=== PATIENT | female | born 1950 | race Caucasian/White ===

== ENCOUNTER → 2017-09-06 13:59 | Outpatient (CLI) | payer MEDICARE, BC, SELFPAY ==
--- NOTE | 2017-09-06 14:01 | ONC.NAV ---
Per Jessica in patient accounts, avandeo is a [facility] policy. She stated that the patient's most recent visit with us was paid by [employer], so if we stick with the [employer] in [place], we will get paid.
[2017-09-06 14:38] LABS: Alanine Aminotransferase 24 IU/L (9-52); Albumin 3.9 g/dL (3.5-5.0); Albumin Globulin Ratio 1.3 (1.0-2.8); Alkaline Phosphatase 56 U/L (38-126); Aspartate Aminotransferase 27 IU/L (14-36); BUN Creatinine Ratio 18.3 (6-22); Bilirubin Total 0.7 mg/dL (0.2-1.3); Blood Urea Nitrogen 11 mg/dL (7-17); Calcium 9.2 mg/dL (8.4-10.2); Carbon Dioxide 28 mmol/L (22-32); Chloride 103 mmol/L (98-107); Estimated Glomerular Filt Rate > 60.0 mL/min (>60); Globulin 3.1 g/dL (1.7-4.1); Glucose 94 mg/dL (80-110); HEMOLYSIS < 15 (0-50); Potassium 3.9 mmol/L (3.4-5.1); Sodium 139 mmol/L (137-145)
[2017-09-08 15:47] LABS: Cancer Antigen 27.29 22 U/mL (< 38)
== END ==
PROVIDERS: Family Provider Internal Medicine; PCP Specialist; Visit Provider Internal Medicine Hematology & Oncology
DX: C50.911 Malignant neoplasm of unspecified site of right female breast (principal)
CPT/HCPCS: 36415; 80053; 86300

== ENCOUNTER → 2017-12-22 12:01 | Outpatient (CLI) | payer MEDICARE, BC, SELFPAY ==
[2017-12-22 14:05] LABS: Basophils Percent Auto 0.6 % (0-2); Eosinophils Percent Auto 1.5 % (2-4); Hematocrit 35.1 % (36-46); Hemoglobin 11.6 g/dL (12.0-16.0); Lymphocytes Percent Auto 23.8 % (25-40); Mean Corpuscular Hemoglobin 32.9 PG (26-34); Mean Corpuscular Volume 99.6 fL (80-100); Neutrophils Absolute Auto 2800 /uL (3000-5900); Neutrophils Percent Auto 61.1 % (50-75); Platelet Count 218 X10^3/uL (150-400); Red Blood Cell Count 3.52 X10^6/uL (4.0-5.2); White Blood Cell Count 4.7 X10^3/uL (4.5-11.0)
[2017-12-22 14:37] LABS: Add Manual Diff / Slide Review SLIDE REVIEW
[2017-12-22 14:38] LABS: Anisocytosis 2+
[2017-12-22 14:39] LABS: Poikilocytosis 1+
[2017-12-22 15:00] LABS: Alanine Aminotransferase 34 IU/L (9-52); Albumin 4.2 g/dL (3.5-5.0); Albumin Globulin Ratio 1.5 (1.0-2.8); Alkaline Phosphatase 49 U/L (38-126); Aspartate Aminotransferase 30 IU/L (14-36); BUN Creatinine Ratio 23.3 (6-22); Bilirubin Total 0.5 mg/dL (0.2-1.3); Blood Urea Nitrogen 14 mg/dL (7-17); C-Reactive Protein Quant < 0.5 mg/dL (<1.0); Calcium 9.5 mg/dL (8.4-10.2); Carbon Dioxide 30 mmol/L (22-32); Chloride 101 mmol/L (98-107); Estimated Glomerular Filt Rate > 60.0 mL/min (>60); Globulin 2.8 g/dL (1.7-4.1); Glucose 79 mg/dL (80-110); HEMOLYSIS < 15 (0-50); Potassium 4.4 mmol/L (3.4-5.1); Sodium 141 mmol/L (137-145)
[2017-12-22 15:01] LABS: Erythrocyte Sedimentation Rate 20 MM/HR (0-20)
== END ==
PROVIDERS: Family Provider Internal Medicine; PCP Specialist; Visit Provider Internal Medicine Rheumatology
DX: M34.9 Systemic sclerosis, unspecified (principal); M35.09 Sjogren syndrome with other organ involvement; K21.9 Gastro-esophageal reflux disease without esophagitis; M79.7 Fibromyalgia
CPT/HCPCS: 36415; 80053; 85025; 85651; 86140

== ENCOUNTER → 2018-01-16 15:17 | Outpatient (CLI) | payer MEDICARE, BC, SELFPAY | PROVIDERS: PCP Specialist; Visit Provider Internal Medicine | DX: M85.851 Other specified disorders of bone density and structure, right thigh (principal); Z78.0 Asymptomatic menopausal state; Z85.3 Personal history of malignant neoplasm of breast; Z82.62 Family history of osteoporosis; Z90.722 Acquired absence of ovaries, bilateral | CPT/HCPCS: 77080 ==

== ENCOUNTER → 2018-03-09 12:28 | Outpatient (CLI) | payer MEDICARE, BC, SELFPAY ==
[2018-03-09 13:52] LABS: Add Manual Diff / Slide Review NO; Basophils Percent Auto 0.1 % (0-2); Eosinophils Percent Auto 1.6 % (2-4); Hematocrit 36.8 % (36-46); Hemoglobin 12.4 g/dL (12.0-16.0); Lymphocytes Percent Auto 18.7 % (25-40); Mean Corpuscular HGB Conc 33.7 % (30-36); Mean Corpuscular Hemoglobin 33.7 PG (26-34); Mean Corpuscular Volume 99.9 fL (80-100); Monocytes Percent Auto 11.1 % (3-14); Neutrophils Absolute Auto 5500 /uL (1500-7000); Neutrophils Percent Auto 68.5 % (50-75); Platelet Count 257 X10^3/uL (150-400); Red Blood Cell Count 3.68 X10^6/uL (4.0-5.2); Red Cell Distribution Width 16.3 % (11.6-14.8); White Blood Cell Count 8.1 X10^3/uL (4.5-11.0)
[2018-03-09 14:13] LABS: Erythrocyte Sedimentation Rate 16 MM/HR (0-20)
[2018-03-09 14:47] LABS: Alanine Aminotransferase 46 IU/L (9-52); Albumin 4.3 g/dL (3.5-5.0); Albumin Globulin Ratio 1.5 (1.0-2.8); Alkaline Phosphatase 50 U/L (38-126); Aspartate Aminotransferase 22 IU/L (14-36); Bilirubin Total 0.6 mg/dL (0.2-1.3); Blood Urea Nitrogen 15 mg/dL (7-17); C-Reactive Protein Quant < 0.5 mg/dL (<1.0); Calcium 9.9 mg/dL (8.4-10.2); Carbon Dioxide 28 mmol/L (22-32); Chloride 100 mmol/L (98-107); Estimated Glomerular Filt Rate > 60.0 mL/min (>60); Globulin 2.9 g/dL (1.7-4.1); Glucose 77 mg/dL (80-110); HEMOLYSIS < 15 (0-50); Potassium 4.3 mmol/L (3.4-5.1); Sodium 141 mmol/L (137-145); Total Protein 7.2 g/dL (6.3-8.2)
== END ==
PROVIDERS: PCP Specialist; Visit Provider Internal Medicine Rheumatology
DX: M34.9 Systemic sclerosis, unspecified (principal); M79.7 Fibromyalgia
CPT/HCPCS: 36415; 80053; 80307; 80373; 85025; 85651; 86140

== ENCOUNTER → 2018-03-19 10:58 | Outpatient (CLI) | payer MEDICARE, BC, SELFPAY ==
--- NOTE | 2018-03-19 | DI.MG.S_ITS ---
UNILATERAL LEFT DIGITAL SCREENING MAMMOGRAM 3D/2D WITH CAD POST MASTECTOMY: 03/19/2018 CLINICAL: Routine screening. Personal history of breast cancer. Family history of breast cancer. Comparison is made to exams dated: 04/05/2017 mammogram - [facility], 03/17/2017 mammogram, and 04/27/2016 mammogram - [facility]. The tissue of left breast is heterogeneously dense. This may lower the sensitivity of mammography. Current study was also evaluated with a Computer Aided Detection (CAD) system. No significant masses, calcifications, or other findings are seen in the breast. There has been no significant interval change. IMPRESSION: NEGATIVE There is no mammographic evidence of malignancy. A 1 year screening mammogram is recommended. This exam was interpreted at Station ID: [id number]. NOTE: For mammograms, a report in lay terms will be sent to the patient. Approximately 15% of breast malignancies will not be visualized mammographically. In the management of a palpable breast mass, a negative mammogram must not discourage biopsy of a clinically suspicious lesion. Electronically Signed By: Casa brock/uday:03/29/2018 09:17:55 letter sent: Normal Exam ACR BI-RADS Category 1: Negative 3341F
== END ==
PROVIDERS: PCP Specialist; Referring Provider Internal Medicine; Visit Provider Surgery
DX: Z12.31 Encounter for screening mammogram for malignant neoplasm of breast (principal); Z85.3 Personal history of malignant neoplasm of breast; Z80.3 Family history of malignant neoplasm of breast
CPT/HCPCS: 77063; 77067

== ENCOUNTER → 2018-03-28 11:29 | Outpatient (CLI) | payer MEDICARE, BC, SELFPAY ==
[2018-03-28 12:04] LABS: Add Manual Diff / Slide Review NO; Basophils Absolute Auto 0 /uL (0-100); Basophils Percent Auto 0.7 % (0-2); Eosinophils Absolute Auto 100 /uL (0-450); Eosinophils Percent Auto 2.9 % (2-4); Hemoglobin 12.2 g/dL (12.0-16.0); Lymphocytes Absolute Auto 800 /uL (1100-4500); Lymphocytes Percent Auto 17.9 % (25-40); Mean Corpuscular Hemoglobin 33.9 PG (26-34); Mean Corpuscular Volume 102.5 fL (80-100); Monocytes Absolute Auto 400 /uL (0-900); Monocytes Percent Auto 7.8 % (3-14); Neutrophils Absolute Auto 3300 /uL (1500-7000); Neutrophils Percent Auto 70.7 % (50-75); Platelet Count 165 X10^3/uL (150-400); Red Blood Cell Count 3.61 X10^6/uL (4.0-5.2); Red Cell Distribution Width 17.3 % (11.6-14.8); White Blood Cell Count 4.7 X10^3/uL (4.5-11.0)
[2018-03-28 12:13] LABS: Alanine Aminotransferase 40 IU/L (9-52); Albumin 4.2 g/dL (3.5-5.0); Albumin Globulin Ratio 1.4 (1.0-2.8); Alkaline Phosphatase 47 U/L (38-126); Aspartate Aminotransferase 27 IU/L (14-36); BUN Creatinine Ratio 21.7 (6-22); Bilirubin Total 0.8 mg/dL (0.2-1.3); Blood Urea Nitrogen 13 mg/dL (7-17); Calcium 9.6 mg/dL (8.4-10.2); Carbon Dioxide 27 mmol/L (22-32); Chloride 104 mmol/L (98-107); Estimated Glomerular Filt Rate > 60.0 mL/min (>60); Globulin 3.1 g/dL (1.7-4.1); Glucose 80 mg/dL (80-110); HEMOLYSIS < 15 (0-50); Magnesium 2.1 mg/dL (1.6-2.3); Sodium 138 mmol/L (137-145); Total Protein 7.3 g/dL (6.3-8.2)
[2018-03-28 12:44] LABS: Cancer Antigen 125 12 U/mL (0-35); Carcinoembryonic Antigen 2.7 ng/mL (0.1-3.0)
[2018-03-28 13:48] LABS: Thyroid Stimulating Hormone 1.56 uIU/mL (0.47-4.68)
[2018-03-30 19:56] LABS: Cancer (Carbohydrate) Ag 19-9 19 U/mL (< 34); Cancer Antigen 27.29 22 U/mL (< 38)
== END ==
PROVIDERS: PCP Specialist; Visit Provider Surgery
DX: C50.919 Malignant neoplasm of unspecified site of unspecified female breast (principal); Z85.3 Personal history of malignant neoplasm of breast
CPT/HCPCS: 36415; 80053; 82378; 83735; 84443; 85025; 86300; 86301; 86304; 99213

== ENCOUNTER → 2018-06-22 10:56 | Outpatient (CLI) | payer MEDICARE, BC, SELFPAY ==
[2018-06-22 12:10] LABS: Add Manual Diff / Slide Review NO; Basophils Absolute Auto 0 /uL (0-100); Basophils Percent Auto 0.7 % (0-2); Eosinophils Absolute Auto 100 /uL (0-450); Eosinophils Percent Auto 1.8 % (2-4); Hematocrit 35.3 % (36-46); Hemoglobin 11.9 g/dL (12.0-16.0); Lymphocytes Absolute Auto 1000 /uL (1100-4500); Lymphocytes Percent Auto 30.2 % (25-40); Mean Corpuscular HGB Conc 33.6 % (30-36); Mean Corpuscular Hemoglobin 34.6 PG (26-34); Monocytes Absolute Auto 300 /uL (0-900); Monocytes Percent Auto 10.2 % (3-14); Neutrophils Absolute Auto 1800 /uL (1500-7000); Neutrophils Percent Auto 57.1 % (50-75); Platelet Count 247 X10^3/uL (150-400); Red Blood Cell Count 3.43 X10^6/uL (4.0-5.2); Red Cell Distribution Width 14.6 % (11.6-14.8); White Blood Cell Count 3.2 X10^3/uL (4.5-11.0)
[2018-06-22 12:35] LABS: Erythrocyte Sedimentation Rate 19 MM/HR (0-20)
[2018-06-22 12:57] LABS: Alanine Aminotransferase 33 IU/L (9-52); Albumin 4.3 g/dL (3.5-5.0); Albumin Globulin Ratio 1.6 (1.0-2.8); Alkaline Phosphatase 48 U/L (38-126); Aspartate Aminotransferase 28 IU/L (14-36); BUN Creatinine Ratio 17.1 (6-22); Bilirubin Total 0.5 mg/dL (0.2-1.3); Blood Urea Nitrogen 12 mg/dL (7-17); Calcium 9.9 mg/dL (8.4-10.2); Carbon Dioxide 27 mmol/L (22-32); Chloride 103 mmol/L (98-107); Estimated Glomerular Filt Rate > 60.0 mL/min (>60); Globulin 2.7 g/dL (1.7-4.1); Glucose 79 mg/dL (80-110); HEMOLYSIS < 15 (0-50); Potassium 4.6 mmol/L (3.4-5.1); Sodium 139 mmol/L (137-145)
[2018-06-22 12:58] LABS: C-Reactive Protein Quant < 0.5 mg/dL (<1.0)
== END ==
PROVIDERS: Internal Medicine Rheumatology; Family Provider Internal Medicine; PCP Internal Medicine; Visit Provider Specialist/Technologist Athletic Trainer
DX: M34.9 Systemic sclerosis, unspecified (principal)
CPT/HCPCS: 36415; 80053; 85025; 85651; 86140

== ENCOUNTER → 2018-07-26 11:03 | Outpatient (CLI) | payer MEDICARE, BC, SELFPAY ==
--- NOTE | 2018-07-27 16:25 | PM.PFT.1 ---
Pulmonary Function Test Referral & Results Date Patient Seen: 07/26/18 Requesting provider: Katia Alvarez Results: The spirometry demonstrates an FVC of 2.08 L which is 60% of predicted. The FEV1 was measured at 1.34 L which is 58% of predicted. The FEV1/FVC ratio was 60 for which is 83% of predicted. Following the administration of bronchodilator there was a 13% improvement in FEV1 and a 40% improvement in FEF 25-75%. Lung volumes show an SVC of 2.17 L which is 76% of predicted. The diffusing capacity was measured at 17.6 for which is 76% of predicted. No hemoglobin value was provided, so no correction for potential anemia could be made, if appropriate. The maximum voluntary ventilation was reduced Interpretation: This study demonstrates moderately severe obstructive lung disease based on reduction in FEV1 and FEV1/FVC ratio. There is some evidence of limited benefit following bronchodilator based on improvement in FEV1 and FEF 25-75% There is mild restrictive lung disease present based on a slight reduction in lung volumes There is also mild disease of the capillary alveolar level based on reduction in diffusing capacity
== END ==
PROVIDERS: Family Provider Internal Medicine; PCP Internal Medicine; Visit Provider Internal Medicine Rheumatology
DX: M34.81 Systemic sclerosis with lung involvement (principal)
CPT/HCPCS: 94060; 94726; 94729

== ENCOUNTER → 2018-10-18 13:31 | Outpatient (CLI) | payer MEDICARE, BC, SELFPAY ==
[2018-10-18 14:20] LABS: Add Manual Diff / Slide Review NO; Basophils Absolute Auto 0 /uL (0-100); Basophils Percent Auto 0.8 % (0-2); Eosinophils Absolute Auto 100 /uL (0-450); Eosinophils Percent Auto 2.1 % (2-4); Hemoglobin 11.7 g/dL (12.0-16.0); Lymphocytes Absolute Auto 1400 /uL (1100-4500); Lymphocytes Percent Auto 25.7 % (25-40); Mean Corpuscular HGB Conc 33.3 % (30-36); Mean Corpuscular Hemoglobin 33.5 PG (26-34); Mean Corpuscular Volume 100.5 fL (80-100); Monocytes Absolute Auto 700 /uL (0-900); Monocytes Percent Auto 12.4 % (3-14); Neutrophils Absolute Auto 3200 /uL (1500-7000); Platelet Count 254 X10^3/uL (150-400); Red Blood Cell Count 3.48 X10^6/uL (4.0-5.2); Red Cell Distribution Width 16.8 % (11.6-14.8); White Blood Cell Count 5.5 X10^3/uL (4.5-11.0)
[2018-10-18 14:46] LABS: Alanine Aminotransferase 23 IU/L (9-52); Albumin 4.3 g/dL (3.5-5.0); Albumin Globulin Ratio 1.5 (1.0-2.8); Alkaline Phosphatase 54 U/L (38-126); Aspartate Aminotransferase 27 IU/L (14-36); BUN Creatinine Ratio 16.7 (6-22); Bilirubin Total 0.7 mg/dL (0.2-1.3); Blood Urea Nitrogen 10 mg/dL (7-17); Calcium 9.8 mg/dL (8.4-10.2); Carbon Dioxide 28 mmol/L (22-32); Chloride 103 mmol/L (98-107); Estimated Glomerular Filt Rate > 60.0 mL/min (>60); Globulin 2.8 g/dL (1.7-4.1); Glucose 82 mg/dL (80-110); HEMOLYSIS < 15 (0-50); Potassium 4.1 mmol/L (3.4-5.1); Sodium 140 mmol/L (137-145); Total Protein 7.1 g/dL (6.3-8.2)
== END ==
PROVIDERS: PCP Specialist; Visit Provider Internal Medicine Rheumatology
DX: M34.1 CR(E)ST syndrome (principal); Z79.899 Other long term (current) drug therapy
CPT/HCPCS: 36415; 80053; 85025

== ENCOUNTER 2018-12-17 19:56 | Emergency (ER) | payer MEDICARE, BC, SELFPAY ==
[2018-12-17 19:59] VITALS: BP 128/71; PULSE 54; RESP 18; TEMP 36.4; O2SAT 98
--- NOTE | 2018-12-17 21:00 | ED_ITS ---
HPI - Skin/Abscess/Foreign Bdy General Chief complaint: Skin/Abscess/Foreign Body Stated complaint: FALL HIT HEAD Time Seen by Provider: 12/17/18 20:41 Source: patient Mode of arrival: Ambulatory Limitations: no limitations History of Present Illness HPI narrative: 68-year-old female not on anticoagulation here for evaluation of a cut to the left side of her head. Patient states that she was walking around the back of her car when she hit her leg on the bike rack that was sticking out of the back. States she then hit her head on the buy crack and fell forward. She had no loss of consciousness. Stated cut to the left side of her head. States that she has some abrasions on her left knee but has been able to be ambulatory since then. No other injuries reported from the event. States her last tetanus shot was within the past 5 years Related Data Home Medications Medication Instructions Recorded Confirmed acetaminophen [Tylenol Extra 0 mg PO Q4HP PRN #0 03/22/17 03/28/18 Strength] carboxymethylcellulose sodium 15 ml #0 03/22/17 03/28/18 [Refresh Tears] citalopram [Celexa] 40 mg PO QDAY #0 03/22/17 03/28/18 cyclosporine [Restasis] 1 drp OPHTH #0 03/22/17 03/28/18 diclofenac sodium 100 mg PO QDAYP PRN #0 03/22/17 03/28/18 diltiazem HCl [Cartia XT] 300 mg PO QDAY #0 03/22/17 03/28/18 docusate sodium [Colace] 100 mg PO QDAY #0 03/22/17 03/28/18 doxazosin [Cardura] 1 mg PO HS #0 03/22/17 03/28/18 folic acid 1 mg PO QDAY #0 03/22/17 03/28/18 lidocaine #0 03/22/17 03/28/18 melatonin 5 mg #0 03/22/17 03/28/18 modafinil 200 mg PO QDAY #0 03/22/17 03/28/18 oekuvrwpo-mfewqb-hptzfdrf-scop 1 tab PO #0 03/22/17 03/28/18 polyethylene glycol 3350 [Miralax] 17 gm PO QDAY #0 03/22/17 03/28/18 tramadol 0 mg PO Q4HP PRN #0 MDD P 03/22/17 03/28/18 zolpidem [Edluar] 10 mg SUBLINGUAL HSP PRN #0 03/22/17 03/28/18 [BIOTENE] Q DAY #0 04/20/17 03/28/18 cholecalciferol (vitamin D3) 1,000 unit PO QDAY #0 04/20/17 03/28/18 [Vitamin D3] magnesium oxide 400 mg PO Q DAY #0 04/20/17 03/28/18 multivitamin [Multiple Vitamins] 1 tab PO QDAY #0 04/20/17 03/28/18 omega 6-pjc-czc-fish oil [Fish Oil] 1,000 mg PO Q DAY #0 04/20/17 03/28/18 omeprazole 20 mg PO BID #0 04/20/17 03/28/18 vitamin B complex [B 1 tab PO QDAY #0 04/20/17 03/28/18 Complex-Vitamin B12] methotrexate sodium 2.5 mg tablet 20 mg PO #0 tab 02/14/18 03/28/18 Previous Rx's Medication Instructions Recorded docusate sodium [Colace] 100 mg PO BID #14 cap 05/17/17 Allergies Allergy/AdvReac Type Severity Reaction Status Date / Time doxepin [DOXEPIN] Allergy Mild SEVERE Verified 12/17/18 20:01 NAUSEA gabapentin Allergy Mild Rash Verified 12/17/18 20:01 pregabalin [From LYRICA] Allergy Mild RASH/ITCHIN Verified 12/17/18 20:01 G sulfamethoxazole Allergy Unknown Verified 12/17/18 20:01 [From BACTRIM] trimethoprim [From BACTRIM] Allergy Unknown Verified 12/17/18 20:01 tetracycline [TETRACYCLINE] AdvReac Unknown YEAST Verified 12/17/18 20:01 INFECTION Review of Systems Constitutional Constitutional: Denies fever(s), Denies frequent falls and Denies headache(s) Eyes Eyes: Denies blurry vision and Denies change in vision ENT Ears, Nose, Mouth, and Throat: Denies headache(s) Cardiovascular Cardiovascular: Denies chest pain and Denies dyspnea Respiratory Respiratory: Denies dyspnea Gastrointestinal Gastrointestinal: Denies abdominal pain Musculoskeletal Musculoskeletal: Denies myalgias and Denies arthralgias Integumentary/Breasts Comments: Cut to left side had Neurologic Neurologic: Denies behavioral changes, Denies frequent falls and Denies hea dache(s) Psychiatric Psychiatric: Denies behavioral changes Hematologic/Lymphatic Hematologic/Lymphatic: Denies easy bleeding and Denies easy bruising [facility] Medical History Chronic GERD (Chronic) Fibromyalgia (Chronic) Generalized scleroderma (Chronic) History of malignant neoplasm of breast (03/22/17) IBS (irritable bowel syndrome) (Chronic) Raynauds disease (Chronic) Social History Smoking Status: Never smoker Social History Smoking Status: Never smoker Exam Initial Vital Signs Initial Vital Signs: Vital Signs Temperature 97.6 F 12/17/18 19:59 Pulse Rate 54 L 12/17/18 19:59 Respiratory Rate 18 12/17/18 19:59 Blood Pressure 128/71 12/17/18 19:59 Pulse Oximetry 98 12/17/18 19:59 Const General: cooperative, comfortable, well developed and well groomed Orientation: alert, awake and oriented x3 HENMT Head: abrasion, contusion, laceration and other Resp Effort & Inspection: normal respiratory effort Skin Other: Abrasions to the left side of the head and a 0.5 cm laceration just lateral to the left eyebrow Neuro General: alert, awake and oriented x3 Extrem General: normal to inspection and capillary refill normal Procedures Laceration Repair Laceration 1: Site: face Side (If applicable): left Size (cm): 0.5 Description: linear Depth: simple, single layer Pre-repair: wound explored Skin layer closed with: other (Chromic) Size (cm): 5-0 Number of sutures: 2 Technique: simple, interrupted Scores GCS York coma scale eye opening: Spontaneous York coma scale verbal response: Orientated York coma scale motor response: Obey commands Kayla coma scale total score: 15 Nexus Score for C-Spine Focal Neurologic deficit present: No Midline spinal tenderness present: No Altered level of conciousness present: No Intoxication present: No Distracting Injury Present: No Nexus Criteria for C-spine: 0 Course Orders Ordered: Discontinued Medications Bacitracin (Bacitracin) 1 applic TOP NOW ONE Stop: 12/17/18 21:01 Last Admin: 12/17/18 21:10 Dose: 1 applic Documented by: SHRUTHI Vital Signs Vital signs: Vital Signs - 8 hr 12/17/18 19:59 Temperature 97.6 F Pulse Rate 54 L Respiratory Rate 18 Blood Pressure 128/71 Pulse Oximetry 98 MDM - Skin/Abscess/Foreign Bdy MDM Narrative Medical decision making narrative: This was a mechanical fall. Her tetanus is updated. Cut was closed as described above. No other injuries reported from the event. Patient not on anticoagulation. No indication for radiologic studies. She was given care instructions and return precautions. She expressed understanding and agreement with plan Discharge Plan Departure Patient Disposition: Home Clinical Impression: Laceration Contusion of face Qualifiers: Encounter type: initial encounter Qualified Code(s): S00.83XA - Contusion of other part of head, initial encounter Fall Qualifiers: Encounter type: initial encounter Qualified Code(s): W19.XXXA - Unspecified fall, initial encounter Discharge Date/Time: 12/17/18 21:15 Instructions: DI for Laceration Repair -- Simple Activity Restrictions/Additional Instructions: Keep the cut covered with a bandage. You can shower like normal and use soap and water like normal. you can also ice this area. Contact your primary provider for a follow-up. Return to the emergency department for any new or worsening symptoms Prescriptions: No Action diltiazem HCl [Cartia XT] 300 MG capsule,extended release 24hr 300 mg PO QDAY Qty: 0 RF: 0 zolpidem [Edluar] 10 MG tablet, sublingual 10 mg Sublingual HSP PRN (Reason: Insomnia) Qty: 0 RF: 0 lidocaine LIDOCAINE 5% ointment Qty: 0 RF: 0 tramadol 50 MG tablet 0 mg PO Q4HP MDD P PRN (Reason: Pain (Scale Score 1-3)) Qty: 0 RF: 0 citalopram [Celexa] 20 MG tablet 40 mg PO QDAY Qty: 0 RF: 0 modafinil 200 MG tablet 200 mg PO QDAY Qty: 0 RF: 0 folic acid 1 MG tablet 1 mg PO QDAY Qty: 0 RF: 0 doxazosin [Cardura] 1 MG tablet 1 mg PO HS Qty: 0 RF: 0 diclofenac sodium 100 MG tablet extended release 24 hr 100 mg PO QDAYP PRN (Reason: Inflammation) Qty: 0 RF: 0 vdplmqwiw-kemkmb-xyubbepj-scop 16.2 MG tablet 1 tab PO Qty: 0 RF: 0 acetaminophen [Tylenol Extra Strength] 500 MG tablet 0 mg PO Q4HP PRN (Reason: Pain (Scale Score 1-3)) Qty: 0 RF: 0 docusate sodium [Colace] 100 MG capsule 100 mg PO QDAY Qty: 0 RF: 0 cyclosporine [Restasis] 1 EACH dropperette 1 drp OPHTH Qty: 0 RF: 0 carboxymethylcellulose sodium [Refresh Tears] 15 ML drops 15 ml Qty: 0 RF: 0 polyethylene glycol 3350 [Miralax] 119 GM powder 17 gm PO QDAY Qty: 0 RF: 0 melatonin 5 MG tablet 5 mg Qty: 0 RF: 0 multivitamin [Multiple Vitamins] 1 EACH tablet 1 tab PO QDAY Qty: 0 RF: 0 omeprazole 20 MG capsule,delayed release(DR/EC) 20 mg PO BID Qty: 0 RF: 0 cholecalciferol (vitamin D3) [Vitamin D3] 1,000 UNIT tablet 1,000 unit PO QDAY Qty: 0 RF: 0 vitamin B complex [B Complex-Vitamin B12] 1 EACH tablet 1 tab PO QDAY Qty: 0 RF: 0 omega 1-gjw-nqb-fish oil [Fish Oil] 1,000 MG capsule 1,000 mg PO Q DAY Qty: 0 RF: 0 magnesium oxide 400 MG capsule 400 mg PO Q DAY Qty: 0 RF: 0 [BIOTENE] Q DAY Qty: 0 RF: 0 docusate sodium [Colace] 100 MG capsule 100 mg PO BID Qty: 14 RF: 1 methotrexate sodium 2.5 mg tablet 20 mg PO Qty: 0 RF: 0 Referrals: Sudha Umana MD [Primary Care Provider] -
[2018-12-17] MEDS: BACITRACIN OINT 0.9 GM PCKT 1 APPLIC TOP (21:10)
== END 2018-12-17 21:15 | disposition home or self-care (01) ==
PROVIDERS: Emergency Provider Emergency Medicine; PCP Specialist
DX: S01.81XA Laceration without foreign body of other part of head, initial encounter (principal); W22.8XXA Striking against or struck by other objects, initial encounter
CPT/HCPCS: 12011; 99282

== ENCOUNTER → 2019-01-18 15:48 | Outpatient (CLI) | payer MEDICARE, BC, SELFPAY ==
[2019-01-18 15:59] LABS: Bacteria Urine None Seen; RBC Urine None Seen (0-5/HPF)
[2019-01-18 16:15] LABS: Add Manual Diff / Slide Review NO; Basophils Absolute Auto 0 /uL (0-100); Basophils Percent Auto 0.7 % (0-2); Eosinophils Absolute Auto 100 /uL (0-450); Eosinophils Percent Auto 1.5 % (2-4); Hematocrit 34.8 % (36-46); Hemoglobin 11.6 g/dL (12.0-16.0); Lymphocytes Absolute Auto 1300 /uL (1100-4500); Lymphocytes Percent Auto 23.3 % (25-40); Mean Corpuscular HGB Conc 33.2 % (30-36); Mean Corpuscular Hemoglobin 33.9 PG (26-34); Monocytes Absolute Auto 500 /uL (0-900); Monocytes Percent Auto 9.8 % (3-14); Neutrophils Absolute Auto 3500 /uL (1500-7000); Neutrophils Percent Auto 64.7 % (50-75); Platelet Count 223 X10^3/uL (150-400); Red Blood Cell Count 3.41 X10^6/uL (4.0-5.2); Red Cell Distribution Width 15.8 % (11.6-14.8); White Blood Cell Count 5.4 X10^3/uL (4.5-11.0)
[2019-01-18 16:19] LABS: Appearance Urine UA CLEAR; Bilirubin Urine UA NEGATIVE (NEGATIVE); Color Urine UA YELLOW; Glucose Urine UA NEGATIVE (Negative); Ketones Urine UA NEGATIVE (NEGATIVE); Leukocyte Esterase Urine UA NEGATIVE (NEGATIVE); Nitrite Urine UA NEGATIVE (Negative); Occult Blood Urine UA NEGATIVE (Negative); Protein Urine UA NEGATIVE (Negative); Specific Gravity Urine UA <=1.005 (1.000-1.035); Urobilinogen Urine UA 0.2 E.U./dL (0.2)
[2019-01-18 16:20] LABS: HEMOLYSIS < 15 (0-50)
[2019-01-18 16:26] LABS: Alanine Aminotransferase 24 IU/L (<35); Albumin 4.6 g/dL (3.5-5.0); Albumin Globulin Ratio 1.5 (1.0-2.8); Alkaline Phosphatase 56 U/L (38-126); Aspartate Aminotransferase 31 IU/L (14-36); BUN Creatinine Ratio 23.3 (6-22); Bilirubin Total 0.5 mg/dL (0.2-1.3); Blood Urea Nitrogen 14 mg/dL (7-17); Calcium 9.6 mg/dL (8.4-10.2); Carbon Dioxide 28 mmol/L (22-32); Chloride 101 mmol/L (98-107); Estimated Glomerular Filt Rate > 60.0 mL/min (>60); Glucose 92 mg/dL (80-110); Potassium 3.8 mmol/L (3.4-5.1); Sodium 139 mmol/L (137-145); Total Protein 7.6 g/dL (6.3-8.2)
[2019-01-18 16:34] LABS: pH Urine UA 6.5 (4.5-8.0)
[2019-01-18 16:35] LABS: Culture Indicated Urine Cult Not Indicated; Squamous Epithelial Cell Urine 0-1 /HPF (0-5/HPF); WBC Urine 0-1/HPF (0-5/HPF)
[2019-01-18 16:58] LABS: Cancer Antigen 125 10 U/mL (0-35)
[2019-01-22 16:05] LABS: Cancer Antigen 27.29 29 U/mL (< 38)
[2019-01-22 16:06] LABS: CA 15-3 24 U/mL (< 32)
== END ==
PROVIDERS: Family Provider Internal Medicine Hematology & Oncology; PCP Internal Medicine; Visit Provider Specialist
DX: R30.0 Dysuria (principal); R30.9 Painful micturition, unspecified; C50.919 Malignant neoplasm of unspecified site of unspecified female breast
CPT/HCPCS: 36415; 80053; 81001; 85025; 86300; 86304

== ENCOUNTER → 2019-03-20 09:59 | Outpatient (CLI) | payer MEDICARE, BC, SELFPAY ==
--- NOTE | 2019-03-20 10:01 | DI.MG.S_ITS ---
UNILATERAL LEFT DIGITAL SCREENING MAMMOGRAM 3D/2D WITH CAD POST MASTECTOMY: 03/20/2019 CLINICAL: Routine screening. Personal history of right breast cancer. Post right mastectomy. Comparison is made to exams dated: 03/19/2018 mammogram, 04/05/2017 fine needle aspiration, and 04/05/2017 mammogram - [facility]. There are scattered fibroglandular elements in left breast. Current study was also evaluated with a Computer Aided Detection (CAD) system. No significant masses, calcifications, or other findings are seen in the breast. There has been no significant interval change. IMPRESSION: NEGATIVE There is no mammographic evidence of malignancy. A 1 year screening mammogram is recommended. This exam was interpreted at Station ID: [id number]. NOTE: For mammograms, a report in lay terms will be sent to the patient. Approximately 15% of breast malignancies will not be visualized mammographically. In the management of a palpable breast mass, a negative mammogram must not discourage biopsy of a clinically suspicious lesion. Electronically Signed By: Casa brock/uday:03/21/2019 14:23:17 letter sent: Normal Exam ACR BI-RADS Category 1: Negative 3341F
== END ==
PROVIDERS: Family Provider Internal Medicine Hematology & Oncology; PCP Internal Medicine; Visit Provider Internal Medicine Hematology & Oncology
DX: Z12.31 Encounter for screening mammogram for malignant neoplasm of breast (principal); Z85.3 Personal history of malignant neoplasm of breast; Z90.11 Acquired absence of right breast and nipple
CPT/HCPCS: 77063; 77067

== ENCOUNTER → 2019-06-24 12:31 | Outpatient (CLI) | payer MEDICARE, BC, SELFPAY | PROVIDERS: Family Provider Internal Medicine Hematology & Oncology; PCP Internal Medicine; Visit Provider Specialist | DX: R30.0 Dysuria (principal) | CPT/HCPCS: 87077; 87086; 87186 ==

== ENCOUNTER → 2019-06-26 13:53 | Outpatient (CLI) | payer MEDICARE, BC, SELFPAY ==
--- NOTE | 2019-06-26 | DI.ECHO.S_ITS ---
[facility] +---------+ : : [address] : [place] : : : : [id number] : : : : Phone: [phone]---------+ Echocardiogram Report + + :Name: JAVIER GREEN Study Date: 06/26/2019 Height: 63 in : :[facility] Weight: 150 lb : : Gender: Female BSA: 1.7 m2 : :: 1950 Age: 68 yrs BP: 118/80 mmHg: :Reason For Study: CR (E) ST SYNDROM : : Performed By: Leidy Wooten : :Referring: BRAD LUCIANO : + + Interpretation Summary The ejection fraction is estimated to be 60-65%. The atrial septum is aneurysmal. There is no Doppler evidence for an interatrial shunt. There is mild mitral regurgitation. Compared to the prior echo report on 2018, there is no significant change. Procedure: A two-dimensional transthoracic echocardiogram with color flow and Doppler was performed. The study quality was technically good. Comparison is made with the echocardiogram of 07/31/2017. The patient was in sinus bradycardia with heart rates between 50-62 bpm during the exam. Left Ventricle: The left ventricle is normal in size and wall thickness. The ejection fraction is estimated to be 60-65%. Global Longitudinal Peak Systolic Strain Average of -19.4%. Diastolic parameters suggest a relaxation abnormality of the left ventricle, consistent with probable normal filling pressures. Right Ventricle: The right ventricle is normal in size and function. Atria: The left atrium is moderately dilated. Right atrial size is normal. The atrial septum is aneurysmal. There is no Doppler evidence for an interatrial shunt. Mitral Valve: The mitral valve is normal in structure and function. There is mild mitral regurgitation. Aortic Valve: The aortic valve is trileaflet. The aortic valve opens well. There is no aortic valve stenosis. No aortic regurgitation is present. Tricuspid Valve: The tricuspid valve is normal in structure and function. There is a trace or physiologic amount of tricuspid regurgitation. The right ventricular systolic pressure is estimated to be at least 22 mmHg based on an estimated right atrial pressure of 3 mm Hg. Pulmonic Valve: The pulmonic valve is normal in structure and function. There is a trace or physiologic amount of pulmonic regurgitation. Great Vessels: The aortic root is normal size. The ascending aorta is mildly enlarged. The IVC is of normal diameter and collapses greater than 50% with a sniff. This suggests a low right atrial pressure of 3 mm Hg. Pericardium/ Pleura There is no pericardial effusion. There is no pleural effusion. MMode/2D Measurements & Calculations LVIDd: 4.6 cm LVOT diam: 2.1 cm LVIDs: 3.2 cm Ao root diam: 3.5 cm FS: 30.5 % asc Aorta Diam: 3.8 cm EPSS: 0.66 cm Ao Arch Diam (Prox Trans): 2.5 cm IVSd: 0.94 cm LVPWd: 1.0 cm LV guzman. diameter/BSA (cm/m^2): 2.7 LV sys. diameter/BSA (cm/m^2): 1.9 LA A2 area: 26.4 cm2 RA long axis: 5.9 cm LA A4 area: 22.5 cm2 RA area: 19.0 cm2 LA length (vol): 6.3 cm RA vol: 51.9 ml LA vol: 80.1 ml RA : 30.3 ml/m2 LA vol index: 46.8 ml/m2 IVC diam: 1.2 cm RVD1 (basal): 3.5 cm TAPSE: 2.5 cm Doppler Measurements & Calculations Ao V2 max: 159.8 cm/sec LVOT Max Mina: 114.1 cm/sec Ao V2 mean: 106.7 cm/sec LV V1 max P.2 mmHg Ao max P.2 mmHg LV V1 VTI: 26.4 cm Ao mean P.2 mmHg HAKAN(I,D): 2.5 cm2 Ao V2 VTI: 37.0 cm HAKAN(V,D): 2.5 cm2 sev ratio: 0.71 HAKAN indexed to BSA (cm^2/m^2): 1.5 MV E max mina: 78.6 cm/sec TR max mina: 217.6 cm/sec MV A max mina: 53.1 cm/sec TR max P.2 mmHg MV E/A: 1.5 Med Peak E' Mina: 8.8 cm/sec E/E' med: 8.9 Lat Peak E' Mina: 12.4 cm/sec E/E' lat: 6.4 E/e' average: 7.6 MV dec time: 0.20 sec SV(LVOT): 92.3 ml Reading Physician:11:41 AM
[2019-06-26 16:41] LABS: Add Manual Diff / Slide Review NO; Basophils Absolute Auto 0 /uL (0-100); Basophils Percent Auto 0.9 % (0-2); Eosinophils Absolute Auto 0 /uL (0-450); Hematocrit 35.1 % (36-46); Hemoglobin 11.4 g/dL (12.0-16.0); Lymphocytes Absolute Auto 1100 /uL (1100-4500); Lymphocytes Percent Auto 23.6 % (25-40); Mean Corpuscular HGB Conc 32.6 % (30-36); Mean Corpuscular Hemoglobin 32.9 PG (26-34); Mean Corpuscular Volume 100.9 fL (80-100); Monocytes Absolute Auto 600 /uL (0-900); Monocytes Percent Auto 12.8 % (3-14); Neutrophils Absolute Auto 3000 /uL (1500-7000); Neutrophils Percent Auto 61.7 % (50-75); Platelet Count 236 X10^3/uL (150-400); Red Blood Cell Count 3.48 X10^6/uL (4.0-5.2); Red Cell Distribution Width 16.1 % (11.6-14.8); White Blood Cell Count 4.9 X10^3/uL (4.5-11.0)
[2019-06-26 17:01] LABS: Alanine Aminotransferase 15 IU/L (<35); Albumin 4.4 g/dL (3.5-5.0); Albumin Globulin Ratio 1.3 (1.0-2.8); Alkaline Phosphatase 57 U/L (38-126); Aspartate Aminotransferase 29 IU/L (14-36); BUN Creatinine Ratio 22.9 (6-22); Bilirubin Total 0.6 mg/dL (0.2-1.3); Blood Urea Nitrogen 16 mg/dL (7-17); Calcium 9.6 mg/dL (8.4-10.2); Carbon Dioxide 29 mmol/L (22-32); Chloride 103 mmol/L (98-107); Estimated Glomerular Filt Rate > 60.0 mL/min (>60); Globulin 3.4 g/dL (1.7-4.1); Glucose 84 mg/dL (80-110); HEMOLYSIS < 15 (0-50); Potassium 4.2 mmol/L (3.4-5.1); Sodium 138 mmol/L (137-145); Total Protein 7.8 g/dL (6.3-8.2)
== END ==
PROVIDERS: Family Provider Internal Medicine Hematology & Oncology; PCP Internal Medicine; Referring Provider Internal Medicine Rheumatology; Visit Provider Internal Medicine Rheumatology
DX: M34.1 CR(E)ST syndrome (principal); I34.0 Nonrheumatic mitral (valve) insufficiency; I77.89 Other specified disorders of arteries and arterioles; Z79.899 Other long term (current) drug therapy
CPT/HCPCS: 36415; 80053; 85025; 93306

== ENCOUNTER 2019-11-03 14:02 | Emergency (ER) | payer MEDICARE, BC, SELFPAY ==
[2019-11-03 14:05] VITALS: BP 145/66; PULSE 75; RESP 14; TEMP 36.7; O2SAT 99
--- NOTE | 2019-11-03 14:11 | ED.UPPEXIN ---
HPI - Extremity Injury (Upper) General Chief Complaint: Extremity Injury, Upper Stated Complaint: Fall, Rt Wrist Injury Time Seen by Provider: 11/03/19 14:06 Source: patient Mode of arrival: Ambulatory Limitations: no limitations History of Present Illness HPI narrative: The patient is a 69-year-old female with history of scleroderma and Raynauds presenting with right wrist pain. She fell backwards weaning on her wrist yesterday. She comes in with a wrist splint are ready on and increased pain. She denies numbness or tingling. No other injury at this time. complaint: injury to: right and wrist Related Data Home Medications Medication Instructions Recorded Confirmed Edluar 10 mg SUBLINGUAL HSP PRN #0 03/22/17 06/24/19 Refresh Tears 15 ml #0 03/22/17 06/24/19 Restasis 1 drp OPHTH #0 03/22/17 06/24/19 acetaminophen [Tylenol Extra 0 mg PO Q4HP PRN #0 03/22/17 06/24/19 Strength] diclofenac sodium 100 mg PO QDAYP PRN #0 03/22/17 06/24/19 diltiazem HCl [Cartia XT] 300 mg PO QDAY #0 03/22/17 06/24/19 doxazosin [Cardura] 1 mg PO HS #0 03/22/17 06/24/19 folic acid 1 mg PO QDAY #0 03/22/17 06/24/19 lidocaine #0 03/22/17 06/24/19 melatonin 5 mg #0 03/22/17 06/24/19 modafinil 200 mg PO QDAY #0 03/22/17 06/24/19 tdlymrhbj-xzggfw-uuysibna-scop 1 tab PO #0 03/22/17 06/24/19 polyethylene glycol 3350 [Miralax] 17 gm PO QDAY #0 03/22/17 06/24/19 tramadol 0 mg PO Q4HP PRN #0 MDD P 03/22/17 06/24/19 [BIOTENE] Q DAY #0 04/20/17 06/24/19 cholecalciferol (vitamin D3) 1,000 unit PO QDAY #0 04/20/17 06/24/19 [Vitamin D3] magnesium oxide 400 mg PO Q DAY #0 04/20/17 06/24/19 multivitamin [Multiple Vitamins] 1 tab PO QDAY #0 04/20/17 06/24/19 omega 6-mvs-apz-fish oil [Fish Oil] 1,000 mg PO Q DAY #0 04/20/17 06/24/19 omeprazole 20 mg PO BID #0 04/20/17 06/24/19 vitamin B complex [B 1 tab PO QDAY #0 04/20/17 06/24/19 Complex-Vitamin B12] methotrexate sodium 2.5 mg tablet 20 mg PO #0 tab 02/14/18 06/24/19 citalopram 20 mg tablet 20 mg PO DAILY 03/20/19 06/24/19 Previous Rx's Medication Instructions Recorded docusate sodium [Colace] 100 mg PO BID #14 cap 05/17/17 Allergies Allergy/AdvReac Type Severity Reaction Status Date / Time doxepin [DOXEPIN] Allergy Mild SEVERE Verified 11/03/19 14:11 NAUSEA gabapentin Allergy Mild Rash Verified 11/03/19 14:11 pilocarpine Allergy Mild Nausea Verified 11/03/19 14:13 pregabalin [From LYRICA] Allergy Mild RASH/ITCHIN Verified 11/03/19 14:11 G sulfamethoxazole Allergy Unknown Verified 11/03/19 14:11 [From BACTRIM] trimethoprim [From BACTRIM] Allergy Unknown Verified 11/03/19 14:11 diclofenac AdvReac Mild Nausea Verified 11/03/19 14:13 tetracycline [TETRACYCLINE] AdvReac Unknown YEAST Verified 11/03/19 14:11 INFECTION Review of Systems Review of Systems Narrative: GENERAL: Denies chills,fever HEENT: Denies throat pain RESPIRATORY: Denies dyspnea, cough, wheezing CARDIOVASCULAR: Denies chest pain, palpitations GASTROINTESTINAL: Denies nausea, vomiting MUSCULOSKELETAL: See HPI SKIN: No rash, no laceration, no pruritus NEUROLOGIC: Denies weakness, dizziness, headache, numbness 8 point review of systems is negative except for those stated above and HPI Patient History Medical History Chronic GERD (Chronic) Fibromyalgia (Chronic) Generalized scleroderma (Chronic) History of malignant neoplasm of breast (03/22/17) IBS (irritable bowel syndrome) (Chronic) Raynauds disease (Chronic) Social History Smoking Status: Never smoker Smoking Status: Never smoker alcohol intake frequency: 0-2 drinks per day Substance Use Type: marijuana Exam Initial Vital Signs Initial Vital Signs: Vital Signs Temperature 98.1 F 11/03/19 14:05 Pulse Rate 75 11/03/19 14:05 Respiratory Rate 14 11/03/19 14:05 Blood Pressure 145/66 H 11/03/19 14:05 Pulse Oximetry 99 11/03/19 14:05 GENERAL: Well-appearing, well-nourished and in no acute distress. CARDIOVASCULAR: peripheral pulses in tact, cap refill <2 sec RESPIRATORY: No respiratory distress, speaks in full sentences without difficulty EXTREMITIES: Normal range of motion, no clubbing or edema. Neurovascularly intact right wrist is swelling distal radial pulse intact able to move finger she does have some contusions over the MCP area NEUROLOGICAL: Cranial nerves II through XII grossly intact. Normal gait and speech. SKIN: Warm, dry, no petechiae, no rashes or lesions. Course Orders Ordered: ED Orders 11/03/19 14:11 XR wrist RT min 3V Stat Vital Signs Vital signs: Vital Signs - 8 hr 11/03/19 14:05 11/03/19 14:15 Temperature 98.1 F Pulse Rate 75 Pulse Rate [Right Radial] 56 L Respiratory Rate 14 Blood Pressure 145/66 H Pulse Oximetry 99 [facility] - Extremity Injury (Upper) Imaging Data Extremity x-ray #1: Radiologist's Impression: PROCEDURE: XR WRIST RT MIN 3V INDICATIONS: fall pain TECHNIQUE: 3 views of the wrist were acquired. COMPARISON: None. FINDINGS: Bones: There is likely a minimally displaced fracture through the distal radius which may extend to the articular surface. The ulna appears intact. The carpal bones appear intact. Soft tissues: No suspicious soft tissue calcifications. IMPRESSION: Minimally displaced distal radial fracture. Dictated by: Lindsey Brito M.D. on 11/03/2019 at 13:33 MDM Narrative Medical decision making narrative: Patient adamantly refuses fiberglass splint. She states that she cannot do it because of her scleroderma and hurts quite bad. She has got a Velcro splint of her own now which she prefers to use. Discharge Plan Departure Patient Disposition: Home Clinical Impression: Distal radial fracture Qualifiers: Encounter type: initial encounter Fracture type: closed Fracture morphology: unspecified fracture morphology Laterality: right Qualified Code(s): S52.501A - Unspecified fracture of the lower end of right radius, initial encounter for closed fracture Discharge Date/Time: 11/03/19 14:59 Instructions: DI for Distal Radius Fracture Activity Restrictions/Additional Instructions: *You have been diagnosed with distal radial fracture *What to do: Keep wrist in splint at all times. This will take about 6-8 weeks to heal *Continue to take medications as directed *Follow up with your primary care provider in 2-3 days Follow-up with Orthopedics, call tomorrow to schedule appointment *Return to ER if you should have increased pain numbness tingling inability to move fingers or any new, worsening or concerning symptoms Prescriptions: No Action diltiazem HCl [Cartia XT] 300 MG capsule,extended release 24hr 300 mg PO QDAY Qty: 0 RF: 0 Edluar 10 MG tablet, sublingual 10 mg Sublingual HSP PRN (Reason: Insomnia) Qty: 0 RF: 0 lidocaine LIDOCAINE 5% ointment Qty: 0 RF: 0 tramadol 50 MG tablet 0 mg PO Q4HP MDD P PRN (Reason: Pain (Scale Score 1-3)) Qty: 0 RF: 0 modafinil 200 MG tablet 200 mg PO QDAY Qty: 0 RF: 0 folic acid 1 MG tablet 1 mg PO QDAY Qty: 0 RF: 0 doxazosin [Cardura] 1 MG tablet 1 mg PO HS Qty: 0 RF: 0 diclofenac sodium 100 MG tablet extended release 24 hr 100 mg PO QDAYP PRN (Reason: Inflammation) Qty: 0 RF: 0 yjvnsassp-urtzfo-myzgtfqk-scop 16.2 MG tablet 1 tab PO Qty: 0 RF: 0 acetaminophen [Tylenol Extra Strength] 500 MG tablet 0 mg PO Q4HP PRN (Reason: Pain (Scale Score 1-3)) Qty: 0 RF: 0 Restasis 1 EACH dropperette 1 drp OPHTH Qty: 0 RF: 0 Refresh Tears 15 ML drops 15 ml Qty: 0 RF: 0 polyethylene glycol 3350 [Miralax] 119 GM powder 17 gm PO QDAY Qty: 0 RF: 0 melatonin 5 MG tablet 5 mg Qty: 0 RF: 0 multivitamin [Multiple Vitamins] 1 EACH tablet 1 tab PO QDAY Qty: 0 RF: 0 omeprazole 20 MG capsule,delayed release(DR/EC) 20 mg PO BID Qty: 0 RF: 0 cholecalciferol (vitamin D3) [Vitamin D3] 1,000 UNIT tablet 1,000 unit PO QDAY Qty: 0 RF: 0 vitamin B complex [B Complex-Vitamin B12] 1 EACH tablet 1 tab PO QDAY Qty: 0 RF: 0 omega 3-llv-jtu-fish oil [Fish Oil] 1,000 MG capsule 1,000 mg PO Q DAY Qty: 0 RF: 0 magnesium oxide 400 MG capsule 400 mg PO Q DAY Qty: 0 RF: 0 [BIOTENE] Q DAY Qty: 0 RF: 0 docusate sodium [Colace] 100 MG capsule 100 mg PO BID Qty: 14 RF: 1 methotrexate sodium 2.5 mg tablet 20 mg PO Qty: 0 RF: 0 citalopram 20 mg tablet 20 mg PO DAILY RF: 0 Referrals: [facility] [Provider Group] Jose Carlos MD [Primary Care Provider] -
[2019-11-03 14:15] VITALS: PULSE 56
== END 2019-11-03 14:59 | disposition home or self-care (01) ==
PROVIDERS: Emergency Provider Emergency Medicine; Family Provider Internal Medicine Hematology & Oncology; PCP Internal Medicine
DX: S52.501A Unspecified fracture of the lower end of right radius, initial encounter for closed fracture (principal); W19.XXXA Unspecified fall, initial encounter
CPT/HCPCS: 73110; 99283

== ENCOUNTER → 2019-12-06 10:44 | Outpatient (CLI) | payer MEDICARE, BC, SELFPAY ==
--- NOTE | 2019-12-06 10:46 | DI.NM.S_ITS ---
PROCEDURE: NM BONE SCAN WHOLE BODY RADIOPHARMACEUTICAL: 19.6 mCi Tc-99m MDP IV. INDICATIONS: breast cancer TECHNIQUE: Delayed whole-body scintigrams were obtained approximately 3-4 hours after intravenous injection of radiotracer. Anterior and posterior views were acquired from vertex to feet. Additional left and right oblique views of the thoracolumbar spine were obtained. COMPARISON: None. FINDINGS: Focal area of moderately increased radiotracer uptake involving right side of L3 vertebral body is noted. Symmetric appearing mildly increased uptake in bilateral acromioclavicular joint, glenohumeral joint, sternoclavicular joints, sacroiliac joints, hip joints, knee joints and, ankle and midfoot joints are seen. Mild leftward curvature of lumbar spine is noted centered at L2-3 level. IMPRESSION: 1. Moderate focal increased uptake involving right side of L3 vertebral body, focal metastatic disease cannot be excluded. CT or MR correlation is recommended. No other area of suspicious tracer uptake is seen. 2. Likely osteoarthritic changes as above. Mild scoliosis and likely mild degenerative disc disease in visualized thoracic and lumbar spine. Dictated by: Justo Gaytan M.D. on 12/06/2019 at 15:57 Approved by: Justo Gaytan M.D. on 12/06/2019 at 16:01
--- NOTE | 2019-12-06 10:46 | DI.MRI.S_ITS ---
PROCEDURE: MR HEAD/BRAIN WO/W CON INDICATIONS: breast cancer TECHNIQUE: Noncontrast axial T1 spin echo, axial T2 fast spin echo, sagittal and axial FLAIR, coronal T2 fast spin echo, axial gradient echo, axial diffusion and ADC through the brain. After the administration of contrast, axial and coronal T1 spin echo with fat saturation through the brain. COMPARISON: None. FINDINGS: Image quality: This examination is limited by involuntary motion artifact. CSF spaces: Basal cisterns are patent. A posterior fossa arachnoid cyst can be seen along the superior aspect of the cerebellum. Ventricles are normal in size and shape. Brain: No midline shift. No intracranial bleeds or masses. No abnormal intracranial enhancement. There is cerebral volume loss for age. There is periventricular white matter chronic small vessel ischemic change. The brainstem appears normal. Diffusion-weighted images demonstrate no acute ischemic insults. No chronic ischemic insults. Normal intravascular flow voids are present. Skull and face: Calvarial marrow is normal in signal. Orbits appear normal. Sinuses: Sinuses and mastoids appear clear. IMPRESSION: No masses or abnormal enhancement can be seen to suggest metastatic disease. No findings of acute or subacute infarction can be seen. Note is made of age-appropriate brain parenchymal volume loss and chronic small vessel ischemic changes. Dictated by: Daryl Norman M.D. on 12/06/2019 at 11:57 Approved by: Daryl Norman M.D. on 12/06/2019 at 11:58
== END ==
PROVIDERS: Family Provider Internal Medicine Hematology & Oncology; PCP Internal Medicine; Referring Provider Internal Medicine; Visit Provider Internal Medicine Hematology & Oncology
DX: Z08 Encounter for follow-up examination after completed treatment for malignant neoplasm (principal); Z85.3 Personal history of malignant neoplasm of breast; M89.9 Disorder of bone, unspecified; M41.9 Scoliosis, unspecified
CPT/HCPCS: 70553; 78306; A9503

== ENCOUNTER → 2019-12-17 14:54 | Outpatient (CLI) | payer MEDICARE, BC, SELFPAY ==
[2019-12-18 20:02] LABS: COVID19 Sendout Not Detected (Not Detect)
== END ==
PROVIDERS: Family Provider Internal Medicine Hematology & Oncology; PCP Internal Medicine; Visit Provider Physician Assistant
DX: Z11.59 Encounter for screening for other viral diseases (principal)
CPT/HCPCS: 87635

== ENCOUNTER → 2019-12-18 12:42 | Outpatient (CLI) | payer MEDICARE, BC, SELFPAY ==
--- NOTE | 2019-12-18 12:43 | DI.CT.S_ITS ---
PROCEDURE: CT LUMBAR SPINE W CON INDICATIONS: L3 vertebral abnormal uptake on bone scan TECHNIQUE: After the administration of intravenous Isovue contrast, 3 mm thick sections acquired through the levels of interest. Sagittal and coronal reformats were then constructed. For radiation dose reduction, the following was used: automated exposure control. COMPARISON: [place], [place], [place] BONE SCAN WHOLE BODY, 12/06/2019, 14:10. FINDINGS: Image quality: Excellent. Bones: Scrutiny is given to the area of clinical concern at the approximate L3 level on the right. At the L2-3 level, there is focal degenerative change seen, with moderate to severe disc space narrowing with associated endplate irregularity and sclerosis. Bridging endplate osteophytes are seen on the right, as on series 4, image 20. Vacuum disc phenomenon is seen at this level. At this level, there is moderate right-sided and mild left-sided neural foraminal narrowing seen. Moderate central canal narrowing is seen. Milder, age-appropriate degenerative changes can be seen elsewhere. Within the posterior left aspect of the L1 vertebral body, there is a hypodense focus seen that measures up to 1.5 cm, as on series 7, image 24 and on series 3 image 29. Portions of this measure -100 Hounsfield units. Soft tissues: Cholecystectomy clips are seen. No dilated loops of small bowel are seen. No free air or significant free fluid can be seen. The kidneys demonstrate an unremarkable, symmetric appearance and enhance symmetrically. There is no hydronephrosis. Incidental note is made of a circumaortic left renal vein. The aorta and IVC demonstrate normal caliber. No enlarged lymph nodes are detected. IMPRESSION: Focal degenerative changes seen on the right at the L2-3 level, without suspicious bony abnormalities. This focal degenerative change correlates well with the prior bone scan abnormality. 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 on 12/18/2019 at 15:03 Approved by: Daryl Norman M.D. on 12/18/2019 at 15:07
== END ==
PROVIDERS: Family Provider Internal Medicine Hematology & Oncology; PCP Internal Medicine; Referring Provider Internal Medicine; Visit Provider Internal Medicine Hematology & Oncology
DX: R94.8 Abnormal results of function studies of other organs and systems; Z85.3 Personal history of malignant neoplasm of breast; M47.816 Spondylosis without myelopathy or radiculopathy, lumbar region; Z90.49 Acquired absence of other specified parts of digestive tract
CPT/HCPCS: 72132; Q9967

== ENCOUNTER → 2019-12-20 14:35 | Outpatient (CLI) | payer MEDICARE, BC, SELFPAY ==
--- NOTE | 2019-12-25 08:56 | PM.PFT.1 ---
Pulmonary Function Test Referral & Results Date Patient Seen: 12/20/19 Requesting provider: Katia Alvarez Results: The spirometry demonstrates an FVC of 1.92 L which is 64% of predicted. The FEV1 was measured at 1.22 L which is 53% of predicted. The FEV1/FVC ratio was 63 which is 82% of predicted. No bronchodilator was administered no lung volumes were obtained The diffusing capacity was measured at 16.16 which is 70% of predicted. No hemoglobin value was provided, so no correction for potential anemia could be made, if appropriate. The maximum voluntary ventilation was not performed Interpretation: This study demonstrates moderately severe obstructive lung disease based on reduction FEV1 and FEV1/FVC ratio. This is consistent with shape a flow volume loop There is also decline in diffusing capacity suggesting disease at the capillary alveolar level, unless patient is anemic Compared to PFTs performed in July 2018, current study is essentially unchanged.
== END ==
PROVIDERS: Family Provider Internal Medicine Hematology & Oncology; PCP Internal Medicine; Referring Provider Internal Medicine Rheumatology; Visit Provider Internal Medicine Rheumatology
DX: M34.1 CR(E)ST syndrome (principal); R06.02 Shortness of breath
CPT/HCPCS: 94010; 94729

== ENCOUNTER → 2020-01-20 12:40 | Outpatient (CLI) | payer MEDICARE, BC, SELFPAY | PROVIDERS: Family Provider Internal Medicine Hematology & Oncology; PCP Internal Medicine; Referring Provider Internal Medicine; Visit Provider Internal Medicine | DX: M85.88 Other specified disorders of bone density and structure, other site (principal); Z78.0 Asymptomatic menopausal state; M15.0 Primary generalized (osteo)arthritis; Z85.3 Personal history of malignant neoplasm of breast; Z90.722 Acquired absence of ovaries, bilateral; Z82.62 Family history of osteoporosis | CPT/HCPCS: 77080 ==

== ENCOUNTER → 2020-03-20 12:30 | Outpatient (CLI) | payer MEDICARE, BC, SELFPAY ==
--- NOTE | 2020-03-20 | DI.MG.S_ITS ---
UNILATERAL LEFT DIGITAL SCREENING MAMMOGRAM 3D/2D WITH CAD POST MASTECTOMY: 03/20/2020 CLINICAL: Routine screening. Personal history of right breast cancer. Family history of breast cancer. Comparison is made to exams dated: 03/20/2019 mammogram, 03/19/2018 mammogram - [facility], and 03/17/2017 mammogram - [facility]. The tissue of left breast is heterogeneously dense. This may lower the sensitivity of mammography. Current study was also evaluated with a Computer Aided Detection (CAD) system. There are benign calcifications in the left breast. No significant masses, calcifications, or other findings are seen in the breast. There has been no significant interval change. IMPRESSION: BENIGN There is no mammographic evidence of malignancy. A 1 year screening mammogram is recommended. This exam was interpreted at Station ID: [id number]. NOTE: For mammograms, a report in lay terms will be sent to the patient. Approximately 15% of breast malignancies will not be visualized mammographically. In the management of a palpable breast mass, a negative mammogram must not discourage biopsy of a clinically suspicious lesion. Electronically Signed By: Casa brock/uday:03/20/2020 13:52:41 letter sent: Normal Exam ACR BI-RADS Category 2: Benign Finding(s) 3342F
[2020-03-20 14:14] LABS: Add Manual Diff / Slide Review NO; Basophils Absolute Auto 0 /uL (0-100); Basophils Percent Auto 0.7 % (0-2); Eosinophils Absolute Auto 100 /uL (0-450); Eosinophils Percent Auto 1.5 % (2-4); Hematocrit 34.1 % (36-46); Hemoglobin 11.3 g/dL (12.0-16.0); Lymphocytes Absolute Auto 1000 /uL (1100-4500); Lymphocytes Percent Auto 28.2 % (25-40); Mean Corpuscular HGB Conc 33.1 % (30-36); Mean Corpuscular Hemoglobin 33.1 PG (26-34); Monocytes Absolute Auto 400 /uL (0-900); Monocytes Percent Auto 11.3 % (3-14); Neutrophils Absolute Auto 2100 /uL (1500-7000); Neutrophils Percent Auto 58.3 % (50-75); Platelet Count 201 X10^3/uL (150-400); Red Blood Cell Count 3.41 X10^6/uL (4.0-5.2); Red Cell Distribution Width 15.8 % (11.6-14.8); White Blood Cell Count 3.5 X10^3/uL (4.5-11.0)
[2020-03-20 14:44] LABS: Alanine Aminotransferase 24 IU/L (<35); Albumin Globulin Ratio 1.4 (1.0-2.8); Alkaline Phosphatase 53 U/L (38-126); Aspartate Aminotransferase 30 IU/L (14-36); Bilirubin Total 0.4 mg/dL (0.2-1.3); Blood Urea Nitrogen 13 mg/dL (7-17); Calcium 9.3 mg/dL (8.4-10.2); Carbon Dioxide 29 mmol/L (22-32); Chloride 103 mmol/L (98-107); Estimated Glomerular Filt Rate > 60.0 mL/min (>60); Globulin 2.8 g/dL (1.7-4.1); Glucose 79 mg/dL (80-110); HEMOLYSIS < 15 (0-50); Potassium 3.9 mmol/L (3.4-5.1); Sodium 136 mmol/L (137-145); Total Protein 6.8 g/dL (6.3-8.2)
== END ==
PROVIDERS: Family Provider Internal Medicine Hematology & Oncology; PCP Internal Medicine; Referring Provider Internal Medicine Rheumatology; Visit Provider Internal Medicine Hematology & Oncology
DX: Z12.31 Encounter for screening mammogram for malignant neoplasm of breast (principal); Z85.3 Personal history of malignant neoplasm of breast; Z80.3 Family history of malignant neoplasm of breast; M34.1 CR(E)ST syndrome; Z79.899 Other long term (current) drug therapy
CPT/HCPCS: 36415; 77063; 77067; 80053; 85025

== ENCOUNTER → 2020-11-26 17:26 | Outpatient (CLI) | payer MEDICARE, BC, SELFPAY ==
[2020-11-26 18:07] LABS: Add Manual Diff / Slide Review NO; Basophils Absolute Auto 100 /uL (0-100); Basophils Percent Auto 1.1 % (0-2); Eosinophils Absolute Auto 100 /uL (0-450); Eosinophils Percent Auto 1.5 % (2-4); Hemoglobin 9.8 g/dL (12.0-16.0); Lymphocytes Absolute Auto 1400 /uL (1100-4500); Mean Corpuscular HGB Conc 32.6 % (30-36); Mean Corpuscular Hemoglobin 31.4 PG (26-34); Mean Corpuscular Volume 96.2 fL (80-100); Monocytes Absolute Auto 500 /uL (0-900); Monocytes Percent Auto 10.3 % (3-14); Neutrophils Absolute Auto 2800 /uL (1500-7000); Neutrophils Percent Auto 57.1 % (50-75); Platelet Count 210 X10^3/uL (150-400); Red Blood Cell Count 3.12 X10^6/uL (4.0-5.2); Red Cell Distribution Width 18.7 % (11.6-14.8); White Blood Cell Count 4.8 X10^3/uL (4.5-11.0)
[2020-11-26 18:25] LABS: Iron 41 ug/dL (37-170)
[2020-11-26 18:31] LABS: Alanine Aminotransferase 23 IU/L (<35); Albumin Globulin Ratio 1.4 (1.0-2.8); Alkaline Phosphatase 62 U/L (38-126); Aspartate Aminotransferase 31 IU/L (14-36); BUN Creatinine Ratio 15.8 (6-22); Bilirubin Total 0.3 mg/dL (0.2-1.3); Blood Urea Nitrogen 9 mg/dL (7-17); Calcium 9.2 mg/dL (8.4-10.2); Carbon Dioxide 28 mmol/L (22-32); Chloride 106 mmol/L (98-107); Estimated Glomerular Filt Rate > 60.0 mL/min (>60); Globulin 2.9 g/dL (1.7-4.1); Glucose 107 mg/dL (80-110); HEMOLYSIS < 15 (0-50); Potassium 3.6 mmol/L (3.4-5.1); Sodium 139 mmol/L (137-145); Total Protein 6.9 g/dL (6.3-8.2)
[2020-11-26 18:34] LABS: Percent Iron Saturation 12 % (15-50); Total Iron Binding Capacity 338 ug/dL (265-497)
[2020-11-26 18:58] LABS: Ferritin 11 ng/mL (11-264)
[2020-11-26 19:13] LABS: Vitamin B12 432 pg/mL (239-931)
[2020-11-27 04:39] LABS: Cancer Antigen 27.29 21.5 U/mL (0.0-38.6)
[2020-11-27 05:39] LABS: CA 15-3 21.1 U/mL (0.0-25.0)
== END ==
PROVIDERS: Family Provider Internal Medicine Hematology & Oncology; PCP Internal Medicine; Referring Provider Nurse Practitioner Family; Visit Provider Nurse Practitioner Family
DX: C50.919 Malignant neoplasm of unspecified site of unspecified female breast (principal); R19.4 Change in bowel habit; M34.1 CR(E)ST syndrome; Z79.899 Other long term (current) drug therapy
CPT/HCPCS: 80053; 82607; 82728; 83540; 83550; 85025; 86300

== ENCOUNTER → 2020-11-27 11:57 | Outpatient (CLI) | payer MEDICARE, BC, SELFPAY ==
--- NOTE | 2020-11-27 12:00 | DI.RAD.S_ITS ---
PROCEDURE: XR KUB INDICATIONS: EVALUATE FOR STOOL BURDEN TECHNIQUE: One view of the abdomen acquired. COMPARISON: None. FINDINGS: Surgical changes and devices: Cholecystectomy clips. Bowel: Scattered small bowel and colonic gas. No dilated loops of bowel seen. A somewhat prominent stool in the right colon. Soft tissues: No suspicious abdominal calcifications. Calcified uterine fibroids in the pelvis. Visualized solid organ contours appear normal in size. Bones: No suspicious bony lesions. Minimal scoliosis. IMPRESSION: Nonobstructive bowel gas pattern. Somewhat prominent stool in the right colon. Dictated by: Camacho Huffman M.D. on 11/27/2020 at 11:50 Approved by: Camacho Huffman M.D. on 11/27/2020 at 11:52
== END ==
PROVIDERS: Family Provider Internal Medicine Hematology & Oncology; PCP Internal Medicine; Referring Provider Nurse Practitioner Family; Visit Provider Nurse Practitioner Family
DX: R19.4 Change in bowel habit (principal)
CPT/HCPCS: 74018

== ENCOUNTER → 2020-12-01 11:42 | Outpatient (CLI) | payer MEDICARE, BC, SELFPAY ==
[2020-12-01 13:49] LABS: Clostridium Difficile Tox PCR Negative for C. diff (Negative)
[2020-12-02 18:23] LABS: Calprotectin, Stool 36 ug/g (0-120)
== END ==
PROVIDERS: Family Provider Internal Medicine Hematology & Oncology; PCP Internal Medicine; Referring Provider Nurse Practitioner Family; Visit Provider Nurse Practitioner Family
DX: R19.4 Change in bowel habit (principal); R53.83 Other fatigue; K58.9 Irritable bowel syndrome, unspecified
CPT/HCPCS: 83993; 87045; 87177; 87329; 87493; 87899

== ENCOUNTER → 2020-12-14 14:31 | Outpatient (CLI) | payer MEDICARE, BC, SELFPAY ==
[2020-12-14 17:57] LABS: COVID-19 CEPHEID PCR (VTM/NP) Negative (Negative)
== END ==
PROVIDERS: Family Provider Internal Medicine Hematology & Oncology; PCP Internal Medicine; Visit Provider Nurse Practitioner Family
DX: Z20.822 Contact with and (suspected) exposure to COVID-19 (principal)
CPT/HCPCS: C9803; U0003

== ENCOUNTER → 2020-12-18 12:38 | Outpatient (CLI) | payer MEDICARE, BC, SELFPAY ==
[2020-12-18 15:16] LABS: Add Manual Diff / Slide Review NO; Basophils Absolute Auto 0 /uL (0-100); Basophils Percent Auto 0.9 % (0-2); Eosinophils Absolute Auto 100 /uL (0-450); Eosinophils Percent Auto 1.7 % (2-4); Hemoglobin 11.1 g/dL (12.0-16.0); Lymphocytes Absolute Auto 1100 /uL (1100-4500); Lymphocytes Percent Auto 23.8 % (25-40); Mean Corpuscular HGB Conc 31.7 % (30-36); Mean Corpuscular Hemoglobin 30.7 PG (26-34); Mean Corpuscular Volume 96.9 fL (80-100); Monocytes Absolute Auto 600 /uL (0-900); Monocytes Percent Auto 12.8 % (3-14); Neutrophils Absolute Auto 2900 /uL (1500-7000); Neutrophils Percent Auto 60.8 % (50-75); Platelet Count 265 X10^3/uL (150-400); Red Blood Cell Count 3.61 X10^6/uL (4.0-5.2); Red Cell Distribution Width 18.8 % (11.6-14.8); White Blood Cell Count 4.8 X10^3/uL (4.5-11.0)
[2020-12-18 15:33] LABS: Iron 42 ug/dL (37-170)
[2020-12-18 15:43] LABS: Percent Iron Saturation 12 % (15-50); Total Iron Binding Capacity 338 ug/dL (265-497)
[2020-12-18 15:54] LABS: Ferritin 11 ng/mL (11-264)
== END ==
PROVIDERS: Internal Medicine Rheumatology; Family Provider Internal Medicine Hematology & Oncology; PCP Internal Medicine; Referring Provider Internal Medicine; Visit Provider Internal Medicine
DX: M34.1 CR(E)ST syndrome (principal); Z79.899 Other long term (current) drug therapy; D50.9 Iron deficiency anemia, unspecified
CPT/HCPCS: 36415; 82728; 83540; 83550; 85025

== ENCOUNTER → 2021-01-29 15:14 | Outpatient (CLI) | payer MEDICARE, BC, SELFPAY ==
[2021-01-29 18:03] LABS: TSH w/ Reflex to FT4 2.21 uIU/mL (0.47-4.68)
== END ==
PROVIDERS: Family Provider Internal Medicine Hematology & Oncology; PCP Internal Medicine; Referring Provider Internal Medicine; Visit Provider Internal Medicine
DX: R53.83 Other fatigue (principal)
CPT/HCPCS: 36415; 84443

== ENCOUNTER → 2021-03-31 10:36 | Outpatient (CLI) | payer MEDICARE, BC, SELFPAY ==
--- NOTE | 2021-03-31 10:38 | DI.MG.S_ITS ---
UNILATERAL LEFT DIGITAL SCREENING MAMMOGRAM 3D/2D WITH CAD: 03/31/2021 CLINICAL: Routine screening. Personal history of right breast cancer. Family history of breast cancer. Comparison is made to exams dated: 03/20/2020 mammogram, 03/20/2019 mammogram, and 03/19/2018 mammogram - [facility]. The tissue of left breast is heterogeneously dense. This may lower the sensitivity of mammography. Current study was also evaluated with a Computer Aided Detection (CAD) system. There are benign calcifications in the left breast. No significant masses, calcifications, or other findings are seen in the breast. There has been no significant interval change. IMPRESSION: BENIGN There is no mammographic evidence of malignancy. A 1 year screening mammogram is recommended. This exam was interpreted at Station ID: [id number]. NOTE: For mammograms, a report in lay terms will be sent to the patient. Approximately 15% of breast malignancies will not be visualized mammographically. In the management of a palpable breast mass, a negative mammogram must not discourage biopsy of a clinically suspicious lesion. Electronically Signed By: Noah Bloom M.D., jr/uday:03/31/2021 12:09:07 letter sent: Normal Exam ACR BI-RADS Category 2: Benign Finding(s) 3342F
== END ==
PROVIDERS: Family Provider Internal Medicine Hematology & Oncology; PCP Internal Medicine; Referring Provider Specialist; Visit Provider Specialist
DX: Z12.31 Encounter for screening mammogram for malignant neoplasm of breast (principal); Z85.3 Personal history of malignant neoplasm of breast; Z80.3 Family history of malignant neoplasm of breast
CPT/HCPCS: 77063; 77067

== ENCOUNTER → 2021-04-28 13:43 | Outpatient (CLI) | payer MEDICARE, BC, SELFPAY ==
--- NOTE | 2021-04-28 | DI.ECHO.S_ITS ---
[facility]---------+ [facility] +---------+ : : [address] : : : : [id number] : : : : Phone: [phone]+ Echocardiogram Report + + :Name: JAVIER GREEN Study Date: 04/28/2021 Height: 63 in : :[facility] ReadingLocation: Weight: 145 lb : : Gender: Female BSA: 1.7 m2 : :: 1950 Age: 70 yrs BP: 110/64 mmHg: :Reason For Study: CRE(S)T SYNDROM : :Ordering Physician: OSVALDO, : :GUSTAOV Performed By: Leidy Wooten : :Referring: DAREN BARBOSA : + + Interpretation Summary The ejection fraction is estimated to be 60-65%. The left atrium is severely dilated. The atrial septum is aneurysmal. There is no Doppler evidence for an interatrial shunt. There is mild mitral regurgitation. There is mild tricuspid regurgitation. The right ventricular systolic pressure is estimated to be at least 28 mmHg based on an estimated right atrial pressure of 8 mm Hg. Compared to the prior echo report on 2019, there is no significant change. Procedure: A two-dimensional transthoracic echocardiogram with color flow and Doppler was performed. The study quality was technically adequate. Comparison is made with the echocardiogram of 06/26/2019. The patient was in sinus rhythm with heart rates between 58-65 bpm during the exam. Left Ventricle: The left ventricle is normal in size and wall thickness. The ejection fraction is estimated to be 60-65%. Left ventricular wall motion is normal. Right Ventricle: The right ventricle is normal in size and function. Atria: The left atrium is severely dilated. Right atrial size is normal. There is no Doppler evidence for an interatrial shunt. The atrial septum is aneurysmal. Mitral Valve: The mitral valve is normal in structure and function. There is mild mitral regurgitation. Aortic Valve: The aortic valve is trileaflet. The aortic valve opens well. There is no aortic valve stenosis. No aortic regurgitation is present. Tricuspid Valve: The tricuspid valve is normal in structure and function. There is mild tricuspid regurgitation. The right ventricular systolic pressure is estimated to be at least 28 mmHg based on an estimated right atrial pressure of 8 mm Hg. Pulmonic Valve: The pulmonic valve leaflets are thin and pliable; valve motion is normal. There is no pulmonic valvular regurgitation. Great Vessels: The aortic root is normal size. The dimensions of the ascending aorta are normal. The IVC is of normal diameter and collapses less than 50% with a sniff. This suggests a right atrial pressure of 8 mm Hg. Pericardium/ Pleura There is no pericardial effusion. There is no pleural effusion. MMode/2D Measurements & Calculations LVIDd: 4.6 cm LVOT diam: 2.1 cm LVIDs: 2.8 cm Ao root diam: 3.2 cm FS: 38.9 % asc Aorta Diam: 3.3 cm IVSd: 0.68 cm Ao Arch Diam (Prox Trans): 2.4 cm LVPWd: 0.76 cm LV guzman. diameter/BSA (cm/m^2): 2.7 LV sys. diameter/BSA (cm/m^2): 1.7 LA A2 area: 28.7 cm2 RA long axis: 5.2 cm LA A4 area: 21.9 cm2 RA area: 15.1 cm2 LA length (vol): 5.9 cm RA vol: 37.2 ml LA vol: 90.2 ml RA : 22.1 ml/m2 LA vol index: 53.5 ml/m2 IVC diam: 2.1 cm RVD1 (basal): 3.4 cm RVD2 (mid): 3.0 cm TAPSE: 2.4 cm Doppler Measurements & Calculations Ao V2 max: 158.2 cm/sec LVOT Max Mina: 127.7 cm/sec Ao V2 mean: 109.1 cm/sec LV V1 max P.5 mmHg Ao max P.0 mmHg LV V1 VTI: 25.2 cm Ao mean P.2 mmHg HAKAN(I,D): 2.7 cm2 Ao V2 VTI: 33.2 cm HAKAN(V,D): 2.9 cm2 sev ratio: 0.76 HAKAN indexed to BSA (cm^2/m^2): 1.6 MV E max mina: 81.0 cm/sec TR max mina: 224.6 cm/sec MV A max mina: 54.5 cm/sec TR max P.2 mmHg MV E/A: 1.5 PA V2 max: 73.1 cm/sec Med Peak E' Mina: 8.4 cm/sec PA V2 mean: 50.5 cm/sec E/E' med: 9.6 PA mean P.1 mmHg Lat Peak E' Mina: 12.5 cm/sec PA pr(Accel): 13.9 mmHg E/E' lat: 6.5 E/e' average: 8.0 MV dec time: 0.22 sec SV(OT): 89.2 ml Reading Physician:03:22 PM
== END ==
PROVIDERS: Family Provider Internal Medicine Hematology & Oncology; Referring Provider Internal Medicine; Visit Provider Internal Medicine
DX: M34.1 CR(E)ST syndrome (principal); I08.1 Rheumatic disorders of both mitral and tricuspid valves
CPT/HCPCS: 93306

== ENCOUNTER → 2021-05-06 10:49 | Outpatient (CLI) | payer MEDICARE, BC, SELFPAY ==
[2021-05-06 11:57] LABS: COVID19 -Nasal RAPID Negative (Negative)
== END ==
PROVIDERS: Family Provider Internal Medicine Hematology & Oncology; Referring Provider Internal Medicine; Visit Provider Internal Medicine
DX: Z20.822 Contact with and (suspected) exposure to COVID-19 (principal)
CPT/HCPCS: 87635; C9803

== ENCOUNTER → 2021-05-07 15:03 | Outpatient (CLI) | payer MEDICARE, BC, SELFPAY ==
--- NOTE | 2021-06-24 09:36 | PM.PFT.1 ---
Pulmonary Function Test Referral & Results Date Patient Seen: 05/07/21 Requesting provider: Katia Alvarez Results: The spirometry demonstrates an FVC of 2.26 L which is 77% of predicted. The FEV1 was measured at 1.36 L which is 61% of predicted. The FEV1/FVC ratio was 60 which is 79% of predicted. Lung volumes show an SVC of 2.23 L which is 80% of predicted. The diffusing capacity was measured at 16.87 which is 73% of predicted. No hemoglobin value was provided, so no correction for potential anemia could be made, if appropriate. Interpretation: This study demonstrates perhaps mild to moderate obstructive lung disease based on reduction FEV1 although FEV1/FVC ratio is relatively preserved. Shape a flow volume loop also supports the presence of obstructive lung disease There is a mild reduction in lung volumes suggesting restrictive lung disease is also present which may well explain some of the abnormality of FEV1 above Diffusing capacity is also slightly reduced Clinical correlation suggested Note: This study was performed in April but not resulted for interpretation and till June 2021 for reasons that are not clear. Test was interpreted within 48 hours of receipt of results.
== END ==
PROVIDERS: Family Provider Internal Medicine Hematology & Oncology; PCP Internal Medicine; Referring Provider Internal Medicine Rheumatology; Visit Provider Internal Medicine Rheumatology
DX: J44.0 Chronic obstructive pulmonary disease with (acute) lower respiratory infection (principal); M34.1 CR(E)ST syndrome
CPT/HCPCS: 94010; 94726; 94729

== ENCOUNTER 2021-05-11 13:22 | Inpatient (IN) | payer MEDICARE, BC, SELFPAY ==
[2021-05-11] VITALS (9 sets, daily range): BP systolic 106–135; BP diastolic 59–74; PULSE 43–60; RESP 16–24; TEMP 36.6–37.5; O2SAT 93–99; BMI 26.5
--- NOTE | 2021-05-11 | DI.ECHO.S_ITS ---
[place] +---------+ Hospital +---------+ : : [address] : [address] : : : : [id number] : : : : Phone: [phone]+ Echocardiogram Report + + :Name: JAVIER GREEN Study Date: 05/12/2021 Height: 63 in : :[facility] ReadingLocation: Weight: 145 lb: : Gender: Female BSA: 1.7 m2 : :: 1950 Age: 70 yrs BP: 95/60 mmHg: :Reason For Study: CVA : :Ordering Physician: MURIEL BAIRD Performed By: Leidy Wooten : :Referring: MURIEL BAIRD : + + Interpretation Summary Limited Echo: 1) Normal left ventricular size, thickness, wall motion, and systolic function (EF 60-65%). 2) Normal right ventricular size and function. 3) The atrial septum is aneurysmal. 4) Injection of contrast documented an interatrial shunt. 5) Compared to the Echo done 04/28/2021, PFO is noted on this study. If the patient has a clinical/radiographic cryptogenic stroke, recommend cardiology consult with Dr. Álvarez at [facility] to discuss PFO closure. Procedure: The study quality was technically limited. The study quality was technically adequate. A saline contrast injection was performed to assess for cardiac shunting. Left Ventricle: The left ventricle is normal in size and wall thickness. The ejection fraction is estimated to be 60-65%. Left ventricular systolic function appears normal without focal wall motion abnormalities. Right Ventricle: The right ventricle is normal in size and function. Atria: The left atrium is mildly dilated. Right atrial size is normal. The atrial septum is aneurysmal. Injection of contrast documented an interatrial shunt. Aortic Valve: The aortic valve is trileaflet. The aortic valve opens well. Tricuspid Valve: The tricuspid valve is normal in structure and function. There is mild tricuspid regurgitation. Pericardium/ Pleura There is no pericardial effusion. There is no pleural effusion. MMode/2D Measurements & Calculations LVIDd: 4.8 cm LA A2 area: 27.3 cm2 LVIDs: 3.3 cm LA A4 area: 22.0 cm2 FS: 31.8 % LA length (vol): 6.5 cm IVSd: 0.60 cm LA vol: 78.1 ml LVPWd: 0.86 cm LA vol index: 46.3 ml/m2 LV guzman. diameter/BSA (cm/m^2): 2.9 LV sys. diameter/BSA (cm/m^2): 2.0 RA long axis: 5.5 cm RVD1 (basal): 3.2 cm RA area: 15.1 cm2 TAPSE: 2.6 cm RA vol: 35.3 ml RA : 20.9 ml/m2 Doppler Measurements & Calculations TR max devonte: 214.2 cm/sec TR max P.3 mmHg Reading Physician:01:52 PM
--- NOTE | 2021-05-11 13:43 | DI.RAD.S_ITS ---
PROCEDURE: XR CHEST 1V INDICATIONS: Possible stroke TECHNIQUE: One view of the chest was acquired. COMPARISON: [facility], CR, XR CHEST 2 VIEWS, 06/07/2017, 14:26. FINDINGS: Surgical changes and devices: None. Lungs and pleura: Lungs are clear. No pleural effusions or pneumothorax. Mediastinum: Mediastinal contours appear normal. Heart size is normal. Bones and chest wall: No suspicious bony lesions. Overlying soft tissues appear unremarkable. IMPRESSION: No acute cardiopulmonary disease process. Dictated by: Nneka Shirley MD, PhD on 05/11/2021 at 14:09 Approved by: Nneka Shirley MD, PhD on 05/11/2021 at 14:09
--- NOTE | 2021-05-11 13:43 | DI.CT.S_ITS ---
PROCEDURE: CT STROKE INDICATIONS: facial droop, last known well last night, woke w/ symptoms TECHNIQUE: Noncontrast 4.5 mm thick angled axial sections acquired from the foramen magnum to the vertex, with coronal reformats. For radiation dose reduction, the following was used: automated exposure control, adjustment of mA and/or kV according to patient size. COMPARISON: None. FINDINGS: Image quality: Excellent. CSF spaces: Basal cisterns are patent. No extra-axial fluid collections. Ventricles are normal in size and shape. Brain: No midline shift. No intracranial masses or hemorrhage. Olvera-white matter interface is normal. There is subtle low attenuation within the right fronto- temporal lobe. No associated hemorrhage. There is prominent posterior fossa low attenuation suggestive of arachnoid cyst. Skull and face: Calvarium and visualized facial bones are intact, without suspicious lesions. Sinuses: Visualized sinuses and mastoids are clear. IMPRESSION: Low-attenuation focus within the right fronto-temporal lobe suspicious for subacute ischemia. No acute hemorrhage. The above findings were discussed with Dr. Ramona Howell onn 05/11/2021 at 2:02 p.m. This study fulfills neurological imaging criteria for inclusion or exclusion of acute stroke therapies based on available published neurological imaging guidelines. Dictated by: Joycelyn Hunt M.D. on 05/11/2021 at 14:01 Approved by: Joycelyn Hunt M.D. on 05/11/2021 at 14:03
--- NOTE | 2021-05-11 13:44 | DI.CT.S_ITS ---
PROCEDURE: CT ANGIO HEAD AND NECK INDICATIONS: facial droop, woke w/ symptoms. TECHNIQUE: Helical axial CT of the head and neck was obtained after intravenous contrast injection utilizing an angiographic technique and reformatted in multiple planes. Radiation dose reduction was achieved utilizing automated exposure control and/or adjustment of the dose parameters according to patient's size. COMPARISON: None. FINDINGS: Cerebral CT Angiogram: Internal carotid arteries: No acute findings. Intracranial ICA are patent with no significant stenosis. No occlusion. No aneurysm. Anterior cerebral arteries: Unremarkable. No significant stenosis. No occlusion. No aneurysm. Middle cerebral arteries: On axial image , there is a focal right M2 MCA branch occlusion associated with the wedge-shaped subacute right frontal infarct. Posterior cerebral arteries: Hypoplasia/aplasia of the left P1 T[place]AYER noted. The P2 segment is supplied by a widely patent posterior communicating artery. Remainder of the distal vasculature unremarkable. Basilar artery: Unremarkable. No significant stenosis. No occlusion. No aneurysm. Vertebral arteries: Unremarkable as visualized. Dural venous sinuses: Unremarkable given phase of enhancement. Other: In the right frontal lobe, there is a wedge-shaped focus of sulcal effacement, blurring of the hanson-white junction and hypoenhancement consistent with subacute infarct Neck CT Angiogram: Internal carotid arteries: Unremarkable. No significant stenosis. No dissection or occlusion. Common carotid arteries: Unremarkable. No significant stenosis. No dissection or occlusion. External carotid arteries: Unremarkable. No occlusion. Vertebral arteries: Unremarkable. No significant stenosis. No dissection or occlusion. Other: None. Aortic Arch and Mediastinum: Partially visualized aortic arch unremarkable without evidence of aneurysm. Origins of the great vessels unremarkable. IMPRESSION: 1. Acute to subacute right M2 MCA branch occlusion, associated with right frontal wedge-shaped subacute infarct. No intracranial hemorrhage. Any quantitative measurements of stenosis were performed using NASCET criteria. Approved by: Christopher Keane M.D. on 05/11/2021 at 14:00
--- NOTE | 2021-05-11 13:50 | ED_ITS ---
HPI - Neuro Symptoms/Deficit General Chief Complaint: Neuro Symptoms/Deficit Stated Complaint: Symptoms of a stroke Time Seen by Provider: 05/11/21 13:46 Source: patient Mode of arrival: Wheelchair History of Present Illness HPI Narrative: Patient is a 70-year-old female with remote history of right-sided breast cancer in 2008, irritable bowel syndrome, uterine fibroids, Raynaud's presenting today with left-sided facial droop and left arm weakness. She presents today with her he states that she was last known well last evening before bed. Woke up this morning noted some left-sided facial drooping and weakness. She is not on any anti-platelet or anticoagulation medication. On Anticoagulants: No Related Data Home Medications Medication Instructions Recorded Confirmed acetaminophen 500 mg tablet 500 mg PO Q4HP PRN #0 03/22/17 05/11/21 (Tylenol Extra Strength) carboxymethylcellulose sodium 0.5 15 ml DAILY #0 03/22/17 05/11/21 % eye drops (Refresh Tears) diltiazem HCl 300 mg 300 mg PO QDAY #0 03/22/17 05/11/21 capsule,extended release 24 hr (Cartia XT) doxazosin 1 mg tablet (Cardura) 1 mg PO HS #0 03/22/17 05/11/21 folic acid 1 mg tablet 1 mg PO BID #0 03/22/17 05/11/21 modafinil 200 mg tablet 100 mg PO QDAY #0 03/22/17 05/11/21 polyethylene glycol 3350 17 17 gm PO QDAY #0 03/22/17 05/11/21 gram/dose oral powder (Miralax) tramadol 50 mg tablet 50 mg PO Q4HP PRN #0 MDD P 03/22/17 05/11/21 multivitamin (Multiple Vitamins) 1 tab PO QDAY #0 04/20/17 05/11/21 omega 4-fbw-auy-fish oil 1,000 mg 1,000 mg PO Q DAY #0 04/20/17 05/11/21 (120 mg-180 mg) capsule (Fish Oil) omeprazole 20 mg capsule,delayed 40 mg PO BID #0 04/20/17 05/11/21 release vitamin B complex (B 1 tab PO QDAY #0 04/20/17 05/11/21 Complex-Vitamin B12) citalopram 20 mg tablet 20 mg PO BID 03/20/19 05/11/21 aspirin 81 mg tablet,delayed 81 mg PO DAILY 12/19/19 05/11/21 release zolpidem 5 mg tablet 5 mg PO BEDTIME PRN 12/19/19 05/11/21 methotrexate sodium 2.5 mg tablet 10 mg PO QWEEK #0 tab 04/29/20 05/11/21 Bifidobacterium infantis 4 mg 4 mg PO DAILY 03/25/21 05/11/21 capsule (Align) psyllium 1 packet PO DAILY 03/25/21 05/11/21 calcium carbonate 200 mg calcium 1,000 mg PO BID 05/11/21 05/11/21 (500 mg) chewable tablet (Tums) cholecalciferol (vitamin D3) 50 50 mcg PO DAILY 05/11/21 05/11/21 mcg (2,000 unit) capsule (Vitamin D3) magnesium citrate 125 mg capsule 250 mg PO DAILY 05/11/21 05/11/21 Previous Rx's Medication Instructions Recorded docusate sodium 100 mg capsule 100 mg PO BID #14 cap 05/17/17 (Colace) Allergies Allergy/AdvReac Type Severity Reaction Status Date / Time doxepin [DOXEPIN] Allergy Mild SEVERE Verified 05/11/21 15:27 NAUSEA gabapentin Allergy Mild Rash Verified 05/11/21 15:27 pilocarpine Allergy Mild Nausea Verified 05/11/21 15:27 pregabalin [From LYRICA] Allergy Mild RASH/ITCHIN Verified 05/11/21 15:27 G sulfamethoxazole Allergy Unknown Verified 05/11/21 15:27 [From BACTRIM] trimethoprim [From BACTRIM] Allergy Unknown Verified 05/11/21 15:27 diclofenac AdvReac Mild Nausea Verified 05/11/21 15:27 tetracycline [TETRACYCLINE] AdvReac Unknown YEAST Verified 05/11/21 15:27 INFECTION Review of Systems Review of Systems Narrative: GENERAL: Denies chills, fatigue, malaise, fever, sweats, travel HEENT: Denies sinus pain, ear pain, sore throat, difficulty swallowing, neck pain RESPIRATORY: Denies dyspnea, cough, wheezing, hemoptysis, sputum. CARDIOVASCULAR: Denies chest pain, palpitations, orthopnea, edema GASTROINTESTINAL: Denies nausea, vomiting, abdominal pain, diarrhea, constipation, melena. : Denies dysuria, frequency, incontinence, hematuria, urinary retention, flank pain. MUSCULOSKELETAL: Denies weakness, joint pain, or bony pain SKIN: No rash, no erythema, no pruritus NEUROLOGIC: See HPI PSYCHIATRIC: No concerning psychosocial issues. 12 point review of systems is negative except for those stated above and HPI Hematologic/Lymphatic On Anticoagulants: No Patient History Medical History Chronic GERD Fibromyalgia Generalized scleroderma History of malignant neoplasm of breast (03/22/17) IBS (irritable bowel syndrome) Intramural uterine fibroid Raynauds disease Family History Father Prostate cancer Mother Dementia Grandmother Family history pertaining to maternal grandmother Social History Smoking Status: Never smoker Smoking Status: Never smoker alcohol intake frequency: 0-2 drinks per day Substance Use Type: marijuana Exam Initial Vital Signs Initial Vital Signs: Vital Signs Temperature 97.8 F 05/11/21 13:31 Pulse Rate 50 L 05/11/21 13:31 Respiratory Rate 22 05/11/21 13:31 Blood Pressure 112/67 05/11/21 13:31 Pulse Oximetry 98 05/11/21 13:31 GENERAL: Alert 70-year-old female with left-sided facial droop HEENT: Head atraumatic,EOMI, pupils reactive, left facial droop CARDIOVASCULAR: Regular rate and rhythm without murmurs, rubs or gallops. RESPIRATORY: Breath sounds equal bilaterally, no wheezes rales or rhonchi. ABDOMEN: Soft, nontender. Normoactive bowel sounds all 4 quadrants. No guarding or rebound. EXTREMITIES: Normal range of motion, no clubbing or edema. Neurovascularly intact NEUROLOGICAL: Alert and oriented x4.Normal gait and speech. Cranial nerves II through XII grossly intact. Weakness in left arm with left finger to nose weakness, right [id number] is intact good lfcx-sh-mxrr, strength equal bilaterally, no dysarthria or aphasia, sensation in tact to soft touch bilaterally, no visual changes, left facial droop SKIN: Warm, dry, no laceration, no petechiae, no rashes or lesions. Scores NIH Stroke Scale Level of Conciousness: Alert, keenly responsive Ask month/age: Answers both questions correctly. Open/close eyes, close hand: Performs both tasks correctly Best gaze horizontal: Normal Visual kruse: No visual loss Facial palsy: Partial paralysis, total or near total paralysis of lower face Left arm drift: Drifts down, not to bed Right arm drift: No drift for full 10 sec Left leg drift: No drift for full 5 sec Right leg drift: No drift for full 5 sec Limb ataxia: Present in one limb Sensory on face/arms/legs: Normal, no sensory loss Best language: Mild to moderate, slurs some words Dysarthria: Normal Extinction or inattention: No abnormality Total NIH Stroke scale score: 5 Course Orders Ordered: ED Orders 05/11/21 13:43 CT Stroke Stat XR chest 1V Stat 05/11/21 13:44 CT angio head and neck Stat 05/11/21 13:45 Complete Blood Count AUTO DIFF Stat Comprehensive Metabolic Panel Stat Partial Thromboplastin Time Stat Prothrombin Time INR Stat Troponin & CK Cardiac Panel Stat 05/11/21 14:04 EKG-12 Lead Stat 05/11/21 14:30 COVID19 -Nasal swab/Pre-Proc Stat 05/11/21 14:33 Consult to Speech Therapy Evaluate & Treat 05/11/21 14:59 MR head/brain wo con Stat 05/11/21 15:22 Urine Drug Screen, Rapid Stat Acetaminophen (Acetaminophen 325 Mg Tablet) 650 mg PO Q6HR COUNT INCLUDES THE [facility] Artificial Tears (Polyvinyl Alcohol Drops) 1 drops EYE-BOTH DAILY COUNT INCLUDES THE [facility] Aspirin (Aspirin Ec 81 Mg Tablet) 81 mg PO DAILY COUNT INCLUDES THE [facility] Atorvastatin Calcium (Atorvastatin 20 Mg Tablet) 40 mg PO BEDTIME COUNT INCLUDES THE [facility] Enoxaparin Sodium (Enoxaparin 40 Mg/0.4 Ml Syringe) 40 mg SUBCUT DAILY COUNT INCLUDES THE [facility] Sodium Chloride (Normal Saline 0.9%) 1,000 mls @ 125 mls/hr IV BOLUS ONE Stop: 05/12/21 00:52 Last Infusion: 05/11/21 17:20 Dose: 0 mls/hr Documented by: Admin: 05/11/21 16:57 Dose: 125 mls/hr Documented by: TYE Naloxone HCl (Naloxone 0.4 Mg/Ml Vial) 0.2 mg IV Q2MIN PRN PRN Reason: Opiate Reversal Tramadol HCl (Tramadol 50 Mg Tablet) 50 mg PO Q4H PRN PRN Reason: Pain, Moderate (4-6) Discontinued Medications Aspirin (Aspirin 81 Mg Chew Tab) 324 mg PO NOW ONE Stop: 05/11/21 14:04 Last Admin: 05/11/21 14:40 Dose: Not Given Documented by: GIANA Aspirin (Aspirin 300 Mg Supp) 300 mg TN NOW ONE Stop: 05/11/21 14:41 Last Admin: 05/11/21 15:04 Dose: 300 mg Documented by: TYE Ondansetron HCl (Ondansetron 4 Mg/2 Ml Inj) 4 mg IV NOW ONE Stop: 05/11/21 14:12 Last Admin: 05/11/21 14:21 Dose: 4 mg Documented by: GIANA Vital Signs Vital signs: Vital Signs - 8 hr 05/11/21 13:31 05/11/21 14:27 05/11/21 14:30 Temperature 97.8 F Pulse Rate 50 L 43 L 51 L Respiratory Rate 22 24 Blood Pressure 112/67 121/71 Pulse Oximetry 98 95 93 05/11/21 14:45 05/11/21 15:00 Temperature Pulse Rate 49 L 60 Respiratory Rate 24 24 Blood Pressure 135/63 Pulse Oximetry 94 MDM - Neuro Symptoms/Deficit Lab Data Result diagrams: 05/11/21 13:45 05/11/21 13:45 Labs: Lab Results 05/11/21 05/11/21 05/11/21 Range/Units 13:45 13:45 13:45 WBC 4.5 (4.5-11.0) X10^3/uL RBC 3.68 L (4.0-5.2) X10^6/uL Hgb 12.0 (12.0-16.0) g/dL Hct 36.3 (36-46) % MCV 98.7 (80-100) fL MCH 32.6 (26-34) PG MCHC 33.0 (30-36) % RDW 19.6 H (11.6-14.8) % Plt Count 221 (150-400) X10^3/uL Neut % (Auto) 68.5 (50-75) % Lymph % (Auto) 19.7 L (25-40) % Nance % (Auto) 9.5 (3-14) % Eos % (Auto) 1.4 L (2-4) % Baso % (Auto) 0.9 (0-2) % Neut # (Auto) 3100 (5290-2930) /uL Lymph # (Auto) 900 L (8940-4185) /uL Nance # (Auto) 400 (0-900) /uL Eos # (Auto) 100 (0-450) /uL Baso # (Auto) 0 (0-100) /uL PT 12.9 H (10.1-12.7) SECONDS INR 1.1 (0.9-1.3) APTT 28 (26.4-36.2) SECONDS Sodium 138 (137-145) mmol/L Potassium 4.1 (3.4-5.1) mmol/L Chloride 105 (98-107) mmol/L Carbon Dioxide 29 (22-32) mmol/L BUN 13 (7-17) mg/dL Creatinine 0.72 (0.52-1.04) mg/dL Estimated GFR > 60.0 (>60) mL/min BUN/Creatinine Ratio 18.1 (6-22) Glucose 105 (80-110) mg/dL Hemoglobin A1c (4.0-6.0) % Calcium 9.6 (8.4-10.2) mg/dL Magnesium (1.6-2.3) mg/dL Total Bilirubin 0.6 (0.2-1.3) mg/dL AST 28 (14-36) IU/L ALT 21 (<35) IU/L Alkaline Phosphatase 63 (38-126) U/L Total Creatine Kinase 49 (30-135) U/L CK-MB (CK-2) TNP CK-MB (CK-2) Rel Index TNP Troponin I < 0.012 (0.01-0.034) ng/mL Total Protein 7.7 (6.3-8.2) g/dL Albumin 4.4 (3.5-5.0) g/dL Globulin 3.3 (1.7-4.1) g/dL Albumin/Globulin Ratio 1.3 (1.0-2.8) SARS-CoV-2 (PCR) (Negative) 05/11/21 05/11/21 05/11/21 Range/Units 13:45 13:45 14:30 WBC (4.5-11.0) X10^3/uL RBC (4.0-5.2) X10^6/uL Hgb (12.0-16.0) g/dL Hct (36-46) % MCV (80-100) fL MCH (26-34) PG MCHC (30-36) % RDW (11.6-14.8) % Plt Count (150-400) X10^3/uL Neut % (Auto) (50-75) % Lymph % (Auto) (25-40) % Nance % (Auto) (3-14) % Eos % (Auto) (2-4) % Baso % (Auto) (0-2) % Neut # (Auto) (8479-0412) /uL Lymph # (Auto) (4925-1497) /uL Nance # (Auto) (0-900) /uL Eos # (Auto) (0-450) /uL Baso # (Auto) (0-100) /uL PT (10.1-12.7) SECONDS INR (0.9-1.3) APTT (26.4-36.2) SECONDS Sodium (137-145) mmol/L Potassium (3.4-5.1) mmol/L Chloride (98-107) mmol/L Carbon Dioxide (22-32) mmol/L BUN (7-17) mg/dL Creatinine (0.52-1.04) mg/dL Estimated GFR (>60) mL/min BUN/Creatinine Ratio (6-22) Glucose (80-110) mg/dL Hemoglobin A1c 5.2 (4.0-6.0) % Calcium (8.4-10.2) mg/dL Magnesium 2.2 (1.6-2.3) mg/dL Total Bilirubin (0.2-1.3) mg/dL AST (14-36) IU/L ALT (<35) IU/L Alkaline Phosphatase (38-126) U/L Total Creatine Kinase (30-135) U/L CK-MB (CK-2) CK-MB (CK-2) Rel Index Troponin I (0.01-0.034) ng/mL Total Protein (6.3-8.2) g/dL Albumin (3.5-5.0) g/dL Globulin (1.7-4.1) g/dL Albumin/Globulin Ratio (1.0-2.8) SARS-CoV-2 (PCR) Negative (Negative) Imaging Data CT scan - head: Radiologist's Impression: PROCEDURE:? CT STROKE ? INDICATIONS:? facial droop, last known well last night, woke w/ symptoms ? TECHNIQUE:? Noncontrast 4.5 mm thick angled axial sections acquired from the foramen magnum to the vertex, with coronal reformats.? For radiation dose reduction, the following was used:? automated exposure control, adjustment of mA and/or kV according to patient size.? ? COMPARISON:? None. ? FINDINGS:? Image quality:? Excellent.? ? CSF spaces:? Basal cisterns are patent.? No extra-axial fluid collections.? Ventricles are normal in size and shape.? ? Brain:? No midline shift.? No intracranial masses or hemorrhage.? Olvera-white matter interface is normal.? There is subtle low attenuation within the right fronto- temporal lobe.? No associated hemorrhage.? There is prominent posterior fossa low attenuation suggestive of arachnoid cyst. ? Skull and face:? Calvarium and visualized facial bones are intact, without suspicious lesions.? ? Sinuses:? Visualized sinuses and mastoids are clear.? ? IMPRESSION:? ? Low-attenuation focus within the right fronto-temporal lobe suspicious for subacute ischemia.? No acute hemorrhage. ? The above findings were discussed with Dr. Ramona Howell onn 05/11/2021 at 2:02 p.m. ? This study fulfills neurological imaging criteria for inclusion or exclusion of acute stroke therapies based on available published neurological imaging guidelines.? ? ? Dictated by: Joycelyn Hunt M.D. on 05/11/2021 at 14:01 CTA - brain/neck: Radiologist's Impression: PROCEDURE:? CT ANGIO HEAD AND NECK ? INDICATIONS:? facial droop, woke w/ symptoms. ? TECHNIQUE:? Helical axial CT of the head and neck was obtained after intravenous contrast injection utilizing an angiographic technique and reformatted in multiple planes.? Radiation dose reduction was achieved utilizing automated exposure control and/or adjustment of the dose parameters according to patient's size. ? COMPARISON:? None. ? FINDINGS: ? Cerebral CT Angiogram: ? Internal carotid arteries:? No acute findings.? Intracranial ICA are patent with no significant stenosis.? No occlusion.? No aneurysm. Anterior cerebral arteries:? Unremarkable.? No significant stenosis.? No occlusion.? No aneurysm. Middle cerebral arteries:? On axial image , there is a focal right M2 MCA branch occlusion associated with the wedge-shaped subacute right frontal infarct. Posterior cerebral arteries:? Hypoplasia/aplasia of the left P1 [employer] AGENT noted. The P2 segment is supplied by a widely patent posterior communicating artery. Remainder of the distal vasculature unremarkable. Basilar artery:? Unremarkable.? No significant stenosis.? No occlusion.? No aneurysm. Vertebral arteries:? Unremarkable as visualized. Dural venous sinuses:? Unremarkable given phase of enhancement. Other:? In the right frontal lobe, there is a wedge-shaped focus of sulcal effacement, blurring of the olvera-white junction and hypoenhancement consistent with subacute infarct ? Neck CT Angiogram: ? Internal carotid arteries:? Unremarkable.? No significant stenosis.? No dissection or occlusion. Common carotid arteries:? Unremarkable.? No significant stenosis.? No dissection or occlusion. External carotid arteries:? Unremarkable.? No occlusion. Vertebral arteries:? Unremarkable.? No significant stenosis.? No dissection or occlusion. Other: None. ? Aortic Arch and Mediastinum:? Partially visualized aortic arch unremarkable without evidence of aneurysm. Origins of the great vessels unremarkable. ? ? IMPRESSION: ? 1. Acute to subacute right M2 MCA branch occlusion, associated with right front al wedge-shaped subacute infarct.? No intracranial hemorrhage. ? ? ? Any quantitative measurements of stenosis were performed using NASCET criteria.? Approved by: Christopher Keane M.D. on 05/11/2021 at 14:00? MR: Radiologist's Impression: PROCEDURE:? MR HEAD/BRAIN WO CON ? INDICATIONS:? subactue stroke ? TECHNIQUE:? Noncontrast axial T1 spin echo, axial T2 fast spin echo, sagittal and axial FLAIR, coronal T2 fast spin echo, axial gradient echo, axial diffusion and ADC through the brain.? ? COMPARISON:? None. ? FINDINGS:? Image quality:? Excellent.? ? CSF Spaces:? Basal cisterns are patent.? No extra-axial fluid collections.? Ventricles are normal in size and shape.? ? Brain:? Focal wedge-shaped restricted diffusion noted in the right inferior frontal gyrus lung reflecting approximately 20% of the expected right MCA territory.? Additional punctate focus of T2 shine through artifact noted in the left centrum semiovale. ? Otherwise, the gradient sequence unremarkable without evidence of hemorrhage.? There is multifocal white matter chronic ischemic change as well as cerebral and cerebellar atrophy present. ? Skull and face:? Calvarium has normal marrow signal.? Orbits appear normal.? ? Sinuses:? Sinuses and mastoids are clear.? ? IMPRESSION:? ? 1. Acute to subacute right MCA infarct without intracranial hemorrhage or mass effect. ? 2. Moderate atrophy and multifocal white matter chronic ischemic change.? ? ? Approved by: Christopher Keane M.D. on 05/11/2021 at 14:59? ECG Data Interpretation: Sinus bradycardia rate 48 TN interval [address] changes or T-wave inversions MDM Narrative Medical decision making narrative: Patient is found to have a subacute stroke on CT. CT angio does confirm a right and to occlusion. Images were pushed to tele stroke consultation with neurologist at that time. 1516-Dr. Maldonado, has reviewed images he evaluated patient himself. At this time he thinks that patient stroke has completed. She is not a candidate for an y large vessel occlusion intervention. And she is also out of the window for tPA. Patient is given rectal aspirin she did not pass her bedside swallow per nursing. Dr. Rich's updated patient's symptoms test results and accepts patient Critical Care Time Critical Care Time Critical Care Time: Yes Total Critical Care Time: 35 Attestation: The high probability of a clinically significant, sudden or life threatening deterioration of the neurovascular system(s) required my full and direct attention, intervention and personal management. The aggregate critical care time was 35 minutes. This time is in addition to time spent performing reported procedures but includes the following: [x] Data Review and interpretation [x] Patient assessment and monitoring of vital signs [x] Documentation [x] Medication orders and management Discharge Plan Departure Patient Disposition: Admitted As Inpatient Clinical Impression: Acute cerebrovascular accident (CVA) Admit Date/Time: 05/11/21 15:03 Admit Provider: Maranda Rich
[2021-05-11 13:57] LABS: Add Manual Diff / Slide Review NO; Basophils Absolute Auto 0 /uL (0-100); Basophils Percent Auto 0.9 % (0-2); Eosinophils Absolute Auto 100 /uL (0-450); Eosinophils Percent Auto 1.4 % (2-4); Hematocrit 36.3 % (36-46); Lymphocytes Absolute Auto 900 /uL (1100-4500); Lymphocytes Percent Auto 19.7 % (25-40); Mean Corpuscular Hemoglobin 32.6 PG (26-34); Mean Corpuscular Volume 98.7 fL (80-100); Monocytes Absolute Auto 400 /uL (0-900); Monocytes Percent Auto 9.5 % (3-14); Neutrophils Absolute Auto 3100 /uL (1500-7000); Neutrophils Percent Auto 68.5 % (50-75); Platelet Count 221 X10^3/uL (150-400); Red Blood Cell Count 3.68 X10^6/uL (4.0-5.2); Red Cell Distribution Width 19.6 % (11.6-14.8); White Blood Cell Count 4.5 X10^3/uL (4.5-11.0)
[2021-05-11 14:06] LABS: INR 1.1 (0.9-1.3); Prothrombin Time 12.9 SECONDS (10.1-12.7)
[2021-05-11 14:09] LABS: PTT Partial Thromboplastin Tim 28 SECONDS (26.4-36.2)
[2021-05-11 14:11] LABS: Alanine Aminotransferase 21 IU/L (<35); Albumin 4.4 g/dL (3.5-5.0); Albumin Globulin Ratio 1.3 (1.0-2.8); Alkaline Phosphatase 63 U/L (38-126); Aspartate Aminotransferase 28 IU/L (14-36); BUN Creatinine Ratio 18.1 (6-22); Bilirubin Total 0.6 mg/dL (0.2-1.3); Blood Urea Nitrogen 13 mg/dL (7-17); Calcium 9.6 mg/dL (8.4-10.2); Carbon Dioxide 29 mmol/L (22-32); Chloride 105 mmol/L (98-107); Creatine Kinase 49 U/L (30-135); Estimated Glomerular Filt Rate > 60.0 mL/min (>60); Globulin 3.3 g/dL (1.7-4.1); Glucose 105 mg/dL (80-110); HEMOLYSIS < 15 (0-50); Potassium 4.1 mmol/L (3.4-5.1); Sodium 138 mmol/L (137-145); Total Protein 7.7 g/dL (6.3-8.2)
[2021-05-11] MEDS: ONDANSETRON 4 MG/2 ML INJ IV (14:21)
[2021-05-11 14:22] LABS: Troponin I < 0.012 ng/mL (0.01-0.034)
--- NOTE | 2021-05-11 14:59 | DI.MRI.S_ITS ---
PROCEDURE: MR HEAD/BRAIN WO CON INDICATIONS: subactue stroke TECHNIQUE: Noncontrast axial T1 spin echo, axial T2 fast spin echo, sagittal and axial FLAIR, coronal T2 fast spin echo, axial gradient echo, axial diffusion and ADC through the brain. COMPARISON: None. FINDINGS: Image quality: Excellent. CSF Spaces: Basal cisterns are patent. No extra-axial fluid collections. Ventricles are normal in size and shape. Brain: Focal wedge-shaped restricted diffusion noted in the right inferior frontal gyrus lung reflecting approximately 20% of the expected right MCA territory. Additional punctate focus of T2 shine through artifact noted in the left centrum semiovale. Otherwise, the gradient sequence unremarkable without evidence of hemorrhage. There is multifocal white matter chronic ischemic change as well as cerebral and cerebellar atrophy present. Skull and face: Calvarium has normal marrow signal. Orbits appear normal. Sinuses: Sinuses and mastoids are clear. IMPRESSION: 1. Acute to subacute right MCA infarct without intracranial hemorrhage or mass effect. 2. Moderate atrophy and multifocal white matter chronic ischemic change. Approved by: Christopher Keane M.D. on 05/11/2021 at 14:59
[2021-05-11 15:03] LABS: COVID19 -Nasal RAPID Negative (Negative)
[2021-05-11] MEDS: ASPIRIN 300 MG SUPP PR (15:04)
[2021-05-11 15:56] LABS: UR Morphine/Opiate cutoff 300 Negative (Negative); Ur Creatinine Normal (Normal); Ur Specific Gravity Normal (Normal); Urine Amphetamines Negative (Negative); Urine Barbiturates Negative (Negative); Urine Benzodiazepines Negative (Negative); Urine Cocaine Negative (Negative); Urine MDMA Negative (Negative); Urine Methadone Negative (Negative); Urine Methamphetamines Negative (Negative); Urine Oxycodone Negative (Negative); Urine Phencyclidine Negative (Negative); Urine Tetrahydrocannabinol Negative (Negative); Urine Tricyclic Antidepressant Negative (Negative); Urine pH Normal (Normal)
[2021-05-11] MEDS: SODIUM CHLORIDE 0.9% 1,000 ML 125 ML IV (16:57)
[2021-05-11 19:04] LABS: Magnesium 2.2 mg/dL (1.6-2.3)
[2021-05-11 19:15] LABS: Hemoglobin A1C% w Est Avg Glu 5.2 % (4.0-6.0)
--- NOTE | 2021-05-11 19:15 | P.HP_ITS ---
History of Present Illness History of Present Illness Date Patient Seen: 05/11/21 Time Patient Seen: 19:16 Chief complaint: Symptoms of a stroke Narrative: Diana Huffman is a 70-year-old female currently undergoing treatment for right- sided breast cancer, history of IBS, uterine fibroids, Raynaud's, Sjogren's disease, systemic scleroderma woke up coughing and drooling this morning. She tried to drink some water and ?up chucked a bunch of liquids. saw her, suspected she might be having a stroke and contacted EMS. Her last known well was just prior to bedtime on 05/10. She denies headache, she does endorse having problems swallowing at the time she was seen, she also is aware that her speech is impaired and that she has drooping on the left side, she denies shortness of breath, chest pain, nausea vomiting, dysuria, diarrhea or constipation. She denies any focal extremity weakness. She initially presented to the ED with a NIH scale of 5. Head CT indicated a ?low-attenuation focus within the right frontotemporal lobe suspicious for subac [place] ischemia with no hemorrhage?. Head and neck CTA noted acute to subacute right M2 MCA branch occlusion associated with right frontal wedge shaped subacute infarct?. MRI of the brain confirmed acute to subacute right MCA infarct and moderate atrophy and multifocal white matter chronic ischemic c hanges. ? She did fail a swallow evaluation in the emergency department. Repeat NIH scale was 2 followed by a score of 3. She is afebrile, blood pressure 106/59, heart rate 56, respiratory rate 16, oxygen saturation of 97% on room air she weighs 68 kg with a BMI of 26.5. WBC is unremarkable, chemistries are also unremarkable TSH within normal limits,, urine toxicology is negative and COVID-19 PCR is negative. Patient History Medical History Chronic GERD Fibromyalgia Generalized scleroderma History of malignant neoplasm of breast (03/22/17) IBS (irritable bowel syndrome) Intramural uterine fibroid Raynauds disease Family & Social History Family History Father Prostate cancer Mother Dementia Grandmother Family history pertaining to maternal grandmother Tobacco & Substance use: Smoking Status Never smoker alcohol intake frequency 0-2 drinks per day Substance Use Type marijuana Meds Home Medications and Allergies Home Medications Medication Instructions Recorded Confirmed Type acetaminophen 500 mg tablet 500 mg PO Q4HP PRN #0 03/22/17 05/11/21 History (Tylenol Extra Strength) carboxymethylcellulose sodium 0.5 15 ml DAILY #0 03/22/17 05/11/21 History % eye drops (Refresh Tears) diltiazem HCl 300 mg 300 mg PO QDAY #0 03/22/17 05/11/21 History capsule,extended release 24 hr (Cartia XT) doxazosin 1 mg tablet (Cardura) 1 mg PO HS #0 03/22/17 05/11/21 History folic acid 1 mg tablet 1 mg PO BID #0 03/22/17 05/11/21 History modafinil 200 mg tablet 100 mg PO QDAY #0 03/22/17 05/11/21 History polyethylene glycol 3350 17 17 gm PO QDAY #0 03/22/17 05/11/21 History gram/dose oral powder (Miralax) tramadol 50 mg tablet 50 mg PO Q4HP PRN #0 MDD P 03/22/17 05/11/21 History multivitamin (Multiple Vitamins) 1 tab PO QDAY #0 04/20/17 05/11/21 History omega 2-ttd-bmm-fish oil 1,000 mg 1,000 mg PO Q DAY #0 04/20/17 05/11/21 History (120 mg-180 mg) capsule (Fish Oil) omeprazole 20 mg capsule,delayed 40 mg PO BID #0 04/20/17 05/11/21 History release vitamin B complex (B 1 tab PO QDAY #0 04/20/17 05/11/21 History Complex-Vitamin B12) docusate sodium 100 mg capsule 100 mg PO BID #14 cap 05/17/17 05/11/21 Rx (Colace) citalopram 20 mg tablet 20 mg PO BID 03/20/19 05/11/21 History aspirin 81 mg tablet,delayed 81 mg PO DAILY 12/19/19 05/11/21 History release zolpidem 5 mg tablet 5 mg PO BEDTIME PRN 12/19/19 05/11/21 History methotrexate sodium 2.5 mg tablet 10 mg PO QWEEK #0 tab 04/29/20 05/11/21 History Bifidobacterium infantis 4 mg 4 mg PO DAILY 03/25/21 05/11/21 History capsule (Align) psyllium 1 packet PO DAILY 03/25/21 05/11/21 History calcium carbonate 200 mg calcium 1,000 mg PO BID 05/11/21 05/11/21 History (500 mg) chewable tablet (Tums) cholecalciferol (vitamin D3) 50 50 mcg PO DAILY 05/11/21 05/11/21 History mcg (2,000 unit) capsule (Vitamin D3) magnesium citrate 125 mg capsule 250 mg PO DAILY 05/11/21 05/11/21 History Allergies Allergy/AdvReac Type Severity Reaction Status Date / Time doxepin [DOXEPIN] Allergy Mild SEVERE Verified 05/11/21 15:27 NAUSEA gabapentin Allergy Mild Rash Verified 05/11/21 15:27 pilocarpine Allergy Mild Nausea Verified 05/11/21 15:27 pregabalin [From LYRICA] Allergy Mild RASH/ITCHIN Verified 05/11/21 15:27 G sulfamethoxazole Allergy Unknown Verified 05/11/21 15:27 [From BACTRIM] trimethoprim [From BACTRIM] Allergy Unknown Verified 05/11/21 15:27 diclofenac AdvReac Mild Nausea Verified 05/11/21 15:27 tetracycline [TETRACYCLINE] AdvReac Unknown YEAST Verified 05/11/21 15:27 INFECTION Review of Systems Review of Systems ROS: Yes All systems reviewed with the patient and are negative except as otherwise documented Exam Vital Signs (past 8 hours): - 05/11/21 13:31 05/11/21 14:27 05/11/21 14:30 Temperature 97.8 F Pulse Rate 50 L 43 L 51 L Respiratory Rate 22 24 Blood Pressure 112/67 121/71 Pulse Oximetry 98 95 93 05/11/21 14:45 05/11/21 15:00 05/11/21 16:42 Temperature Pulse Rate 49 L 60 59 L Respiratory Rate 24 24 Blood Pressure 135/63 Pulse Oximetry 94 99 05/11/21 16:45 05/11/21 18:19 Temperature 99.1 F Pulse Rate 52 L 54 L Respiratory Rate 17 22 Blood Pressure 127/69 125/74 Pulse Oximetry 99 93 Oxygen Delivery Method Room Air Narrative Exam Narrative: Gen: Alert, oriented, well-developed 62y.o. female, having some difficulty speaking HEENT: normocephalic, atraumatic, conjunctiva clear, sclera non-icteric, oral mucosa pink and moist Neck: supple, full ROM, no JVD, trachea is midline Resp: Lungs CTA, non-labored breathing CV: RRR, no murmur or rubs Abd: soft, non-tender, normoactive BTs Skin: no lesions or rashes, dry and intact Neuro: NIH: 3 Left-sided facial droop. Alert and oriented X 4 w/no focal deficits. Speech with mild slurring Extremities: moves all 4 extremities, is ambulatory, negative Veronica?s sign Psyche: normal mood and affect. Objective Labs Result Diagrams: 05/11/21 13:45 05/11/21 13:45 Labs: Laboratory Results - last 24 hr 05/11/21 05/11/21 05/11/21 13:45 13:45 13:45 WBC 4.5 RBC 3.68 L Hgb 12.0 Hct 36.3 MCV 98.7 MCH 32.6 MCHC 33.0 RDW 19.6 H Plt Count 221 Neut % (Auto) 68.5 Lymph % (Auto) 19.7 L [place] % (Auto) 9.5 Eos % (Auto) 1.4 L Baso % (Auto) 0.9 Neut # (Auto) 3100 Lymph # (Auto) 900 L [place] # (Auto) 400 Eos # (Auto) 100 Baso # (Auto) 0 PT 12.9 H INR 1.1 APTT 28 Sodium 138 Potassium 4.1 Chloride 105 Carbon Dioxide 29 BUN 13 Creatinine 0.72 Estimated GFR > 60.0 BUN/Creatinine Ratio 18.1 Glucose 105 Calcium 9.6 Magnesium Total Bilirubin 0.6 AST 28 ALT 21 Alkaline Phosphatase 63 Total Creatine Kinase 49 CK-MB (CK-2) TNP CK-MB (CK-2) Rel Index TNP Troponin I < 0.012 Total Protein 7.7 Albumin 4.4 Globulin 3.3 Albumin/Globulin Ratio 1.3 U Opiates 300ng/mL cut Ur Oxycodone Screen Urine Methadone Screen Ur Barbiturates Screen U Tricyclic Antidepress Ur Phencyclidine Scrn Ur Amphetamines Screen U Methamphetamines Scrn Ur MDMA Scrn (Ecstasy) U Benzodiazepines Scrn Urine Cocaine Screen U Marijuana (THC) Screen SARS-CoV-2 (PCR) 05/11/21 05/11/21 05/11/21 13:45 14:30 15:22 WBC RBC Hgb Hct MCV MCH MCHC RDW Plt Count Neut % (Auto) Lymph % (Auto) [place] % (Auto) Eos % (Auto) Baso % (Auto) Neut # (Auto) Lymph # (Auto) [place] # (Auto) Eos # (Auto) Baso # (Auto) PT INR APTT Sodium Potassium Chloride Carbon Dioxide BUN Creatinine Estimated GFR BUN/Creatinine Ratio Glucose Calcium Magnesium 2.2 Total Bilirubin AST ALT Alkaline Phosphatase Total Creatine Kinase CK-MB (CK-2) CK-MB (CK-2) Rel Index Troponin I Total Protein Albumin Globulin Albumin/Globulin Ratio U Opiates 300ng/mL cut Negative Ur Oxycodone Screen Negative Urine Methadone Screen Negative Ur Barbiturates Screen Negative U Tricyclic Antidepress Negative Ur Phencyclidine Scrn Negative Ur Amphetamines Screen Negative U Methamphetamines Scrn Negative Ur MDMA Scrn (Ecstasy) Negative U Benzodiazepines Scrn Negative Urine Cocaine Screen Negative U Marijuana (THC) Screen Negative SARS-CoV-2 (PCR) Negative Assessment & Plan Assessment & Plan narrative: Diana Huffman is admitted for further evaluation and treatment of an acute to subacute right MCA infarct. * Cardiac telemetry * NIH score greater than 5 yes NIH scoring and neuro checks q 4 hours * Dual antiplatelet therapy: No aspirin 81 mg p.o. daily * MR stroke completed prior to inpatient admission * Complete Echo with bubble study for 3 * PT/OT/ST evaluation Hypotension, acute with an admission bp of 110/57, present on admission * No antihypertensives ordered in the setting of hypotension HLD * Fasting lipid panel, pending for 0500 labs * Atorvastatin 40 mg po at bedtime Risk stratification * Fasting lipid panel pending for the morning * A1c is 5.2 % [X] not diabetic VTE Prophylaxis: Wells risk score 1 Enoxaparin 40 mg subQ once daily Bilateral SCDs Patient is admitted to the inpatient service due to the severity of disease, risks of further disease progression and this stay is expected to exceed 2 midnights. FEN: IV fluids: NS at 100 ml/hour , diet: currently NPO has failed swallow study, labs: CBC, C/BMP, liver enzymes, Mag, PT/INR Consultants None Dispo: probable discharge to home with outpatient PT/OT/Speech Code status: Full code as discussed with the patient who identifies her Ashwin her surrogate and POA. [X] I have utilized all available immediate resources to obtain, update, or review of the patient's current medications COVID-19 COVID-19 status: Negative Result date/Date tested (Pos, Neg/Pending): 05/12/21 Scores GCS [place] coma scale eye opening: Spontaneous [place] coma scale verbal response: Orientated [place] coma scale motor response: Obey commands [place] coma scale total score: 15 ABCD2 Age >= 60 years: yes Initial BP. Either SBP >= 140 or DBP >= 90.: no Clinical features of the TIA: speech disturbance without weakness Duration of symptoms: >= 60 minutes History of diabetes: no ABCD2 Score: 4 NIHSS Level of Conciousness: Alert, keenly responsive Ask month/age: Answers both questions correctly. Open/close eyes, close hand: Performs both tasks correctly Best gaze horizontal: Partial gaze palsy, can be overcome by finger tracking, he ad turning Visual kruse: No visual loss Facial palsy: Minor paralysis, flattened nasolabial fold, asymmetry on smiling Left arm drift: No drift for full 10 sec Right arm drift: No drift for full 10 sec Left leg drift: No drift for full 5 sec Right leg drift: No drift for full 5 sec Limb ataxia: Absent Sensory on face/arms/legs: Normal, no sensory loss Best language: No aphasia, normal Dysarthria: Mild to mod,some slurring Extinction or inattention: No abnormality Total NIH Stroke scale score: 3 Wells' Criteria for PE Clinical signs and symptoms of DVT: No PE is #1 Dx or equally likely: No Heart rate > 100: No Immobilization at least 3 days or surg in previous 4 weeks: No History of PE or DVT: No Hemoptysis: No Malignancy w/Treatment within 6 months or palliative: Yes Wells' PE Score total: 1 Quality Stroke Contraindication Not Initiating IV-Tpa: Contraindicated Symptom Onset Unknown: Yes Rehab Services Assessed: Speech therapy VTE Deep Vein Thrombosis/Pulmonary Embolism Present on Admission: No MIPS - Admit I confirm the patient?s Advance Care Plan is present, Code status is documented, Surrogate decision maker is in patient?s record [If Yes, STOP here]: Yes MIPS - DC The patient has current or prior documentation of left ventricular ejection fraction (LVEF) less than 40%, or moderate or severely depressed left milan tricular systolic function.: No
[2021-05-11 19:36] LABS: TSH w/ Reflex to FT4 1.55 uIU/mL (0.47-4.68)
[2021-05-12] MEDS: SODIUM CHLORIDE 0.9% 1,000 ML 100 ML IV ×2 (03:35→12:07)
[2021-05-12 04:00] VITALS: BP 95/60; PULSE 43; RESP 16; TEMP 37.5; O2SAT 96
--- NOTE | 2021-05-12 04:30 | PC.NURSE ---
ICU reports Pt with a run of Vtach, Bigeminy, Trigeminy, PAC's, PVC's 1 degree AVB, 2nd degree AVB Type II. STEM DRYER MAINTAINER's down to check on status of Pt. Pt is asymptomatic-denies chest pain, palpitations, nausea, or diziness. Pt is calm and relaxed. production control scheduler informed, TEAR DOWN WORKER Hans informed.
[2021-05-12 05:00] LABS: Add Manual Diff / Slide Review NO; Basophils Absolute Auto 0 /uL (0-100); Basophils Percent Auto 0.6 % (0-2); Eosinophils Absolute Auto 0 /uL (0-450); Eosinophils Percent Auto 0.6 % (2-4); Hematocrit 35.6 % (36-46); Hemoglobin 11.8 g/dL (12.0-16.0); Lymphocytes Absolute Auto 600 /uL (1100-4500); Lymphocytes Percent Auto 8.8 % (25-40); Mean Corpuscular HGB Conc 33.1 % (30-36); Mean Corpuscular Hemoglobin 32.8 PG (26-34); Mean Corpuscular Volume 98.9 fL (80-100); Monocytes Absolute Auto 300 /uL (0-900); Monocytes Percent Auto 4.3 % (3-14); Neutrophils Absolute Auto 6300 /uL (1500-7000); Neutrophils Percent Auto 85.7 % (50-75); Platelet Count 199 X10^3/uL (150-400); Red Cell Distribution Width 19.6 % (11.6-14.8); White Blood Cell Count 7.3 X10^3/uL (4.5-11.0)
[2021-05-12 05:04] LABS: BUN Creatinine Ratio 22.8 (6-22); Blood Urea Nitrogen 13 mg/dL (7-17); Carbon Dioxide 28 mmol/L (22-32); Chloride 108 mmol/L (98-107); Estimated Glomerular Filt Rate > 60.0 mL/min (>60); Glucose 94 mg/dL (80-110); HEMOLYSIS < 15 (0-50); Magnesium 2.2 mg/dL (1.6-2.3); Potassium 3.6 mmol/L (3.4-5.1); Sodium 137 mmol/L (137-145)
[2021-05-12 07:15] VITALS: BP 115/64; PULSE 56; RESP 19; TEMP 38.8; O2SAT 99
[2021-05-12 08:48] VITALS: TEMP 37.5
--- NOTE | 2021-05-12 09:35 | PT.IIE ---
Medical History (Last Reviewed 05/11/21 @ 19:42 by Ramona Howell DO) Chronic GERD Fibromyalgia Generalized scleroderma History of malignant neoplasm of breast (03/22/17) IBS (irritable bowel syndrome) Intramural uterine fibroid Raynauds disease Physical Therapy Inpatient Evaluation/Re-Eval M1 PT/OT-IP Prior Functional Status Start: 05/12/21 12:50 Freq: NEEDED Status: Active Protocol: Document 05/12/21 09:35 AB (Rec: 05/12/21 13:[facility] Medical Review Prior Functional Status Medical History Reviewed Yes Communication able to make needs known Mobility and Gait pt stated that she is modifed independent with all mobilities and ambulation without AD Social History Household Members spouse Living Arrangements House Number of Floors (Floors) Two Floors Number of Stairs To Enter/Railing? pt stays on main level of the house 3 steps to enter with L rail ascending Home Environment High Toilet,Walk in Shower Home Equipment Straight Cane,Hand Held Shower M2 PT-IP Current Condition Start: 05/12/21 12:50 Freq: NEEDED Status: Active Protocol: Document 05/12/21 09:35 AB (Rec: 05/12/21 13:06 [facility] Physical Therapy Current Condition Current Condition Evaluation Date 05/12/21 Treatment Diagnosis R CVA; difficulty in walking Onset Date 05/11/21 M3 PT-IP Subjective Start: 05/12/21 12:50 Freq: NEEDED Status: Active Protocol: Document 05/12/21 09:35 AB (Rec: 05/12/21 13:06 [facility] Subjective Physical Therapy Visit Type Type Initial Evaluation Visit Start Time 09:35 Visit Stop Time 10:11 Total Visit Minutes 36 Number of TOOL AND DIE MAKER LEVEL FIVE Visits 0 Physical Therapy Visit Comments Patient Comments agreeable to do PT M4 PT-IP Mobility and Gait Start: 05/12/21 12:50 Freq: NEEDED Status: Active Protocol: Document 05/12/21 09:35 AB (Rec: 05/12/21 13:06 [facility] PT-Bed Mobility Assessment Supine to Sit Supine to Sit Standby Assistance PT-Transfer Assessment Sit to and From Stand Sit to and from Stand Contact Guard Assistance,1 Person Assistance,Use of Upper Extremities Equipment Transfer Assistive Device None,Gait Belt,Straight Cane Orthotic/Prosthetic Devices or Brace: No Transfers Transfer Destination Chair Transfer Technique ambulated Transfer Ability Level of Assist Standby Assistance,Contact Guard Assistance,1 Person Assistance,Use of Upper Extremities Comments Mobility Comments spouse in room. pt completed supine to sti SBA. completed sit to stand CGA and ambulated in room without AD ~ 25 ft CGA. presents with shuffling gait . Assessed pt's ambulation using SPC. educated pt on use of SPC and pt ambulated in room SBA to CGA ~ 30 ft. presents with steadier gait and able to elevated BLE up appropriately . pt also completed up/down step stool using SPC and L rail CGA and cues. pt agreed to sit on chair. positioned pt on chair. call light and table placed within reach. spouse in room and stated that he can assist pt at home. pt agreed to use SPC at home. Gait Assessment Gait Gait Assistance Required: Standby Assistance,Contact Guard Assist Distance (Feet) 30 Able to Maintain Weight Bearing Status Yes During Gait Assistive Devices Assistive Device None,Gait Belt,Straight Cane Orthotic/Prosthetic Devices or Brace: No Gait Deviations General Gait Pattern Antalgic,Decreased Stride Length,Decreased Feet Clearance,Step-to Gait Factors Limiting Gait Function Factors Limiting Gait Function Decreased Activity Tolerance, Decreased Strength,Difficulty Following Directions,Poor Balance,Poor Safety Awareness Stair Climbing Assessment Evaluation Level of Assist On Stairs Contact Guard Assistance Devices Stair Climbing Assistive Devices Straight Cane,Left Railing Technique/Endurance Stair Climbing Direction Ascend and Descend Stair Climbing Technique Step to Step Number of Steps Climbed 1 Query Text: Stair Climbing Set # Repetitions (reps) 2 PT-Balance Assessment Sitting Balance and Reactions Static Sitting Balance Ability Good Dynamic Sitting Balance Ability Good Standing Balance and Reactions Static Standing Balance Ability Fair Dynamic Standing Balance Ability Fair Device Used SPC M5 PT-IP Objective Assessments Start: 05/12/21 12:50 Freq: NEEDED Status: Active Protocol: Document 05/12/21 09:35 AB (Rec: 05/12/21 13:06 AB [id number]) Orientation Orientation/Cognition Level of Alertness Alert Orientation Name,Place,Situation Safety Awareness Decreased Safety Awareness Memory Description Short Term Impaired Gross Range of Motion Lower Extremity ROM Assessment Within Functional Limits Strength Lower Extremity Strength Assessment Bilaterally Impaired Hip 4-/5 Knee 4-/5 Muscle Tone Muscle Tone WNL Yes M6 PT-IP Treatment Start: 05/12/21 12:50 Freq: NEEDED Status: Active Protocol: Document 05/12/21 09:35 AB (Rec: 05/12/21 13:06 AB [email or web address]) Physical Therapy Treatment Education Education Provided Safety M7 PT-IP Assessment and Plan Start: 05/12/21 12:50 Freq: NEEDED Status: Active Protocol: Document 05/12/21 09:35 AB (Rec: 05/12/21 13:06 AB [email or web address]) PT Summary Assessment and Plan Potential Rehabilitation Potential Good Status of Condition at Evaluation Stable Summary Impairments Pain,ROM,Strength,Balance, Coordination,Sensation,Tone, Cognition,Bed Mobility, Transfers,Gait,Activity Tolerance Assessment Summary pt requiring SBA to CGA with mobility and recommending use of SPC at this time for safety . Pt plans to go home and spouse to assist her. Pt will need outpt PT. Goals Bed Mobility Goal Independent Transfer Goal Independent,Cane Gait Goal Independent,Cane Gait Distance 200 Other Goals improve ambulation without AD 200 ft mod I up/down 3 steps L rail mod I Days to Meet Goals 5 Frequency of Treatment Frequency Of Treatment Once a Day Treatment Plan Physical Therapy Treatment Plan Bed Mobility Training,Transfer Training,Gait Training, Therapeutic Exercise,Balance Retraining,Discharge Planning, Hot or Cold Pack,Neuromuscular Re-ed,Coordination Retraining ,Manual Therapy Recommendations To Nursing Amount of Assist Needed 1 Person Assist Discharge Recommendations PT Discharge Recommendations Home with Assistance, Outpatient PT Transportation Needs at Discharge Private Vehicle
[2021-05-12] MEDS: ASPIRIN EC 81 MG TABLET PO (10:32)
[2021-05-12] MEDS: ENOXAPARIN 40 MG/0.4 ML SYRINGE SUBCUT (10:33)
--- NOTE | 2021-05-12 10:47 | CM.DANOTE ---
DCP: Case received, EMR reviewed and met with patient. Spouse, Ashwin, was also at bedside. Introduced self and role. Was able to obtain some information regarding patient's baseline activity level prior to hospitalization. DCP assessment completed with information currently available. Patient is a 70 year old female who admitted yesterday afternoon to the care of the hospitalist team. PCP: Dr. Adams. Payer: confirmed: Medicare/Blue Cross [employer]. Patient came to the hospital via private vehicle secondary to having some left-sided facial drooping and weakness. According to notes, indicated patient was doing ok last evening before bed. Patient holds current diagnosis of acute to subacute right MCA infarct without intracranial hemorrhage. She will be working with speech, P.T, O.T. Patient also has history of breast cancer, and is currently undergoing treatment. Met with patient and spouse, Ashwin. Patient was sitting up in chair, was able to speak, but some difficulty. She indicated that she was independent prior to this incident, but mentioned [facility] P.T. here in town. Briefly discussed options for patient, such as acute inpatient rehab before going home. Patient and spouse are open to suggestions. Will see how she does with the therapy team. Spoke to Danna at [facility]. She stated, she has a list, but may be expecting some discharges. Gave her patient's name to put on her list. Let her know that patient is Medicare/Blue Cross, and as soon as therapy disciplines are in, can fax them to her. P: DCP to continue to follow, and will see how patient does with rehab here at the hospital, and will send referral to Danna at [facility] as soon as notes from therapy are in. Nikki Mendieta RN/Brand Designer Discharge Planning/Care Management Advanced directive, confirm from FAMILY Start: 05/11/21 21:12 Freq: Q24H Status: Active Protocol: Document 05/11/21 21:12 CM (Rec: 05/11/21 22:59 CM [id number]) Advance Directive, confirm on record Time 22:59 Person contacted Pt Copy received No CM Discharge Assessment Start: 05/12/21 10:45 Freq: Status: Active Protocol: Document 05/12/21 10:45 VM (Rec: 05/12/21 10:47 VM [id number]) Discharge Planning Assessment Assigned Residential Solar Consultant Nikki Mendieta RN/Brand Designer Advance Directives? Yes Advance Directives on File No History Provided By Patient,Medical Record Prior Living Arrangements House Household Members spouse Type of transporation used prior to Drives own vehicle admit Independent with ADL's Yes Is patient alert and oriented? Yes Caregiver for Another No Barriers to Discharge No Comment Patient has supportive , but is open to rehab if needed. Discharge Plan Home Transportation Arrangement Spouse or facility Referrals Initiated None needed Whiteboard Updated in Patient Room with Yes name and ext. # of Residential Solar Consultant Review Status In Process Next Review Type Continued Stay Review
[2021-05-12 11:15] VITALS: BP 113/64; PULSE 44; RESP 20; TEMP 36.9; O2SAT 96
--- NOTE | 2021-05-12 11:33 | PM.PFT.1 ---
Pulmonary Function Test Referral & Results Date Patient Seen: 05/07/21 Requesting provider: Katia Alvarez Results: The spirometry demonstrates an FVC of 2.26 L which is 77% of predicted. The FEV1 was measured at 1.36 L which is 61% of predicted. The FEV1/FVC ratio was 60 which is 79% of predicted. No bronchodilator was administered Lung volumes show an SVC of 2.23 L which is 80% of predicted. The diffusing capacity was measured at 16.87 which is 73% of predicted. No hemoglobin value was provided, so no correction for potential anemia could be made, if appropriate. Interpretation: Study demonstrates mild obstructive lung disease based on reduction FEV1 and FEV1/FVC ratio. There is also [id number] restrictive lung disease based on [id number] reduction in lung volumes as above Diffusing capacity is also minimally reduced suggesting the presence of disease at the capillary alveolar level Altogether this is consistent with a diagnosis of mild COPD Clinical correlation suggested Compared to PFTs performed in December 2019, current study shows essentially no change
[2021-05-12] MEDS: ACETAMINOPHEN 325 MG TABLET 650 MG PO (12:06)
--- NOTE | 2021-05-12 14:06 | OT.IP.EVAL ---
Current Diagnoses Cerebral infarction due to unspecified occlusion or stenosis of right middle cerebral artery (05/11/21) Past Medical History (Last Reviewed 05/11/21 @ 19:42 by Ramona Howell DO) Chronic GERD Fibromyalgia Generalized scleroderma History of malignant neoplasm of breast (03/22/17) IBS (irritable bowel syndrome) Intramural uterine fibroid Raynauds disease Occupational Therapy Inpatient Evaluation/Re-Eval M1 PT/OT-IP Prior Functional Status Start: 05/12/21 12:50 Freq: NEEDED Status: Active Protocol: Document 05/12/21 14:00 [facility] (Rec: 05/12/21 14:32 [facility] [id number]) Medical Review Prior Functional Status Medical History Reviewed Yes Communication able to make needs known Mobility and Gait pt stated that she is modifed independent with all mobilities and ambulation without AD Prior pt states able to hike for 20 minutes to [place]. Activities of Daily Living and IADL's COmpletely independent with all her ADl and IADL needs. Social History Household Members spouse Living Arrangements House Number of Floors (Floors) Two Floors Number of Stairs To Enter/Railing? pt stays on main level of the house 3 steps to enter with L rail ascending Home Environment High Toilet,Walk in Shower Home Equipment Straight Cane,Hand Held Shower M2 OT-IP Current Condition Start: 05/12/21 14:13 Freq: Status: Active Protocol: Document 05/12/21 14:00 [facility] (Rec: 05/12/21 14:32 [facility] [id number]) Occupational Therapy Current Condition Current Condition Evaluation Date 05/12/21 Treatment Diagnosis R CVA Diagnosis Onset Date 05/11/21 M3 OT- IP Subjective and Pain Start: 05/12/21 14:13 Freq: Status: Active Protocol: Document 05/12/21 14:00 [facility] (Rec: 05/12/21 14:32 [facility] [id number]) OT- Subjective Occupational Therapy Visit Type Type Initial Evaluation Visit Start Time 13:30 Visit Stop Time 14:06 Total Visit Minutes 36 Occupational Therapy Visit Comments Patient Comments Pt agreed to work with OT. OT Pain Assessment Pain When Pain Assessed At Rest Pain Present Pain Present Denied Pain M4 OT- IP ADL's Start: 05/12/21 14:13 Freq: Status: Active Protocol: Document 05/12/21 14:00 [facility] (Rec: 05/12/21 14:32 [facility] [id number]) OT [id number]-[id number]-Rzmvtyk General Evaluation Self-Feeding Ability Standby Assistance Comments OT Self-Feeding Comments vc for left side pocketing per HOSPITAL PHARMACY DIRECTOR eval OT ADL-Grooming Comments OT Grooming Comments Pt refusing and states to do it at home. OT ADL-Oral Care Comments Oral Care Comments Pt states to complete at home. OT ADL-Dressing General Eval Lower Body Dressing Ability Standby Assistance Comments OT Dressing Comments Pt able to jacqueline/doff her socks with increased time while seated. OT ADL-Toileting General Evaluation Toileting Ability Standby Assistance Comments OT Toileting Comments SBA to manage IV pole. Suggested pt to wake her up when having to go to the bathroom at night. Pt's states he is hard of hearing and she uses a flashlight when going to the hallway to use the bathroom. Pt does not feel that she would benefit from using a pad at night. OT ADL-Bathing Comments OT Bathing Comments Pt wanting to go home to shower, but open to the idea of getting a shower chair. M5 OT- IP IADL's Start: 05/12/21 14:13 Freq: Status: Active Protocol: Document 05/12/21 14:00 [facility] (Rec: 05/12/21 14:32 [facility] [id number]) OT-Instrumental Activities of Daily Living Home Safety Awareness Home Safety Comments Pt's to be home at all times to assist pt as needed. Driving Driving Concerns Identified Regarding Safety M6 OT- IP Functional Cognition Start: 05/12/21 14:13 Freq: Status: Active Protocol: Document 05/12/21 14:00 [facility] (Rec: 05/12/21 14:32 [facility] [id number]) Cognitive Factors Limiting Selfcare Function Cognitive Ability Level of Alertness Alert Patient Orientation Name,Place,Situation Attention Span Ability Capable of Focused Attention, Capable of Sustained Attention Ability to Follow Commands Able to Follow One Step Commands Memory Description Short Term Impaired Safety Awareness Underestimates Need for Assistance Cognitive Comments Cognitive Assessment Comments Pt needing reminders to slow down as trying to move without having the IV close to her. Pt scored 146 and needing MINvc to complete on [place] Making Part B which implies moderate to severe impairment for visual attention, task switching, speed of processing, mental flexibility, and executive functioning. At this time suggested best for pt not to drive. Pt's agreed and states he normally drives anyways. OT- Vision and Hearing OT- Vision Assessment Visual Acuity Glasses All The Time Visual Attentiveness WFL Occular Pursuits WFL Visual Bruner WFL M7 OT- IP Mobility and Balance Start: 05/12/21 14:13 Freq: Status: Active Protocol: Document 05/12/21 14:00 [facility] (Rec: 05/12/21 14:32 [facility] [id number]) OT- Bed Mobility Assessment Supine to Sit Supine to Sit Assist Independent Sit to Supine Sit to Supine Assist Independent OT-Transfer Assessment Sit to and From Stand Sit to and from Stand Standby Assistance Transfers Transfer Ability Standby Assistance Technique Transfer Destination Bed,Toilet Transfer Technique Stand Step Pivot Devices Transfer Assistive Devices None,Gait Belt Comments Mobility Comments Pt sba without a device and occasional use of hand to touch surfaces for balance. OT- Balance Assessment Sitting Balance and Reactions Static Sitting Balance Ability Normal Dynamic Sitting Balance Ability Good Standing Balance and Reactions Static Standing Balance Ability Good Dynamic Standing Balance Ability Fair M8 OT- IP Objective Assessments Start: 05/12/21 14:13 Freq: Status: Active Protocol: Document 05/12/21 14:00 [facility] (Rec: 05/12/21 14:32 [facility] [id number]) OT Gross Range of Motion Upper Extremity Range of Motion Assessment Left Impaired ROM Impairments Slightly decreased at end ROM for LUE, however IV also in that arm OT Strength Upper Extremity Strength Assessment Left Impaired Comments Strength Comments LUE slightly decreased 4-/5, RUE 4+/5 OT- Coordination Assessment Upper Extremity Finger to Nose Test Left UE Impaired Comments Coordination Comments Per pt has sclerderma which affects her coordination prior , however notes seem to be affecting her left hand slightly more now. Pt states prior has difficulty to push button on wireless phone, suggested use of pencil or to get a phone with larger button or voice activated one may be beneficial. OT Sensation Assessment Comments Summary Comments Intact for light touch M9 OT- IP Assessment and Plan Start: 05/12/21 14:13 Freq: Status: Active Protocol: Document 05/12/21 14:00 [facility] (Rec: 05/12/21 14:32 [facility] [id number]) OT Summary Assessment and Plan Potential Rehabilitation Potential Good Analytic Complexity at Evaluation Moderate Summary OT Impairments Strength,Balance,Coordination, Functional Cognition, Functional Mobility,Dressing, Bathing,Shower Transfers, Activity Tolerance Progress Towards Goals Progressing Toward Goals Assessment Summary Pt MOD complexity due to R CVA and main deficits are decreased control of drooling and saliva on the left side, decreased dynamic balance, decreased executive functioning, and however pt not open to doing acute rehab and wanting to go home and have outpt PT and HOSPITAL PHARMACY DIRECTOR. HOSPITAL PHARMACY DIRECTOR can also work with pt for high level cognitive needs. Pt's has good awareness to provide supervision and assist to pt as needed. Goals Self-Feeding Goal Independent Grooming Goal Independent Dressing Goal Independent Toileting Goal Independent Bathing Goal Independent Toilet Transfer Goal Independent Shower Transfer Goal Independent Days to Meet Goals 7 Frequency of Treatment Frequency Of Treatment Once a Day Treatment Plan OT Treatment Plan ADL Training,Functional Cognition Training,Functional Mobility,Patient/Family Education,Discharge Planning Other Treatment Recommendations and Next shower if still here Treatment Focus Discharge Recommendations OT Discharge Recommendations Home with 03/10 Assist Available,Acute Rehab, Outpatient PT Transportation Needs at Discharge Private Vehicle
[2021-05-12 15:15] VITALS: BP 115/60; PULSE 51; RESP 18; TEMP 36.8; O2SAT 97
--- NOTE | 2021-05-12 17:05 | ST.IPCSEOM ---
Visit Care Team Role Provider Type Wilber Adams MD Primary Care Provider Physician Specialty: Internal Medicine Address: [address] [place] [address], [facility] Email: [email or web address] Mika West MD Family Provider Physician Specialty: Oncology Address: [address] [place] [address], [id number] Email: Ramona Howell DO Emergency Provider Physician Referring Provider Specialty: Emergency Medicine Address: [address] [place] [address], [facility] Email: [email or web address] Maranda Rich MD Admit Provider Physician Attending Provider Specialty: Internal Medicine Address: [address] [place] [address], [facility] Email: [email or web address] Diagnoses Cerebral infarction due to unspecified occlusion or stenosis of right middle cerebral artery (05/11/21) Past Medical History (Last Reviewed 05/11/21 @ 19:42 by Ramona Howell DO) Chronic GERD (Medical) Fibromyalgia (Medical) Generalized scleroderma (Medical) History of malignant neoplasm of breast (Medical 03/22/17) IBS (irritable bowel syndrome) (Medical) Intramural uterine fibroid (Medical) Multiple calcified fibroid seen on ultrasound in 2018 Raynauds disease (Medical) Speech-Language Pathology Swallow Evaluation [employer] Clinical Swallow Evaluation Start: 05/12/21 09:55 Freq: Status: Active Protocol: Document 05/12/21 09:56 [facility] (Rec: 05/12/21 10:34 [facility] [id number]) Clinical Swallow Evaluation Session Time Visit Start Time 08:50 Visit Stop Time 10:30 Total Visit Minutes [address] Rich Setting Assessment Location Outpatient Care Visit Type Note Type Initial evaluation Patient Information Identification Type Name,Wristband History Diana Call is a 70-year-old female currently undergoing treatment for right-sided breast cancer, history of IBS, uterine fibroids, Raynaud's, Sjogren's disease, systemic scleroderma woke up coughing and drooling this morning. She tried to drink some water and ?up chucked a bunch of liquids. saw her, suspected she might be having a stroke and contacted EMS. Her last known well was just prior to bedtime on 05/10. She denies headache, she does endorse having problems swallowing at the time she was seen, she also is aware that her speech is impaired and that she has drooping on the left side, she denies shortness of breath, chest pain, nausea vomiting, dysuria , diarrhea or constipation. She denies any focal extremity weakness. MRI of the brain confirmed acute to subacute right MCA infarct and moderate atrophy and multifocal white matter chronic ischemic changes. ? She did fail a swallow evaluation in the emergency department. Subjective Observations Pt was in her bed when this [employer]IL SCIENTIST arrived. Introduced self and purpose. Pt presented with slurred speech and left facial droop. Pt described the circumstances that led to her being in the hospital. No overt s/sx of aphasia. Pt's arrived later. Reported by Patient Current Diet Nothing by mouth Baseline Feeding Method Independent in self-feeding Objective Assessment Mental Status Alert,Responsive,Cooperative Oral Integrity WFL,Excessive saliva/Drooling Dentition Within normal limits Lip Function Moderate impairment Observation of Lips at Rest Left sided weakness/Drooping Pucker Reduced range of motion, Reduced strength,Left sided weakness/drooping Lip Retraction Reduced range of motion,Left sided weakness/Drooping Alternating Pucker/Lip Retraction Reduced range of motion Tongue Function Moderate impairment Observations of Tongue at Rest Deviates to the right Tongue Protrusion Deviates to the right,Reduced range of motion,Reduced strength Tongue Retraction Within normal limits Tongue Lateralization Reduced range of motion, Reduced strength, Incoordination Observations of Jaw at Rest Within normal limits Jaw Opening Within normal limits Jaw Closing Within normal limits Jaw Lateralization Within normal limits Observations of Hard/Soft Palate Reduced strength/ROM of soft palate elevation Comment Pt presented with left facial droop, decreased ROM and strength and decreased sensation left side of her mouth. Tongue at rest was deviated to the right with decreased ROM and strength on the left side. Reduced lateralization of the tongue to the left resulted in pocketing of textures. Drooling noted occasionally from left corner of mouth. Dentition was natural and in good hygiene, without missing teeth. Food and Liquid Trials Position During Assessment Upright (90 degrees) Liquids Trialed Ice chips,Thin Solids Trialed Puree,Dysphagia Mechanical, Dysphagia Advanced Administration Type Tea spoon,Cup single sip, Controlled cup sip,Cup consecutive sips,Straw,Self- feeding Oral Impairment Moderately impaired Oral Phase Comments Pt was unable to completely clear spoon of foods. Pocketing on left side was noted for all trials. Pt was able to clear pocketed pureed trial with swish and swallow. Dysphagia advanced texture again resulted in pocketed food left side. Swish and swallow was not as effective in clearing dysphagia advanced ; After a few minutes, there was peach residual in pt's drool on left side of chin. Pt safely swallowed dysphagia mechanical with ease in clearing using swish and swallow. Pharyngeal Impairment Within functional limits Pharyngeal Phase Comments Hyolaryngeal elevation and movement appeared to be WFL per palpation. No cough/choke or wet voicing observed. Pt did cough x1 but did not appear to be swallow related ( dry cough). Fatigue/Endurance Mild fatigue Strategies Attempted Chin tuck Response/Comments Pt reminded to keep chin down so as to not bird-neck swallow, increasing risk of aspiration. Findings Swallowing Function Oral phase dysphagia Severity of Swallow Impairment Mildly-moderately impaired Contributing Factors to Swallow Reduced oral strength/ Impairment coordination/sensation, Mastication inefficiency, Impaired oral-pharyngeal transport,Excessive oral residue Prognosis Good Based on Cognitive status,Family support,Age,Duration of symptoms/severity Impact on Safety and Functioning Risk for aspiration Recommendations Instrumental Assessment No Swallowing Treatment Yes Frequency 1-2x/day Duration while inpatient Recommended Solids Dysphagia Mechanical Recommended Liquids Thin Safety Precautions/Swallowing 1 to 1 distant supervision, Recommendations Reduce distractions,Remain upright (90 degrees) during all oral intake,Upright position at least 30 minutes after meals,Small bites and sips when eating,Slow rate; swallow between bites Medication Recommendations Whole in Carrier,Crushed in Carrier Discharge Recommendations Home,Home with Home Health, Outpatient therapy Education Patient/Caregiver Education Described results of evaluation,Patient expressed understanding of evaluation, Patient expressed agreement with goals & treatment plans, Family/caregivers expressed understanding of evaluation, Family/caregivers expressed agreement with goals & treatment plans,Patient expressed understanding of safety precautions,Family/ caregivers expressed understanding of safety precautions,Family/caregivers require further education/ training Goals Short-term Goals Pt will increase ROM and strength of oral structures to improve mastication efficiancy. Diet texture to be advanced as tolerated. Long-term Goals Pt will safely tolerate the least restrictive diet to meet hydration and nutrition needs
--- NOTE | 2021-05-12 17:33 | PC.NURSE ---
Pt discharged at 1630, escorted off the floor in wheelchair, accompanied by hospital staff. IV removed, tele d/c'd, discharge teaching completed, including follow up appointments, referrals and new medications. Questions answered. All belongings left floor with patient.
== END 2021-05-12 16:30 | disposition home or self-care (01) | DRG 66 ==
LOC: ED 13:46 → AC 15:04
PROVIDERS: Nurse Practitioner Family; Admitting Provider Internal Medicine; Emergency Provider Emergency Medicine; Family Provider Internal Medicine Hematology & Oncology; PCP Internal Medicine; Referring Provider Emergency Medicine; Visit Provider Internal Medicine
DX: I63.511 Cerebral infarction due to unspecified occlusion or stenosis of right middle cerebral artery (principal); R47.81 Slurred speech; M34.9 Systemic sclerosis, unspecified; E78.5 Hyperlipidemia, unspecified; I95.9 Hypotension, unspecified; R29.705 NIHSS score 5; R29.703 NIHSS score 3; Z20.822 Contact with and (suspected) exposure to COVID-19
CPT/HCPCS: 36415; 70450; 70496; 70498; 70551; 71045; 80048; 80053; 80305; 81003; 82550; 83036; 83735; 84100; 84443; 84484; 85025; 85610; 85730; 87635; 92610; 93005; 93307; 96374; 97161; 97166; 97530; 99285; 99291; C9803; J1650; J2405

== ENCOUNTER → 2021-05-25 13:23 | Outpatient (CLI) | payer MEDICARE, BC, SELFPAY ==
[2021-05-11 21:00] VITALS: BMI 26.5
[2021-05-29 00:07] LABS: Antithrombin Activity 112 % (75-135); Antithrombin Antigen 118 % (72-124)
== END ==
PROVIDERS: Family Provider Internal Medicine Hematology & Oncology; PCP Internal Medicine; Referring Provider Internal Medicine; Visit Provider Internal Medicine
DX: Q21.1 Atrial septal defect (principal); I67.81 Acute cerebrovascular insufficiency; I63.00 Cerebral infarction due to thrombosis of unspecified precerebral artery
CPT/HCPCS: 36415; 81241; 85300; 85301

== ENCOUNTER 2021-07-30 05:06 | Observation (INO) | payer MEDICARE, BC, SELFPAY ==
[2021-06-25 14:32] VITALS: BMI 26.5
[2021-07-30] VITALS (43 sets, daily range): BP systolic 81–113; BP diastolic 47–70; PULSE 54–102; RESP 10–28; TEMP 36.4–37.7; O2SAT 90–98; BMI 26.5
--- NOTE | 2021-07-30 05:14 | DI.CT.S_ITS ---
PROCEDURE: CT ANGIO CHEST ABDOMEN PELVIS INDICATIONS: chest pain radiating to back,abd and pelvis, syncope, TECHNIQUE: Precontrast 5 mm thick sections acquired from the lung apices to the iliac crests. After the administration of intravenous contrast, 2.5 mm thick sections again acquired from the lung apices to the iliac crests. Maximum intensity projection (MIP) oblique sagittal and coronal reformats were then acquired. For radiation dose reduction, the following was used: automated exposure control. COMPARISON: None. FINDINGS: Image quality: Excellent. AORTA: Intramural hematoma: Absent Maximum hematoma thickness: Not applicable Focal contrast enhancement: Intramural blood pool (< 2 mm neck or imperceptible communication with aortic lumen): Absent . Ulcer-like projection (broad communication with aortic lumen > 3 mm): Absent . Dissection: Absent Coin classification: Not applicable Maximum aortic diameter: 3.7 cm. [If Coin A dissection, > 5.0 cm has a poorer prognosis. If Mitch B dissection, > 4.0 cm has a poorer prognosis.] Periaortic hematoma: Absent . CHEST: Lungs and pleura: No acute airspace opacities. No pleural effusions or pneumothorax. Central and peripheral airways are patent and normal in caliber. Mediastinum: Heart is enlarged. No pericardial effusion. No mediastinal or hilar adenopathy by size criteria. Central pulmonary arteries are normal in size. Esophagus is normal in caliber. No hiatal hernias. Bones and chest wall: Right breast is absent. No axillary adenopathy by size criteria. Thyroid gland contains hypoattenuating nodule. Largest nodule is in the left lobe measures 1.7 centimeters. No suspicious bony lesions. No vertebral body compression fractures. ABDOMEN: Vasculature: Celiac trunk and mesenteric arteries are patent. Renal arteries are also patent. Solid organs: Liver is normal in size and enhancement. Gallbladder is surgically absent. Biliary system is non dilated. Pancreas enhances normally. Spleen is normal in size and enhancement. No adrenal nodules. Both kidneys are normal in size and enhancement, without hydronephrosis. Peritoneum and bowel: No free fluid or air. Bowel loops are normal in caliber and wall thickness. Moderate amount of stool throughout the colon. Nodes and vessels: No retroperitoneal or mesenteric adenopathy by size criteria. Inferior vena cava is normal in morphology. Scattered atherosclerotic calcifications involving the abdominal and pelvic vasculature. Miscellaneous: Small fat containing umbilical hernia. PELVIS: Genitourinary: Bladder wall thickness is normal. Numerous large calcified fibroids noted in the uterus. Miscellaneous: No inguinal hernias or adenopathy. No ventral hernias. Bones: No suspicious bony lesions. No vertebral body compression fractures. Spine degenerative disc disease and facet arthropathy. IMPRESSION: 1. No evidence of aortic dissection. 2. No acute traumatic injury. Dictated by: Nneka Shirley MD, PhD on 07/30/2021 at 7:55 Approved by: Nneka Shirley MD, PhD on 07/30/2021 at 8:01
--- NOTE | 2021-07-30 05:14 | ED.GENADULT ---
HPI - General Adult <Velma Ace MD - Last Filed: 08/02/21 07:28> General Chief complaint: Chest Pain Stated complaint: chest pain/ fall Time Seen by Provider: 07/30/21 05:14 History of Present Illness HPI narrative: Woman with history of a stroke currently on Eliquis, history of atrial fibrillation on extended release diltiazem, Sjogren's disease, scleroderma, seizures, anxiety and depression and prior breast cancer awoke in the middle of the night with significant central chest pain radiating through to her back. She got up to have some water and once up it sounds like she had a syncopal episode falling and hitting her head on the corner of a counter. She initially denies loss of consciousness however there is some memory loss surrounding me events suggesting that there may have been a loss of consciousness. She suffered a small laceration to the mid forehead and continues to complain of significant chest pain and tightness radiating through to her back now radiating through and down into her abdomen her pelvis. Medics noted slow atrial fibrillation with rates as low as the 30s and 40s. Patient notes that she typically has significant hypotension and her pressures are typically in the mid 90s over mid 50s which is where her blood pressures currently reside. She is not hypoxic she is able to answer questions and help with exam at this time. She does not report recent fevers, chills, abdominal pain, vomiting or diarrhea. Related Data Home Medications Medication Instructions Recorded Confirmed acetaminophen 500 mg tablet 500 mg PO Q4HP PRN #0 03/22/17 07/30/21 (Tylenol Extra Strength) carboxymethylcellulose sodium 0.5 15 ml DAILY #0 03/22/17 07/30/21 % eye drops (Refresh Tears) doxazosin 1 mg tablet (Cardura) 1 mg PO HS #0 03/22/17 07/30/21 folic acid 1 mg tablet 1 mg PO BID #0 03/22/17 07/30/21 modafinil 200 mg tablet 100 mg PO QDAY #0 03/22/17 07/30/21 polyethylene glycol 3350 17 17 gm PO QDAY #0 03/22/17 07/30/21 gram/dose oral powder (Miralax) tramadol 50 mg tablet 50 mg PO Q4HP PRN #0 MDD P 03/22/17 07/30/21 multivitamin (Multiple Vitamins) 1 tab PO QDAY #0 04/20/17 07/30/21 omega [id number]-fish oil 1,000 mg 1,000 mg PO Q DAY #0 04/20/17 07/30/21 (120 mg-180 mg) capsule (Fish Oil) omeprazole 20 mg capsule,delayed 40 mg PO BID #0 04/20/17 07/30/21 release citalopram 20 mg tablet 20 mg PO BID 03/20/19 07/30/21 aspirin 81 mg tablet,delayed 81 mg PO DAILY 12/19/19 07/30/21 release zolpidem 5 mg tablet 5 mg PO BEDTIME PRN 12/19/19 07/30/21 methotrexate sodium 2.5 mg tablet 10 mg PO QWEEK #0 tab 04/29/20 07/30/21 Bifidobacterium infantis 4 mg 4 mg PO DAILY 03/25/21 07/30/21 capsule (Align) psyllium 1 packet PO DAILY 03/25/21 07/30/21 calcium carbonate 200 mg calcium 1,000 mg PO BID 05/11/21 07/30/21 (500 mg) chewable tablet (Tums) cholecalciferol (vitamin D3) 50 50 mcg PO DAILY 05/11/21 07/30/21 mcg (2,000 unit) capsule (Vitamin D3) magnesium citrate 125 mg capsule 250 mg PO DAILY 05/11/21 07/30/21 fluticasone 250 mcg-salmeterol 50 1 inh INHALATION DAILY 05/12/21 07/30/21 mcg/dose blistr powdr for inhalation apixaban 5 mg tablet (Eliquis) 5 mg PO BID 07/30/21 07/30/21 atorvastatin 20 mg tablet 40 mg PO BEDTIME 07/30/21 07/30/21 Previous Rx's Medication Instructions Recorded docusate sodium 100 mg capsule 100 mg PO BID #14 cap 05/17/17 (Colace) diltiazem HCl 120 mg 120 mg PO DAILY #60 cap 07/31/21 capsule,extended release 24 hr famotidine 40 mg tablet (Pepcid) 40 mg PO DAILY #30 tab 07/31/21 nitroglycerin 0.4 mg sublingual 0.4 mg SUBLINGUAL [id number] PRN #14 05/21/22 tablet (Nitrostat) tab sucralfate 1 gram tablet 1 g PO Q6HR #120 tab 07/31/21 Allergies Allergy/AdvReac Type Severity Reaction Status Date / Time doxepin [DOXEPIN] Allergy Mild SEVERE Verified 06/25/21 09:50 NAUSEA gabapentin Allergy Mild Rash Verified 06/25/21 09:50 pilocarpine Allergy Mild Nausea Verified 06/25/21 09:50 pregabalin [From LYRICA] Allergy Mild RASH/ITCHIN Verified 06/25/21 09:50 G sulfamethoxazole Allergy Unknown Verified 06/25/21 09:50 [From BACTRIM] trimethoprim [From BACTRIM] Allergy Unknown Verified 06/25/21 09:50 diclofenac AdvReac Mild Nausea Verified 06/25/21 09:50 tetracycline [TETRACYCLINE] AdvReac Unknown YEAST Verified 06/25/21 09:50 INFECTION Review of Systems <Velma Ace MD - Last Filed: 08/02/21 07:28> Review of Systems Narrative: Remainder of complete review of systems is otherwise unremarkable except for that included in the HPI. Patient History <Velma Ace MD - Last Filed: 08/02/21 07:28> Medical History (Updated 07/30/21 @ 10:49 by Ramona Howell DO) Chronic GERD CREST syndrome Fibromyalgia Generalized scleroderma History of malignant neoplasm of breast (03/22/17) IBS (irritable bowel syndrome) Intramural uterine fibroid Paroxysmal atrial fibrillation Raynauds disease Family History Father Prostate cancer Mother Dementia Grandmother Family history pertaining to maternal grandmother Social History marital status: details: (Ashwin), no children, disabled in 40s from [employer] household members: spouse Smoking Status: Never smoker alcohol intake: current Smoking Status: Never smoker alcohol intake frequency: 0-2 drinks per day Substance Use Type: marijuana Exam <Velma Ace MD - Last Filed: 08/02/21 07:28> Initial Vital Signs Initial Vital Signs: Vital Signs Pulse Rate 56 L 07/30/21 05:11 Respiratory Rate 19 07/30/21 05:11 Blood Pressure 94/56 L 07/30/21 05:11 Pulse Oximetry 95 07/30/21 05:11 General: Frail-appearing, chronically ill-appearing but in no acute distress. HEENT: Moist mucous membranes, normal sclera with reactive pupils, 3 cm linear laceration to the upper part of her forehead without significant contusion. Bleeding is controlled. Scleroderma skin changes over her nose Neck: No JVD, tender in the midline area see to to C5 with paraspinous tenderness and trapezius muscle tenderness as well. Respiratory: Lungs are clear to auscultation, no wheezing no rales no rhonchi. Full and symmetrical air movement Cardiac: Bradycardic, regular sounding, no murmurs no bruits Chest: No trauma to the chest. No tenderness along the costochondral margins or with AP compression of the chest. Abdomen: Soft, diffuse mild tenderness without rebound or guarding, good bowel tones, no flank pain Skin: Thin with dry areas and areas consistent with scleroderma. No significant bruising or contusion to the extremities. Neurologic: Grossly neurologically intact with no obvious asymmetries or abnormalities Extremities: No trauma, well perfused Psych: Cooperative, appropriate insight and affect <Ramona Howell DO - Last Filed: 07/30/21 15:28> Initial Vital Signs Initial Vital Signs: Vital Signs Pulse Rate 56 L 07/30/21 05:11 Respiratory Rate 19 07/30/21 05:11 Blood Pressure 94/56 L 07/30/21 05:11 Pulse Oximetry 95 07/30/21 05:11 Procedures <Velma Ace MD - Last Filed: 08/02/21 07:28> Laceration Repair forhead: Time of procedure: 07:00 Site: face (upper forhead) Size (cm): 3 Description: linear Depth: simple, single layer Local Anesthetic: lidocaine 1% and with epi Amount of anesthesia used (mL): 3 Pre-repair: wound explored and deep structures intact Skin layer closed with: other (chromic, running subcuticular) Skin layer suture size: 4-0 Technique: running (subcuticular) Course <Velma Ace MD - Last Filed: 08/02/21 07:28> Orders Ordered: Discontinued Medications Acetaminophen (Acetaminophen 325 Mg Tablet) 650 mg PO NOW ONE Stop: 07/30/21 08:38 Last Admin: 07/30/21 09:18 Dose: 650 mg Documented by: YIMI Acetaminophen (Acetaminophen 325 Mg Tablet) 650 mg PO Q6HR [facility] Last Admin: 07/31/21 12:16 Dose: 650 mg Documented by: Admin: 07/31/21 06:07 Dose: 650 mg Documented by: Admin: 07/31/21 00:10 Dose: 650 mg Documented by: Admin: 07/30/21 17:07 Dose: 650 mg Documented by: MONICA Albuterol (Albuterol 2.5 Mg/3 Ml Neb (Adult)) 2.5 mg INH Q4HRWA [facility] Last Admin: 07/30/21 17:09 Dose: Not Given Documented by: MONICA Albuterol (Albuterol 2.5 Mg/3 Ml Neb (Adult)) 2.5 mg INH Q2H PRN PRN Reason: Shortness Of Breath Apixaban (Apixaban 5 Mg Tablet) 5 mg PO BID [facility] Last Admin: 07/31/21 09:12 Dose: 5 mg Documented by: Admin: 07/30/21 20:26 Dose: 5 mg Documented by: VAL Aspirin (Aspirin Ec 81 Mg Tablet) 81 mg PO DAILY [facility] Last Admin: 07/31/21 09:13 Dose: Not Given Documented by: CORTES Atorvastatin Calcium (Atorvastatin 20 Mg Tablet) 40 mg PO BEDTIME [facility] Last Admin: 07/30/21 20:26 Dose: Not Given Documented by: VAL Budesonide (Budesonide 0.5 Mg/2 Ml Neb) 0.5 mg INH RTBID [facility] Last Admin: 07/30/21 20:03 Dose: Not Given Documented by: [email or web address] Calcium Carbonate (Calcium Carbonate 500 Mg Tab) 1,000 mg PO BID [facility] Last Admin: 07/31/21 09:13 Dose: 1,000 mg Documented by: Admin: 07/30/21 20:26 Dose: 1,000 mg Documented by: VAL Citalopram Hydrobromide (Citalopram 10 Mg Tablet) 20 mg PO BID [facility] Last Admin: 07/31/21 09:14 Dose: 20 mg Documented by: Admin: 07/30/21 20:27 Dose: Not Given Documented by: VAL Diltiazem HCl (Diltiazem Cd 180 Mg Cap) 180 mg PO DAILY [facility] Last Admin: 07/31/21 10:56 Dose: 180 mg Documented by: Admin: 07/31/21 09:21 Dose: Not Given Documented by: CORTES Diltiazem HCl (Diltiazem Cd 120 Mg Cap) 120 mg PO DAILY [facility] Last Admin: 07/31/21 10:59 Dose: 120 mg Documented by: Admin: 07/31/21 09:21 Dose: Not Given Documented by: CORTES Docusate Sodium (Docusate 100 Mg Capsule) 100 mg PO BID [facility] Last Admin: 07/31/21 09:15 Dose: 100 mg Documented by: Admin: 07/30/21 20:27 Dose: 100 mg Documented by: VAL Doxazosin Mesylate (Doxazosin 2 Mg Tablet) 1 mg PO BEDTIME [facility] Last Admin: 07/30/21 20:23 Dose: 1 mg Documented by: VAL Fish Oil (Fish Oil 1,000 Mg Capsule) 1,000 mg PO DAILY [facility] Last Admin: 07/31/21 09:15 Dose: 1,000 mg Documented by: CORTES Folic Acid (Folic Acid 1 Mg Tablet) 1 mg PO BID [facility] Last Admin: 07/31/21 09:15 Dose: 1 mg Documented by: Admin: 07/30/21 20:29 Dose: 1 mg Documented by: VAL Guaifenesin (Guaifenesin Solution 100 Mg/5 Ml Udc) 200 mg PO Q4HR PRN PRN Reason: Cough Last Admin: 07/31/21 06:08 Dose: 200 mg Documented by: Admin: 07/31/21 00:10 Dose: 200 mg Documented by: Admin: 07/30/21 20:22 Dose: 200 mg Documented by: VAL Sodium Chloride (Normal Saline 0.9%) 500 mls @ 1,000 mls/hr IV BOLUS ONE Stop: 07/30/21 07:48 Last Infusion: 07/30/21 08:00 Dose: 0 mls/hr Documented by: Admin: 07/30/21 07:29 Dose: 1,000 mls/hr Documented by: MAURIZIO Ibuprofen (Ibuprofen 400 Mg Tablet) 400 mg PO Q8HR PRN PRN Reason: Fever Methotrexate (Methotrexate 2.5 Mg Tablet) 10 mg PO Mo@0900 [facility] Morphine Sulfate (Morphine 2 Mg/Ml Inj) 2 mg IV Q2HR PRN PRN Reason: Pain, Moderate (4-6) Last Admin: 07/30/21 05:33 Dose: 2 mg Documented by: EBLOMQ Morphine Sulfate (Morphine 2 Mg/Ml Inj) 2 mg IV NOW ONE Stop: 07/30/21 09:17 Last Admin: 07/30/21 09:20 Dose: 2 mg Documented by: YIMI Multivitamins (Multivitamin 1 Tablet) 1 tab PO DAILY [facility] Last Admin: 07/31/21 09:15 Dose: 1 tab Documented by: CORTES Naloxone HCl (Naloxone 0.4 Mg/Ml Vial) 0.2 mg IV Q2MIN PRN PRN Reason: Opiate Reversal Nitroglycerin (Nitroglycerin 0.4 Mg Sl Tab) 0.4 mg SL [id number] PRN PRN Reason: Chest Pain Non-Formulary Medication (Bifidobacterium Infantis [Align]) 4 mg PO DAILY [facility] Non-Formulary Medication (Fluticasone Propion-Salmeterol) 1 inhalation INHALATION DAILY [facility] Non-Formulary Medication (Magnesium Citrate) 250 mg PO DAILY [facility] Modafinil 200 Mg (Tablet) 100 mg PO DAILY [facility] Last Admin: 07/31/21 09:17 Dose: Not Given Documented by: CORTES Carboxymethylcellulo se Sodium [Refresh Tears] 15 ml EYE-BOTH DAILY [facility] Last Admin: 07/31/21 09:14 Dose: Not Given Documented by: CORTES Ondansetron HCl (Ondansetron 4 Mg/2 Ml Inj) 4 mg IV Q8HR PRN PRN Reason: Nausea And Vomiting Pantoprazole Sodium (Pantoprazole 40 Mg Vial) 40 mg IV NOW ONE Stop: 07/30/21 07:20 Last Admin: 07/30/21 07:29 Dose: 40 mg Documented by: MAURIZIO Pantoprazole Sodium (Pantoprazole Dr 20 Mg Tablet) 20 mg PO 0600 [facility] Last Admin: 07/31/21 06:07 Dose: 20 mg Documented by: VAL Polyethylene Glycol (Polyethylene Glycol 3350 17 Gm Powd.Pack) 17 gm PO DAILY [facility] Last Admin: 07/31/21 09:16 Dose: 17 gm Documented by: CORTES Psyllium Hydrophilic Mucilloid (Psyllium Husk 1 Packet) 1 packet PO DAILY [facility] Last Admin: 07/31/21 09:17 Dose: Not Given Documented by: CORTES Sucralfate (Sucralfate 1 Gm Tablet) 1 gm PO Q6HR [facility] Last Admin: 07/31/21 12:16 Dose: 1 gm Documented by: Admin: 07/31/21 06:07 Dose: 1 gm Documented by: Admin: 07/31/21 00:10 Dose: 1 gm Documented by: Admin: 07/30/21 17:07 Dose: 1 gm Documented by: MONICA Tramadol HCl (Tramadol 50 Mg Tablet) 50 mg PO Q4H PRN PRN Reason: Pain, Moderate (4-6) Vitamin D (Cholecalciferol (Vitamin D3) 1,000 Unit Tablet) 2,000 unit PO DAILY [facility] Last Admin: 07/31/21 09:14 Dose: 2,000 unit Documented by: CORTES Zolpidem Tartrate (Zolpidem 5 Mg Tablet) 5 mg PO BEDTIME PRN PRN Reason: Insomnia Last Admin: 07/30/21 20:32 Dose: 5 mg Documented by: VAL Vital Signs Vital signs: Vital Signs - 8 hr 07/30/21 07:30 07/30/21 07:35 07/30/21 08:00 Pulse Rate 64 67 63 Respiratory Rate 24 28 H 14 Blood Pressure 101/55 L 96/60 Pulse Oximetry 95 90 L 07/30/21 08:08 07/30/21 08:30 07/30/21 09:00 Pulse Rate 66 63 Respiratory Rate 22 13 Blood Pressure 92/55 L 91/58 L 97/59 L Pulse Oximetry 94 92 07/30/21 09:30 Pulse Rate 74 Respiratory Rate 24 Blood Pressure 94/67 Pulse Oximetry 97 <Ramona Howell DO - Last Filed: 07/30/21 15:28> Orders Ordered: Discontinued Medications Acetaminophen (Acetaminophen 325 Mg Tablet) 650 mg PO NOW ONE Stop: 07/30/21 08:38 Last Admin: 07/30/21 09:18 Dose: 650 mg Documented by: YMII Acetaminophen (Acetaminophen 325 Mg Tablet) 650 mg PO Q6HR [facility] Last Admin: 07/31/21 12:16 Dose: 650 mg Documented by: Admin: 07/31/21 06:07 Dose: 650 mg Documented by: Admin: 07/31/21 00:10 Dose: 650 mg Documented by: Admin: 07/30/21 17:07 Dose: 650 mg Documented by: MONICA Albuterol (Albuterol 2.5 Mg/3 Ml Neb (Adult)) 2.5 mg INH Q4HRWA [facility] Last Admin: 07/30/21 17:09 Dose: Not Given Documented by: MONICA Albuterol (Albuterol 2.5 Mg/3 Ml Neb (Adult)) 2.5 mg INH Q2H PRN PRN Reason: Shortness Of Breath Apixaban (Apixaban 5 Mg Tablet) 5 mg PO BID [facility] Last Admin: 07/31/21 09:12 Dose: 5 mg Documented by: Admin: 07/30/21 20:26 Dose: 5 mg Documented by: VAL Aspirin (Aspirin Ec 81 Mg Tablet) 81 mg PO DAILY [facility] Last Admin: 07/31/21 09:13 Dose: Not Given Documented by: CORTES Atorvastatin Calcium (Atorvastatin 20 Mg Tablet) 40 mg PO BEDTIME [facility] Last Admin: 07/30/21 20:26 Dose: Not Given Documented by: VAL Budesonide (Budesonide 0.5 Mg/2 Ml Neb) 0.5 mg INH RTBID [facility] Last Admin: 07/30/21 20:03 Dose: Not Given Documented by: [email or web address] Calcium Carbonate (Calcium Carbonate 500 Mg Tab) 1,000 mg PO BID [facility] Last Admin: 07/31/21 09:13 Dose: 1,000 mg Documented by: Admin: 07/30/21 20:26 Dose: 1,000 mg Documented by: VAL Citalopram Hydrobromide (Citalopram 10 Mg Tablet) 20 mg PO BID [facility] Last Admin: 07/31/21 09:14 Dose: 20 mg Documented by: Admin: 07/30/21 20:27 Dose: Not Given Documented by: VAL Diltiazem HCl (Diltiazem Cd 180 Mg Cap) 180 mg PO DAILY [facility] Last Admin: 07/31/21 10:56 Dose: 180 mg Documented by: Admin: 07/31/21 09:21 Dose: Not Given Documented by: CORTES Diltiazem HCl (Diltiazem Cd 120 Mg Cap) 120 mg PO DAILY [facility] Last Admin: 07/31/21 10:59 Dose: 120 mg Documented by: Admin: 07/31/21 09:21 Dose: Not Given Documented by: CORTES Docusate Sodium (Docusate 100 Mg Capsule) 100 mg PO BID [facility] Last Admin: 07/31/21 09:15 Dose: 100 mg Documented by: Admin: 07/30/21 20:27 Dose: 100 mg Documented by: VAL Doxazosin Mesylate (Doxazosin 2 Mg Tablet) 1 mg PO BEDTIME [facility] Last Admin: 07/30/21 20:23 Dose: 1 mg Documented by: VAL Fish Oil (Fish Oil 1,000 Mg Capsule) 1,000 mg PO DAILY [facility] Last Admin: 07/31/21 09:15 Dose: 1,000 mg Documented by: CORTES Folic Acid (Folic Acid 1 Mg Tablet) 1 mg PO BID [facility] Last Admin: 07/31/21 09:15 Dose: 1 mg Documented by: Admin: 07/30/21 20:29 Dose: 1 mg Documented by: VAL Guaifenesin (Guaifenesin Solution 100 Mg/5 Ml Udc) 200 mg PO Q4HR PRN PRN Reason: Cough Last Admin: 07/31/21 06:08 Dose: 200 mg Documented by: Admin: 07/31/21 00:10 Dose: 200 mg Documented by: Admin: 07/30/21 20:22 Dose: 200 mg Documented by: VAL Sodium Chloride (Normal Saline 0.9%) 500 mls @ 1,000 mls/hr IV BOLUS ONE Stop: 07/30/21 07:48 Last Infusion: 07/30/21 08:00 Dose: 0 mls/hr Documented by: Admin: 07/30/21 07:29 Dose: 1,000 mls/hr Documented by: MAURIZIO Ibuprofen (Ibuprofen 400 Mg Tablet) 400 mg PO Q8HR PRN PRN Reason: Fever Methotrexate (Methotrexate 2.5 Mg Tablet) 10 mg PO Mo@0900 [facility] Morphine Sulfate (Morphine 2 Mg/Ml Inj) 2 mg IV Q2HR PRN PRN Reason: Pain, Moderate (4-6) Last Admin: 07/30/21 05:33 Dose: 2 mg Documented by: [email or web address] Morphine Sulfate (Morphine 2 Mg/Ml Inj) 2 mg IV NOW ONE Stop: 07/30/21 09:17 Last Admin: 07/30/21 09:20 Dose: 2 mg Documented by: YIMI Multivitamins (Multivitamin 1 Tablet) 1 tab PO DAILY [facility] Last Admin: 07/31/21 09:15 Dose: 1 tab Documented by: CORTES Naloxone HCl (Naloxone 0.4 Mg/Ml Vial) 0.2 mg IV Q2MIN PRN PRN Reason: Opiate Reversal Nitroglycerin (Nitroglycerin 0.4 Mg Sl Tab) 0.4 mg SL [id number] PRN PRN Reason: Chest Pain Non-Formulary Medication (Bifidobacterium Infantis [Align]) 4 mg PO DAILY [facility] Non-Formulary Medication (Fluticasone Propion-Salmeterol) 1 inhalation INHALATION DAILY [facility] Non-Formulary Medication (Magnesium Citrate) 250 mg PO DAILY [facility] Modafinil 200 Mg (Tablet) 100 mg PO DAILY [facility] Last Admin: 07/31/21 09:17 Dose: Not Given Documented by: CORTES Carboxymethylcellulo se Sodium [Refresh Tears] 15 ml EYE-BOTH DAILY [facility] Last Admin: 07/31/21 09:14 Dose: Not Given Documented by: CORTES Ondansetron HCl (Ondansetron 4 Mg/2 Ml Inj) 4 mg IV Q8HR PRN PRN Reason: Nausea And Vomiting Pantoprazole Sodium (Pantoprazole 40 Mg Vial) 40 mg IV NOW ONE Stop: 07/30/21 07:20 Last Admin: 07/30/21 07:29 Dose: 40 mg Documented by: MAURIZIO Pantoprazole Sodium (Pantoprazole Dr 20 Mg Tablet) 20 mg PO 0600 [facility] Last Admin: 07/31/21 06:07 Dose: 20 mg Documented by: VAL Polyethylene Glycol (Polyethylene Glycol 3350 17 Gm Powd.Pack) 17 gm PO DAILY [facility] Last Admin: 07/31/21 09:16 Dose: 17 gm Documented by: CORTES Psyllium Hydrophilic Mucilloid (Psyllium Husk 1 Packet) 1 packet PO DAILY [facility] Last Admin: 07/31/21 09:17 Dose: Not Given Documented by: CORTES Sucralfate (Sucralfate 1 Gm Tablet) 1 gm PO Q6HR [facility] Last Admin: 07/31/21 12:16 Dose: 1 gm Documented by: Admin: 07/31/21 06:07 Dose: 1 gm Documented by: Admin: 07/31/21 00:10 Dose: 1 gm Documented by: Admin: 07/30/21 17:07 Dose: 1 gm Documented by: MONICA Tramadol HCl (Tramadol 50 Mg Tablet) 50 mg PO Q4H PRN PRN Reason: Pain, Moderate (4-6) Vitamin D (Cholecalciferol (Vitamin D3) 1,000 Unit Tablet) 2,000 unit PO DAILY [facility] Last Admin: 07/31/21 09:14 Dose: 2,000 unit Documented by: CORTES Zolpidem Tartrate (Zolpidem 5 Mg Tablet) 5 mg PO BEDTIME PRN PRN Reason: Insomnia Last Admin: 07/30/21 20:32 Dose: 5 mg Documented by: VAL Vital Signs Vital signs: Vital Signs - 8 hr 07/30/21 07:30 07/30/21 07:35 07/30/21 08:00 Pulse Rate 64 67 63 Respiratory Rate 24 28 H 14 Blood Pressure 101/55 L 96/60 Pulse Oximetry 95 90 L 07/30/21 08:08 07/30/21 08:30 07/30/21 09:00 Pulse Rate 66 63 Respiratory Rate 22 13 Blood Pressure 92/55 L 91/58 L 97/59 L Pulse Oximetry 94 92 07/30/21 09:30 Pulse Rate 74 Respiratory Rate 24 Blood Pressure 94/67 Pulse Oximetry 97 Medical Decision Making <Velma Ace MD - Last Filed: 08/02/21 07:28> Lab Data Result diagrams: 07/30/21 05:20 07/30/21 05:20 Labs: Lab Results 07/30/21 07/30/21 07/30/21 Range/Units 05:19 05:20 05:20 WBC 4.9 (4.5-11.0) X10^3/uL RBC 3.72 L (4.0-5.2) X10^6/uL Hgb 12.9 (12.0-16.0) g/dL Hct 38.2 (36-46) % MCV 102.6 H (80-100) fL MCH 34.6 H (26-34) PG MCHC 33.7 (30-36) % RDW 14.6 (11.6-14.8) % Plt Count 198 (150-400) X10^3/uL Neut % (Auto) 54.8 (50-75) % Lymph % (Auto) 28.0 (25-40) % [place] % (Auto) 15.0 H (3-14) % Eos % (Auto) 1.5 L (2-4) % Baso % (Auto) 0.7 (0-2) % Neut # (Auto) 2700 (4065-0349) /uL Lymph # (Auto) 1400 (7774-3323) /uL [place] # (Auto) 700 (0-900) /uL Eos # (Auto) 100 (0-450) /uL Baso # (Auto) 0 (0-100) /uL Sodium 140 (137-145) mmol/L Potassium 4.3 (3.4-5.1) mmol/L Chloride 107 (98-107) mmol/L Carbon Dioxide 27 (22-32) mmol/L BUN 16 (7-17) mg/dL Creatinine 0.69 (0.52-1.04) mg/dL Estimated GFR > 60 (>60) mL/min BUN/Creatinine Ratio 23.2 H (6-22) Glucose 116 H (80-110) mg/dL Calcium 9.3 (8.4-10.2) mg/dL Magnesium (1.6-2.3) mg/dL Total Bilirubin 0.8 (0.2-1.3) mg/dL AST 30 (14-36) IU/L ALT 23 (<35) IU/L Alkaline Phosphatase 55 (38-126) U/L Troponin I (0.01-0.034) ng/mL Total Protein 7.0 (6.3-8.2) g/dL Albumin 4.1 (3.5-5.0) g/dL Globulin 2.9 (1.7-4.1) g/dL Albumin/Globulin Ratio 1.4 (1.0-2.8) Lipase 48 (23-300) U/L SARS-CoV-2 (PCR) (Negative) 0507/30/21 07/30/21 Range/Units 05:20 05:24 07:30 WBC (4.5-11.0) X10^3/uL RBC (4.0-5.2) X10^6/uL Hgb (12.0-16.0) g/dL Hct (36-46) % MCV (80-100) fL MCH (26-34) PG MCHC (30-36) % RDW (11.6-14.8) % Plt Count (150-400) X10^3/uL Neut % (Auto) (50-75) % Lymph % (Auto) (25-40) % [place] % (Auto) (3-14) % Eos % (Auto) (2-4) % Baso % (Auto) (0-2) % Neut # (Auto) (3050-8081) /uL Lymph # (Auto) (5076-9196) /uL [place] # (Auto) (0-900) /uL Eos # (Auto) (0-450) /uL Baso # (Auto) (0-100) /uL Sodium (137-145) mmol/L Potassium (3.4-5.1) mmol/L Chloride (98-107) mmol/L Carbon Dioxide (22-32) mmol/L BUN (7-17) mg/dL Creatinine (0.52-1.04) mg/dL Estimated GFR (>60) mL/min BUN/Creatinine Ratio (6-22) Glucose (80-110) mg/dL Calcium (8.4-10.2) mg/dL Magnesium 2.3 (1.6-2.3) mg/dL Total Bilirubin (0.2-1.3) mg/dL AST (14-36) IU/L ALT (<35) IU/L Alkaline Phosphatase (38-126) U/L Troponin I < 0.012 < 0.012 (0.01-0.034) ng/mL Total Protein (6.3-8.2) g/dL Albumin (3.5-5.0) g/dL Globulin (1.7-4.1) g/dL Albumin/Globulin Ratio (1.0-2.8) Lipase (23-300) U/L SARS-CoV-2 (PCR) Negative (Negative) 07/30/21 Range/Units 09:26 WBC (4.5-11.0) X10^3/uL RBC (4.0-5.2) X10^6/uL Hgb (12.0-16.0) g/dL Hct (36-46) % MCV (80-100) fL MCH (26-34) PG MCHC (30-36) % RDW (11.6-14.8) % Plt Count (150-400) X10^3/uL Neut % (Auto) (50-75) % Lymph % (Auto) (25-40) % [place] % (Auto) (3-14) % Eos % (Auto) (2-4) % Baso % (Auto) (0-2) % Neut # (Auto) (6586-0475) /uL Lymph # (Auto) (3682-4105) /uL [place] # (Auto) (0-900) /uL Eos # (Auto) (0-450) /uL Baso # (Auto) (0-100) /uL Sodium (137-145) mmol/L Potassium (3.4-5.1) mmol/L Chloride (98-107) mmol/L Carbon Dioxide (22-32) mmol/L BUN (7-17) mg/dL Creatinine (0.52-1.04) mg/dL Estimated GFR (>60) mL/min BUN/Creatinine Ratio (6-22) Glucose (80-110) mg/dL Calcium (8.4-10.2) mg/dL Magnesium (1.6-2.3) mg/dL Total Bilirubin (0.2-1.3) mg/dL AST (14-36) IU/L ALT (<35) IU/L Alkaline Phosphatase (38-126) U/L Troponin I < 0.012 (0.01-0.034) ng/mL Total Protein (6.3-8.2) g/dL Albumin (3.5-5.0) g/dL Globulin (1.7-4.1) g/dL Albumin/Globulin Ratio (1.0-2.8) Lipase (23-300) U/L SARS-CoV-2 (PCR) (Negative) Imaging Data CT angio chest abdomen pelvis: Radiologist's Impression: No acute traumatic injury within to of the abdomen or pelvis. No aortic aneurysm, dissection or pulmonary embolism. Dr Karlee Valecnia ECG Data Interpretation: Atrial fibrillation with slow ventricular response at a rate of 54 Normal axis No acute ischemic changes MDM Narrative Medical decision making narrative: 71-year-old woman with chest pain and likely syncopal episode in fell hit her head complaining of continued chest pain radiating to her back and abdominal pain. CT scan of the head neck and CTA of the chest abdomen pelvis is have all been done. Waiting for formal reads but on official reads do not show any obvious abnormalities at this point. Lab work is all unremarkable. She remains relatively hypotensive with a slow atrial fibrillation which she states is usual for her. She is supposed to be taking diltiazem XT 300 mg daily and may benefit from a lower dose of this. At this point there is no evidence of pneumonia, pneumothorax, acute coronary syndrome, dissection, rupture ring aneurysm, intracranial hemorrhage. Her laceration over her head is been repaired. She does need a 2nd troponin at 7:30 a.m. this morning and further evaluation prior to hopefully discharge home if remove additional abnormalities are appreciated. Care is turned over to Dr. Howell at change of shift. <Ramona Howell, DO - Last Filed: 07/30/21 15:28> Lab Data Labs: Lab Results 07/30/21 07/30/21 07/30/21 Range/Units 05:19 05:20 05:20 WBC 4.9 (4.5-11.0) X10^3/uL RBC 3.72 L (4.0-5.2) X10^6/uL Hgb 12.9 (12.0-16.0) g/dL Hct 38.2 (36-46) % MCV 102.6 H (80-100) fL MCH 34.6 H (26-34) PG MCHC 33.7 (30-36) % RDW 14.6 (11.6-14.8) % Plt Count 198 (150-400) X10^3/uL Neut % (Auto) 54.8 (50-75) % Lymph % (Auto) 28.0 (25-40) % [place] % (Auto) 15.0 H (3-14) % Eos % (Auto) 1.5 L (2-4) % Baso % (Auto) 0.7 (0-2) % Neut # (Auto) 2700 (5224-2544) /uL Lymph # (Auto) 1400 (1378-2513) /uL [place] # (Auto) 700 (0-900) /uL Eos # (Auto) 100 (0-450) /uL Baso # (Auto) 0 (0-100) /uL Sodium 140 (137-145) mmol/L Potassium 4.3 (3.4-5.1) mmol/L Chloride 107 (98-107) mmol/L Carbon Dioxide 27 (22-32) mmol/L BUN 16 (7-17) mg/dL Creatinine 0.69 (0.52-1.04) mg/dL Estimated GFR > 60 (>60) mL/min BUN/Creatinine Ratio 23.2 H (6-22) Glucose 116 H (80-110) mg/dL Calcium 9.3 (8.4-10.2) mg/dL Magnesium (1.6-2.3) mg/dL Total Bilirubin 0.8 (0.2-1.3) mg/dL AST 30 (14-36) IU/L ALT 23 (<35) IU/L Alkaline Phosphatase 55 (38-126) U/L Troponin I (0.01-0.034) ng/mL Total Protein 7.0 (6.3-8.2) g/dL Albumin 4.1 (3.5-5.0) g/dL Globulin 2.9 (1.7-4.1) g/dL Albumin/Globulin Ratio 1.4 (1.0-2.8) Lipase 48 (23-300) U/L SARS-CoV-2 (PCR) (Negative) 07/30/21 07/30/21 07/30/21 Range/Units 05:20 05:24 07:30 WBC (4.5-11.0) X10^3/uL RBC (4.0-5.2) X10^6/uL Hgb (12.0-16.0) g/dL Hct (36-46) % MCV (80-100) fL MCH (26-34) PG MCHC (30-36) % RDW (11.6-14.8) % Plt Count (150-400) X10^3/uL Neut % (Auto) (50-75) % Lymph % (Auto) (25-40) % [place] % (Auto) (3-14) % Eos % (Auto) (2-4) % Baso % (Auto) (0-2) % Neut # (Auto) (4663-8113) /uL Lymph # (Auto) (0359-6086) /uL [place] # (Auto) (0-900) /uL Eos # (Auto) (0-450) /uL Baso # (Auto) (0-100) /uL Sodium (137-145) mmol/L Potassium (3.4-5.1) mmol/L Chloride (98-107) mmol/L Carbon Dioxide (22-32) mmol/L BUN (7-17) mg/dL Creatinine (0.52-1.04) mg/dL Estimated GFR (>60) mL/min BUN/Creatinine Ratio (6-22) Glucose (80-110) mg/dL Calcium (8.4-10.2) mg/dL Magnesium 2.3 (1.6-2.3) mg/dL Total Bilirubin (0.2-1.3) mg/dL AST (14-36) IU/L ALT (<35) IU/L Alkaline Phosphatase (38-126) U/L Troponin I < 0.012 < 0.012 (0.01-0.034) ng/mL Total Protein (6.3-8.2) g/dL Albumin (3.5-5.0) g/dL Globulin (1.7-4.1) g/dL Albumin/Globulin Ratio (1.0-2.8) Lipase (23-300) U/L SARS-CoV-2 (PCR) Negative (Negative) 07/30/21 Range/Units 09:26 WBC (4.5-11.0) X10^3/uL RBC (4.0-5.2) X10^6/uL Hgb (12.0-16.0) g/dL Hct (36-46) % MCV (80-100) fL MCH (26-34) PG MCHC (30-36) % RDW (11.6-14.8) % Plt Count (150-400) X10^3/uL Neut % (Auto) (50-75) % Lymph % (Auto) (25-40) % [place] % (Auto) (3-14) % Eos % (Auto) (2-4) % Baso % (Auto) (0-2) % Neut # (Auto) (1772-6726) /uL Lymph # (Auto) (5822-3395) /uL [place] # (Auto) (0-900) /uL Eos # (Auto) (0-450) /uL Baso # (Auto) (0-100) /uL Sodium (137-145) mmol/L Potassium (3.4-5.1) mmol/L Chloride (98-107) mmol/L Carbon Dioxide (22-32) mmol/L BUN (7-17) mg/dL Creatinine (0.52-1.04) mg/dL Estimated GFR (>60) mL/min BUN/Creatinine Ratio (6-22) Glucose (80-110) mg/dL Calcium (8.4-10.2) mg/dL Magnesium (1.6-2.3) mg/dL Total Bilirubin (0.2-1.3) mg/dL AST (14-36) IU/L ALT (<35) IU/L Alkaline Phosphatase (38-126) U/L Troponin I < 0.012 (0.01-0.034) ng/mL Total Protein (6.3-8.2) g/dL Albumin (3.5-5.0) g/dL Globulin (1.7-4.1) g/dL Albumin/Globulin Ratio (1.0-2.8) Lipase (23-300) U/L SARS-CoV-2 (PCR) (Negative) Imaging Data CT scan - head: Radiologist's Impression: Signed Patient: Diana Huffman MR#: [id number] : 1950 Acct:[id number] Age/Sex: 71 / F Date of Service: 07/30/21 Loc: ED Accession Number: [id number] ?? Procedure: CT head/brain wo con Ordering Provider: Velma Ace MD PROCEDURE:? CT HEAD/BRAIN WO CON ? INDICATIONS:? fall, on eliquis ? TECHNIQUE:? Noncontrast 4.5 mm thick angled axial sections acquired from the foramen magnum to the vertex, with coronal and sagittal reformats.? For radiation dose reduction, the following was used:? automated exposure control, adjustment of mA and/or kV according to patient size.? ? COMPARISON:? [facility], MR, MR HEAD/BRAIN WO CON, 05/11/2021, 15:09.? [facility], CT, CT ANGIO HEAD AND NECK, 05/11/2021, 13:48.? [facility], CT, CT STROKE, 05/11/2021, 13:48. ? FINDINGS:? Image quality:? Excellent.? ? CSF spaces:? Basal cisterns are patent.? Arachnoid cyst in the superior midline of the posterior fossa is stable.? The ventricles are symmetric in size and shape.? ? Brain:? No intracranial bleeds or masses.? Chronic right frontal infarct has undergone expected evolution interval since prior exam obtained May 11, 2021. There is cerebral volume loss for age, with resultant ventricular and sulcal prominence.? There are periventricular and deep white matter chronic small vessel ischemic changes.? There is intracranial internal carotid artery atherosclerosis.? ? Skull and face:? Calvarium and visualized facial bones appear intact, without suspicious lesions.? ? Sinuses:? Mild mucosal thickening in the visualized right maxillary sinus and the ethmoid air cells bilaterally.? The mastoids are clear.? ? IMPRESSION:? No acute intracranial disease process. ? ? Dictated by: Nneka Shirley MD, PhD on 07/30/2021 at 7:25 ? ? Approved by: Nneka Shirley MD, PhD on 07/30/2021 at 7:28 ? CT - cervical spine: Radiologist's Impression: Signed Patient: Diana Huffman MR#: [id number] : 1950 Acct:[id number] Age/Sex: 71 / F Date of Service: 07/30/21 Loc: ED Accession Number: [id number] ?? Procedure: CT cervical spine wo con Ordering Provider: Velma Ace MD PROCEDURE:? CT CERVICAL SPINE WO CON ? INDICATIONS:? fall, neck pain ? TECHNIQUE:? Noncontrast 3 mm thick sections acquired from the skull base to the T4 level.? Sagittal and coronal reformats were then constructed.? For radiation dose reduction, the following was used:? automated exposure control, adjustment of mA and/or kV according to patient size.? ? COMPARISON:? None. ? FINDINGS:? Image quality:? Excellent.? ? Bones:? No fractures or dislocations.? Visualized superior ribs are intact. Spine degenerative disc disease and facet arthropathy. ? Soft tissues:? Prevertebral soft tissues are normal in thickness.? No paravertebral hematomas.? No apical pneumothoraces.? Multiple thyroid nodules.? Largest nodules in the left lobe measuring 1.7 centimeters in maximum diameter.? ? ? IMPRESSION:? ? No fracture. No acute osseous lesion. If symptoms and/or clinical suspicion for pathology persists, evaluation with MRI should be considered for further assessment. ? Thyroid nodules.? Recommend dedicated thyroid ultrasound for definitive characterization. ? ? ? Dictated by: Nneka Shirley MD, PhD on 07/30/2021 at 7:31 ? ? CT angio chest abdomen pelvis: Radiologist's Impression: No acute traumatic injury within to of the abdomen or pelvis. No aortic aneurysm, dissection or pulmonary embolism. Dr Karlee Valencia Signed Patient: Diana Huffman MR#: [id number] : 1950 Acct:[id number] Age/Sex: 71 / F Date of Service: 07/30/21 Loc: ED Accession Number: [id number] ?? Procedure: CT angio chest abdomen pelvis Ordering Provider: Velma Ace MD PROCEDURE:? CT ANGIO CHEST ABDOMEN PELVIS ? INDICATIONS:? chest pain radiating to back,abd and pelvis, syncope, ? TECHNIQUE:? Precontrast 5 mm thick sections acquired from the lung apices to the iliac crests.? After the administration of intravenous contrast, 2.5 mm thick sections again acquired from the lung apices to the iliac crests.? Maximum intensity projection (MIP) oblique sagittal and coronal reformats were then acquired.? For radiation dose reduction, the following was used:? automated exposure control.? ? COMPARISON:? None. ? FINDINGS:? Image quality:? Excellent.? ? AORTA:? Intramural hematoma:? Absent Maximum hematoma thickness:? Not applicable Focal contrast enhancement:? Intramural blood pool (< 2 mm neck or imperceptible communication with aortic lumen):? Absent .? Ulcer-like projection (broad communication with aortic lumen > 3 mm):? Absent . ? Dissection:? Absent Mitch classification:? Not applicable Maximum aortic diameter:? 3.7 cm.? [If Mitch A dissection, > 5.0 cm has a poorer prognosis.? If Mitch B dissection, > 4.0 cm has a poorer prognosis.]? Periaortic hematoma:? Absent .? ? CHEST:? Lungs and pleura:? No acute airspace opacities.? No pleural effusions or pneumothorax.? Central and peripheral airways are patent and normal in caliber.? ? Mediastinum:? Heart is enlarged.? No pericardial effusion.? No mediastinal or hilar adenopathy by size criteria.? Central pulmonary arteries are normal in size.? Esophagus is normal in caliber.? No hiatal hernias.? ? Bones and chest wall:? Right breast is absent.? No axillary adenopathy by size criteria.? Thyroid gland contains hypoattenuating nodule.? Largest nodule is in the left lobe measures 1.7 centimeters.? No suspicious bony lesions.? No vertebral body compression fractures.? ? ? ABDOMEN:? Vasculature:? Celiac trunk and mesenteric arteries are patent.? Renal arteries are also patent.? ? Solid organs:? Liver is normal in size and enhancement.? Gallbladder is surgically absent.? Biliary system is non dilated.? Pancreas enhances normally.? Spleen is normal in size and enhancement.? No adrenal nodules.? Both kidneys are normal in size and enhancement, without hydronephrosis.? ? Peritoneum and bowel:? No free fluid or air.? Bowel loops are normal in caliber and wall thickness.? Moderate amount of stool throughout the colon.? ? Nodes and vessels:? No retroperitoneal or mesenteric adenopathy by size criteria.? Inferior vena cava is normal in morphology. Scattered atherosclerotic calcifications involving the abdominal and pelvic vasculature.? ? Miscellaneous:? Small fat containing umbilical hernia. ? ? PELVIS:? Genitourinary:? Bladder wall thickness is normal.? Numerous large calcified fibroids noted in the uterus.? ? Miscellaneous:? No inguinal hernias or adenopathy.? No ventral hernias.? ? Bones:? No suspicious bony lesions.? No vertebral body compression fractures. Spine degenerative disc disease and facet arthropathy. ? ? IMPRESSION:? ? 1. No evidence of aortic dissection.? ? 2. No acute traumatic injury. ? Dictated by: Nneka Shirley MD, PhD on 07/30/2021 at 7:55 ? ? Approved by: Nneka Shirley MD, PhD on 07/30/2021 at 8:01 ? ECG Data Interpretation: Atrial fibrillation with slow ventricular response at a rate of 54 Normal axis No acute ischemic changes EKG #2 Lynda fibrillation rate [address] changes similar to previous EKG MDM Narrative Medical decision making narrative: 71-year-old woman with chest pain and likely syncopal episode in fell hit her head complaining of continued chest pain radiating to her back and abdominal pain. CT scan of the head neck and CTA of the chest abdomen pelvis is have all been done. Waiting for formal reads but on official reads do not show any obvious abnormalities at this point. Lab work is all unremarkable. She remains relatively hypotensive with a slow atrial fibrillation which she states is usual for her. She is supposed to be taking diltiazem XT 300 mg daily and may benefit from a lower dose of this. At this point there is no evidence of pneumonia, pneumothorax, acute coronary syndrome, dissection, rupture ring aneurysm, intracranial hemorrhage. Her laceration over her head is been repaired. She does need a 2nd troponin at 7:30 a.m. this morning and further evaluation prior to hopefully discharge home if remove additional abnormalities are appreciated. Care is turned over to Dr. Howell at change of shift. Lynda-patient signed out to me by Dr. Ace. I have seen evaluated patient myself. Currently trying to go to the bathroom in a wheelchair however she is complaining of chest discomfort she describes as pressure. Initial troponin is negative normal EKG. She has repeat troponin coming up here. Her pressure is low in the 90s even though she says that is normal for her. She is on quite a bit of diltiazem and Cardura. CT scans are negative. She continues to have chest discomfort especially worse with movement and exertion. Patient has 2 negative troponins without EKG changes. She continues to have chest discomfort. Sounds like chest discomfort is what woke her from her sleep initially and then she fell. She has been given morphine. Hesitant to give her nitro because her pressure. sHe is given Tylenol and Protonix also for pain. 1496-Dr. Maria cardiology has been updated on patient's symptoms test results she is a patient of theirs. Recommends repeat trope and admission for stress test. Dr. Weber accepts patients, difficult to get stress tests on weekends. Multiple other surrounding hospitals on divirt and unable to accept patient for a stress test. Discharge Plan Departure Patient Disposition: Admitted as Observation Clinical Impression: Chest pain Admit Date/Time: 07/30/21 09:41 Admit Provider: Javid Holt
--- NOTE | 2021-07-30 05:15 | DI.CT.S_ITS ---
PROCEDURE: CT HEAD/BRAIN WO CON INDICATIONS: fall, on eliquis TECHNIQUE: Noncontrast 4.5 mm thick angled axial sections acquired from the foramen magnum to the vertex, with coronal and sagittal reformats. For radiation dose reduction, the following was used: automated exposure control, adjustment of mA and/or kV according to patient size. COMPARISON: [facility], MR, MR HEAD/BRAIN WO CON, 05/11/2021, 15:09. [facility], CT, CT ANGIO HEAD AND NECK, 05/11/2021, 13:48. [facility], CT, CT STROKE, 05/11/2021, 13:48. FINDINGS: Image quality: Excellent. CSF spaces: Basal cisterns are patent. Arachnoid cyst in the superior midline of the posterior fossa is stable. The ventricles are symmetric in size and shape. Brain: No intracranial bleeds or masses. Chronic right frontal infarct has undergone expected evolution interval since prior exam obtained May 11, 2021. There is cerebral volume loss for age, with resultant ventricular and sulcal prominence. There are periventricular and deep white matter chronic small vessel ischemic changes. There is intracranial internal carotid artery atherosclerosis. Skull and face: Calvarium and visualized facial bones appear intact, without suspicious lesions. Sinuses: Mild mucosal thickening in the visualized right maxillary sinus and the ethmoid air cells bilaterally. The mastoids are clear. IMPRESSION: No acute intracranial disease process. Dictated by: Nneka Shirley MD, PhD on 07/30/2021 at 7:25 Approved by: Nneka Shirley MD, PhD on 07/30/2021 at 7:28
--- NOTE | 2021-07-30 05:15 | DI.CT.S_ITS ---
PROCEDURE: CT CERVICAL SPINE WO CON INDICATIONS: fall, neck pain TECHNIQUE: Noncontrast 3 mm thick sections acquired from the skull base to the T4 level. Sagittal and coronal reformats were then constructed. For radiation dose reduction, the following was used: automated exposure control, adjustment of mA and/or kV according to patient size. COMPARISON: None. FINDINGS: Image quality: Excellent. Bones: No fractures or dislocations. Visualized superior ribs are intact. Spine degenerative disc disease and facet arthropathy. Soft tissues: Prevertebral soft tissues are normal in thickness. No paravertebral hematomas. No apical pneumothoraces. Multiple thyroid nodules. Largest nodules in the left lobe measuring 1.7 centimeters in maximum diameter. IMPRESSION: No fracture. No acute osseous lesion. If symptoms and/or clinical suspicion for pathology persists, evaluation with MRI should be considered for further assessment. Thyroid nodules. Recommend dedicated thyroid ultrasound for definitive characterization. Dictated by: Nneka Shirley MD, PhD on 07/30/2021 at 7:31 Approved by: Nneka Shirley MD, PhD on 07/30/2021 at 7:34
[2021-07-30 05:26] LABS: Add Manual Diff / Slide Review NO; Basophils Absolute Auto 0 /uL (0-100); Basophils Percent Auto 0.7 % (0-2); Eosinophils Absolute Auto 100 /uL (0-450); Eosinophils Percent Auto 1.5 % (2-4); Hematocrit 38.2 % (36-46); Hemoglobin 12.9 g/dL (12.0-16.0); Lymphocytes Absolute Auto 1400 /uL (1100-4500); Mean Corpuscular HGB Conc 33.7 % (30-36); Mean Corpuscular Hemoglobin 34.6 PG (26-34); Mean Corpuscular Volume 102.6 fL (80-100); Monocytes Absolute Auto 700 /uL (0-900); Neutrophils Absolute Auto 2700 /uL (1500-7000); Neutrophils Percent Auto 54.8 % (50-75); Platelet Count 198 X10^3/uL (150-400); Red Blood Cell Count 3.72 X10^6/uL (4.0-5.2); Red Cell Distribution Width 14.6 % (11.6-14.8); White Blood Cell Count 4.9 X10^3/uL (4.5-11.0)
[2021-07-30] MEDS: MORPHINE 2 MG/ML INJ IV ×2 (05:33→09:20)
[2021-07-30 05:41] LABS: Magnesium 2.3 mg/dL (1.6-2.3)
--- NOTE | 2021-07-30 05:42 | PC.NURSE ---
Pt brought in by EMS from home where pt had onset of substernal chest pain that radiated to her right jaw. Pt was walking through her kitchen after her pains started and she fell, hitting her right forehead on her microwave or possibly countertop and sustaining a laceration appx 1in long. Pt on Eliquis from stroke a few months ago. Bleeding controlled for EMS and on arrival to ER. Pt is Mod. Trauma upon arrival. Pt has a gap in her memory from when she fell to when her found her. Pt arrives AxOx4, GCS 15. Pt in afib with slow ventricular response 35-55 for EMS. Pt has Hx of this, but is usually in the 50s for bpm. Pt also has baseline soft BPs, baseline systolic of 90s. at bedside of pt.
[2021-07-30 05:44] LABS: Alanine Aminotransferase 23 IU/L (<35); Albumin 4.1 g/dL (3.5-5.0); Albumin Globulin Ratio 1.4 (1.0-2.8); Alkaline Phosphatase 55 U/L (38-126); Aspartate Aminotransferase 30 IU/L (14-36); BUN Creatinine Ratio 23.2 (6-22); Bilirubin Total 0.8 mg/dL (0.2-1.3); Blood Urea Nitrogen 16 mg/dL (7-17); Calcium 9.3 mg/dL (8.4-10.2); Carbon Dioxide 27 mmol/L (22-32); Chloride 107 mmol/L (98-107); Estimated Glomerular Filt Rate > 60 mL/min (>60); Globulin 2.9 g/dL (1.7-4.1); Glucose 116 mg/dL (80-110); HEMOLYSIS < 15 (0-50); Potassium 4.3 mmol/L (3.4-5.1); Sodium 140 mmol/L (137-145)
[2021-07-30 05:54] LABS: Troponin I < 0.012 ng/mL (0.01-0.034)
[2021-07-30 05:56] LABS: COVID19 -Nasal RAPID Negative (Negative)
[2021-07-30 07:01] LABS: Lipase 48 U/L (23-300)
[2021-07-30] MEDS: SODIUM CHLORIDE 0.9% 500 ML 1000 ML IV (07:29)
[2021-07-30] MEDS: PANTOPRAZOLE 40 MG VIAL IV (07:29)
[2021-07-30 08:02] LABS: Troponin I < 0.012 ng/mL (0.01-0.034)
[2021-07-30] MEDS: ACETAMINOPHEN 325 MG TABLET 650 MG PO ×2 (09:18→17:07)
[2021-07-30 09:53] LABS: Troponin I < 0.012 ng/mL (0.01-0.034)
--- NOTE | 2021-07-30 14:22 | PM.HP.1 ---
History of Present Illness History of Present Illness Date Patient Seen: 07/30/21 Chief complaint: chest pain/ fall Narrative: THIS IS A 71-YEAR-OLD FEMALE WHO PRESENTED TO THE HOSPITAL REPORTING CHEST PRESSURE/CHEST PAIN WHICH STARTED THIS MORNING WHILE SHE WAS IN BED. SHE HAS A PAST MEDICAL HISTORY SIGNIFICANT FOR RECENT CVA. SHE IS ON ELIQUIS AND ASPIRIN. SHE STILL HAS SOME RESIDUAL NEUROLOGICAL DEFICIT WHICH INCLUDE DIFFICULTY WITH SWALLOWING. SHE STATED THAT AROUND 3:00 A.M. SHE STARTED HAVING SOME CHEST PRESSURE/PAIN WHICH SHE STATED LOCATED MOSTLY ON THE UPPER ABDOMINAL AREA AND LOWER PART OF THE CHEST. NO SIGNIFICANT RADIATION. WORSE WITH EXERTION DUE TO SHORTNESS OF BREATH AND BETTER WITH REST. NO PRIOR EPISODE REPORTED. SHE STATED THAT SHE LEFT HER ROOM TRIED TO GO TO THE BATHROOM WHERE SHE WAS FOUND BY HER AND SHE DOES NOT REMEMBER HOW SHE GOT THERE IN ANY CASE, PATIENT STATED THAT HER CHEST PAIN HAS RESOLVED SINCE BEING IN THE HOSPITAL. SHE DENIES ANY NAUSEA. NO ASSOCIATED DIAPHORESIS. NO CHEST PALPITATION. NO CHANGE IN VISION. IN THE ER, WORKUP IS FAIRLY UNREMARKABLE. TROPONIN WAS NEGATIVE. LIVER AND KIDNEY FUNCTION TESTING IS ALSO UNREMARKABLE. CHEST X-RAY DID NOT SHOW ANY SIGNIFICANT DISEASE. Patient History Medical History (Updated 07/30/21 @ 10:49 by Ramona Howell DO) Chronic GERD CREST syndrome Fibromyalgia Generalized scleroderma History of malignant neoplasm of breast (03/22/17) IBS (irritable bowel syndrome) Intramural uterine fibroid Paroxysmal atrial fibrillation Raynauds disease Family & Social History Family History Father Prostate cancer Mother Dementia Grandmother Family history pertaining to maternal grandmother Social History: household members spouse Prior Living Arrangements House Safety & Behavioral: Feels Safe in Current Yes Environment Been Physically Hurt or No Threatened By a Person Tobacco & Substance use: Smoking Status Never smoker alcohol intake current alcohol intake frequency 0-2 drinks per day Substance Use Type marijuana Meds Home Medications and Allergies Home Medications Medication Instructions Recorded Confirmed Type acetaminophen 500 mg tablet 500 mg PO Q4HP PRN #0 03/22/17 07/30/21 History (Tylenol Extra Strength) carboxymethylcellulose sodium 0.5 15 ml DAILY #0 03/22/17 07/30/21 History % eye drops (Refresh Tears) diltiazem HCl 300 mg 300 mg PO QDAY #0 03/22/17 07/30/21 History capsule,extended release 24 hr (Cartia XT) doxazosin 1 mg tablet (Cardura) 1 mg PO HS #0 03/22/17 07/30/21 History folic acid 1 mg tablet 1 mg PO BID #0 03/22/17 07/30/21 History modafinil 200 mg tablet 100 mg PO QDAY #0 03/22/17 07/30/21 History polyethylene glycol 3350 17 17 gm PO QDAY #0 03/22/17 07/30/21 History gram/dose oral powder (Miralax) tramadol 50 mg tablet 50 mg PO Q4HP PRN #0 MDD P 03/22/17 07/30/21 History multivitamin (Multiple Vitamins) 1 tab PO QDAY #0 04/20/17 07/30/21 History omega 5-bxn-mxm-fish oil 1,000 mg 1,000 mg PO Q DAY #0 04/20/17 07/30/21 History (120 mg-180 mg) capsule (Fish Oil) omeprazole 20 mg capsule,delayed 40 mg PO BID #0 04/20/17 07/30/21 History release docusate sodium 100 mg capsule 100 mg PO BID #14 cap 05/17/17 07/30/21 Rx (Colace) citalopram 20 mg tablet 20 mg PO BID 03/20/19 07/30/21 History aspirin 81 mg tablet,delayed 81 mg PO DAILY 12/19/19 07/30/21 History release zolpidem 5 mg tablet 5 mg PO BEDTIME PRN 12/19/19 07/30/21 History methotrexate sodium 2.5 mg tablet 10 mg PO QWEEK #0 tab 04/29/20 07/30/21 History Bifidobacterium infantis 4 mg 4 mg PO DAILY 03/25/21 07/30/21 History capsule (Align) psyllium 1 packet PO DAILY 03/25/21 07/30/21 History calcium carbonate 200 mg calcium 1,000 mg PO BID 05/11/21 07/30/21 History (500 mg) chewable tablet (Tums) cholecalciferol (vitamin D3) 50 50 mcg PO DAILY 05/11/21 07/30/21 History mcg (2,000 unit) capsule (Vitamin D3) magnesium citrate 125 mg capsule 250 mg PO DAILY 05/11/21 07/30/21 History fluticasone 250 mcg-salmeterol 50 1 inh INHALATION DAILY 05/12/21 07/30/21 History mcg/dose blistr powdr for inhalation apixaban 5 mg tablet (Eliquis) 5 mg PO BID 07/30/21 07/30/21 History atorvastatin 20 mg tablet 40 mg PO BEDTIME 07/30/21 07/30/21 History Allergies Allergy/AdvReac Type Severity Reaction Status Date / Time doxepin [DOXEPIN] Allergy Mild SEVERE Verified 06/25/21 09:50 NAUSEA gabapentin Allergy Mild Rash Verified 06/25/21 09:50 pilocarpine Allergy Mild Nausea Verified 06/25/21 09:50 pregabalin [From LYRICA] Allergy Mild RASH/ITCHIN Verified 06/25/21 09:50 G sulfamethoxazole Allergy Unknown Verified 06/25/21 09:50 [From BACTRIM] trimethoprim [From BACTRIM] Allergy Unknown Verified 06/25/21 09:50 diclofenac AdvReac Mild Nausea Verified 06/25/21 09:50 tetracycline [TETRACYCLINE] AdvReac Unknown YEAST Verified 06/25/21 09:50 INFECTION Review of Systems Review of Systems Narrative: NEGATIVE UNLESS NOTED ABOVE IN HPI Exam Vital Signs (past 8 hours): - 07/30/21 06:26 07/30/21 06:30 07/30/21 06:35 Pulse Rate 55 L 64 62 Respiratory Rate 11 L 14 17 Blood Pressure 101/56 L 113/66 97/57 L Pulse Oximetry 97 98 97 07/30/21 06:40 07/30/21 06:45 07/30/21 06:46 Pulse Rate 61 75 68 Respiratory Rate 12 26 H 21 Blood Pressure 98/58 L 88/54 L 96/56 L Pulse Oximetry 98 97 96 07/30/21 07:00 07/30/21 07:01 07/30/21 07:12 Pulse Rate 60 59 L 64 Respiratory Rate 21 21 21 Blood Pressure 95/47 L 91/55 L Pulse Oximetry 98 98 07/30/21 07:18 07/30/21 07:20 07/30/21 07:30 Pulse Rate 70 69 64 Respiratory Rate 21 17 24 Blood Pressure 82/54 L 86/54 L Pulse Oximetry 92 93 07/30/21 07:35 07/30/21 08:00 07/30/21 08:08 Pulse Rate 67 63 66 Respiratory Rate 28 H 14 22 Blood Pressure 101/55 L 96/60 92/55 L Pulse Oximetry 95 90 L 94 07/30/21 08:30 07/30/21 09:00 07/30/21 09:30 Pulse Rate 63 74 Respiratory Rate 13 24 Blood Pressure 91/58 L 97/59 L 94/67 Pulse Oximetry 92 97 07/30/21 10:00 07/30/21 10:12 07/30/21 10:18 Pulse Rate 70 79 72 Respiratory Rate 23 18 24 Blood Pressure 101/64 81/56 L 81/54 L Pulse Oximetry 95 96 07/30/21 10:20 07/30/21 10:30 07/30/21 11:00 Pulse Rate 72 71 70 Respiratory Rate 24 24 23 Blood Pressure 88/58 L 95/65 93/50 L Pulse Oximetry 97 97 98 07/30/21 11:30 07/30/21 12:02 07/30/21 12:03 Pulse Rate 65 75 70 Respiratory Rate 15 23 18 Blood Pressure 95/63 96/66 Pulse Oximetry 95 95 96 07/30/21 12:30 07/30/21 13:00 Pulse Rate 65 67 Respiratory Rate 11 L 11 L Blood Pressure 101/58 L 98/62 Pulse Oximetry 96 94 Oxygen Delivery Method Room Air Narrative Exam Narrative: NO ACUTE DISTRESS. PATIENT IS ALERT ORIENTED X3. VITAL SIGNS STABLE HEAD ATRAUMATIC NORMOCEPHALIC NECK : SUPPLE WITHOUT ADENOPATHY NO CAROTID BRUITS EYE: EOMI, PERRLA, NORMAL CONJUNCTIVA; NO JAUNDICE CHEST: REGULAR RATE. NO RUBS. PMI IS NON DISPLACED. NO MURMURS; NORMAL S1-S2 PULMONARY: DECREASED BS OVER THE BASES. MILD BIBASILAR CRACKLES NOTED; NO INCREASED DULLNESS TO PERCUSSION ABDOMEN: SOFT. NONTENDER. NONDISTENDED. BOWEL SOUNDS ARE PRESENT IN ALL 4 QUADRANTS. NO MASS. EXTREMITIES: NO EDEMA.. NO CYANOSIS CLUBBING NOTED. NEURO: CRANIAL NERVES 2-12 GROSSLY INTACT. NO FOCAL NEUROLOGICAL DEFICIT NOTED. MSK: NORMAL RANGE OF MOTION FOR AGE. NO JOINT EFFUSION. SKIN: NORMAL FOR ETHNICITY; NO ECCHYMOSIS. NO LESION. GOOD TURGOR.; NO RASHES : NORMAL EXTERNAL GENITALIA. PSYCH : APPROPRIATE MOOD AND AFFECT. ALERT AWAKE ORIENTED X3 Objective Labs Result Diagrams: 07/30/21 05:20 07/30/21 05:20 Labs: Laboratory Results - last 24 hr 07/30/21 07/30/21 07/30/21 05:19 05:20 05:20 WBC 4.9 RBC 3.72 L Hgb 12.9 Hct 38.2 MCV 102.6 H MCH 34.6 H MCHC 33.7 RDW 14.6 Plt Count 198 Neut % (Auto) 54.8 Lymph % (Auto) 28.0 [place] % (Auto) 15.0 H Eos % (Auto) 1.5 L Baso % (Auto) 0.7 Neut # (Auto) 2700 Lymph # (Auto) 1400 [place] # (Auto) 700 Eos # (Auto) 100 Baso # (Auto) 0 Sodium 140 Potassium 4.3 Chloride 107 Carbon Dioxide 27 BUN 16 Creatinine 0.69 Estimated GFR > 60 BUN/Creatinine Ratio 23.2 H Glucose 116 H Calcium 9.3 Magnesium Total Bilirubin 0.8 AST 30 ALT 23 Alkaline Phosphatase 55 Troponin I Total Protein 7.0 Albumin 4.1 Globulin 2.9 Albumin/Globulin Ratio 1.4 Lipase 48 SARS-CoV-2 (PCR) 07/30/21 07/30/21 07/30/21 05:20 05:24 07:30 WBC RBC Hgb Hct MCV MCH MCHC RDW Plt Count Neut % (Auto) Lymph % (Auto) [place] % (Auto) Eos % (Auto) Baso % (Auto) Neut # (Auto) Lymph # (Auto) [place] # (Auto) Eos # (Auto) Baso # (Auto) Sodium Potassium Chloride Carbon Dioxide BUN Creatinine Estimated GFR BUN/Creatinine Ratio Glucose Calcium Magnesium 2.3 Total Bilirubin AST ALT Alkaline Phosphatase Troponin I < 0.012 < 0.012 Total Protein Albumin Globulin Albumin/Globulin Ratio Lipase SARS-CoV-2 (PCR) Negative 07/30/21 09:26 WBC RBC Hgb Hct MCV MCH MCHC RDW Plt Count Neut % (Auto) Lymph % (Auto) [place] % (Auto) Eos % (Auto) Baso % (Auto) Neut # (Auto) Lymph # (Auto) [place] # (Auto) Eos # (Auto) Baso # (Auto) Sodium Potassium Chloride Carbon Dioxide BUN Creatinine Estimated GFR BUN/Creatinine Ratio Glucose Calcium Magnesium Total Bilirubin AST ALT Alkaline Phosphatase Troponin I < 0.012 Total Protein Albumin Globulin Albumin/Globulin Ratio Lipase SARS-CoV-2 (PCR) Assessment & Plan Assessment & Plan narrative: IMPRESSION ATYPICAL CHEST PAIN/CHEST PRESSURE. ACS IS UNLIKELY. RESOLVED MACROCYTIC ANEMIA. CONSIDER VITAMIN DEFICIENCY.. ADDITIONAL WORKUP OUTPATIENT RECENT CVA PER HISTORY. ON ASPIRIN PAROXYSMAL ATRIAL FIBRILLATION PER HISTORY. ON ELIQUIS POSSIBLE PFO PER LAST ECHO. AWARE CREST SYNDROME PER HISTORY BREAST CANCER PER HISTORY GERD PER HISTORY PLAN PLAN TO TREND TROPONIN THE NEXT 12 HOURS STRESS TEST ALSO ORDERED TO FURTHER EVALUATE FOR ISCHEMIA PATIENT IS MOST LIKELY A VASCULOPATH WITH PRIOR HISTORY OF CVA ALSO HAS CREST SYNDROME CONTINUE ASPIRIN AND PLAVIX PER HOME DOSE RECENT WORKUP FOR LIPIDS AFTER HER STROKE, NO INDICATION TO REPEAT LEVEL AT THIS TIME WILL CONTINUE HER HOME STATIN ADVERSELY ORDERED MORPHINE AND NITROGLYCERIN NEEDED BETA-HOME ISN'T INDICATED AT THIS TIME PATIENT IS ON CARDIZEM. WILL DECREASE THE DOSE WHILE INPATIENT LOWER NORMAL BP APPRECIATED ON INITIAL VITAL SIGNS REFER PATIENT TO CARDIOLOGY FOR FURTHER WORKUP AND TREATMENT IF INDICATED CLINICALLY CONTINUE HOME MED INDICATED PATIENT WILL BE KEPT ON TELE AT ALL TIMES REPEAT EKG INDICATED HER SYMPTOMS COULD CERTAINLY HAVE GI COMPONENT PATIENT IS ON PPI AT HOME WILL ADD CARAFATE. ADDITIONAL MANAGEMENT PER CLINICAL COURSE DISCHARGE WITHIN THE NEXT 12-24 HOURS IF CLINICALLY STABLE Time Spent With Patient Critical Care time: I spent a total of [] minutes of critical care time on this patient's care today; this time is exclusive of procedural time. Quality VTE Deep Vein Thrombosis/Pulmonary Embolism Present on Admission: No
[2021-07-30] MEDS: SUCRALFATE 1 GM TABLET PO (17:07)
[2021-07-30 18:10] LABS: Troponin I < 0.012 ng/mL (0.01-0.034)
--- NOTE | 2021-07-30 18:51 | DI.NM.S_ITS ---
DATE OF SERVICE: 07/30/2021 PROCEDURE PERFORMED: Exercise stress only myocardial perfusion imaging study with gating to assess ejection fraction and regional wall motion. ORDERING PROVIDER: Ramona Howell DO. INDICATIONS: The patient is a 71-year-old female with a history of atrial fibrillation presenting with atypical chest discomfort. EXERCISE TREADMILL TESTING: The patient was able to exercise for 6 minutes, 48 seconds, although holding at stage II for the last 48 seconds, because of her inability to keep up with the treadmill. This would suggest a good exercise capacity with an LISBETH of around -15%. She had a fairly normal heart rate response to exercise, achieving a heart rate of around 130 BPM (86% of her predicted maximum), although a definitive heart rate is difficult to assess because of significant motion artifact on the treadmill. Her resting ECG shows atrial fibrillation with some nonspecific ST-segment abnormalities that remain unchanged with exercise. She had no chest discomfort. At 5 minutes, 38 seconds of exercise, at a heart rate of around 130 BPM, 25.5 millicuries of technetium-99m Myoview was injected and she was imaged 10 minutes later using a gated SPECT acquisition protocol. Given the absence of any notable perfusion defects, it was felt that resting images were not needed. FINDINGS: 1. Raw data: There is fair myocardial tracer uptake. Lung/heart ratio was normal at 0.26. 2. Quantitated gated SPECT: Post-stress ejection fraction is estimated at 75% without any focal wall motion abnormality with an end-diastolic volume of 87 mL. 3. Myocardial perfusion imaging: Post-stress supine images show a fairly normal myocardial perfusion pattern without any obvious perfusion defects. The prone images are of somewhat suboptimal quality but also show no clear localized perfusion defect. IMPRESSION: 1. Probable normal myocardial perfusion study. 2. No obvious evidence for myocardial ischemia or previous myocardial infarction. 3. Normal left ventricular systolic function with normal left ventricular volumes. 4. Good exercise capacity without angina or ECG evidence of ischemia although the ECG is compromised by significant motion artifact. She was in atrial fibrillation with a normal heart rate response. Diana Huffman - Celestino doc#: [id number]/job#: [id number] dd: 07/30/2021 16:23:00 dt: 07/30/2021 18:06:00 DICTATING MD/COPIES TO: Niko Maria MD; Ramona Howell DO; Javid Cerna DO COPIES MNE: NOELO; ;
[2021-07-30] MEDS: guaiFENesin Solution 100 MG/5 ML UDC 200 MG PO (20:22)
[2021-07-30] MEDS: DOXAZOSIN 2 MG TABLET 1 MG PO (20:23)
[2021-07-30] MEDS: APIXABAN 5 MG TABLET PO (20:26)
[2021-07-30] MEDS: CALCIUM CARBONATE 500 MG TAB 1000 MG PO (20:26)
[2021-07-30] MEDS: DOCUSATE 100 MG CAPSULE PO (20:27)
[2021-07-30] MEDS: FOLIC ACID 1 MG TABLET PO (20:29)
[2021-07-30] MEDS: ZOLPIDEM 5 MG TABLET PO (20:32)
[2021-07-30 21:07] LABS: Troponin I < 0.012 ng/mL (0.01-0.034)
[2021-07-31] MEDS: SUCRALFATE 1 GM TABLET PO ×3 (00:10→12:16)
[2021-07-31] MEDS: ACETAMINOPHEN 325 MG TABLET 650 MG PO ×3 (00:10→12:16)
[2021-07-31] MEDS: guaiFENesin Solution 100 MG/5 ML UDC 200 MG PO ×2 (00:10→06:08)
[2021-07-31 02:00] VITALS: O2SAT 94
[2021-07-31 05:53] VITALS: BP 118/85; PULSE 94; RESP 18; TEMP 37; O2SAT 94
[2021-07-31 06:00] VITALS: O2SAT 95
[2021-07-31] MEDS: PANTOPRAZOLE DR 20 MG TABLET PO (06:07)
--- NOTE | 2021-07-31 08:09 | P.DS_ITS ---
History of Present Illness History of Present Illness Date Patient Seen: 07/31/21 Chief complaint: chest pain/ fall Narrative: THIS IS A 71-YEAR-OLD FEMALE WHO PRESENTED TO THE HOSPITAL REPORTING CHEST PRESSURE/CHEST PAIN WHICH STARTED THIS MORNING WHILE SHE WAS IN BED. SHE HAS A PAST MEDICAL HISTORY SIGNIFICANT FOR RECENT CVA. SHE IS ON ELIQUIS AND ASPIRIN. SHE STILL HAS SOME RESIDUAL NEUROLOGICAL DEFICIT WHICH INCLUDE DIFFICULTY WITH SWALLOWING. SHE STATED THAT AROUND 3:00 A.M. SHE STARTED HAVING SOME CHEST PRESSURE/PAIN WHICH SHE STATED LOCATED MOSTLY ON THE UPPER ABDOMINAL AREA AND LOWER PART OF THE CHEST. NO SIGNIFICANT RADIATION. WORSE WITH EXERTION DUE TO SHORTNESS OF BREATH AND BETTER WITH REST. NO PRIOR EPISODE REPORTED. SHE STATED THAT SHE LEFT HER ROOM TRIED TO GO TO THE BATHROOM WHERE SHE WAS FOUND BY HER AND SHE DOES NOT REMEMBER HOW SHE GOT THERE IN ANY CASE, PATIENT STATED THAT HER CHEST PAIN HAS RESOLVED SINCE BEING IN THE HOSPITAL. SHE DENIES ANY NAUSEA. NO ASSOCIATED DIAPHORESIS. NO CHEST PALPITATION. NO CHANGE IN VISION. IN THE ER, WORKUP IS FAIRLY UNREMARKABLE. TROPONIN WAS NEGATIVE. LIVER AND KIDNEY FUNCTION TESTING IS ALSO UNREMARKABLE. CHEST X-RAY DID NOT SHOW ANY SIGNIFICANT DISEASE. Discharge Providers Provider Date of admission: 07/30/21 09:41 Discharge Date: 07/31/21 Primary care physician: Wilber Adams MD Consults: N/A Discharge provider: Javid Holt DO Summary Hospital Course Discharge Diagnosis: ATYPICAL CHEST PAIN/CHEST PRESSURE. ? RESOLVED ; ACS RULED OUT; NEG STRESS TEST.? ACID REFLUX/ POSSIBLE GERD. ON PPI AT HOME. ACID REFLUX DISEASE COULD HAVE BEEN THE UNDERLYING CAUSE OF HER CHEST PRESSURE/CHEST PAIN. FALL. INITIAL ENCOUNTER. THIS WAS LIKELY MECHANICAL IN NATURE. COULD HAVE BEEN DUE TO MEDICATIONS WELL. RIGHT FOREHEAD LACERATION. NEGATIVE CT FOR HEMATOMA OR INTRACRANIAL HEMORRHAGE . PHYSICAL DEBILITY/ DECONDITIONING. MULTIFACTORIAL MACROCYTIC ANEMIA.? CONSIDER VITAMIN DEFICIENCY..? ADDITIONAL WORKUP OUTPATIENT RECENT CVA PER HISTORY.? ON ASPIRIN PAROXYSMAL ATRIAL FIBRILLATION PER HISTORY.? ON ELIQUIS POSSIBLE PFO PER LAST ECHO.? AWARE CREST SYNDROME PER HISTORY BREAST CANCER PER HISTORY GERD PER HISTORY Hospital Course: THIS IS A 71-YEAR-OLD FEMALE WITH HER PAST MEDICAL HISTORY SIGNIFICANT FOR RECENT CVA, ATRIAL FIBRILLATION, AND A RECENT DIAGNOSIS OF PFO WELL. THIS WAS DISCOVERED DURING HER LAST ECHOCARDIOGRAM AFTER HER STROKE. PATIENT WAS BROUGHT TO THE HOSPITAL REPORTED CHEST PAIN/CHEST PRESSURE. DUE TO HER MULTIPLE COMORBIDITIES, PATIENT HAD A STRESS TEST ORDERED FOR FURTHER WORKUP /EVALUATION. PER THE CARRIER DRIVER REPORT, THERE WAS NO SIGNIFICANT FINDING FROM THE STRESS TEST. PATIENT HAD ALSO SUFFERED A FALL THAT NIGHT. SHE HAD A THOROUGH WORKUP WHICH HAS NOT REVEALED ANY GROSS FRACTURES. PATIENT HAD A LACERATION ON THE RIGHT SIDE OF HER FOREHEAD. THIS WAS SUTURED IN THE ER. NO FURTHER ACTION IS NEEDED. PATIENT IS ON ELIQUIS. THIS IS FOR STROKE PREVENTION IN REGARD TO ATRIAL FIBRILLATION. SHE HAS NO SIGN OF INTRACRANIAL BLEED OR HEMATOMA. THE CAUSE OF PATIENT'S CHEST DISCOMFORT COULD HAVE A STRONG STREET COMPONENT. THIS COULD BE RELATED TO HER ACID REFLUX DISEASE. PATIENT IS ON OMEPRAZOLE AT HOME. THIS WILL BE CHANGED TO PEPCID 40 MG WELL CARAFATE ADDED. PATIENT WILL NEED TO REFRAIN FROM EATING 2-3 HOURS PRIOR TO GOING TO BED. THE HEAD OF HER BED NEED TO BE ELEVATED AT ALL TIMES ABOVE 10-15 DEGREE IF POSSIBLE. ALSO PPI HAS REPORTED ASSOCIATION WITH DECREASED MINERAL /VITAMINS SOME SHORT FROM THE BODY. THIS SHOULD BE AVOIDED IF POSSIBLE. AGAIN PATIENT HAD A STRESS TEST DURING THE HOSPITAL STAY FOR FURTHER WORKUP WHICH WAS NEGATIVE. SPOKE TO CARDIOLOGY REGARD TO FINDINGS. HER TROPONIN REMAINED NEGATIVE. NO AC OF SUSPECTED. ALSO, PATIENT IS ON A HIGH DOSE OF DILTIAZEM. THIS IS LIKELY FOR WEIGHT CONTROL REGARD TO ATRIAL FIBRILLATION. HER BLOOD PRESSURE HAS BEEN IN THE LOW NORMAL SIDE. HER DILTIAZEM WAS DECRE ASED IN THE HOSPITAL TO 120 MG DAILY. HER HEART RATE HAS REMAINED IN THE 90S WHICH IS FAIRLY ADEQUATE I WILL RECOMMEND HER PCP OR CARRIER DRIVER TO ADJUST HER REGIMEN ACCORDINGLY. THIS COULD HAVE PLAYED A ROLE IT IN HER FALL. SHE SHOULD ALSO BE ASSESSED FOR FALL RISK. AND OUTPATIENT PROVIDERS TO RE- EXAMINE THE USE OF ANTICOAGULANT THERAPY. RISK MIGHT BE HIGHER THAN BENEFIT INSTRUCTION ACTIVITIES WILL BE TOLERATED CARDIAC DIET FOLLOW-UP WITH PRIMARY CARE PHYSICIAN AND CARDIOLOGY WITHIN 1 TO 3 WEEKS AVOID TOBACCO PRODUCTS AVOID ALCOHOL PRODUCTS CHANGE FROM SEATING TO STANDING POSITION SLOWLY STAY WELL HYDRATED Status at Discharge Cognitive/behavioral status at discharge: oriented Functional status at discharge: independent ambulation Overall status at discharge: patient is back to baseline Time Spent with Patient Time spent: Greater than 30 minutes Exam Vital Signs (past 8 hours): - 07/31/21 02:00 07/31/21 05:53 07/31/21 06:00 Temperature 98.6 F Pulse Rate 94 H Respiratory Rate 18 Blood Pressure 118/85 Pulse Oximetry 94 94 95 Oxygen Delivery Method Room Air Oxygen Flow Rate 0 Narrative Exam Narrative: NO ACUTE DISTRESS.? PATIENT IS ALERT ORIENTED X3. VITAL SIGNS STABLE HEAD ATRAUMATIC NORMOCEPHALIC NECK : SUPPLE WITHOUT ADENOPATHY NO CAROTID BRUITS EYE:? EOMI, PERRLA, NORMAL CONJUNCTIVA; NO JAUNDICE CHEST:? REGULAR RATE.? ? NO RUBS.? PMI IS NON DISPLACED.? NO MURMURS; NORMAL S1- S2 PULMONARY:? DECREASED BS OVER THE BASES.? MILD BIBASILAR CRACKLES NOTED; NO INCREASED DULLNESS TO PERCUSSION ABDOMEN:? SOFT.? NONTENDER.? NONDISTENDED.? BOWEL SOUNDS ARE PRESENT IN ALL 4 QUADRANTS.? NO MASS. EXTREMITIES: NO EDEMA..? NO CYANOSIS CLUBBING NOTED. NEURO:? CRANIAL NERVES 2-12 GROSSLY INTACT. NO FOCAL NEUROLOGICAL DEFICIT NOTED. MSK:? NORMAL RANGE OF MOTION FOR AGE.? NO JOINT EFFUSION. SKIN:? NORMAL FOR ETHNICITY; NO ECCHYMOSIS.? NO LESION. ? GOOD? TURGOR.; NO RASHES :? NORMAL EXTERNAL GENITALIA. PSYCH :? APPROPRIATE MOOD AND AFFECT.? ALERT AWAKE ORIENTED X3 Objective Labs Result Diagrams: 07/30/21 05:20 07/30/21 05:20 Labs: Laboratory Results - last 24 hr 07/30/21 07/30/21 07/30/21 09:26 17:30 20:30 Troponin I < 0.012 < 0.012 < 0.012 [facility] Medical History (Updated 07/30/21 @ 10:49 by Ramona Howell DO) Chronic GERD CREST syndrome Fibromyalgia Generalized scleroderma History of malignant neoplasm of breast (03/22/17) IBS (irritable bowel syndrome) Intramural uterine fibroid Paroxysmal atrial fibrillation Raynauds disease Family History Father Prostate cancer Mother Dementia Grandmother Family history pertaining to maternal grandmother Social History marital status: details: (Ashwin), no children, disabled in 40s from [employer] household members: spouse Smoking Status: Never smoker alcohol intake: current Discharge Plan Discharge Plan Patient Disposition: Home Nursing Discharge Comment: FOLLOW-UP WITH PRIMARY CARE PHYSICIAN AND CARDIOLOGY WITHIN 1-3 WEEKS Discharge orders & Medications Prescriptions: New diltiazem HCl 120 mg Capsule,Extended Release 24hr 120 mg PO DAILY Qty: 60 3RF nitroglycerin [Nitrostat] 0.4 mg Tablet, Sublingual 0.4 mg sublingual [id number] PRN (Reason: Chest Pain) Qty: 14 0RF sucralfate 1 gram Tablet 1 g PO Q6HR Qty: 120 2RF famotidine [Pepcid] 40 mg tablet 40 mg PO DAILY Qty: 30 2RF Continued tramadol 50 MG tablet 50 mg PO Q4HP MDD P PRN (Reason: Pain (Scale Score 1-3)) Qty: 0 0RF modafinil 200 MG tablet 100 mg PO QDAY Qty: 0 0RF folic acid 1 MG tablet 1 mg PO BID Qty: 0 0RF doxazosin [Cardura] 1 MG tablet 1 mg PO HS Qty: 0 0RF acetaminophen [Tylenol Extra Strength] 500 MG tablet 500 mg PO Q4HP PRN (Reason: Pain (Scale Score 1-3)) Qty: 0 0RF carboxymethylcellulose sodium [Refresh Tears] 15 ML drops 15 ml DAILY Qty: 0 0RF polyethylene glycol 3350 [Miralax] 119 GM powder 17 gm PO QDAY Qty: 0 0RF multivitamin [Multiple Vitamins] 1 EACH tablet 1 tab PO QDAY Qty: 0 0RF omeprazole 20 MG capsule,delayed release(DR/EC) 40 mg PO BID Qty: 0 0RF omega [id number]-fish oil [Fish Oil] 1,000 MG capsule 1,000 mg PO Q DAY Qty: 0 0RF docusate sodium [Colace] 100 MG capsule 100 mg PO BID Qty: 14 1RF methotrexate sodium 2.5 mg tablet 10 mg PO QWEEK Qty: 0 0RF citalopram 20 mg tablet 20 mg PO BID 0RF magnesium citrate 125 mg Capsule 250 mg PO DAILY 0RF cholecalciferol (vitamin D3) [Vitamin D3] 50 mcg (2,000 unit) Capsule 50 mcg PO DAILY 0RF calcium carbonate [Tums] 200 mg calcium (500 mg) Tablet,Chewable 1,000 mg PO BID 0RF fluticasone propion-salmeterol 250-50 mcg/dose blister with device 1 inh INHALATION DAILY 0RF aspirin 81 mg Tablet,Delayed Release (Dr/Ec) 81 mg PO DAILY 0RF zolpidem 5 mg Tablet 5 mg PO BEDTIME PRN (Reason: Insomnia) 0RF psyllium Packet 1 packet PO DAILY 0RF Rx Instructions: mix into at least 8 oz of water or juice before administering Align 4 mg Capsule 4 mg PO DAILY 0RF Eliquis 5 mg tablet 5 mg PO BID 0RF Label Comments: TAKE ONE TABLET BY MOUTH TWICE DAILY atorvastatin 20 mg tablet 40 mg PO BEDTIME 0RF Label Comments: TAKE TWO TABLETS BY MOUTH NIGHTLY AT BEDTIME Discontinued diltiazem HCl [Cartia XT] 300 MG capsule,extended release 24hr 300 mg PO QDAY Qty: 0 0RF Follow up/Referrals: Wilber Adams MD [Primary Care Provider] - Diet/Activity/Treatments Diet: Low-fat and Low-cholesterol Activity: TOLERATED Discharge Data Primary Care Provider: Wilber Adams V Quality VTE Deep Vein Thrombosis/Pulmonary Embolism Present on Admission: No
[2021-07-31 08:33] VITALS: BP 107/66; PULSE 68; RESP 16; TEMP 36.8; O2SAT 96
[2021-07-31] MEDS: APIXABAN 5 MG TABLET PO (09:12)
[2021-07-31] MEDS: CALCIUM CARBONATE 500 MG TAB 1000 MG PO (09:13)
[2021-07-31] MEDS: CHOLECALCIFEROL (VITAMIN D3) 1,000 UNIT TABLET 2000 UNIT PO (09:14)
[2021-07-31] MEDS: CITALOPRAM 10 MG TABLET 20 MG PO (09:14)
[2021-07-31] MEDS: FISH OIL 1,000 MG CAPSULE 1000 MG PO (09:15)
[2021-07-31] MEDS: FOLIC ACID 1 MG TABLET PO (09:15)
[2021-07-31] MEDS: DOCUSATE 100 MG CAPSULE PO (09:15)
[2021-07-31] MEDS: MULTIVITAMIN 1 TABLET 1 TAB PO (09:15)
[2021-07-31] MEDS: polyethylene glycoL 3350 17 GM POWD.PACK PO (09:16)
[2021-07-31] MEDS: dilTIAZem CD 180 MG CAP PO (10:56)
[2021-07-31] MEDS: dilTIAZem CD 120 MG CAP PO (10:59)
--- NOTE | 2021-07-31 13:06 | PC.NURSE ---
Pt and given discharge instructions. Both state understanding of instructions. Pt readied for d/c escorted to car via w/c by Corinne PADILLA. Belongings accounted for and collected to go with Pt.
--- NOTE | 2021-07-31 16:14 | CM.DPNOTE ---
DCP Note Met w/patient and spouse Ashwin, patient eager to return home today; states she needs to see Dr Adams as he will be able to direct her re next steps in medical management and outpatient f/u, patient states she has numerous specialists No needs identified from this [employer] today; home w/supportive spouse to assist and close outpatient f/u JW
== END 2021-07-31 13:05 | disposition home or self-care (01) ==
LOC: ED 07:19 → AC 10:05
PROVIDERS: Emergency Medicine; Admitting Provider Hospitalist; Emergency Provider Emergency Medicine; Family Provider Internal Medicine Hematology & Oncology; PCP Internal Medicine; Referring Provider Emergency Medicine; Visit Provider Hospitalist
DX: R07.9 Chest pain, unspecified (principal); S01.81XA Laceration without foreign body of other part of head, initial encounter; D53.9 Nutritional anemia, unspecified; I48.0 Paroxysmal atrial fibrillation; K21.9 Gastro-esophageal reflux disease without esophagitis; M34.1 CR(E)ST syndrome; Z86.73 Personal history of transient ischemic attack (TIA), and cerebral infarction without residual deficits; Z79.01 Long term (current) use of anticoagulants; Z79.82 Long term (current) use of aspirin; W18.30XA Fall on same level, unspecified, initial encounter; Y92.009 Unspecified place in unspecified non-institutional (private) residence as the place of occurrence of the external cause; Z20.822 Contact with and (suspected) exposure to COVID-19
CPT/HCPCS: 12011; 36415; 70450; 71275; 72125; 74174; 78451; 80053; 83690; 83735; 84484; 85025; 87635; 93005; 93010; 93017; 96374; 96375; 96376; 99284; C9803; G0378; A9270; A9502; C9113; J2270; Q9967

== ENCOUNTER → 2021-09-08 11:17 | Outpatient (CLI) | payer MEDICARE, BC, SELFPAY ==
[2021-07-30 13:39] VITALS: BMI 26.5
--- NOTE | 2021-09-08 11:18 | DI.US.S_ITS ---
PROCEDURE: US THYROID INDICATIONS: THYROID NODULES ON CT TECHNIQUE: Real-time scanning was performed of the thyroid gland, with image documentation. COMPARISON: None. FINDINGS: Right: Thyroid lobe measures 4.0 x 1.2 x 1.4 cm, and contains multiple nodules. Left: Thyroid lobe measures 2.8 x 1.4 x 1.3 cm, and contains multiple nodules Isthmus: 1.5 mm thick. Nodule number: 1 Location: Left upper pole Size: 0.8 x 0.5 x 0.5 cm. Composition: Spongiform Echogenicity: Isoechoic Shape: wider than tall. Margins: Smooth Echogenic foci: Comet tail artifact Total points: 4 ACR TI-RADS category: Moderately suspicious Nodule number: 2 Location: Left lower pole Size: 1.5 x 1.3 x 1.2 cm. Composition: Predominantly cystic with probable internal debris Echogenicity: Predominantly anechoic Shape: wider than tall. Margins: Smooth Echogenic foci: None Total points: 0 ACR TI-RADS category: Benign Nodule number: 4 Location: Right middle pole Size: 0.9 x 0.8 x 0.6 cm. Composition: Predominantly cystic Echogenicity: Anechoic Shape: wider than tall. Margins: Smooth Echogenic foci: None Total points: 0 ACR TI-RADS category: Benign Nodule number: 5 Location: Right lower pole Size: 0.6 x 0.4 x 0.2 cm. Composition: Solid Echogenicity: Isoechoic Shape: wider than tall. Margins: Smooth Echogenic foci: Punctate Total points: 6 ACR TI-RADS category: Moderately suspicious IMPRESSION: There are multiple thyroid nodules. None of the nodules satisfy criteria of size and imaging characteristics which indicate the need for soft tissue sampling at this time. ACR TI-RADS definitions and recommendations: TI-RADS 1 (benign): 0 points. FNA not needed. TI-RADS 2 (not suspicious): 2 points. FNA not needed. TI-RADS 3 (mildly suspicious): 3 points. * FNA if 2.5 cm or larger, follow up if 1.5 cm or larger (at 1, 3, and 5 years). TI-RADS 4 (moderately suspicious): 4-6 points. * FNA if 1.5 cm or larger, follow up if 1 cm or larger (at 1, 2, 3, and 5 years). TI-RADS 5 (highly suspicious): 7 points or more. * FNA if 1 cm or larger, follow up if 0.5 cm or larger (every year for 5 years). Dictated by: Jean Rodrigues M.D. on 09/08/2021 at 16:33 Approved by: Jean Rodrigues M.D. on 09/08/2021 at 16:47
== END ==
PROVIDERS: Family Provider Internal Medicine Hematology & Oncology; PCP Internal Medicine; Referring Provider Internal Medicine; Visit Provider Internal Medicine
DX: E04.2 Nontoxic multinodular goiter (principal)
CPT/HCPCS: 76536

== ENCOUNTER 2021-09-21 14:30 | Outpatient (RCR) | payer MEDICARE, BC, SELFPAY ==
[2021-05-11 21:00] VITALS: BMI 26.5
--- NOTE | 2021-06-15 14:38 | ST.OPIE ---
Visit Care Team Role Provider Type Wilber Adams MD Primary Care Provider Physician Specialty: Internal Medicine Address: [address] [place] [address], [address] Email: [email or web address] Mika West MD Family Provider Physician Specialty: Oncology Address: [address] [place] [address], [address] Email: [email or web address] Elda Leong MD Attending Provider Physician Referring Provider Specialty: Family Practice Address: [address] [place] [address], [address] Phone: Fax: Email: [email or web address] Speech-Language Pathology Initial Evaluation SALES AND PRODUCTION MANAGER Clinical Swallow Evaluation Start: 06/15/21 13:39 Freq: Status: Active Protocol: Document 06/15/21 13:47 DWAYNE (Rec: 06/15/21 13:57 DWAYNE [id number]) Clinical Swallow Evaluation Session Time Visit Start Time 13:40 Visit Stop Time 14:30 Total Visit Minutes 50 Visit Information Visit Number Initial Evaluation 03/22 Plan of Care Dates 06/15/21 - 09/09/21 Insurance Information Medicare Referral Referring Provider Dr. Elda Leong Reason for Referral CVA Setting Assessment Location Outpatient Care Visit Type Note Type Initial evaluation Next Note Type Next Note Type Treatment Note Patient Information Identification Type Name,ID Card History The pt is a 70-yr-old female s /p subacute right MCA infarct on 05/12/21. Pt reports this was confirmed by her Neurologist, whom she saw today and who described CVA as a moderate stroke on the right side of the brain, per pt report. Effects include left side weakness and facial droop, coughing with and without oral intake throughout the day, pocketing of foods in left cheek, and popping of jaw at right TM joint. The pt avoids foods that require a lot of chewing and easily stick in cheek. She also reported difficulty maintaining attention in conversations and significant fatigue. Since the stroke, her computer skills have declined, mostly resulting in spelling errors involving letters on the left side of keyboard d/t reduced strength and coordination of left hand. Additionally, she feels her short-term memory is worsened, for example she is now frequently misplacing and losing items around her home. 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 Subjective Observations The pt arrived 10 min late with her , Ashwin, who spoke briefly with this SALES AND PRODUCTION MANAGER but was not present during the evaluation. He reported observing eating/swallow difficulty as well as cognitive changes in the pt since CVA. The pt provided case history supplemental to medical records. Reported by Patient Other Symptoms Coughing,Difficulty swallowing liquids,Difficulty swallowing solids,Food gets stuck Comment Food sticks to cheek and teeth on left side. Pt frequently bites her tongue on left side since CVA. Current Diet Regular,Thin liquids Baseline Feeding Method Independent in self-feeding Objective Assessment Mental Status Alert,Responsive,Cooperative Oral Integrity WFL Dentition Within normal limits Lip Function Mild impairment Observation of Lips at Rest Left sided weakness/Drooping Pucker Reduced range of motion, Reduced strength,Left sided weakness/drooping Lip Retraction Within normal limits Alternating Pucker/Lip Retraction Reduced range of motion Tongue Function Within normal limits Observations of Tongue at Rest Within normal limits Tongue Protrusion Within normal limits Tongue Lateralization Reduced strength Jaw Function Within normal limits Observations of Jaw at Rest Within normal limits Jaw Opening Within normal limits Jaw Closing Within normal limits Jaw Lateralization Within normal limits Hard/Soft Palate Function Within normal limits Observations of Hard/Soft Palate Within normal limits Gag Reflex Within normal limits Nasality Within normal limits Phonation Within normal limits Respiratory Sufficiency Within normal limits Comment Left side facial droop visible at rest. Smile is mostly symmetrical. Pt is unable to collapse left cheek when shifting air between cheeks. Lip seal was WNL during OME tasks, while mild weakness and anterior bolus escape was observed at left corner of mouth during oral intake. The pt reports frequent left side anterior spillage without her awareness. She manages this with frequent wiping with napkin and/or verbal prompts from her . Food and Liquid Trials Position During Assessment Upright (90 degrees) Liquids Trialed Thin Solids Trialed Puree,Mechanical Soft,Regular Administration Type Cup single sip,Self-feeding Oral Impairment Moderately impaired Oral Phase Comments Moderate oral residue was consistently observed at left cheek. This mostly but not entirely cleared with liquid wash and lingual sweep. Complete clearance required sweep with oral swab. The pt exhibited adequate lingual ROM to perform sweep, but reduced strength prevented complete clearance. The pt bit the left side of her tongue x1 during oral trials. Mild spillage of bolus to left side of bottom lip was observed by SALES AND PRODUCTION MANAGER; pt was unaware until told. The pt reported feeling and hearing her right TM joint click during mastication, although this was not audible to SALES AND PRODUCTION MANAGER. Pharyngeal Impairment Within functional limits Pharyngeal Phase Comments No overt s/sx of aspiration were observed during today's trials with and without use of compensatory postures. Will continue assessment during treatment. Fatigue/Endurance Endurance WNL Strategies Attempted Chin tuck,Head rotation Response/Comments Pt reported increased comfort with head turn to left side. Findings Swallowing Function Oral phase dysphagia Swallowing Function Comments Will continue to assess for pharyngeal dysphagia Severity of Swallow Impairment Mildly-moderately impaired Contributing Factors to Swallow Reduced oral strength/ Impairment coordination/sensation, Excessive oral residue Prognosis Good Based on Cognitive status,Age,Duration of symptoms/severity Comment Initiated training of oral motor exercises to increase strength and coordination of left side buccal and labial muscles to improve symmetry and reduce pocketing and anterior spillage. The pt's speech was 100% intelligible with occasional imprecise and/or effortful articulation. No obvious deficits in expressive, receptive or cognitive communication were observed. Will assess more thoroughly in treatment. Comments Possible mild risk of aspiration Recommendations Instrumental Assessment No Swallowing Treatment Yes Frequency 1x/wk Duration 8 wks Recommended Solids Mechanical Soft Recommended Liquids Thin Other Recommendations Treatment to include oral motor speech and cognitive communication assessments with treatment as indicated. Safety Precautions/Swallowing Reduce distractions,Remain Recommendations upright (90 degrees) during all oral intake,Upright position at least 30 minutes after meals,Small bites and sips when eating,Slow rate; swallow between bites,Strict oral care after intake,Check for pocketing Medication Recommendations As Tolerated Education Patient/Caregiver Education Described results of evaluation,Patient expressed understanding of evaluation, Patient expressed agreement with goals & treatment plans, Patient expressed understanding of safety precautions,Patient expressed understanding of feeding recommendations,Patient requires further education/ training Goals Short-term Goals 1. The pt will participate in assessment of oral motor speech and expressive, receptive and cognitive communication to guide POC. Additional goals may be established pending results. 2. The pt will follow safe swallow strategies to reduce risk of aspiration and increase comfort with oral intake. 3. The pt will perform exercises to improve oral and/ or pharyngeal swallow phases. Long-term Goals 1. The pt will tolerate regular texture and thin liquids without excessive oral residue and without overt s/ sx of aspiration. 2. 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
--- NOTE | 2021-06-22 14:30 | ST.OPTN ---
Visit Care Team Role Provider Type Wilber Adams MD Primary Care Provider Physician Address: [address] [place] [address], [address] Mika West MD Family Provider Physician Address: [address] [place] [address], [address] Elda Leong MD Attending Provider Physician Referring Provider Address: [address] [place] [address], [address] Phone: Fax: SENIOR HUMAN RESOURCES REPRESENTATIVE Treatment Note SENIOR HUMAN RESOURCES REPRESENTATIVE Treatment Note Start: 06/15/21 13:39 Freq: Status: Active Protocol: Document 06/22/21 18:08 DWAYNE (Rec: 06/22/21 18:10 DWAYNE [id number]) Speech Pathology Treatment Note Session Time Visit Start Time 13:30 Visit Stop Time 14:30 Total Visit Minutes 60 Visit Information Visit Number 04/22 Plan of Care Dates 06/15/21 - 09/09/21 Insurance Information Medicare Setting Treatment Setting Outpatient Care Visit Type Note Type Treatment Note Next Note Type Next Note Type Treatment Note General Information Patient History The pt is a 70-yr-old female s /p subacute right MCA infarct on 05/12/21. Pt reports this was confirmed by her Neurologist, whom she saw today and who described CVA as a moderate stroke on the right side of the brain, per pt report. Effects include left side weakness and facial droop, coughing with and without oral intake throughout the day, pocketing of foods in left cheek, and popping of jaw at right TM joint. The pt avoids foods that require a lot of chewing and easily stick in cheek. She also reported difficulty maintaining attention in conversations and significant fatigue. Since the stroke, her computer skills have declined, mostly resulting in spelling errors involving letters on the left side of keyboard d/t reduced strength and coordination of left hand. Additionally, she feels her short-term memory is worsened, for example she is now frequently misplacing and losing items around her home. 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 Subjective Observations/Patient Presentation The pt arrived on time. No new complaints. She expressed a strong desire to resume driving and had questions on how to do that. She also reported being on the OT waitlist but is eager to start sooner than it appears may be possible at this clinic. The pt is completing oral motor exercises initiated last week and did not have questions about those. Chief Complaint(s) Swallowing,Cognitive Patient Knowledge/Awareness of SENIOR HUMAN RESOURCES REPRESENTATIVE Role Good in Treatment Objective Short Term Goals 1. The pt will participate in assessment of oral motor speech and expressive, receptive and cognitive communication to guide POC. Additional goals may be established pending results. 2. The pt will follow safe swallow strategies to reduce risk of aspiration and increase comfort with oral intake. 3. The pt will perform exercises to improve oral and/ or pharyngeal swallow phases. Half-Way Goals 1. The pt will tolerate regular texture and thin liquids without excessive oral residue and without overt s/ sx of aspiration. 2. 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 Treatment Activities Education and feedback was provided RE cognitive skills involved in driving, some but not all of which can be addressed in Speech and/or Occupational Therapy. Recommended the pt contact [facility] [employer] [employer] to inquire about their evaluative services. Pt completed an alternating trail making task of 38 items in 97 sec with 2 errors. Skilled feedback was provided including how cognitive skills required for the task translate to driving skills. HEP tasks were provided. Trained pt in exercises to reduce TMJ popping and improve alignment. Pt returned demonstration and verbalized understanding. Instructions were provided in writing for home practice. Assessment Patient Response to Treatment Good Rehab Potential Excellent Impairments Identified Cognitive-Linguistic Skills, Dysphagia,Oral Motor Progress Towards Goals Good Progress Assessment of Improvement The pt was receptive to all education and training. Completed trail making task with mildly reduced speed and with 2 errors. Will integrate interactive and time based cognitive apps to target visuospatial, attention, and reaction speeds to promote return to driving. The pt completed TMJ exercises as instructed. Will continue to follow. Reviewed with Patient Goals,Progress Being Made,Home Exercise Program Patient/Caregiver Understanding Good Plan Amount of Therapy Recommended 3-4 Months Frequency of Treatment Once a Week Length of Session 45 Minutes Treatment Emphasis Next Session Cog/Sp-Lg assessment; pharyngeal dysphagia exercises Therapeutic Contents Client Education,Cognitive- Linguistic Training, Compensatory Swallowing Training,Home Exercise Program ,Information Processing, Swallowing/Feeding Provided Patient/Caregiver Instruction Home Exercise Program,Plan of Care,Questions/Concerns Therapy Recommendations Continue with Current Program
--- NOTE | 2021-06-29 17:10 | ST.OPTN ---
Visit Care Team Role Provider Type Wilber Adams MD Primary Care Provider Physician Address: [address] [place] [address], [address] Mika West MD Family Provider Physician Address: [address] [place] [address], [address] Elda Leong MD Attending Provider Physician Referring Provider Address: [address] [place] [address], [address] Phone: Fax: CUSTOMER SUPPORT MANAGER Treatment Note CUSTOMER SUPPORT MANAGER Treatment Note Start: 06/15/21 13:39 Freq: Status: Active Protocol: Document 06/29/21 16:37 DWAYNE (Rec: 06/29/21 17:10 DWAYNE [id number]) Speech Pathology Treatment Note Session Time Visit Start Time 15:30 Visit Stop Time 16:20 Total Visit Minutes 50 Visit Information Visit Number 05/20 Plan of Care Dates 06/15/21 - 09/09/21 Insurance Information Medicare Setting Treatment Setting Outpatient Care Visit Type Note Type Treatment Note Next Note Type Next Note Type Treatment Note General Information Patient History The pt is a 70-yr-old female s /p subacute right MCA infarct on 05/12/21. Pt reports this was confirmed by her Neurologist, whom she saw today and who described CVA as a moderate stroke on the right side of the brain, per pt report. Effects include left side weakness and facial droop, coughing with and without oral intake throughout the day, pocketing of foods in left cheek, and popping of jaw at right TM joint. The pt avoids foods that require a lot of chewing and easily stick in cheek. She also reported difficulty maintaining attention in conversations and significant fatigue. Since the stroke, her computer skills have declined, mostly resulting in spelling errors involving letters on the left side of keyboard d/t reduced strength and coordination of left hand. Additionally, she feels her short-term memory is worsened, for example she is now frequently misplacing and losing items around her home. 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 Subjective Observations/Patient Presentation The pt arrived on time. No new complaints. Pt had questions RE finding an OT outside of [facility] d/t waitlist. She also reported TMJ pain after completing exercise. This pain kept her up at night. The pt reported increased difficulty tracking appts and reading numbers accurately since stroke. Tracking conversation has improved with increased attn; pt feels this concern is resolved. Pt reported continued trouble pronouncing words like my mouth is lazy, droopy. She stated that others report her speech as normal, but it is not perceived as her normal speech by both the pt and her . Chief Complaint(s) Swallowing,Cognitive Patient Knowledge/Awareness of CUSTOMER SUPPORT MANAGER Role Good in Treatment Objective Short Term Goals 1. The pt will participate in assessment of oral motor speech and expressive, receptive and cognitive communication to guide POC. Additional goals may be established pending results. 2. The pt will follow safe swallow strategies to reduce risk of aspiration and increase comfort with oral intake. 3. The pt will perform exercises to improve oral and/ or pharyngeal swallow phases. Student Records Coordinator Goals 1. The pt will tolerate regular texture and thin liquids without excessive oral residue and without overt s/ sx of aspiration. 2. 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 Treatment Activities Advised pt to discontinue jaw exercises. Recommend referral to Stephanie Louis DPT, for further evaluation and treatment of TMJ function. Informed pt that two OT leads are unavailable, but provided instructions on general thumb exercises to target coordination and ROM while pt is waiting to see [facility] OT. Screened pt's cognitive communication skills via MoCA: Score was 28/30, with two minor errors. Assessed motor speech via DDK tasks with the following results per second: /pa/: 5.2 (Norm: 6.3) /ta/: 5.2 (Norm: 5.9) /ka/: 4.4 (Norm: 5.6) /pataka/: 1.4 (Norm: 5.9) All productions were irregular in rhythm with /pa/ being most consistent and /pataka/ lease consistent. Occasional productions of /ta/ were substituted with ch. Assigned DDK tasks to HEP. Instructions provided in writing. Assessment Patient Response to Treatment Good Rehab Potential Excellent Impairments Identified Cognitive-Linguistic Skills, Dysphagia,Oral Motor Progress Towards Goals Good Progress Assessment of Improvement The pt presents with cognitive communication skills WFL. Suspect increased difficulty with tracking information results from decreased attention secondary to fatigue and an increase in medical appts. Occ memory challenges do not interfere with taking medications or completing daily activities at home. She has several good external systems in place that she has been using for a long time and appear largely to be working for her. Cognitive communication skills will not be targeted in therapy at this time. The pt presents with mildly dysarthric speech secondary to reduced strength and coordination of oral musculature, as demonstrated by DDK tasks below normal limits, with imprecise articulation and inconsistent rhythm. Speech is 100% intelligible, mildly effortful sounding and slowed. 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 Reviewed with Patient Goals,Progress Being Made,Home Exercise Program Patient/Caregiver Understanding Good Plan Amount of Therapy Recommended 3-4 Months Frequency of Treatment Once a Week Length of Session 45 Minutes Treatment Emphasis Next Session Pharyngeal dysphagia exercises ; Oral Motor exercises Therapeutic Contents Client Education,Cognitive- Linguistic Training, Compensatory Swallowing Training,Home Exercise Program ,Information Processing, Swallowing/Feeding Provided Patient/Caregiver Instruction Home Exercise Program,Plan of Care,Questions/Concerns Therapy Recommendations Continue with Current Program
--- NOTE | 2021-07-06 17:47 | ST.OPTN ---
Visit Care Team Role Provider Type Wilber Adams MD Primary Care Provider Physician Address: [address] [place] [address], [id number] Mika West MD Family Provider Physician Address: [address] [place] [address], [id number] Elda Leong MD Attending Provider Physician Referring Provider Address: [address] [place] [address], [facility] Phone: Fax: ATTENDANT CHILD ACTIVITY Treatment Note ATTENDANT CHILD ACTIVITY Treatment Note Start: 06/15/21 13:39 Freq: Status: Active Protocol: Document 07/06/21 17:42 DWAYNE (Rec: 07/06/21 17:47 DWAYNE [id number]) Speech Pathology Treatment Note Session Time Visit Start Time 12:30 Visit Stop Time 13:30 Total Visit Minutes 60 Visit Information Visit Number 06/20 Plan of Care Dates 06/15/21 - 09/09/21 Insurance Information Medicare Setting Treatment Setting Outpatient Care Visit Type Note Type Treatment Note Next Note Type Next Note Type Treatment Note General Information Patient History The pt is a 70-yr-old female s /p subacute right MCA infarct on 05/12/21. Pt reports this was confirmed by her Neurologist, whom she saw today and who described CVA as a moderate stroke on the right side of the brain, per pt report. Effects include left side weakness and facial droop, coughing with and without oral intake throughout the day, pocketing of foods in left cheek, and popping of jaw at right TM joint. The pt avoids foods that require a lot of chewing and easily stick in cheek. She also reported difficulty maintaining attention in conversations and significant fatigue. Since the stroke, her computer skills have declined, mostly resulting in spelling errors involving letters on the left side of keyboard d/t reduced strength and coordination of left hand. Additionally, she feels her short-term memory is worsened, for example she is now frequently misplacing and losing items around her home. 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 Subjective Observations/Patient Presentation The pt arrived on time. No new complaints. Pt continues with coughing with oral intake at least once a day, sometimes more. Chief Complaint(s) Swallowing,Cognitive Patient Knowledge/Awareness of ATTENDANT CHILD ACTIVITY Role Good in Treatment Objective Short Term Goals 1. The pt will participate in assessment of oral motor speech and expressive, receptive and cognitive communication to guide POC. Additional goals may be established pending results. 2. The pt will follow safe swallow strategies to reduce risk of aspiration and increase comfort with oral intake. 3. The pt will perform exercises to improve oral and/ or pharyngeal swallow phases. Retirement Goals 1. The pt will tolerate regular texture and thin liquids without excessive oral residue and without overt s/ sx of aspiration. 2. 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 Treatment Activities Educated pt in normal vs abnormal swallow function orally and with video animation. Pt asked good questions and verbalized understanding. Initiated training in swallow exercises targeting base of tongue, pharyngeal constrictors, and hyolaryngeal elevation. The pt returned demonstration of all exercises . Instructions were provided in writing. Agreed to decrease frequency of visits to 1 visit every 2 wks. Assessment Patient Response to Treatment Good Rehab Potential Excellent Progress Towards Goals Good Progress Assessment of Improvement The pt was responsive to all education and training provided today. Is making good progress toward goals, but continues with daily coughing on oral intake. She was able to perform all exercises trained today. Reviewed with Patient Goals,Progress Being Made,Home Exercise Program Patient/Caregiver Understanding Good Plan Amount of Therapy Recommended 3-4 Months Frequency of Treatment Once a Week Length of Session 45 Minutes Treatment Emphasis Next Session Visuospatial and response time training to improve driving skills Therapeutic Contents Client Education,Cognitive- Linguistic Training, Compensatory Swallowing Training,Home Exercise Program ,Information Processing, Swallowing/Feeding Provided Patient/Caregiver Instruction Home Exercise Program,Plan of Care,Questions/Concerns Therapy Recommendations Continue with Current Program
--- NOTE | 2021-08-02 17:20 | ST.OPTN ---
Visit Care Team Role Provider Type Wilber Adams MD Primary Care Provider Physician Address: [address] [place] [address], [id number] Mika West MD Family Provider Physician Address: [address] [place] [address], [id number] Elda Leong MD Attending Provider Physician Referring Provider Address: [address] [place] [address], [id number] Phone: Fax: AGRICULTURAL EQUIPMENT TEST ENGINEER Treatment Note AGRICULTURAL EQUIPMENT TEST ENGINEER Treatment Note Start: 06/15/21 13:39 Freq: Status: Active Protocol: Document 08/02/21 16:53 DWAYNE (Rec: 08/02/21 17:20 DWAYNE [id number]) Speech Pathology Treatment Note Session Time Visit Start Time 15:30 Visit Stop Time 16:25 Total Visit Minutes 55 Visit Information Visit Number 07/20 Plan of Care Dates 06/15/21 - 09/09/21 Insurance Information Medicare Setting Treatment Setting Outpatient Care Visit Type Note Type Treatment Note Next Note Type Next Note Type Treatment Note General Information Patient History The pt is a 70-yr-old female s /p subacute right MCA infarct on 05/12/21. Pt reports this was confirmed by her Neurologist, whom she saw today and who described CVA as a moderate stroke on the right side of the brain, per pt report. Effects include left side weakness and facial droop, coughing with and without oral intake throughout the day, pocketing of foods in left cheek, and popping of jaw at right TM joint. The pt avoids foods that require a lot of chewing and easily stick in cheek. She also reported difficulty maintaining attention in conversations and significant fatigue. Since the stroke, her computer skills have declined, mostly resulting in spelling errors involving letters on the left side of keyboard d/t reduced strength and coordination of left hand. Additionally, she feels her short-term memory is worsened, for example she is now frequently misplacing and losing items around her home. 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 Subjective Observations/Patient Presentation The pt arrived on time. She reported that last week while at home, she felt chest pain and thought she might be having a heart attack and then passed out twice before her found her on the floor . She lacerated the right side of her forehead. Head CT was negative for hematoma or intercranial hemorrhage. Chest pain was suspected to result from GERD or possibly from medication effect. The pt reported residual effects of fatigue and general body soreness. She denied changes in cognition. Reported continued difficulty communicating via email d/t spelling errors from poor hand coordination secondary to stroke. She had resumed driving short local distances prior to the hospitalization but feels unsafe at this time to continue. Chief Complaint(s) Swallowing,Cognitive Patient Knowledge/Awareness of AGRICULTURAL EQUIPMENT TEST ENGINEER Role Good in Treatment Objective Short Term Goals 1. The pt will participate in assessment of oral motor speech and expressive, receptive and cognitive communication to guide POC. Additional goals may be established pending results. 2. The pt will follow safe swallow strategies to reduce risk of aspiration and increase comfort with oral intake. 3. The pt will perform exercises to improve oral and/ or pharyngeal swallow phases. Shelter Goals 1. The pt will tolerate regular texture and thin liquids without excessive oral residue and without overt s/ sx of aspiration. 2. 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 Treatment Activities Treatment targeted keyboarding skills to increase the pt's ability to communicate electronically with family and friends. Given verbal language, the pt dictated while looking at the computer with 90% acc. She generated novel text while looking at the screen/keyboard with 84% acc. When not looking at the computer or keyboard and copying written text, accuracy declined to 41%. One additional short paragraph was 0% correct because the pt's fingers were not aligned properly on the keys. When instructed to slow her rate of typing and look occasionally at the screen/keyboard, accuracy in copying text increased to 93%. The pt acknowledged that speed and attention required control to improve her skills. Assessment Patient Response to Treatment Good Rehab Potential Excellent Progress Towards Goals Good Progress Assessment of Improvement The pt's typing accuracy was significantly impacted by rate of typing and whether or not she was looking at the screen and/or keyboard while typing. Mildly reduced rate and occasional looks at the keyboard and screen to monitor for errors improved accuracy >40%. The pt was responsive to these results and self- identified compensatory strategies and need for repetition to improve skills. Reviewed with Patient Goals,Progress Being Made,Home Exercise Program Patient/Caregiver Understanding Good Plan Amount of Therapy Recommended 3-4 Months Frequency of Treatment Once a Week Length of Session 45 Minutes Treatment Emphasis Next Session Visuospatial and response time training to improve driving skills Therapeutic Contents Client Education,Cognitive- Linguistic Training, Compensatory Swallowing Training,Home Exercise Program ,Information Processing, Swallowing/Feeding Provided Patient/Caregiver Instruction Home Exercise Program,Plan of Care,Questions/Concerns Therapy Recommendations Continue with Current Program
--- NOTE | 2021-08-16 17:23 | ST.OPTN ---
Visit Care Team Role Provider Type Wilber Adams MD Primary Care Provider Physician Address: [address] [place] [address], [address] Mika West MD Family Provider Physician Address: [address] [place] [address], [address] Elda Leong MD Attending Provider Physician Referring Provider Address: [address] [place] [address], [address] Phone: Fax: CRM MARKETING SPECIALIST Treatment Note CRM MARKETING SPECIALIST Treatment Note Start: 06/15/21 13:39 Freq: Status: Active Protocol: Document 08/16/21 17:01 DWAYNE (Rec: 08/16/21 17:23 DWAYNE [id number]) Speech Pathology Treatment Note Session Time Visit Start Time 14:30 Visit Stop Time 15:20 Total Visit Minutes 50 Visit Information Visit Number 08/20 Plan of Care Dates 06/15/21 - 09/09/21 Insurance Information Medicare Setting Treatment Setting Outpatient Care Visit Type Note Type Treatment Note Next Note Type Next Note Type Treatment Note General Information Patient History The pt is a now 71-yr-old female s/p subacute right MCA infarct on 05/12/21. Pt reports this was confirmed by her Neurologist, whom she saw today and who described CVA as a moderate stroke on the right side of the brain, per pt report. Effects include left side weakness and facial droop, coughing with and without oral intake throughout the day, pocketing of foods in left cheek, and popping of jaw at right TM joint. The pt avoids foods that require a lot of chewing and easily stick in cheek. She also reported difficulty maintaining attention in conversations and significant fatigue. Since the stroke, her computer skills have declined, mostly resulting in spelling errors involving letters on the left side of keyboard d/t reduced strength and coordination of left hand. Additionally, she feels her short-term memory is worsened, for example she is now frequently misplacing and losing items around her home. 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 Subjective Observations/Patient Presentation The pt arrived on time. She reported improved swallowing with only 1-2 episodes of coughing per day, either during a meal or on her saliva at other times of the day. She reported continued increased fatigue and reduced motivation since stroke. She expressed having difficulty recalling daily upcoming events, requiring the use of a written daily list to which she refers throughout the day. She also expressed difficulty with numbers, which appear to be related to dates and times related to these daily events , and a sense of overwhelm when approaching a task such as balancing her checkbook. She denied difficulty performing math tasks to balance the checkbook but expressed discouragement at her reduced motivation, as she used to love to work with numbers. This CRM MARKETING SPECIALIST collaborated with the pt's OT and, based on last session's results, recommended OT target typing skills as a manual dexterity task vs CRM MARKETING SPECIALIST targeting a language task. Chief Complaint(s) Swallowing,Cognitive Patient Knowledge/Awareness of CRM MARKETING SPECIALIST Role Good in Treatment Objective Short Term Goals 1. The pt will participate in assessment of oral motor speech and expressive, receptive and cognitive communication to guide POC. Additional goals may be established pending results. 2. The pt will follow safe swallow strategies to reduce risk of aspiration and increase comfort with oral intake. 3. The pt will perform exercises to improve oral and/ or pharyngeal swallow phases. Senior Living Goals 1. The pt will tolerate regular texture and thin liquids without excessive oral residue and without overt s/ sx of aspiration. 2. 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 Treatment Activities Consulted with the pt RE swallow function and concerns stated above. Education was provided in breaking down tasks that feel overwhelming into smaller pieces and/or completing parts at different times to reduce fatigue and create successes that may increase her motivation to continue to participate. The pt was receptive and identified a way to minimize cooking tasks. Needs further development and training. The pt completed DDK tasks with consistent rhythms but imprecise articulation. Skilled feedback was provided. Trained pt in slightly overexaggerated speech and tapping strategies to improve speech articulation and maintain synchronicity between language processing and speech production. The pt performed DDK tasks with exaggerated movements, maintaining a consistent though mildly slower rate and improving articulatory precision. She performed tapping strategy while reading text with 100% intelligiblity and demonstrating initial understanding of the strategy. Needs reinforcement. Assessment Patient Response to Treatment Good Rehab Potential Excellent Progress Towards Goals Good Progress Assessment of Improvement The pt demonstrated good awareness of deficits. Challenges with tracking/ recalling events and working with numbers appear to be more related to feelings of overwhelm than memory and numerical problem solving, though the pt would likely benefit from exercises targeting basic math. She is using external memory tools to track and recall daily events , though this requires frequent referral to her calendar. Will continue assessment in these areas and target strategy training to reduce overwhelm by simplifying tasks and targeting increasing awareness and management of energy to reduce fatigue and increase participation in ADLs as per PLOF. Reviewed with Patient Goals,Progress Being Made,Home Exercise Program Patient/Caregiver Understanding Good Plan Amount of Therapy Recommended 3-4 Months Frequency of Treatment Once a Week Length of Session 45 Minutes Treatment Emphasis Next Session Visuospatial and response time training to improve driving skills Therapeutic Contents Client Education,Cognitive- Linguistic Training, Compensatory Swallowing Training,Home Exercise Program ,Information Processing, Swallowing/Feeding Provided Patient/Caregiver Instruction Home Exercise Program,Plan of Care,Questions/Concerns Therapy Recommendations Continue with Current Program
--- NOTE | 2021-09-21 15:58 | ST.OPTN ---
Visit Care Team Role Provider Type Wilber Adams MD Primary Care Provider Physician Address: [address] [place] [address], [address] Mika West MD Family Provider Physician Address: [address] [place] [address], [address] Elda Leong MD Attending Provider Physician Referring Provider Address: [address] [place] [address], [address] Phone: Fax: POP SINGER Treatment Note POP SINGER Treatment Note Start: 06/15/21 13:39 Freq: Status: Active Protocol: Document 09/21/21 15:34 [facility] (Rec: 09/21/21 15:51 [facility] [id number]) Speech Pathology Treatment Note Session Time Visit Start Time 14:30 Visit Stop Time 15:05 Total Visit Minutes 35 Visit Information Visit Number 1 Plan of Care Dates 09/21/21 - 10/22/21 Insurance Information Medicare Setting Treatment Setting Outpatient Care Visit Type Note Type Progress Note Next Note Type Next Note Type Discharge Summary General Information Patient History The pt is a 71-yr-old female s /p subacute right MCA infarct on 05/12/21. Pt reports this was confirmed by her Neurologist, whom she saw today and who described CVA as a moderate stroke on the right side of the brain, per pt report. Effects include left side weakness and facial droop, coughing with and without oral intake throughout the day, pocketing of foods in left cheek, and popping of jaw at right TM joint. The pt avoids foods that require a lot of chewing and easily stick in cheek. She also reported difficulty maintaining attention in conversations and significant fatigue. Since the stroke, her computer skills have declined, mostly resulting in spelling errors involving letters on the left side of keyboard d/t reduced strength and coordination of left hand. Additionally, she feels her short-term memory is worsened, for example she is now frequently misplacing and losing items around her home. 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 Subjective Observations/Patient Presentation The pt arrived on time. She is being treated for TMJ issues by PT Dr. Stephanie Louis, who is also collaborating with the pt's Dentist, Dr. Jatin Olvera. Following the session, this POP SINGER attempted to reach Dr Goran Olvera by phone for collaboration to inform him of ST targets, and left a voice message. The pt reported improved swallowing with problems only occurring if she is not mindful of bite size and rate of intake; otherwise has returned to baseline. She has returned to volunteer work without difficulties, has increased participation in other hobbies and ADLs as per PLOF. Upon review of previous concerns of feeling overwhelmed with tasks, she reported these symptoms have resolved. Pt reported feeling ready for discharge from services. Chief Complaint(s) Swallowing,Cognitive Patient Knowledge/Awareness of POP SINGER Role Good in Treatment Patient/Caregiver Compliance with Home Excellent Exercise Program Objective Short Term Goals 1. The pt will participate in assessment of oral motor speech and expressive, receptive and cognitive communication to guide POC. Additional goals may be established pending results. GOAL MET 2. The pt will follow safe swallow strategies to reduce risk of aspiration and increase comfort with oral intake. GOAL MET 3. The pt will perform exercises to improve oral and/ or pharyngeal swallow phases. GOAL MET [facility] Goals 1. The pt will tolerate regular texture and thin liquids without excessive oral residue and without overt s/ sx of aspiration. GOAL MOSTLY MET WITH OCC NEED FOR SOFT FOODS D/T TMJ DISCOMFORT 2. 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 GOAL MET Treatment Activities Consulted with the pt RE swallow function and cognitive function with pt reports as noted above. POP SINGER agreed to communicate with Dr. Olvera, DMD , to inform him of swallow therapy targets and progress. Pt expressed appreciation of this. Educated pt in use of Goal- [id number]-[id number]-[id number] approach to complex/lengthy tasks to reduce opportunity for feelings of overwhelm. The pt stated she already habitually follows such a plan, and she was encouraged to continue with this practice. Assessed pt's swallow safety/ function with regular texture and thin liquids from cup. No overt s/sx of aspiration were observed, and the pt had no complaints of swallow discomfort. Voice remained clear throughout. The pt was observed to dab at the left corner of her mouth and stated that she continues with mild anterior bolus escape occasionally but anticipates improvement as TMJ issues are treated. POP SINGER in agreement. Discussed POC with review of tx goals. Assessment Patient Response to Treatment Excellent Rehab Potential Excellent Progress Towards Goals Excellent Progress,Good Progress Assessment of Overall Progress Rehabilitated Assessment of Improvement The pt has met all goals with occasional need for soft foods to manage TMJ discomfort. She occasionally experiences mild anterior bolus loss at left corner of mouth but manages this well independently. Anticipate that this may improve with TMJ treatment. The pt no longer has concerns related to speech, language, or cognition. Agreed that discharge from services is appropriate at this time. Reviewed with Patient Goals,Progress Being Made,Home Exercise Program Patient/Caregiver Understanding Excellent Plan Therapeutic Contents Client Education,Swallowing/ Feeding Provided Patient/Caregiver Instruction Home Exercise Program,Plan of Care,Questions/Concerns Therapy Recommendations Discharge from Speech Therapy
--- NOTE | 2021-09-21 16:19 | ST.OPPOC ---
Physical, Occupational & Speech Therapy At [facility] Visit Care Team Role Provider Type Wilber Adams MD Primary Care Provider Physician Address: [address] [place] [address], [address] Mika West MD Family Provider Physician Address: [address] [place] [address], [address] Elda Leong MD Attending Provider Physician Referring Provider Address: [address] [place] [address], [address] Phone: Fax: Speech Pathology Plan of Care Plan of Care Dates 09/21/21 - 10/22/[address] Elda Leong Patient History The pt is a 71-yr-old female s/p subacute right MCA infarct on 05/12/21. Pt reports this was confirmed by her Neurologist, whom she saw today and who described CVA as a moderate stroke on the right side of the brain, per pt report. Effects include left side weakness and facial droop, coughing with and without oral intake throughout the day, pocketing of foods in left cheek, and popping of jaw at right TM joint. The pt avoids foods that require a lot of chewing and easily stick in cheek. She also reported difficulty maintaining attention in conversations and significant fatigue. Since the stroke, her computer skills have declined, mostly resulting in spelling errors involving letters on the left side of keyboard d/t reduced strength and coordination of left hand. Additionally, she feels her short-term memory is worsened, for example she is now frequently misplacing and losing items around her home. 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 Short Term Goals 1. The pt will participate in assessment of oral motor speech and expressive, receptive and cognitive communication to guide POC. Additional goals may be established pending results. GOAL MET 2. The pt will follow safe swallow strategies to reduce risk of aspiration and increase comfort with oral intake. GOAL MET 3. The pt will perform exercises to improve oral and/or pharyngeal swallow phases. GOAL MET [facility] Goals 1. The pt will tolerate regular texture and thin liquids without excessive oral residue and without overt s/sx of aspiration. GOAL MOSTLY MET WITH OCC NEED FOR SOFT FOODS D/T TMJ DISCOMFORT 2. 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 GOAL MET Progress Towards Goals Excellent Progress,Good Progress Comment: Discharge from Speech Therapy. Electronically Signed by: JW Stein 09/21/21 4625 If you are in agreement with this Plan of Care, please return a signed and dated copy. I have reviewed this Plan of Care and certify that the skilled therapy services above are required to meet the patient?s needs. Physician Signature Date Printed Name and Credentials Clinical Instructor Signature Printed Name and Credentials
== END 2021-09-22 10:43 ==
LOC: SP 14:30
PROVIDERS: Family Provider Internal Medicine Hematology & Oncology; PCP Internal Medicine; Referring Provider Family Medicine; Visit Provider Family Medicine
DX: I63.9 Cerebral infarction, unspecified (principal)
CPT/HCPCS: 92507; 92526; 92610; 97129; 97130

== ENCOUNTER → 2021-09-23 12:47 | Outpatient (CLI) | payer MEDICARE, BC, SELFPAY ==
[2021-07-30 13:39] VITALS: BMI 26.5
--- NOTE | 2021-09-23 12:49 | DI.RAD.S_ITS ---
PROCEDURE: XR FOOT RT MIN 3V INDICATIONS: feet pain TECHNIQUE: 3 views of the foot were acquired. COMPARISON: None. FINDINGS: Bones: No fractures or dislocations. No suspicious bony lesions. Plantar calcaneal bone spur. Mild midfoot osteoarthritis. Soft tissues: No tibiotalar joint effusion. Achilles tendon appears normal. IMPRESSION: Mild osteoarthritis. Calcaneal bone spur. No fracture. No acute osseous lesion. If symptoms and/or clinical suspicion for pathology persists, further assessment with repeat radiographs (7-10 days) or advanced imaging (e.g. CT, MRI or bone scan) should be considered. Dictated by: Nneka Shirley MD, PhD on 09/23/2021 at 14:44 Approved by: Nneka Shirley MD, PhD on 09/23/2021 at 14:45
--- NOTE | 2021-09-23 12:49 | DI.RAD.S_ITS ---
PROCEDURE: XR FOOT LT MIN 3V INDICATIONS: feet pain TECHNIQUE: 3 views of the foot were acquired. COMPARISON: None. FINDINGS: Bones: No fractures or dislocations. No suspicious bony lesions. Plantar calcaneal bone spur. Mild midfoot osteoarthritis. Soft tissues: No tibiotalar joint effusion. Achilles tendon appears normal. IMPRESSION: Mild osteoarthritis. Calcaneal bone spur. No fracture. No acute osseous lesion. If symptoms and/or clinical suspicion for pathology persists, further assessment with repeat radiographs (7-10 days) or advanced imaging (e.g. CT, MRI or bone scan) should be considered. Dictated by: Nneka Shirley MD, PhD on 09/23/2021 at 14:45 Approved by: Nneka Shirley MD, PhD on 09/23/2021 at 14:46
== END ==
PROVIDERS: Family Provider Internal Medicine Hematology & Oncology; PCP Internal Medicine; Referring Provider Internal Medicine; Visit Provider Internal Medicine
DX: M19.071 Primary osteoarthritis, right ankle and foot (principal); M19.072 Primary osteoarthritis, left ankle and foot; M77.32 Calcaneal spur, left foot; M77.31 Calcaneal spur, right foot; D50.9 Iron deficiency anemia, unspecified; Z85.3 Personal history of malignant neoplasm of breast; Z79.01 Long term (current) use of anticoagulants; Z90.11 Acquired absence of right breast and nipple
CPT/HCPCS: 73630; 99214

== ENCOUNTER 2021-10-07 13:30 | Outpatient (RCR) | payer MEDICARE, BC, SELFPAY ==
[2021-07-30 13:39] VITALS: BMI 26.5
--- NOTE | 2021-08-12 15:45 | OT.OP.EVAL ---
Visit Care Team Role Provider Type Mika West MD Family Provider Physician Specialty: Oncology Address: [address] [place] [address], [id number] Email: [email or web address] Wilber Adams MD Attending Provider Physician Primary Care Provider Referring Provider Specialty: Internal Medicine Address: [address] [place] [address], [address] Email: [email or web address] Occupational Therapy Initial Evaluation OT Outpatient Adult Evaluation Start: 08/19/21 08:33 Freq: Status: Active Protocol: Document 08/12/21 15:30 AMS (Rec: 08/19/21 09:12 AMS [id number]) General Information Visit Start Time 12:30 Visit Stop Time 13:15 Total Visit Minutes 45 Visit Number 03/22 Plan of Care Dates 08/12/21 - 11/04/21 Insurance Information Medicare Treatment Setting Outpatient Care Note Type Initial Evaluation Identification Confirmed Yes Identification Confirmed By Patient Goals Treatment HEP. Initiated development of HEP. Short Term Goals 1. Patient will actively participate in additional assessments to establish baseline and assist with HEP development. Educational Specialist Goals 1. Patient will be modified independent with execution of home exercise program utilizing provided written and visual instructions from therapist. 2. Patient will be able to complete 9 Hole Peg Test within 1 SD above the mean compared to her same-aged peers with the left hand. 3. Patient will report ability to use computer mouse x 15 minutes with left hand on daily basis (over a period of 5 days) with minimal errors. Assessment/Plan Treatment Assessment Patient is a 71 year-old right hand dominant female referred to outpatient OT by PCP d/t right MCA infarct. MRI completed 05/11/21 found acute to subacute right MCA infarct without intracranial hemorrhage and moderate atrophy and multifocal chronic white matter ischemic change. Medical History: Significant for CREST syndrome; Fibromyalgia; generalized scleroderma; Raynauds disease; h/o malignant neoplasm of breast; IBS; paroxysmal a-fib; thyroid nodule; chronic GERD; iron deficiency; and recent falls w/ loss of consciousness . Patient is currently receiving outpatient speech therapy; speech is addressing swallowing, facial weakness, and cognition. Patient Goals: Improve upon keyboarding skills/mouse use; left hand coordination. Evaluation Findings: Patient currently is completing hand care d/t Raynaud's and scleroderma. She uses theraputty, does finger ROM exercises, and uses home paraffin bath. She is doing word searches and word jumbles daily. She denies any difficulties with reading; yet , has trouble organizing her personal schedule, telling time/identifying numbers. She has a tablet and home computer set-up; she has a basic cell phone. 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 She reports that 'she hurts everywhere'. Thus, hand pain grid was not completed. She obtained a QuickDASH UE Outcome Score = 18.18. Therapist administered [employer] full form; results suggest that Diana is average in her ability to integrate her visual and motor coordination abilities when compared to same-aged peers. Therapist also administered The Motor- Free Visual Perception Test ( 4th ed.) (MVPT-4) is an individually administered assessment of visual- perceptual skills. The MVPT-4 tasks provide information for five types of visual- perceptual abilities: spatial relationships, visual discrimination, figure-ground, visual closure, and visual memory. Diana obtained a raw score of 29 which was converted to a standard score of 86 which is within 1 SD below the mean. Diana's performance suggests that her visual perceptual abilities are comparable to that of his peers. It should be noted that Diana had the most difficulties with figure- ground and spatial relationships test items. Correctly identified 39 out of 40 items w/ visual scanning activity (identification of numbers 91 or 30); min v.c. to support efficient visual scanning approach and to attend to upper left hand corner. Erratic visual scanning; likely has difficulty scanning larger amounts of visual information and organizing it to have an appropriate output. The 9-Hole Peg Test is a timed test in which 9 pegs are inserted and removed from 9 holes in the pegboard with each hand. It is an assessment that can be used to assess hand dexterity. Diana completed the test with her R within 1 SD above the mean compared to same-aged peers. She completed the test with her L hand > 1 SD above the mean compared to her same-aged peers. B UE AROM WFL. She was able to oppose thumb to each digit pad bilaterally w/ EO and EC. Impaired sensation of digits bilaterally. Skilled outpatient occupational therapy is recommmended to address left distal upper extremity motor planning, object manipulation, kinesthetic/proprioceptive awareness, to support Diana' s success with active participation in meaningful activities in a variety of environments. Recommend development of an appropriate HEP and identifying AE/ modifications to support her success as well. Comment 12 weeks Comment 1-2 times per week Therapeutic Contents Active Range of Motion, Adaptive Equipment Education, Client Education,Cognitive Skills Development,Functional Activities,Home Exercise Program,Joint Protection, Manual Therapy,Education, Neurodevelopment Treatment, Neuromuscular Re-Education, Self-Care,Stretching/ Flexibility Activities, Therapeutic Activities, Therapeutic Exercises, Modalities,Sensory Re- education Additional Types of Modalities Hot pack/Cold pack/Paraffin bath
--- NOTE | 2021-08-18 15:30 | OT.OP.TRT ---
Visit Care Team Role Provider Type Mika West MD Family Provider Physician Specialty: Oncology Address: [address] [place] [address], [id number] Email: [email or web address] Wilber Adams MD Attending Provider Physician Primary Care Provider Referring Provider Specialty: Internal Medicine Address: [address] [place] [address], [address] Email: [email or web address] Occupational Therapy Treatment Note OT Outpatient Treatment Note - Adult Start: 08/19/21 08:33 Freq: Status: Active Protocol: Document 08/18/21 15:30 AMS (Rec: 08/19/21 09:26 AMS [id number]) OT Outpatient Adult Treatment Note Session Time Visit Start Time 10:30 Visit Stop Time 11:15 Total Visit Minutes 45 Visit Information Visit Number 04/22 Plan of Care Dates 08/12/21 - 11/04/21 Insurance Information Medicare Setting Treatment Setting Outpatient Care Visit Type Note Type Treatment Note General Information General Information Patient is a 71 year-old right hand dominant female referred to outpatient OT by PCP d/t right MCA infarct. MRI completed 05/11/21 found acute to subacute right MCA infarct without intracranial hemorrhage and moderate atrophy and multifocal chronic white matter ischemic change. Medical History: Significant for CREST syndrome; Fibromyalgia; generalized scleroderma; Raynauds disease; h/o malignant neoplasm of breast; IBS; paroxysmal a-fib; thyroid nodule; chronic GERD; iron deficiency; and recent falls w/ loss of consciousness . Patient is currently receiving outpatient speech therapy; speech is addressing swallowing, facial weakness, and cognition. - Subjective Identification Type Name Identification Reconciled With Medical Record Observations Diana verbalized feeling ' overwhelmed' and having difficulty using the resources recommended to her. I have been only using the mouse with my right hand per Diana. Patient Expectation/Goals Improve upon keyboarding skills/mouse use; left hand coordination. Patient/Caregiver Compliance with Home Fair Exercise Program - Objective Objective Measurements Please refer to below for progress towards meeting established OT goals. Short Term Goals 1. Patient will actively participate in additional assessments to establish baseline and assist with HEP development. Type Soldering Machine Tender Goals 1. Patient will be modified independent with execution of home exercise program utilizing provided written and visual instructions from therapist. 2. Patient will be able to complete 9 Hole Peg Test within 1 SD above the mean compared to her same-aged peers with the left hand. 3. Patient will report ability to use computer mouse x 15 minutes with left hand on daily basis (over a period of 5 days) with minimal errors. - Treatment 2 Descriptor HEP development. 1 Descriptor Problem solving. - Assessment Assessment of Improvement Patient presented to treatment session feeling 'overwhelmed' . Broke down task into smaller component parts for patient to support success and ability to use tool. Utilization of e -mail to support carry-over. Recommended use of mouse in left hand 15 minutes at least per day. Will need to provide more support to ensure carry- over of recommendations. Skilled outpatient occupational therapy is recommmended to address left distal upper extremity motor planning, object manipulation, kinesthetic/proprioceptive awareness, to support Diana' s success with active participation in meaningful activities in a variety of environments. Recommend development of an appropriate HEP and identifying AE/ modifications to support her success as well. - Plan Therapy Recommendations Continue with Current Program, Advance per Rehabilitation Protocol
--- NOTE | 2021-08-25 14:44 | OT.OP.TRT ---
Visit Care Team Role Provider Type Mika West MD Family Provider Physician Specialty: Oncology Address: [address] [place] [address], [id number] Email: [email or web address] Wilber Adams MD Attending Provider Physician Primary Care Provider Referring Provider Specialty: Internal Medicine Address: [address] [place] [address], [address] Email: [email or web address] Occupational Therapy Treatment Note OT Outpatient Treatment Note - Adult Start: 08/19/21 08:33 Freq: Status: Active Protocol: Document 08/25/21 13:29 AMS (Rec: 08/25/21 14:44 AMS [id number]) OT Outpatient Adult Treatment Note Session Time Visit Start Time 13:30 Visit Stop Time 14:15 Total Visit Minutes 45 Visit Information Visit Number 05/20 Plan of Care Dates 08/12/21 - 11/04/21 Insurance Information Medicare Setting Treatment Setting Outpatient Care Visit Type Note Type Treatment Note General Information General Information Patient is a 71 year-old right hand dominant female referred to outpatient OT by PCP d/t right MCA infarct. MRI completed 05/11/21 found acute to subacute right MCA infarct without intracranial hemorrhage and moderate atrophy and multifocal chronic white matter ischemic change. Medical History: Significant for CREST syndrome; Fibromyalgia; generalized scleroderma; Raynauds disease; h/o malignant neoplasm of breast; IBS; paroxysmal a-fib; thyroid nodule; chronic GERD; iron deficiency; and recent falls w/ loss of consciousness . Patient is currently receiving outpatient speech therapy; speech is addressing swallowing, facial weakness, and cognition. - Subjective Identification Type Name Identification Reconciled With Medical Record Observations Diana verbalized utilizing ' links' that were provided via e-mail for mindfulness. 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 00'. Patient Expectation/Goals Improve upon keyboarding skills/mouse use; left hand coordination. Patient/Caregiver Compliance with Home Good Exercise Program - Objective Objective Measurements Please refer to below for progress towards meeting established OT goals. 08/25/21 = 3 errors made when typing 15 words w/ categorization activity; 10+ errors made when typing sentences for plans for the day (occurred in 2nd and 3rd paragraph d/t fingers being off --> 2 times R hand had shifted). Short Term Goals GOALS MET Patient will actively participate in additional assessments to establish baseline and assist with HEP development. Asic Design Engineer Goals 1. Patient will be modified independent with execution of home exercise program utilizing provided written and visual instructions from therapist. 2. Patient will be able to complete 9 Hole Peg Test within 1 SD above the mean compared to her same-aged peers with the left hand. 3. Patient will report ability to use computer mouse x 15 minutes with left hand on daily basis (over a period of 5 days) with minimal errors. - Treatment 2 Descriptor HEP. 1 Descriptor Keyboarding. Mouse use ( graphic manipulation; dot-to- dot w/ mouse/coloring). - Assessment Assessment of Improvement (+) carry-over of home recommendations; utilizing mouse for 15 minutes a day w/ the left hand. Use of mouse occurred outside of 'work' tasks; thus, recommended using mouse for approx 10 to 15 minutes w/ left hand for new brochure. Min errors w/ keyboarding; unaware of keyboarding errors without visual feedback and/or looking at screen. R hand shifted x 2 on keyboard leading to increased number of errors/ frustration. Practiced mouse manipulation w/ online FM activity; minor coordination difficulties. Overall, did quite well. Skilled outpatient occupational therapy is recommmended to address left distal upper extremity motor planning, object manipulation, kinesthetic/proprioceptive awareness, to support Diana' s success with active participation in meaningful activities in a variety of environments. Recommend development of an appropriate HEP and identifying AE/ modifications to support her success as well. - Plan Therapy Recommendations Continue with Current Program, Advance per Rehabilitation Protocol
--- NOTE | 2021-09-01 14:39 | OT.OP.TRT ---
Visit Care Team Role Provider Type Mika West MD Family Provider Physician Specialty: Oncology Address: [address] [place] [address], [address] Email: [email or web address] Wilber Adams MD Attending Provider Physician Primary Care Provider Referring Provider Specialty: Internal Medicine Address: [address] [place] [address], [id number] Email: [email or web address] Occupational Therapy Treatment Note OT Outpatient Treatment Note - Adult Start: 08/19/21 08:33 Freq: Status: Active Protocol: Document 09/01/21 14:27 AMS (Rec: 09/01/21 14:39 AMS [id number]) OT Outpatient Adult Treatment Note Session Time Visit Start Time 10:30 Visit Stop Time 11:18 Total Visit Minutes 48 Visit Information Visit Number 06/20 Plan of Care Dates 08/12/21 - 11/04/21 Insurance Information Medicare Setting Treatment Setting Outpatient Care Visit Type Note Type Treatment Note General Information General Information Patient is a 71 year-old right hand dominant female referred to outpatient OT by PCP d/t right MCA infarct. MRI completed 05/11/21 found acute to subacute right MCA infarct without intracranial hemorrhage and moderate atrophy and multifocal chronic white matter ischemic change. Medical History: Significant for CREST syndrome; Fibromyalgia; generalized scleroderma; Raynauds disease; h/o malignant neoplasm of breast; IBS; paroxysmal a-fib; thyroid nodule; chronic GERD; iron deficiency; and recent falls w/ loss of consciousness . Patient is currently receiving outpatient speech therapy; speech is addressing swallowing, facial weakness, and cognition. - Subjective Identification Type Name Identification Reconciled With Medical Record Observations Diana verbalized utilizing ' links' provided via e-mail for mouse maneuvering. Patient Expectation/Goals Improve upon keyboarding skills/mouse use; left hand coordination. Patient/Caregiver Compliance with Home Good Exercise Program - Objective Objective Measurements Please refer to below for progress towards meeting established OT goals. 08/25/21 = 3 errors made when typing 15 words w/ categorization activity; 10+ errors made when typing sentences for plans for the day (occurred in 2nd and 3rd paragraph d/t fingers being off --> 2 times R hand had shifted). Short Term Goals GOALS MET Patient will actively participate in additional assessments to establish baseline and assist with HEP development. Occasional Babysitter Goals 1. Patient will be modified independent with execution of home exercise program utilizing provided written and visual instructions from therapist. 2. Patient will be able to complete 9 Hole Peg Test within 1 SD above the mean compared to her same-aged peers with the left hand. 3. Patient will report ability to use computer mouse x 15 minutes with left hand on daily basis (over a period of 5 days) with minimal errors. - Treatment 2 Descriptor HEP. Provided written step-by- step instructions via e-mail for recommended online puzzle use. 1 Descriptor Keyboarding. Mouse use ( graphic manipulation; dot-to- dot w/ mouse/coloring). - Assessment Assessment of Improvement (+) carry-over of home recommendations; utilizing mouse for 15 minutes a day w/ the left hand. 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 Practiced left handed mouse manipulation w/ online activity; identified parameters on activity to support success (20 piece classic) in the home setting. Increased ability to manage/ organize space w/ online task w/ repetitions; discussed focus on successful task completion versus amount of time. Will pursue increasing difficulty of activity at next treatment session. Overall, good session. Skilled outpatient occupational therapy is recommmended to address left distal upper extremity motor planning, object manipulation, kinesthetic/proprioceptive awareness, to support Diana' s success with active participation in meaningful activities in a variety of environments. Recommend development of an appropriate HEP and identifying AE/ modifications to support her success as well. - Plan Therapy Recommendations Continue with Current Program, Advance per Rehabilitation Protocol
--- NOTE | 2021-09-10 14:53 | OT.OP.TRT ---
Visit Care Team Role Provider Type Mika West MD Family Provider Physician Specialty: Oncology Address: [address] [place] [address], [id number] Email: [email or web address] Wilber Adams MD Attending Provider Physician Primary Care Provider Referring Provider Specialty: Internal Medicine Address: [address] [place] [address], [id number] Email: [email or web address] Occupational Therapy Treatment Note OT Outpatient Treatment Note - Adult Start: 08/19/21 08:33 Freq: Status: Active Protocol: Document 09/10/21 14:48 [facility] (Rec: 09/10/21 14:52 [facility] [id number]) OT Outpatient Adult Treatment Note Session Time Visit Start Time 10:35 Visit Stop Time 11:25 Total Visit Minutes 50 Visit Information Visit Number 07/20 Plan of Care Dates 08/12/21 - 11/04/21 Insurance Information Medicare Setting Treatment Setting Outpatient Care Visit Type Note Type Treatment Note General Information General Information Patient is a 71 year-old right hand dominant female referred to outpatient OT by PCP d/t right MCA infarct. MRI completed 05/11/21 found acute to subacute right MCA infarct without intracranial hemorrhage and moderate atrophy and multifocal chronic white matter ischemic change. Medical History: Significant for CREST syndrome; Fibromyalgia; generalized scleroderma; Raynauds disease; h/o malignant neoplasm of breast; IBS; paroxysmal a-fib; thyroid nodule; chronic GERD; iron deficiency; and recent falls w/ loss of consciousness . Patient is currently receiving outpatient speech therapy; speech is addressing swallowing, facial weakness, and cognition. - Subjective Identification Type Name Identification Reconciled With Medical Record Observations Diana expressed 'mouse use has gotten better with the left hand'. Patient Expectation/Goals Improve upon keyboarding skills/mouse use; left hand coordination. Patient/Caregiver Compliance with Home Excellent Exercise Program - Objective Objective Measurements Please refer to below for progress towards meeting established OT goals. 08/25/21 = 3 errors made when typing 15 words w/ categorization activity; 10+ errors made when typing sentences for plans for the day (occurred in 2nd and 3rd paragraph d/t fingers being off --> 2 times R hand had shifted). Short Term Goals GOALS MET Patient will actively participate in additional assessments to establish baseline and assist with HEP development. Market Consultant Goals 1. Patient will be modified independent with execution of home exercise program utilizing provided written and visual instructions from therapist. 2. Patient will be able to complete 9 Hole Peg Test within 1 SD above the mean compared to her same-aged peers with the left hand. 3. Patient will report ability to use computer mouse x 15 minutes with left hand on daily basis (over a period of 5 days) with minimal errors. - Treatment 2 Descriptor HEP. Recommended increasing to 48-piece online classic puzzle. 1 Descriptor Keyboarding. Mouse use. - Assessment Assessment of Improvement (+) carry-over of home recommendations. (+) self- report of improved left handed mouse use relative to recommended online task. Practiced left handed mouse manipulation w/ online activity; increased parameters of activity to 48 piece classic. Reviewed focus on successful task completion versus amount of time w/ left handed mouse use. Min verbal support for functional problem solving given layering of pieces w/ change in parameters (increased numbers of pieces) . Recommend increasing difficulty of activity at next treatment session as able/ tolerated. Overall, good session. Skilled outpatient occupational therapy is recommmended to address left distal upper extremity motor planning, object manipulation, kinesthetic/proprioceptive awareness, to support Diana' s success with active participation in meaningful activities in a variety of environments. Recommend development of an appropriate HEP and identifying AE/ modifications to support her success as well. - Plan Therapy Recommendations Continue with Current Program, Advance per Rehabilitation Protocol
--- NOTE | 2021-09-21 14:53 | OT.OP.TRT ---
Visit Care Team Role Provider Type Mika West MD Family Provider Physician Specialty: Oncology Address: [address] [place] [address], [id number] Email: [email or web address] Wilber Adams MD Attending Provider Physician Primary Care Provider Referring Provider Specialty: Internal Medicine Address: [address] [place] [address], [address] Email: [email or web address] Occupational Therapy Treatment Note OT Outpatient Treatment Note - Adult Start: 08/19/21 08:33 Freq: Status: Active Protocol: Document 09/21/21 14:47 [facility] (Rec: 09/21/21 14:52 [facility] [id number]) OT Outpatient Adult Treatment Note Session Time Visit Start Time 13:30 Visit Stop Time 13:23 Total Visit Minutes 53 Visit Information Visit Number 08/20 Plan of Care Dates 08/12/21 - 11/04/21 Insurance Information Medicare Setting Treatment Setting Outpatient Care Visit Type Note Type Treatment Note General Information General Information Patient is a 71 year-old right hand dominant female referred to outpatient OT by PCP d/t right MCA infarct. MRI completed 05/11/21 found acute to subacute right MCA infarct without intracranial hemorrhage and moderate atrophy and multifocal chronic white matter ischemic change. Medical History: Significant for CREST syndrome; Fibromyalgia; generalized scleroderma; Raynauds disease; h/o malignant neoplasm of breast; IBS; paroxysmal a-fib; thyroid nodule; chronic GERD; iron deficiency; and recent falls w/ loss of consciousness . Patient is currently receiving outpatient speech therapy; speech is addressing swallowing, facial weakness, and cognition. 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 (+) compliance w/ home exercise program. Patient Expectation/Goals Improve upon keyboarding skills/mouse use; left hand coordination. Patient/Caregiver Compliance with Home Excellent Exercise Program - Objective Objective Measurements Please refer to below for progress towards meeting established OT goals. 08/25/21 = 3 errors made when typing 15 words w/ categorization activity; 10+ errors made when typing sentences for plans for the day (occurred in 2nd and 3rd paragraph d/t fingers being off --> 2 times R hand had shifted). Short Term Goals GOALS MET Patient will actively participate in additional assessments to establish baseline and assist with HEP development. [facility] Goals 1. Patient will be modified independent with execution of home exercise program utilizing provided written and visual instructions from therapist. 2. Patient will be able to complete 9 Hole Peg Test within 1 SD above the mean compared to her same-aged peers with the left hand. 3. Patient will report ability to use computer mouse x 15 minutes with left hand on daily basis (over a period of 5 days) with minimal errors. - Treatment 2 Descriptor HEP. Recommended increasing to 67-piece online classic puzzle. 1 Descriptor Keyboarding. Mouse use. - Assessment Assessment of Improvement (+) carry-over of home recommendations. (+) self- report of improved left handed mouse; recent completion of [employer] brochure with use of mouse with the left hand. Practiced left handed mouse manipulation w/ online activity within treatment session; (+) completion of 48- piece puzzle w/ supervision ( no cueing for organization of space/attending to important visual information). Increased parameters of activity to 67 pieces classic; able to complete w/ 5 v.c. given increased number of pieces ( and to support successful completion of task within time frame). Recommend increasing difficulty of activity at next treatment session as able/ tolerated. Overall, good session. Skilled outpatient occupational therapy is recommmended to address left distal upper extremity motor planning, object manipulation, kinesthetic/proprioceptive awareness, to support Diana' s success with active participation in meaningful activities in a variety of environments. Recommend development of an appropriate HEP and identifying AE/ modifications to support her success as well. - Plan Therapy Recommendations Continue with Current Program, Advance per Rehabilitation Protocol
--- NOTE | 2021-09-28 15:50 | OT.OP.TRT ---
Visit Care Team Role Provider Type Mika West MD Family Provider Physician Specialty: Oncology Address: [address] [place] [address], [id number] Email: [email or web address] Wilber Adams MD Attending Provider Physician Primary Care Provider Referring Provider Specialty: Internal Medicine Address: [address] [place] [address], [id number] Email: [email or web address] Occupational Therapy Treatment Note OT Outpatient Treatment Note - Adult Start: 08/19/21 08:33 Freq: Status: Active Protocol: Document 09/28/21 15:46 [facility] (Rec: 09/28/21 15:50 [facility] [id number]) OT Outpatient Adult Treatment Note Session Time Visit Start Time 13:30 Visit Stop Time 14:23 Total Visit Minutes 53 Visit Information Visit Number 09/19 Plan of Care Dates 08/12/21 - 11/04/21 Insurance Information Medicare Setting Treatment Setting Outpatient Care Visit Type Note Type Treatment Note General Information General Information Patient is a 71 year-old right hand dominant female referred to outpatient OT by PCP d/t right MCA infarct. MRI completed 05/11/21 found acute to subacute right MCA infarct without intracranial hemorrhage and moderate atrophy and multifocal chronic white matter ischemic change. Medical History: Significant for CREST syndrome; Fibromyalgia; generalized scleroderma; Raynauds disease; h/o malignant neoplasm of breast; IBS; paroxysmal a-fib; thyroid nodule; chronic GERD; iron deficiency; and recent falls w/ loss of consciousness . Patient is currently receiving outpatient speech therapy; speech is addressing swallowing, facial weakness, and cognition. - Subjective Identification Type Name Identification Reconciled With Medical Record Observations (+) compliance w/ home exercise program. Patient Expectation/Goals Improve upon keyboarding skills/mouse use; left hand coordination. Patient/Caregiver Compliance with Home Excellent Exercise Program - Objective Objective Measurements Please refer to below for progress towards meeting established OT goals. 09/28/21 = 8 errors made when 100 words typed (copying) 08/25/21 = 3 errors made when 15 words typed w/ categorization activity; 10+ errors made when typing sentences for plans for the day (occurred in 2nd and 3rd paragraph d/t fingers being off --> 2 times R hand had shifted). Short Term Goals GOALS MET Patient will actively participate in additional assessments to establish baseline and assist with HEP development. Firmware Engineer Goals 1. Patient will be modified independent with execution of home exercise program utilizing provided written and visual instructions from therapist. 2. Patient will be able to complete 9 Hole Peg Test within 1 SD above the mean compared to her same-aged peers with the left hand. 3. Patient will report ability to use computer mouse x 15 minutes with left hand on daily basis (over a period of 5 days) with minimal errors. - Treatment 2 Descriptor HEP. Recommended increasing to 67-piece online classic puzzle. Recommended practicing keyboarding/typing. 1 Descriptor Keyboarding. Mouse use. - Assessment Assessment of Improvement (+) carry-over of home recommendations. Report of continued errors made with keyboarding; preference for copying from text sources. Fatigue reported w/ approx 5 minutes of keyboarding/typing. Increased errors post 75 words typed with copying task. No shifting was observed of the left or the right hand(s). Overall, good session. Skilled outpatient occupational therapy is recommmended to address left distal upper extremity motor planning, object manipulation, kinesthetic/proprioceptive awareness, to support Diana' s success with active participation in meaningful activities in a variety of environments. Recommend development of an appropriate HEP and identifying AE/ modifications to support her success as well. - Plan Therapy Recommendations Continue with Current Program, Advance per Rehabilitation Protocol
--- NOTE | 2021-10-07 15:30 | OT.OP.DC ---
Visit Care Team Role Provider Type Mika West MD Family Provider Physician Address: [address] [place] [address], [id number] Email: [email or web address] MD Attending Provider Physician Primary Care Provider Referring Provider Address: [address] [place] [address], [id number] Email: [email or web address] Outpatient OT Outpatient Adult Evaluation Start: 08/19/21 08:33 Freq: Status: Active Protocol: Document 08/12/21 15:30 AMS (Rec: 08/19/21 09:12 AMS [id number]) General Information Session Time Visit Start Time 12:30 Visit Stop Time 13:15 Total Visit Minutes 45 Visit Information Visit Number 03/22 Plan of Care Dates 08/12/21 - 11/04/21 Insurance Information Medicare Setting Treatment Setting Outpatient Care Visit Type Note Type Initial Evaluation Identification Identification Confirmed Yes Identification Confirmed By Patient Goals Treatment Treatment HEP. Initiated development of HEP. Short Term Goals Short Term Goals 1. Patient will actively participate in additional assessments to establish baseline and assist with HEP development. Senior Care Goals Concaving Machine Operator Goals 1. Patient will be modified independent with execution of home exercise program utilizing provided written and visual instructions from therapist. 2. Patient will be able to complete 9 Hole Peg Test within 1 SD above the mean compared to her same-aged peers with the left hand. 3. Patient will report ability to use computer mouse x 15 minutes with left hand on daily basis (over a period of 5 days) with minimal errors. Assessment/Plan Assessment Treatment Assessment Patient is a 71 year-old right hand dominant female referred to outpatient OT by PCP d/t right MCA infarct. MRI completed 05/11/21 found acute to subacute right MCA infarct without intracranial hemorrhage and moderate atrophy and multifocal chronic white matter ischemic change. Medical History: Significant for CREST syndrome; Fibromyalgia; generalized scleroderma; Raynauds disease; h/o malignant neoplasm of breast; IBS; paroxysmal a-fib; thyroid nodule; chronic GERD; iron deficiency; and recent falls w/ loss of consciousness . Patient is currently receiving outpatient speech therapy; speech is addressing swallowing, facial weakness, and cognition. Patient Goals: Improve upon keyboarding skills/mouse use; left hand coordination. Evaluation Findings: Patient currently is completing hand care d/t Raynaud's and scleroderma. She uses theraputty, does finger ROM exercises, and uses home paraffin bath. She is doing word searches and word jumbles daily. She denies any difficulties with reading; yet , has trouble organizing her personal schedule, telling time/identifying numbers. She has a tablet and home computer set-up; she has a basic cell phone. 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 She reports that 'she hurts everywhere'. Thus, hand pain grid was not completed. She obtained a QuickDASH UE Outcome Score = 18.18. [facility]; results suggest that Diana is average in her ability to integrate her visual and motor coordination abilities when compared to same-aged peers. Therapist also administered The Motor- Free Visual Perception Test ( 4th ed.) (MVPT-4) is an individually administered assessment of visual- perceptual skills. The MVPT-4 tasks provide information for five types of visual- perceptual abilities: spatial relationships, visual discrimination, figure-ground, visual closure, and visual memory. Diana obtained a raw score of 29 which was converted to a standard score of 86 which is within 1 SD below the mean. Diana's performance suggests that her visual perceptual abilities are comparable to that of his peers. It should be noted that Diana had the most difficulties with figure- ground and spatial relationships test items. Correctly identified 39 out of 40 items w/ visual scanning activity (identification of numbers 91 or 30); min v.c. to support efficient visual scanning approach and to attend to upper left hand corner. Erratic visual scanning; likely has difficulty scanning larger amounts of visual information and organizing it to have an appropriate output. The 9-Hole Peg Test is a timed test in which 9 pegs are inserted and removed from 9 holes in the pegboard with each hand. It is an assessment that can be used to assess hand dexterity. Diana completed the test with her R within 1 SD above the mean compared to same-aged peers. She completed the test with her L hand > 1 SD above the mean compared to her same-aged peers. B UE AROM WFL. She was able to oppose thumb to each digit pad bilaterally w/ EO and EC. Impaired sensation of digits bilaterally. Skilled outpatient occupational therapy is recommmended to address left distal upper extremity motor planning, object manipulation, kinesthetic/proprioceptive awareness, to support Diana' s success with active participation in meaningful activities in a variety of environments. Recommend development of an appropriate HEP and identifying AE/ modifications to support her success as well. Plan Comment 12 weeks Comment 1-2 times per week Therapeutic Contents Active Range of Motion, Adaptive Equipment Education, Client Education,Cognitive Skills Development,Functional Activities,Home Exercise Program,Joint Protection, Manual Therapy,Education, Neurodevelopment Treatment, Neuromuscular Re-Education, Self-Care,Stretching/ Flexibility Activities, Therapeutic Activities, Therapeutic Exercises, Modalities,Sensory Re- education Additional Types of Modalities Hot pack/Cold pack/Paraffin bath Sensory Assessment Sensory Profile2 Functional Wrist/Hand Scan Hand Side OT Outpatient Treatment Note - Adult Start: 08/19/21 08:33 Freq: Status: Active Protocol: Document 10/07/21 15:30 AMS (Rec: 10/11/21 08:10 AMS [id number]) OT Outpatient Adult Treatment Note Session Time Visit Start Time 13:30 Visit Stop Time 14:23 Total Visit Minutes 53 Visit Information Visit Number 10/20 Plan of Care Dates 08/12/21 - 11/04/21 Insurance Information Medicare Setting Treatment Setting Outpatient Care Visit Type Note Type Treatment Note General Information General Information Patient is a 71 year-old right hand dominant female referred to outpatient OT by PCP d/t right MCA infarct. MRI completed 05/11/21 found acute to subacute right MCA infarct without intracranial hemorrhage and moderate atrophy and multifocal chronic white matter ischemic change. Medical History: Significant for CREST syndrome; Fibromyalgia; generalized scleroderma; Raynauds disease; h/o malignant neoplasm of breast; IBS; paroxysmal a-fib; thyroid nodule; chronic GERD; iron deficiency; and recent falls w/ loss of consciousness . Patient is currently receiving outpatient speech therapy; speech is addressing swallowing, facial weakness, and cognition. - Subjective Identification Type Name Identification Reconciled With Medical Record Observations (+) compliance w/ home exercise program. Patient Expectation/Goals Improve upon keyboarding skills/mouse use; left hand coordination. Patient/Caregiver Compliance with Home Excellent Exercise Program - Objective Objective Measurements Please refer to below for progress towards meeting established OT goals. 09/28/21 = 8 errors made when 100 words typed (copying) 08/25/21 = 3 errors made when 15 words typed w/ categorization activity; 10+ errors made when typing sentences for plans for the day (occurred in 2nd and 3rd paragraph d/t fingers being off --> 2 times R hand had shifted). Short Term Goals GOALS MET Patient will actively participate in additional assessments to establish baseline and assist with HEP development. Senior Care Goals ALL GOALS MET Patient will be modified independent with execution of home exercise program utilizing provided written and visual instructions from therapist. *MET 10/07/21 Patient will be able to complete 9 Hole Peg Test within 1 SD above the mean compared to her same-aged peers with the left hand. *MET 10/07/21 Patient will report ability to use computer mouse x 15 minutes with left hand on daily basis (over a period of 5 days) with minimal errors. * MET 10/07/21 - Treatment 2 Descriptor HEP. Recommended increasing to 100-piece puzzle utilizing free online website. Recommended practicing keyboarding/typing via copying text. 1 Descriptor Keyboarding. Mouse use. - Assessment Assessment of Improvement Diana has met all goals for outpatient OT; she is modified independent with home exercise program and denies any questions. She has been provided w/ resources via links in e-mail to help support carry-over of HEP. Diana continues to report errors w/ keyboard use (tying e-mails/creating brochures) and left hand fatigue. However , Diana improved from 28.0 seconds to 23.4 seconds w/ completion of 9-Hole Peg Test. Results of this standardized assessment, as well as ability to use computer mouse effectively w/ the left hand suggest improved fine motor coordination of the left hand/ digits. Given that all goals have been met and Diana is mod independent with home exercise program, and potential adaptations to keyboard have been discussed, recommend d/c from OT at this time. - Plan Therapy Recommendations Discharge from Occupational Therapy
== END 2021-10-12 08:10 ==
LOC: OT 13:30
PROVIDERS: Family Provider Internal Medicine Hematology & Oncology; PCP Internal Medicine; Referring Provider Internal Medicine; Visit Provider Internal Medicine
DX: I63.9 Cerebral infarction, unspecified (principal); R27.8 Other lack of coordination
CPT/HCPCS: 97165; 97530

== ENCOUNTER 2022-01-18 11:15 | Outpatient (RCR) | payer MEDICARE, BC, SELFPAY ==
[2021-06-25 14:32] VITALS: BMI 26.5
[2021-07-30 13:39] VITALS: BMI 26.5
--- NOTE | 2021-09-06 17:24 | PT.OIE ---
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 (09/06/21) Muscle weakness (generalized) (09/06/21) Abnormal posture (09/06/21) Dislocation of jaw, unspecified side, initial encounter (09/06/21) Past Medical History (Last Updated 08/18/21 @ 20:58 by Anel Dorsey) Anemia (~2020) Asthma Atrial fibrillation Chronic GERD CREST syndrome Fibromyalgia Generalized scleroderma History of malignant neoplasm of breast (03/22/17) IBS (irritable bowel syndrome) Intramural uterine fibroid Paroxysmal atrial fibrillation Raynauds disease Scleroderma (~1991) Shoulder pain Sjogren's syndrome Thyroid nodule Past Surgical History (Last Updated 08/18/21 @ 20:58 by Anel Dorsey) Anesthesia History of cholecystectomy (~2015) History of mastectomy (~2017) Visit Care Team Role Provider Type Mika West MD Family Provider Physician Specialty: Oncology Address: [address] [place] [address], [id number] Email: [email or web address] Wilber Adams MD Attending Provider Physician Primary Care Provider Referring Provider Specialty: Internal Medicine Address: [address] [place] [address], [address] Email: [email or web address] Physical Therapy Initial Evaluation PT-OP-A Visit Information Start: 09/02/21 17:38 Freq: Status: Active Protocol: Document 09/06/21 16:03 [facility] (Rec: 09/06/21 17:23 [facility] [id number]) Out-Patient Physical Therapy Visit Information Visit Information Visit Type Initial Evaluation Visit Note 03/22 Visit Start Time 16:05 Visit Stop Time 16:55 Total Visit Minutes 50 Visit Number 1 Number of ASSISTANT FILM EDITOR Visits 0 PT-OP-B Current Condition Start: 09/02/21 17:38 Freq: Status: Active Protocol: Document 09/06/21 16:03 [facility] (Rec: 09/06/21 17:23 [facility] [id number]) Current Condition History of Current Condition Onset Date years w/worsening in the past 3 months Current Complaints R jaw pain & clicking History of Current Condition Pt has had jaw pain off/on for years but has seriously bad in the past few months. Pt had CVA on 05/11 and initially had L facial drop, but does not recall any extremity weakness in leg. She does not feel like she lost any strength in LUE but does not feel like brain in talking to hand and has dec coordination in LUE. Pt had stroke on 05/11 but had no motor affects only cognitive affects along w/speech and swallowing. She is seeing OT & LIMNOLOGY TEACHER. Pt was diagnosed w/ scleraderma in 1990 and it is a known sideaffect to have TMD . Denies neck pain or dizziness. Pt does have fibromyalgia. Pt reports occ headaches but they are not too severe. She gets one a couple times a week, but it is always really light and not enough to even take tylenol. They did start after the CVA. They do not seem associated w/ her jaw issues. Everytime she yawns, it clicks. Pt reports sometimes jaw locks but it will pop right back after. Everytime she opens and closes the jaw clicks on R. SOmetimes when she is eating it gets stuck and she has to force it to move. She thinks dentist may have images of her jaw. He has talked about putting in a mouth piece and doing reconstructions but pt has not pursued this. 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 Pt tends to grind or clench, but has not tried a director check. Something came up, but she doesn't remember what that stopped her from pursuing that . Pt reports she does have sleep issues and does take ambian. Pt has difficulty falling asleep and staying asleep. Lately, she has been waking up every hour. She has to work out really hard to feel like she can fall asleep. She has not been able to exercise enough to get to this point recently d/t fatigue after stroke. Pt's jaw will hurt if she leans too much onto her R side of her jaw. Denies ringing or change in hearing. Pt avoids eating nuts on R side, and avoids hard vegetables d/t teeth. In July She had a pain in abdomen taht shot up into her chest then she passed out and hit her head requireing stitches. She passed out again going to get her . Prior Treatments and Tests no treatments Treatment Goals Patient/Caregiver Goals Dec pain, be able to chew and yawn w/o pain PT-OP-C Subjective Start: 09/02/21 17:38 Freq: Status: Active Protocol: Document 09/06/21 16:03 [facility] (Rec: 09/06/21 17:23 [facility] [id number]) OP-PT Pain Assessment Location jaw Pain Location Details R jaw Scale Used 4-6/10 Description Sharp,With Movement Frequency Intermittent Pain Duration just during the click Pain Aggravating Factors Chewing Other Pain Aggravating Factors yawning, talking a lot, laying on R side Pain Alleviating Factors Heat PT-OP-F Manual Assessment Start: 09/02/21 17:38 Freq: Status: Active Protocol: Document 09/06/21 16:03 [facility] (Rec: 09/06/21 17:23 [facility] [id number]) Manual Assessments Other Manual Assessments Other Manual Assessments less excursion slightly w/ smile, dec L eyebrow raise and dec scrunch ability PT-OP-K Range of Motion Start: 09/02/21 17:38 Freq: Status: Active Protocol: Document 09/06/21 16:03 [facility] (Rec: 09/06/21 17:23 [facility] [id number]) Cervical Spine Range of Motion Cervical Spine Active Percentage Flexion 80 Extension 90 Rotation Left 60 Rotation Right 60 Lateral Flexion Left 90 Lateral Flexion Right 70 TMJ Range of Motion Jaw Openning Jaw Openning (mm) 30 Comments Comments heavy deviation to R w/opening w/L jaw having fwd movement w /opening & backwards movement w/clsing PT-OP-L Special Tests Start: 09/02/21 17:38 Freq: Status: Active Protocol: Document 09/06/21 16:03 [facility] (Rec: 09/06/21 17:23 [facility] [id number]) Special Tests Cervical Spine Special Tests Vertebral Artery Test Results n/t to test next session PT-OP-Q Treatments Start: 09/02/21 17:38 Freq: Status: Active Protocol: Document 09/06/21 16:03 [facility] (Rec: 09/06/21 17:23 [facility] [id number]) Self-Care/Home Management Treatment Education Other Education edu on jaw anatomy with discussion on importance of cervical motion and mobility along w/how L side of jaw is the side that is more dysfunctional and unstable despite pain being on R. PT-OP-T Assessment and Plan Start: 09/02/21 17:38 Freq: Status: Active Protocol: Document 09/06/21 16:03 [facility] (Rec: 09/06/21 17:23 [facility] [id number]) Physical Therapy Assessment Rehab Potential Rehabilitation Potential Good Evaluation Complexity Number of Personal Factors/Comorbidities 3 or More Number of Body Systems Impaired 4 or More Clinical Presentation at Evaluation Evolving Impairments Impairments Activity Tolerance,Functional Activities,Functional Mobility ,Pain,Posture,ROM,Soft Tissue Mobility,Strength Goals opening Salesperson Floor Coverings Goal (LTG) Pt will be able to open her mouth 40 mm w/o deviation or inc pain. LTG Duration 12/07 activities Short Term Goal (STG) Pt will be able to jaw w/o jaw pain STG Duration 10/30 Senior Care Goal (LTG) Pt will be able to eat her typical diet w/o inc jaw pain LTG Duration 12/07 Assessment Summary Assessment Pt presents w/R jaw pain that she has had for years on/off, but with recently worsening after past few months which is also after her CVA that did affect her L sided coordination some and is seeing OT for UE coordination exercises. She did have facial droop initially w/onset of stroke which appears to have mostly resolved, but does have slightly dec movement on L side w/scrunching, smiling, and eyebrow raising. She has clicking that is painful everytime she is opening w/ eating and yawning at this time likely due to the signfiicant R deviation of jaw w/those movements. Pt does have Scleroderma, which could be affecting and contributing to her history of jaw pain. Pt would bneefit from PT to address the manual restrictions, neuromuscular function,and motor control issues. Physical Therapy Plan Frequency and Duration Frequency of Treatment 1-2x/week Duration of Treatment 3 months Plan of Care Start Date 09/06/21 Plan of Care End Date 12/07/21 Therapeutic Interventions Therapeutic Interventions Home Exercise Program,Joint Mobilizations,Manual Therapy, Neuromuscular Re-education, Patient/Caregiver Education, Self-Care/Home Management,Soft Tissue Mobilization,Taping, Therapeutic Activities, Therapeutic Exercises Modalities Cold Pack/Ice Massage,Electric Stimulation,Hot Packs Next Visit Focus/Plan Next Note Type Treatment Note Next Visit Plan rocabado exercises, manual to address soft tissue tightness of jaw. work on cranial & upper cervical mobility after VAT, jaw joint mobs
--- NOTE | 2021-09-06 17:24 | PT.OPPOC ---
Physical, Occupational & Speech Therapy At [facility] 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 (09/06/21) Muscle weakness (generalized) (09/06/21) Abnormal posture (09/06/21) Dislocation of jaw, unspecified side, initial encounter (09/06/21) Visit Care Team Role Provider Type Mika West MD Family Provider Physician Specialty: Oncology Address: [address] [place] [address], [address] Email: [email or web address] Wilber Adams MD Attending Provider Physician Primary Care Provider Referring Provider Specialty: Internal Medicine Address: [address] [place] [address], [address] Email: [email or web address] Plan Of Care PT-OP-T Assessment and Plan Start: 09/02/21 17:38 Freq: Status: Active Protocol: Document 09/06/21 16:03 [facility] (Rec: 09/06/21 17:23 [facility] [id number]) Physical Therapy Assessment Rehab Potential Rehabilitation Potential Good Evaluation Complexity Number of Personal Factors/Comorbidities 3 or More Number of Body Systems Impaired 4 or More Clinical Presentation at Evaluation Evolving Impairments Impairments Activity Tolerance,Functional Activities,Functional Mobility ,Pain,Posture,ROM,Soft Tissue Mobility,Strength Goals opening Snf Goal (LTG) Pt will be able to open her mouth 40 mm w/o deviation or inc pain. LTG Duration 12/07 activities Short Term Goal (STG) Pt will be able to jaw w/o jaw pain STG Duration 10/30 Sourcing Intern Goal (LTG) Pt will be able to eat her typical diet w/o inc jaw pain LTG Duration 12/07 Assessment Summary Assessment Pt presents w/R jaw pain that she has had for years on/off, but with recently worsening after past few months which is also after her CVA that did affect her L sided coordination some and is seeing OT for UE coordination exercises. She did have facial droop initially w/onset of stroke which appears to have mostly resolved, but does have slightly dec movement on L side w/scrunching, smiling, and eyebrow raising. She has clicking that is painful everytime she is opening w/ eating and yawning at this time likely due to the signfiicant R deviation of jaw w/those movements. Pt does have Scleroderma, which could be affecting and contributing to her history of jaw pain. Pt would bneefit from PT to address the manual restrictions, neuromuscular function,and motor control issues. Physical Therapy Plan Frequency and Duration Frequency of Treatment 1-2x/week Duration of Treatment 3 months Plan of Care Start Date 09/06/21 Plan of Care End Date 12/07/21 Therapeutic Interventions Therapeutic Interventions Home Exercise Program,Joint Mobilizations,Manual Therapy, Neuromuscular Re-education, Patient/Caregiver Education, Self-Care/Home Management,Soft Tissue Mobilization,Taping, Therapeutic Activities, Therapeutic Exercises Modalities Cold Pack/Ice Massage,Electric Stimulation,Hot Packs Next Visit Focus/Plan Next Note Type Treatment Note Next Visit Plan rocabado exercises, manual to address soft tissue tightness of jaw. work on cranial & upper cervical mobility after VAT, jaw joint mobs Plan of Care Dates Plan of Care Start Date 09/06/21 Plan of Care End Date 12/07/21 Electronically Signed by: Stephanie Louis, PT 09/06/21 [id number] If you are in agreement with this Plan of Care, please return a signed and dated copy. I have reviewed this Plan of Care and certify that the skilled therapy services above are required to meet the patient?s needs. Physician Signature Date Printed Name and Credentials Clinical Instructor Signature Printed Name and Credentials
--- NOTE | 2021-09-09 10:17 | PT.OTN ---
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 (09/09/21) Muscle weakness (generalized) (09/09/21) Abnormal posture (09/09/21) Dislocation of jaw, unspecified side, initial encounter (09/09/21) Physical Therapy Treatment Note PT-OP-A Visit Information Start: 09/02/21 17:38 Freq: Status: Active Protocol: Document 09/09/21 09:08 [facility] (Rec: 09/09/21 10:17 [facility] [id number]) Out-Patient Physical Therapy Visit Information Visit Information Visit Type Treatment Note Visit Note 04/22 Visit Start Time 09:06 Visit Stop Time 09:45 Total Visit Minutes 39 Visit Number 2 Number of RIGGING HELPER Visits 0 PT-OP-B Current Condition Start: 09/02/21 17:38 Freq: Status: Active Protocol: Document 09/06/21 16:03 [facility] (Rec: 09/06/21 17:23 [facility] [id number]) Current Condition History of Current Condition Onset Date years w/worsening in the past 3 months Current Complaints R jaw pain & clicking History of Current Condition Pt has had jaw pain off/on for years but has seriously bad in the past few months. Pt had CVA on 05/11 and initially had L facial drop, but does not recall any extremity weakness in leg. She does not feel like she lost any strength in LUE but does not feel like brain in talking to hand and has dec coordination in LUE. Pt had stroke on 05/11 but had no motor affects only cognitive affects along w/speech and swallowing. She is seeing OT & TOP COLLAR BASTER. Pt was diagnosed w/ scleraderma in 1990 and it is a known sideaffect to have TMD . Denies neck pain or dizziness. Pt does have fibromyalgia. Pt reports occ headaches but they are not too severe. She gets one a couple times a week, but it is always really light and not enough to even take tylenol. They did start after the CVA. They do not seem associated w/ her jaw issues. Everytime she yawns, it clicks. Pt reports sometimes jaw locks but it will pop right back after. Everytime she opens and closes the jaw clicks on R. SOmetimes when she is eating it gets stuck and she has to force it to move. She thinks dentist may have images of her jaw. He has talked about putting in a mouth piece and doing reconstructions but pt has not pursued this. 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 Pt tends to grind or clench, but has not tried a chief guard. Something came up, but she doesn't remember what that stopped her from pursuing that . Pt reports she does have sleep issues and does take ambian. Pt has difficulty falling asleep and staying asleep. Lately, she has been waking up every hour. She has to work out really hard to feel like she can fall asleep. She has not been able to exercise enough to get to this point recently d/t fatigue after stroke. Pt's jaw will hurt if she leans too much onto her R side of her jaw. Denies ringing or change in hearing. Pt avoids eating nuts on R side, and avoids hard vegetables d/t teeth. In July She had a pain in abdomen taht shot up into her chest then she passed out and hit her head requireing stitches. She passed out again going to get her . Prior Treatments and Tests no treatments Treatment Goals Patient/Caregiver Goals Dec pain, be able to chew and yawn w/o pain PT-OP-C Subjective Start: 09/02/21 17:38 Freq: Status: Active Protocol: Document 09/09/21 09:08 [facility] (Rec: 09/09/21 10:17 [facility] [id number]) OP-PT Subjective Patient Comments Patient Comments Pt reports since CVA L eye itches a lot and balls of feet are painful. She changes her shoes 3x/day PT-OP-F Manual Assessment Start: 09/02/21 17:38 Freq: Status: Active Protocol: Document 09/06/21 16:03 [facility] (Rec: 09/06/21 17:23 [facility] [id number]) Manual Assessments Other Manual Assessments Other Manual Assessments less excursion slightly w/ smile, dec L eyebrow raise and dec scrunch ability PT-OP-K Range of Motion Start: 09/02/21 17:38 Freq: Status: Active Protocol: Document 09/06/21 16:03 [facility] (Rec: 09/06/21 17:23 [facility] [id number]) Cervical Spine Range of Motion Cervical Spine Active Percentage Flexion 80 Extension 90 Rotation Left 60 Rotation Right 60 Lateral Flexion Left 90 Lateral Flexion Right 70 TMJ Range of Motion Jaw Openning Jaw Openning (mm) 30 Comments Comments heavy deviation to R w/opening w/L jaw having fwd movement w /opening & backwards movement w/clsing PT-OP-L Special Tests Start: 09/02/21 17:38 Freq: Status: Active Protocol: Document 09/06/21 16:03 [facility] (Rec: 09/06/21 17:23 [facility] [id number]) Special Tests Cervical Spine Special Tests Vertebral Artery Test Results n/t to test next session PT-OP-Q Treatments Start: 09/02/21 17:38 Freq: Status: Active Protocol: Document 09/09/21 09:08 [facility] (Rec: 09/09/21 10:17 [facility] [id number]) Therapeutic Exercises Sitting Exercises rocabado Sitting Exercise Name 6x6 per handout Manual Therapy Treatment Soft Tissue Mobilization intraoral Body Location R along med jaw (unable to get to lat ptyergoid) Mobilization Type Sustained Pressure jaw Body Location med ptyergoid, digastric, med inf jaw, post jaw, masseter, temporalis Mobilization Type Rolling,Strumming,Sustained Pressure Intensity/Depth Moderate Body Position Supine Joint Mobilizations jaw Joint R Direction distraction w/slide glide L FM Grade II PT-OP-T Assessment and Plan Start: 09/02/21 17:38 Freq: Status: Active Protocol: Document 09/09/21 09:08 [facility] (Rec: 09/09/21 10:17 [facility] [id number]) Physical Therapy Assessment Goals opening User Experience Architect Goal (LTG) Pt will be able to open her mouth 40 mm w/o deviation or inc pain. LTG Duration 12/07 activities Short Term Goal (STG) Pt will be able to jaw w/o jaw pain STG Duration 10/30 User Experience Architect Goal (LTG) Pt will be able to eat her typical diet w/o inc jaw pain LTG Duration 12/07 Assessment Summary Assessment Pt had significant tightness of R side of jaw whereas muscles on L are not as tight. She responded well to manual without c/o inc pain. She did use mirror w/exercises to help on top of VC for form. Physical Therapy Plan Frequency and Duration Frequency of Treatment 1-2x/week Duration of Treatment 3 months Plan of Care Start Date 09/06/21 Plan of Care End Date 12/07/21 Next Visit Focus/Plan Next Note Type Treatment Note Next Visit Plan review rocabado exercises, manual to address soft tissue tightness of jaw. work on cranial & upper cervical mobility after VAT, jaw joint mobs
--- NOTE | 2021-09-15 12:11 | PT.OTN ---
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 (09/15/21) Muscle weakness (generalized) (09/15/21) Abnormal posture (09/15/21) Dislocation of jaw, unspecified side, initial encounter (09/15/21) Physical Therapy Treatment Note PT-OP-A Visit Information Start: 09/02/21 17:38 Freq: Status: Active Protocol: Document 09/15/21 11:16 [facility] (Rec: 09/15/21 12:11 [facility] [id number]) Out-Patient Physical Therapy Visit Information Visit Information Visit Type Treatment Note Visit Note 05/20 Visit Start Time 11:20 Visit Stop Time 12:00 Total Visit Minutes 40 Visit Number 3 Number of COMMUNICATION TECHNICIAN Visits 0 PT-OP-B Current Condition Start: 09/02/21 17:38 Freq: Status: Active Protocol: Document 09/06/21 16:03 [facility] (Rec: 09/06/21 17:23 [facility] [id number]) Current Condition History of Current Condition Onset Date years w/worsening in the past 3 months Current Complaints R jaw pain & clicking History of Current Condition Pt has had jaw pain off/on for years but has seriously bad in the past few months. Pt had CVA on 05/11 and initially had L facial drop, but does not recall any extremity weakness in leg. She does not feel like she lost any strength in LUE but does not feel like brain in talking to hand and has dec coordination in LUE. Pt had stroke on 05/11 but had no motor affects only cognitive affects along w/speech and swallowing. She is seeing OT & HORSES OR MULES TEAMSTER. Pt was diagnosed w/ scleraderma in 1990 and it is a known sideaffect to have TMD . Denies neck pain or dizziness. Pt does have fibromyalgia. Pt reports occ headaches but they are not too severe. She gets one a couple times a week, but it is always really light and not enough to even take tylenol. They did start after the CVA. They do not seem associated w/ her jaw issues. Everytime she yawns, it clicks. Pt reports sometimes jaw locks but it will pop right back after. Everytime she opens and closes the jaw clicks on R. SOmetimes when she is eating it gets stuck and she has to force it to move. She thinks dentist may have images of her jaw. He has talked about putting in a mouth piece and doing reconstructions but pt has not pursued this. She also works w/peridontist in [place] who specializes in Scleroderma and works with a specialist at [facility] that is part of the scleroderma foundation. Pt tends to grind or clench, but has not tried a ocean lifeguard. Something came up, but she doesn't remember what that stopped her from pursuing that . Pt reports she does have sleep issues and does take ambian. Pt has difficulty falling asleep and staying asleep. Lately, she has been waking up every hour. She has to work out really hard to feel like she can fall asleep. She has not been able to exercise enough to get to this point recently d/t fatigue after stroke. Pt's jaw will hurt if she leans too much onto her R side of her jaw. Denies ringing or change in hearing. Pt avoids eating nuts on R side, and avoids hard vegetables d/t teeth. In July She had a pain in abdomen taht shot up into her chest then she passed out and hit her head requireing stitches. She passed out again going to get her . Prior Treatments and Tests no treatments Treatment Goals Patient/Caregiver Goals Dec pain, be able to chew and yawn w/o pain PT-OP-C Subjective Start: 09/02/21 17:38 Freq: Status: Active Protocol: Document 09/15/21 11:16 [facility] (Rec: 09/15/21 12:11 [facility] [id number]) OP-PT Subjective Patient Comments Patient Comments Pt reports unsure if exercises are causing QUIGLEY. She doesn't get QUIGLEY right after exercises but has been noticing some during day PT-OP-F Manual Assessment Start: 09/02/21 17:38 Freq: Status: Active Protocol: Document 09/06/21 16:03 [facility] (Rec: 09/06/21 17:23 [facility] [id number]) Manual Assessments Other Manual Assessments Other Manual Assessments less excursion slightly w/ smile, dec L eyebrow raise and dec scrunch ability PT-OP-K Range of Motion Start: 09/02/21 17:38 Freq: Status: Active Protocol: Document 09/06/21 16:03 [facility] (Rec: 09/06/21 17:23 [facility] [id number]) Cervical Spine Range of Motion Cervical Spine Active Percentage Flexion 80 Extension 90 Rotation Left 60 Rotation Right 60 Lateral Flexion Left 90 Lateral Flexion Right 70 TMJ Range of Motion Jaw Openning Jaw Openning (mm) 30 Comments Comments heavy deviation to R w/opening w/L jaw having fwd movement w /opening & backwards movement w/clsing PT-OP-L Special Tests Start: 09/02/21 17:38 Freq: Status: Active Protocol: Document 09/06/21 16:03 [facility] (Rec: 09/06/21 17:23 [facility] [id number]) Special Tests Cervical Spine Special Tests Vertebral Artery Test Results n/t to test next session PT-OP-Q Treatments Start: 09/02/21 17:38 Freq: Status: Active Protocol: Document 09/15/21 11:16 [facility] (Rec: 09/15/21 12:11 [facility] [id number]) Therapeutic Exercises Sitting Exercises rocabado Sitting Exercise Name 6x6 per handout Reps/Minutes 10-15 reps of ea Manual Therapy Treatment Soft Tissue Mobilization intraoral Body Location R lat pterygoid Mobilization Type Sustained Pressure jaw Body Location med ptyergoid, digastric, med inf jaw, post jaw, masseter, temporalis Mobilization Type Rolling,Strumming,Sustained Pressure Intensity/Depth Moderate Body Position Supine Joint Mobilizations jaw Joint R Direction distraction w/slide glide L FM Grade II Self-Care/Home Management Treatment Education Other Education edu of jaw anatomy w/pictures and discussed how the disc works and can cause issues. discussed w/pt PT's discussion w/her dentist (pt had deviation prior to stroke and about same opening, no clear images of discs but dentist noted good space) PT-OP-T Assessment and Plan Start: 09/02/21 17:38 Freq: Status: Active Protocol: Document 09/15/21 11:16 [facility] (Rec: 09/15/21 12:11 [facility] [id number]) Physical Therapy Assessment Goals opening Jail Goal (LTG) Pt will be able to open her mouth 40 mm w/o deviation or inc pain. LTG Duration 12/07 activities Short Term Goal (STG) Pt will be able to jaw w/o jaw pain STG Duration 10/30 Web Applications Programmer Goal (LTG) Pt will be able to eat her typical diet w/o inc jaw pain LTG Duration 12/07 Assessment Summary Assessment Pt did require cueing for all exercises for form so did need further review w/focus on technique. Dec deviation to R after manual today. Still R tightness Physical Therapy Plan Frequency and Duration Frequency of Treatment 1-2x/week Duration of Treatment 3 months Plan of Care Start Date 09/06/21 Plan of Care End Date 12/07/21 Next Visit Focus/Plan Next Note Type Treatment Note Next Visit Plan review rocabado exercises, manual to address soft tissue tightness of jaw. work on cranial & upper cervical mobility after VAT, jaw joint mobs
--- NOTE | 2021-09-20 16:14 | PT.OTN ---
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 (09/20/21) Muscle weakness (generalized) (09/20/21) Abnormal posture (09/20/21) Dislocation of jaw, unspecified side, initial encounter (09/20/21) Physical Therapy Treatment Note PT-OP-A Visit Information Start: 09/02/21 17:38 Freq: Status: Active Protocol: Document 09/20/21 15:20 [facility] (Rec: 09/20/21 16:14 [facility] [id number]) Out-Patient Physical Therapy Visit Information Visit Information Visit Type Treatment Note Visit Note 06/20 Visit Start Time 15:20 Visit Stop Time 16:00 Total Visit Minutes 40 Visit Number 4 Number of OVERNIGHT CAREGIVER Visits 0 PT-OP-B Current Condition Start: 09/02/21 17:38 Freq: Status: Active Protocol: Document 09/06/21 16:03 [facility] (Rec: 09/06/21 17:23 [facility] [id number]) Current Condition History of Current Condition Onset Date years w/worsening in the past 3 months Current Complaints R jaw pain & clicking History of Current Condition Pt has had jaw pain off/on for years but has seriously bad in the past few months. Pt had CVA on 05/11 and initially had L facial drop, but does not recall any extremity weakness in leg. She does not feel like she lost any strength in LUE but does not feel like brain in talking to hand and has dec coordination in LUE. Pt had stroke on 05/11 but had no motor affects only cognitive affects along w/speech and swallowing. She is seeing OT & [facility]. Pt was diagnosed w/ scleraderma in 1990 and it is a known sideaffect to have TMD . Denies neck pain or dizziness. Pt does have fibromyalgia. Pt reports occ headaches but they are not too severe. She gets one a couple times a week, but it is always really light and not enough to even take tylenol. They did start after the CVA. They do not seem associated w/ her jaw issues. Everytime she yawns, it clicks. Pt reports sometimes jaw locks but it will pop right back after. Everytime she opens and closes the jaw clicks on R. SOmetimes when she is eating it gets stuck and she has to force it to move. She thinks dentist may have images of her jaw. He has talked about putting in a mouth piece and doing reconstructions but pt has not pursued this. She also works w/peridontist in [place] who specializes in Scleroderma and works with a specialist at [employer] that is part of the scleroderma foundation. Pt tends to grind or clench, but has not tried a overnight caregiver. Something came up, but she doesn't remember what that stopped her from pursuing that . Pt reports she does have sleep issues and does take ambian. Pt has difficulty falling asleep and staying asleep. Lately, she has been waking up every hour. She has to work out really hard to feel like she can fall asleep. She has not been able to exercise enough to get to this point recently d/t fatigue after stroke. Pt's jaw will hurt if she leans too much onto her R side of her jaw. Denies ringing or change in hearing. Pt avoids eating nuts on R side, and avoids hard vegetables d/t teeth. In July She had a pain in abdomen taht shot up into her chest then she passed out and hit her head requireing stitches. She passed out again going to get her . Prior Treatments and Tests no treatments Treatment Goals Patient/Caregiver Goals Dec pain, be able to chew and yawn w/o pain PT-OP-C Subjective Start: 09/02/21 17:38 Freq: Status: Active Protocol: Document 09/20/21 15:20 [facility] (Rec: 09/20/21 16:14 [facility] [id number]) OP-PT Subjective Patient Comments Patient Comments Pt reports less QUIGLEY. Notes this AM woke with one and was able to just drink some water to improve it. PT-OP-F Manual Assessment Start: 09/02/21 17:38 Freq: Status: Active Protocol: Document 09/06/21 16:03 [facility] (Rec: 09/06/21 17:23 [facility] [id number]) Manual Assessments Other Manual Assessments Other Manual Assessments less excursion slightly w/ smile, dec L eyebrow raise and dec scrunch ability PT-OP-K Range of Motion Start: 09/02/21 17:38 Freq: Status: Active Protocol: Document 09/06/21 16:03 [facility] (Rec: 09/06/21 17:23 [facility] [id number]) Cervical Spine Range of Motion Cervical Spine Active Percentage Flexion 80 Extension 90 Rotation Left 60 Rotation Right 60 Lateral Flexion Left 90 Lateral Flexion Right 70 TMJ Range of Motion Jaw Openning Jaw Openning (mm) 30 Comments Comments heavy deviation to R w/opening w/L jaw having fwd movement w /opening & backwards movement w/clsing PT-OP-L Special Tests Start: 09/02/21 17:38 Freq: Status: Active Protocol: Document 09/06/21 16:03 [facility] (Rec: 09/06/21 17:23 [facility] [id number]) Special Tests Cervical Spine Special Tests Vertebral Artery Test Results n/t to test next session PT-OP-Q Treatments Start: 09/02/21 17:38 Freq: Status: Active Protocol: Document 09/20/21 15:20 [facility] (Rec: 09/20/21 16:14 [facility] [id number]) Therapeutic Exercises Sitting Exercises jaw Sitting Exercise Name deviation L Equipment Used 2x10 rocabado Sitting Exercise Name 6x6 per handout Reps/Minutes 10-15 reps of ea Manual Therapy Treatment Soft Tissue Mobilization MFR Body Location R around mouth & lat face Mobilization Type Myofascial Release intraoral Body Location R lat pterygoid Mobilization Type Sustained Pressure jaw Body Location med ptyergoid, digastric, med inf jaw, post jaw, masseter, temporalis Mobilization Type Rolling,Strumming,Sustained Pressure Intensity/Depth Moderate Body Position Supine Joint Mobilizations jaw Joint R Direction distraction w/slide glide L FM Grade II PT-OP-T Assessment and Plan Start: 09/02/21 17:38 Freq: Status: Active Protocol: Document 09/20/21 15:20 [facility] (Rec: 09/20/21 16:14 [facility] [id number]) Physical Therapy Assessment Goals opening Cuff Slitter Goal (LTG) Pt will be able to open her mouth 40 mm w/o deviation or inc pain. LTG Duration 12/07 activities Short Term Goal (STG) Pt will be able to jaw w/o jaw pain STG Duration 10/30 Cuff Slitter Goal (LTG) Pt will be able to eat her typical diet w/o inc jaw pain LTG Duration 12/07 Assessment Summary Assessment Pt improved w/performance of exercises but still requires cues fro axial elongation & w/ fingers in front of jaw to avoid fwd motion. R facial and skin tissue is much tighter but does improve some w/manual . Physical Therapy Plan Frequency and Duration Frequency of Treatment 1-2x/week Duration of Treatment 3 months Plan of Care Start Date 09/06/21 Plan of Care End Date 12/07/21 Next Visit Focus/Plan Next Note Type Treatment Note Next Visit Plan review rocabado exercises, manual to address soft tissue tightness of jaw. work on cranial & upper cervical mobility after VAT, jaw joint mobs
--- NOTE | 2021-09-22 11:18 | PT.OTN ---
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 (09/22/21) Muscle weakness (generalized) (09/22/21) Abnormal posture (09/22/21) Dislocation of jaw, unspecified side, initial encounter (09/22/21) Physical Therapy Treatment Note PT-OP-A Visit Information Start: 09/02/21 17:38 Freq: Status: Active Protocol: Document 09/22/21 10:34 SP (Rec: 09/22/21 11:39 SP [id number]) Out-Patient Physical Therapy Visit Information Visit Information Visit Type Treatment Note Visit Start Time 10:34 Visit Stop Time 11:18 Total Visit Minutes 44 Visit Number 5 Number of HAIR ROOTING MACHINE OPERATOR Visits 1 PT-OP-B Current Condition Start: 09/02/21 17:38 Freq: Status: Active Protocol: Document 09/06/21 16:03 [facility] (Rec: 09/06/21 17:23 [facility] [id number]) Current Condition History of Current Condition Onset Date years w/worsening in the past 3 months Current Complaints R jaw pain & clicking History of Current Condition Pt has had jaw pain off/on for years but has seriously bad in the past few months. Pt had CVA on 05/11 and initially had L facial drop, but does not recall any extremity weakness in leg. She does not feel like she lost any strength in LUE but does not feel like brain in talking to hand and has dec coordination in LUE. Pt had stroke on 05/11 but had no motor affects only cognitive affects along w/speech and swallowing. She is seeing OT & NEWSCAST DIRECTOR. Pt was diagnosed w/ scleraderma in 1990 and it is a known sideaffect to have TMD . Denies neck pain or dizziness. Pt does have fibromyalgia. Pt reports occ headaches but they are not too severe. She gets one a couple times a week, but it is always really light and not enough to even take tylenol. They did start after the CVA. They do not seem associated w/ her jaw issues. Everytime she yawns, it clicks. Pt reports sometimes jaw locks but it will pop right back after. Everytime she opens and closes the jaw clicks on R. SOmetimes when she is eating it gets stuck and she has to force it to move. She thinks dentist may have images of her jaw. He has talked about putting in a mouth piece and doing reconstructions but pt has not pursued this. 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 Pt tends to grind or clench, but has not tried a guard manager. Something came up, but she doesn't remember what that stopped her from pursuing that . Pt reports she does have sleep issues and does take ambian. Pt has difficulty falling asleep and staying asleep. Lately, she has been waking up every hour. She has to work out really hard to feel like she can fall asleep. She has not been able to exercise enough to get to this point recently d/t fatigue after stroke. Pt's jaw will hurt if she leans too much onto her R side of her jaw. Denies ringing or change in hearing. Pt avoids eating nuts on R side, and avoids hard vegetables d/t teeth. In July She had a pain in abdomen taht shot up into her chest then she passed out and hit her head requireing stitches. She passed out again going to get her . Prior Treatments and Tests no treatments Treatment Goals Patient/Caregiver Goals Dec pain, be able to chew and yawn w/o pain PT-OP-C Subjective Start: 09/02/21 17:38 Freq: Status: Active Protocol: Document 09/22/21 10:34 SP (Rec: 09/22/21 11:39 SP [id number]) OP-PT Subjective Patient Comments Patient Comments Pt report not having pain at moment upon arrival. PT-OP-F Manual Assessment Start: 09/02/21 17:38 Freq: Status: Active Protocol: Document 09/06/21 16:03 [facility] (Rec: 09/06/21 17:23 [facility] [id number]) Manual Assessments Other Manual Assessments Other Manual Assessments less excursion slightly w/ smile, dec L eyebrow raise and dec scrunch ability PT-OP-K Range of Motion Start: 09/02/21 17:38 Freq: Status: Active Protocol: Document 09/06/21 16:03 [facility] (Rec: 09/06/21 17:23 [facility] [id number]) Cervical Spine Range of Motion Cervical Spine Active Percentage Flexion 80 Extension 90 Rotation Left 60 Rotation Right 60 Lateral Flexion Left 90 Lateral Flexion Right 70 TMJ Range of Motion Jaw Openning Jaw Openning (mm) 30 Comments Comments heavy deviation to R w/opening w/L jaw having fwd movement w /opening & backwards movement w/clsing PT-OP-L Special Tests Start: 09/02/21 17:38 Freq: Status: Active Protocol: Document 09/06/21 16:03 [facility] (Rec: 09/06/21 17:23 [facility] [id number]) Special Tests Cervical Spine Special Tests Vertebral Artery Test Results n/t to test next session PT-OP-Q Treatments Start: 09/02/21 17:38 Freq: Status: Active Protocol: Document 09/22/21 10:34 SP (Rec: 09/22/21 11:39 SP [id number]) Therapeutic Exercises Supine Exercises chin tuck (head nods) Supine Exercise Name w/ elongation Reps/Minutes x10 Comments cued small range Sitting Exercises self STMs Sitting Exercise Name 1. theracane post neck MWM 2. ball in sock back to wall UT/ interscap Side bilateral Reps/Minutes 30 sec various areas Comments good feedback performance- alot more relaxed scap retraction Sitting Exercise Name reviewed HEP Side bilateral Reps/Minutes 5 sec hold x10 Comments good performance jaw Sitting Exercise Name deviation L Equipment Used 2x10 rocabado Sitting Exercise Name 6x6 per handout and standing front mirror Resistance AROM and light resistance of hand/fingers Reps/Minutes 10-15 reps of ea Comments cued use mirror for self feedback alignment Manual Therapy Treatment Soft Tissue Mobilization B suboccipital, UT, LS Body Location B Mobilization Type Strumming,Sustained Pressure, Other Intensity/Depth Moderate Body Position Hooklying Comments manual and instruction self use of theracane. SCM Body Location L>R Mobilization Type Rolling,Sustained Pressure Intensity/Depth Moderate Body Position Hooklying Comments manual pincer knead and instruction self application at home MFR Body Location R around mouth & lat face, inframandible (tongue) Mobilization Type Myofascial Release Intensity/Depth Moderate Body Position Hooklying intraoral Body Location R lat pterygoid Mobilization Type Strumming,Sustained Pressure Body Position Hooklying Comments manual sustained pressure jaw Body Location med ptyergoid, digastric, med inf jaw, post jaw, masseter, temporalis Mobilization Type Rolling,Strumming,Sustained Pressure Intensity/Depth Moderate Body Position Hooklying Comments manual sustained pressure and gentle pincer knead, instruction self application at home PT-OP-T Assessment and Plan Start: 09/02/21 17:38 Freq: Status: Active Protocol: Document 09/22/21 10:34 SP (Rec: 09/22/21 11:39 SP [id number]) Physical Therapy Assessment Goals opening Director Of Architecture Goal (LTG) Pt will be able to open her mouth 40 mm w/o deviation or inc pain. LTG Duration 12/07 activities Short Term Goal (STG) Pt will be able to jaw w/o jaw pain STG Duration 10/30 Director Of Architecture Goal (LTG) Pt will be able to eat her typical diet w/o inc jaw pain LTG Duration 12/07 Assessment Summary Assessment Pt reported decreased R med pterygoid and tongue tension post manual and understanding how apply self at home. L>R SCM tight and self kneadign found helpful. HEP review, cued relax neck muscles, use of mirror for feedback self corrections and alignment improvement noted. Initiated self STMs theracane MWM head nod/turns and ball wall post scap good feedback results. PRovided hand outs for visual recall/performance. Pt reports jaw more relaxed and better not over tightening jaw HEP. Physical Therapy Plan Frequency and Duration Frequency of Treatment 1-2x/week Duration of Treatment 3 months Plan of Care Start Date 09/06/21 Plan of Care End Date 12/07/21 Therapeutic Interventions Therapeutic Interventions Home Exercise Program,Joint Mobilizations,Manual Therapy, Neuromuscular Re-education, Patient/Caregiver Education, Self-Care/Home Management,Soft Tissue Mobilization,Taping, Therapeutic Activities, Therapeutic Exercises Modalities Cold Pack/Ice Massage,Electric Stimulation,Hot Packs Next Visit Focus/Plan Next Note Type Treatment Note Next Visit Plan Assess response to manual jaw, neck, head and self application instructed last tx . POC: review rocabado exercises , manual to address soft tissue tightness of jaw. work on cranial & upper cervical mobility after VAT, jaw joint mobs
--- NOTE | 2021-09-27 18:40 | PT.OTN ---
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 (09/27/21) Muscle weakness (generalized) (09/27/21) Abnormal posture (09/27/21) Dislocation of jaw, unspecified side, initial encounter (09/27/21) Physical Therapy Treatment Note PT-OP-A Visit Information Start: 09/02/21 17:38 Freq: Status: Active Protocol: Document 09/27/21 12:59 [facility] (Rec: 09/27/21 18:39 [facility] [id number]) Out-Patient Physical Therapy Visit Information Visit Information Visit Type Treatment Note Visit Start Time 13:04 Visit Stop Time 14:00 Total Visit Minutes 56 Visit Number 6 Number of PROTECTIVE SIGNAL INSTALLER HELPER Visits 0 PT-OP-B Current Condition Start: 09/02/21 17:38 Freq: Status: Active Protocol: Document 09/06/21 16:03 [facility] (Rec: 09/06/21 17:23 [facility] [id number]) Current Condition History of Current Condition Onset Date years w/worsening in the past 3 months Current Complaints R jaw pain & clicking History of Current Condition Pt has had jaw pain off/on for years but has seriously bad in the past few months. Pt had CVA on 05/11 and initially had L facial drop, but does not recall any extremity weakness in leg. She does not feel like she lost any strength in LUE but does not feel like brain in talking to hand and has dec coordination in LUE. Pt had stroke on 05/11 but had no motor affects only cognitive affects along w/speech and swallowing. She is seeing OT & DIRECTOR OF RADIOLOGY. Pt was diagnosed w/ scleraderma in 1990 and it is a known sideaffect to have TMD . Denies neck pain or dizziness. Pt does have fibromyalgia. Pt reports occ headaches but they are not too severe. She gets one a couple times a week, but it is always really light and not enough to even take tylenol. They did start after the CVA. They do not seem associated w/ her jaw issues. Everytime she yawns, it clicks. Pt reports sometimes jaw locks but it will pop right back after. Everytime she opens and closes the jaw clicks on R. SOmetimes when she is eating it gets stuck and she has to force it to move. She thinks dentist may have images of her jaw. He has talked about putting in a mouth piece and doing reconstructions but pt has not pursued this. She also works w/peridontist in [place] who specializes in Scleroderma and works with a specialist at [facility] that is part of the scleroderma foundation. Pt tends to grind or clench, but has not tried a hydrodynamics teacher. Something came up, but she doesn't remember what that stopped her from pursuing that . Pt reports she does have sleep issues and does take ambian. Pt has difficulty falling asleep and staying asleep. Lately, she has been waking up every hour. She has to work out really hard to feel like she can fall asleep. She has not been able to exercise enough to get to this point recently d/t fatigue after stroke. Pt's jaw will hurt if she leans too much onto her R side of her jaw. Denies ringing or change in hearing. Pt avoids eating nuts on R side, and avoids hard vegetables d/t teeth. In July She had a pain in abdomen taht shot up into her chest then she passed out and hit her head requireing stitches. She passed out again going to get her . Prior Treatments and Tests no treatments Treatment Goals Patient/Caregiver Goals Dec pain, be able to chew and yawn w/o pain PT-OP-C Subjective Start: 09/02/21 17:38 Freq: Status: Active Protocol: Document 09/27/21 12:59 [facility] (Rec: 09/27/21 18:39 [facility] [id number]) OP-PT Subjective Patient Comments Patient Comments Pt reports pain still w/ chewing. COmpliance w/HEP PT-OP-F Manual Assessment Start: 09/02/21 17:38 Freq: Status: Active Protocol: Document 09/06/21 16:03 [facility] (Rec: 09/06/21 17:23 [facility] [id number]) Manual Assessments Other Manual Assessments Other Manual Assessments less excursion slightly w/ smile, dec L eyebrow raise and dec scrunch ability PT-OP-K Range of Motion Start: 09/02/21 17:38 Freq: Status: Active Protocol: Document 09/06/21 16:03 [facility] (Rec: 09/06/21 17:23 [facility] [id number]) Cervical Spine Range of Motion Cervical Spine Active Percentage Flexion 80 Extension 90 Rotation Left 60 Rotation Right 60 Lateral Flexion Left 90 Lateral Flexion Right 70 TMJ Range of Motion Jaw Openning Jaw Openning (mm) 30 Comments Comments heavy deviation to R w/opening w/L jaw having fwd movement w /opening & backwards movement w/clsing PT-OP-L Special Tests Start: 09/02/21 17:38 Freq: Status: Active Protocol: Document 09/06/21 16:03 [facility] (Rec: 09/06/21 17:23 [facility] [id number]) Special Tests Cervical Spine Special Tests Vertebral Artery Test Results n/t to test next session PT-OP-Q Treatments Start: 09/02/21 17:38 Freq: Status: Active Protocol: Document 09/27/21 12:59 [facility] (Rec: 09/27/21 18:39 [facility] [id number]) Therapeutic Exercises Supine Exercises rhythmic initiation Supine Exercise Name in different positions of jaw opening Side bilateral Reps/Minutes 5 min Sitting Exercises rocabado Sitting Exercise Name 6x6 per handout and standing front mirror Resistance AROM and light resistance of hand/fingers Reps/Minutes 6 min of each except resisted & chin tucks x10 Comments cued use mirror for self feedback alignment Manual Therapy Treatment Soft Tissue Mobilization jaw Body Location med ptyergoid, digastric, med inf jaw, post jaw, masseter, temporalis Mobilization Type Rolling,Strumming,Sustained Pressure Intensity/Depth Moderate Body Position Hooklying Joint Mobilizations jaw Joint R Direction distraction w/slide glide L FM & R PA FM Grade III PT-OP-R Modalities Start: 09/02/21 17:38 Freq: Status: Active Protocol: Document 09/27/21 12:59 [facility] (Rec: 09/27/21 18:40 [facility] [id number]) Hot Pack/Cold Pack Treatment Hot Pack Location cervical & jaw Patient Position Hooklying Treatment Duration (minutes) 15 PT-OP-T Assessment and Plan Start: 09/02/21 17:38 Freq: Status: Active Protocol: Document 09/27/21 12:59 [facility] (Rec: 09/27/21 18:39 [facility] [id number]) Physical Therapy Assessment Goals opening Senior Living Goal (LTG) Pt will be able to open her mouth 40 mm w/o deviation or inc pain. LTG Duration 12/07 activities Short Term Goal (STG) Pt will be able to jaw w/o jaw pain STG Duration 10/30 Senior Living Goal (LTG) Pt will be able to eat her typical diet w/o inc jaw pain LTG Duration 12/07 Assessment Summary Assessment pt had difficulty w/rhythmic initiation of jaw and would push too hard w/resistances laterally and required cues and demo of what was happening to improve. Improved jaw opening & closing mechanics w/ manual. Physical Therapy Plan Frequency and Duration Frequency of Treatment 1-2x/week Duration of Treatment 3 months Plan of Care Start Date 09/06/21 Plan of Care End Date 12/07/21 Next Visit Focus/Plan Next Note Type Treatment Note Next Visit Plan review rocabado exercises, manual to address soft tissue tightness of jaw. work on cranial & upper cervical mobility after VAT, jaw joint mobs
--- NOTE | 2021-09-29 14:36 | PT.OTN ---
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 (09/29/21) Muscle weakness (generalized) (09/29/21) Abnormal posture (09/29/21) Dislocation of jaw, unspecified side, initial encounter (09/29/21) Physical Therapy Treatment Note PT-OP-A Visit Information Start: 09/02/21 17:38 Freq: Status: Active Protocol: Document 09/29/21 14:31 [facility] (Rec: 09/29/21 14:36 [facility] [id number]) Out-Patient Physical Therapy Visit Information Visit Information Visit Type Treatment Note Visit Note 09/19 Visit Start Time 13:49 Visit Stop Time 14:30 Total Visit Minutes 41 Visit Number 7 Number of MANAGER OF SELECTION AND ASSESSMENT Visits 0 PT-OP-B Current Condition Start: 09/02/21 17:38 Freq: Status: Active Protocol: Document 09/06/21 16:03 [facility] (Rec: 09/06/21 17:23 [facility] [id number]) Current Condition History of Current Condition Onset Date years w/worsening in the past 3 months Current Complaints R jaw pain & clicking History of Current Condition Pt has had jaw pain off/on for years but has seriously bad in the past few months. Pt had CVA on 05/11 and initially had L facial drop, but does not recall any extremity weakness in leg. She does not feel like she lost any strength in LUE but does not feel like brain in talking to hand and has dec coordination in LUE. Pt had stroke on 05/11 but had no motor affects only cognitive affects along w/speech and swallowing. She is seeing OT & LIGHT BULB ASSEMBLER. Pt was diagnosed w/ scleraderma in 1990 and it is a known sideaffect to have TMD . Denies neck pain or dizziness. Pt does have fibromyalgia. Pt reports occ headaches but they are not too severe. She gets one a couple times a week, but it is always really light and not enough to even take tylenol. They did start after the CVA. They do not seem associated w/ her jaw issues. Everytime she yawns, it clicks. Pt reports sometimes jaw locks but it will pop right back after. Everytime she opens and closes the jaw clicks on R. SOmetimes when she is eating it gets stuck and she has to force it to move. She thinks dentist may have images of her jaw. He has talked about putting in a mouth piece and doing reconstructions but pt has not pursued this. She also works w/peridontist in [place] who specializes in Scleroderma and works with a specialist at [facility] that is part of the scleroderma foundation. Pt tends to grind or clench, but has not tried a night stocker. Something came up, but she doesn't remember what that stopped her from pursuing that . Pt reports she does have sleep issues and does take ambian. Pt has difficulty falling asleep and staying asleep. Lately, she has been waking up every hour. She has to work out really hard to feel like she can fall asleep. She has not been able to exercise enough to get to this point recently d/t fatigue after stroke. Pt's jaw will hurt if she leans too much onto her R side of her jaw. Denies ringing or change in hearing. Pt avoids eating nuts on R side, and avoids hard vegetables d/t teeth. In July She had a pain in abdomen taht shot up into her chest then she passed out and hit her head requireing stitches. She passed out again going to get her . Prior Treatments and Tests no treatments Treatment Goals Patient/Caregiver Goals Dec pain, be able to chew and yawn w/o pain PT-OP-C Subjective Start: 09/02/21 17:38 Freq: Status: Active Protocol: Document 09/29/21 14:31 [facility] (Rec: 09/29/21 14:36 [facility] [id number]) OP-PT Subjective Patient Comments Patient Comments Pt reports compliance w/HEP & self soft tissue PT-OP-F Manual Assessment Start: 09/02/21 17:38 Freq: Status: Active Protocol: Document 09/06/21 16:03 [facility] (Rec: 09/06/21 17:23 [facility] [id number]) Manual Assessments Other Manual Assessments Other Manual Assessments less excursion slightly w/ smile, dec L eyebrow raise and dec scrunch ability PT-OP-K Range of Motion Start: 09/02/21 17:38 Freq: Status: Active Protocol: Document 09/06/21 16:03 [facility] (Rec: 09/06/21 17:23 [facility] [id number]) Cervical Spine Range of Motion Cervical Spine Active Percentage Flexion 80 Extension 90 Rotation Left 60 Rotation Right 60 Lateral Flexion Left 90 Lateral Flexion Right 70 TMJ Range of Motion Jaw Openning Jaw Openning (mm) 30 Comments Comments heavy deviation to R w/opening w/L jaw having fwd movement w /opening & backwards movement w/clsing PT-OP-L Special Tests Start: 09/02/21 17:38 Freq: Status: Active Protocol: Document 09/06/21 16:03 [facility] (Rec: 09/06/21 17:23 [facility] [id number]) Special Tests Cervical Spine Special Tests Vertebral Artery Test Results n/t to test next session PT-OP-Q Treatments Start: 09/02/21 17:38 Freq: Status: Active Protocol: Document 09/29/21 14:31 [facility] (Rec: 09/29/21 14:36 [facility] [id number]) Therapeutic Exercises Supine Exercises rhythmic initiation Supine Exercise Name in different positions of jaw opening Side bilateral Reps/Minutes 5 min Sitting Exercises cervical retraction Sitting Exercise Name in mirror Reps/Minutes 12 rhythmic initiation Sitting Exercise Name in different positions of jaw opening Side bilateral Reps/Minutes 7 min jaw Sitting Exercise Name deviation L Reps/Minutes 5 Manual Therapy Treatment Soft Tissue Mobilization intraoral Body Location R lat pterygoid Mobilization Type Strumming,Sustained Pressure Body Position Hooklying Comments manual sustained pressure jaw Body Location med ptyergoid, digastric, med inf jaw, post jaw, masseter, temporalis Mobilization Type Rolling,Strumming,Sustained Pressure Intensity/Depth Moderate Body Position Hooklying Joint Mobilizations jaw Joint R Direction distraction w/slide glide L FM & R PA FM, L distract w/glide L Grade III PT-OP-R Modalities Start: 09/02/21 17:38 Freq: Status: Active Protocol: Document 09/27/21 12:59 [facility] (Rec: 09/27/21 18:40 [facility] [id number]) Hot Pack/Cold Pack Treatment Hot Pack Location cervical & jaw Patient Position Hooklying Treatment Duration (minutes) 15 PT-OP-T Assessment and Plan Start: 09/02/21 17:38 Freq: Status: Active Protocol: Document 09/29/21 14:31 [facility] (Rec: 09/29/21 14:36 [facility] [id number]) Physical Therapy Assessment Goals opening Client Customer Manager Goal (LTG) Pt will be able to open her mouth 40 mm w/o deviation or inc pain. LTG Duration 12/07 activities Short Term Goal (STG) Pt will be able to jaw w/o jaw pain STG Duration 10/30 Client Customer Manager Goal (LTG) Pt will be able to eat her typical diet w/o inc jaw pain LTG Duration 12/07 Assessment Summary Assessment After manual, pt did have improved ability to deviate left but still not the same amount as she is able to go R. Improved stability w/rhythmic initiation in supine but did have difficulty in seated and required mirror use Physical Therapy Plan Frequency and Duration Frequency of Treatment 1-2x/week Duration of Treatment 3 months Plan of Care Start Date 09/06/21 Plan of Care End Date 12/07/21 Next Visit Focus/Plan Next Note Type Treatment Note Next Visit Plan cont to work on jaw stability for oping. cont to work on jaw mobiltiy for ability to deviate L
--- NOTE | 2021-10-05 12:08 | PT.OTN ---
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 (10/05/21) Muscle weakness (generalized) (10/05/21) Abnormal posture (10/05/21) Dislocation of jaw, unspecified side, initial encounter (10/05/21) Physical Therapy Treatment Note PT-OP-A Visit Information Start: 09/02/21 17:38 Freq: Status: Active Protocol: Document 10/05/21 10:30 [facility] (Rec: 10/05/21 12:07 [facility] [id number]) Out-Patient Physical Therapy Visit Information Visit Information Visit Type Progress Note Visit Note 03/22 Visit Start Time 10:32 Visit Stop Time 11:27 Total Visit Minutes 55 Visit Number 8 Number of WEATHER OBSERVER Visits 0 PT-OP-B Current Condition Start: 09/02/21 17:38 Freq: Status: Active Protocol: Document 09/06/21 16:03 [facility] (Rec: 09/06/21 17:23 [facility] [id number]) Current Condition History of Current Condition Onset Date years w/worsening in the past 3 months Current Complaints R jaw pain & clicking History of Current Condition Pt has had jaw pain off/on for years but has seriously bad in the past few months. Pt had CVA on 05/11 and initially had L facial drop, but does not recall any extremity weakness in leg. She does not feel like she lost any strength in LUE but does not feel like brain in talking to hand and has dec coordination in LUE. Pt had stroke on 05/11 but had no motor affects only cognitive affects along w/speech and swallowing. She is seeing OT & SALOON KEEPER. Pt was diagnosed w/ scleraderma in 1990 and it is a known sideaffect to have TMD . Denies neck pain or dizziness. Pt does have fibromyalgia. Pt reports occ headaches but they are not too severe. She gets one a couple times a week, but it is always really light and not enough to even take tylenol. They did start after the CVA. They do not seem associated w/ her jaw issues. Everytime she yawns, it clicks. Pt reports sometimes jaw locks but it will pop right back after. Everytime she opens and closes the jaw clicks on R. SOmetimes when she is eating it gets stuck and she has to force it to move. She thinks dentist may have images of her jaw. He has talked about putting in a mouth piece and doing reconstructions but pt has not pursued this. She also works w/peridontist in [place] who specializes in Scleroderma and works with a specialist at [facility] [place] that is part of the scleroderma foundation. Pt tends to grind or clench, but has not tried a mri manager. Something came up, but she doesn't remember what that stopped her from pursuing that . Pt reports she does have sleep issues and does take ambian. Pt has difficulty falling asleep and staying asleep. Lately, she has been waking up every hour. She has to work out really hard to feel like she can fall asleep. She has not been able to exercise enough to get to this point recently d/t fatigue after stroke. Pt's jaw will hurt if she leans too much onto her R side of her jaw. Denies ringing or change in hearing. Pt avoids eating nuts on R side, and avoids hard vegetables d/t teeth. In July She had a pain in abdomen taht shot up into her chest then she passed out and hit her head requireing stitches. She passed out again going to get her . Prior Treatments and Tests no treatments Treatment Goals Patient/Caregiver Goals Dec pain, be able to chew and yawn w/o pain PT-OP-C Subjective Start: 09/02/21 17:38 Freq: Status: Active Protocol: Document 10/05/21 10:30 [facility] (Rec: 10/05/21 12:07 [facility] [id number]) OP-PT Subjective Patient Comments Patient Comments Pt reprots less popping in jaw when opening but still has to help it get back in place and still pain w/opening. NOtes she talked to sclerederma specialist and he wants her to get a panoramic xray PT-OP-F Manual Assessment Start: 09/02/21 17:38 Freq: Status: Active Protocol: Document 09/06/21 16:03 [facility] (Rec: 09/06/21 17:23 [facility] [id number]) Manual Assessments Other Manual Assessments Other Manual Assessments less excursion slightly w/ smile, dec L eyebrow raise and dec scrunch ability PT-OP-K Range of Motion Start: 09/02/21 17:38 Freq: Status: Active Protocol: Document 09/06/21 16:03 [facility] (Rec: 09/06/21 17:23 [facility] [id number]) Cervical Spine Range of Motion Cervical Spine Active Percentage Flexion 80 Extension 90 Rotation Left 60 Rotation Right 60 Lateral Flexion Left 90 Lateral Flexion Right 70 TMJ Range of Motion Jaw Openning Jaw Openning (mm) 30 Comments Comments heavy deviation to R w/opening w/L jaw having fwd movement w /opening & backwards movement w/clsing PT-OP-L Special Tests Start: 09/02/21 17:38 Freq: Status: Active Protocol: Document 09/06/21 16:03 [facility] (Rec: 09/06/21 17:23 [facility] [id number]) Special Tests Cervical Spine Special Tests Vertebral Artery Test Results n/t to test next session PT-OP-Q Treatments Start: 09/02/21 17:38 Freq: Status: Active Protocol: Document 10/05/21 10:30 [facility] (Rec: 10/05/21 12:07 [facility] [id number]) Therapeutic Exercises Sitting Exercises cervical retraction Sitting Exercise Name in mirror Reps/Minutes 12 Manual Therapy Treatment Soft Tissue Mobilization B suboccipital, UT, LS Body Location B Mobilization Type Strumming,Sustained Pressure, Other Intensity/Depth Moderate Body Position Hooklying SCM Body Location L>R Mobilization Type Rolling,Sustained Pressure Intensity/Depth Moderate Body Position Hooklying Comments manual pincer knead and instruction self application at home jaw Body Location med ptyergoid, digastric, med inf jaw, post jaw, masseter, temporalis Mobilization Type Rolling,Strumming,Sustained Pressure Intensity/Depth Moderate Body Position Hooklying Joint Mobilizations cervical Comments C1&2 transverse L C2 UAP R FM Self-Care/Home Management Treatment Education Other Education discussion re: progresion w/PT and discussed that it would be her dentist that could get the images and to talk to to dentist & scleroderma specialist after images and discuss possible use of mouth orthosis. Edu that it is possible wht they see, may encourage her dentists to discuss possible surgery PT-OP-R Modalities Start: 09/02/21 17:38 Freq: Status: Active Protocol: Document 09/27/21 12:59 [facility] (Rec: 09/27/21 18:40 [facility] [id number]) Hot Pack/Cold Pack Treatment Hot Pack Location cervical & jaw Patient Position Hooklying Treatment Duration (minutes) 15 PT-OP-T Assessment and Plan Start: 09/02/21 17:38 Freq: Status: Active Protocol: Document 10/05/21 10:30 [facility] (Rec: 10/05/21 12:07 [facility] [id number]) Physical Therapy Assessment Goals opening Bad Cloth Checker Goal (LTG) Pt will be able to open her mouth 40 mm w/o deviation or inc pain. 10/05-no change LTG Duration 12/07 activities Short Term Goal (STG) Pt will be able to open/close jaw w/o jaw pain 10/05-less popping noted STG Duration 10/30 Bad Cloth Checker Goal (LTG) Pt will be able to eat her typical diet w/o inc jaw pain LTG Duration 12/07 Assessment Summary Assessment Pt is making slow progress as expected w/PT as the chronic nature of her pain and her diagnosis of scleroderma that complicates her recovery. Pt to cont PT to cont to work on jaw motion and dec pain Physical Therapy Plan Frequency and Duration Frequency of Treatment 1-2x/week Duration of Treatment 3 months Plan of Care Start Date 09/06/21 Plan of Care End Date 12/07/21 Next Visit Focus/Plan Next Note Type Treatment Note Next Visit Plan cont to work on jaw stability for oping. cont to work on jaw mobiltiy for ability to deviate L
--- NOTE | 2021-10-07 13:00 | PT.OTN ---
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 (10/07/21) Muscle weakness (generalized) (10/07/21) Abnormal posture (10/07/21) Dislocation of jaw, unspecified side, initial encounter (10/07/21) Physical Therapy Treatment Note PT-OP-A Visit Information Start: 09/02/21 17:38 Freq: Status: Active Protocol: Document 10/07/21 12:21 [facility] (Rec: 10/07/21 13:06 [facility] [id number]) Out-Patient Physical Therapy Visit Information Visit Information Visit Type Treatment Note Visit Note YONAnisa Clay observed TMJ tx being provided by FUNMILAYO Peñaloza, with permission of pt. Visit Start Time 12:21 Visit Stop Time 13:00 Total Visit Minutes 39 Visit Number 9 Number of FIRE EQUIPMENT INSPECTOR HELPER Visits 1 PT-OP-B Current Condition Start: 09/02/21 17:38 Freq: Status: Active Protocol: Document 09/06/21 16:03 [facility] (Rec: 09/06/21 17:23 [facility] [id number]) Current Condition History of Current Condition Onset Date years w/worsening in the past 3 months Current Complaints R jaw pain & clicking History of Current Condition Pt has had jaw pain off/on for years but has seriously bad in the past few months. Pt had CVA on 05/11 and initially had L facial drop, but does not recall any extremity weakness in leg. She does not feel like she lost any strength in LUE but does not feel like brain in talking to hand and has dec coordination in LUE. Pt had stroke on 05/11 but had no motor affects only cognitive affects along w/speech and swallowing. She is seeing OT & TEST MANAGER. Pt was diagnosed w/ scleraderma in 1990 and it is a known sideaffect to have TMD . Denies neck pain or dizziness. Pt does have fibromyalgia. Pt reports occ headaches but they are not too severe. She gets one a couple times a week, but it is always really light and not enough to even take tylenol. They did start after the CVA. They do not seem associated w/ her jaw issues. Everytime she yawns, it clicks. Pt reports sometimes jaw locks but it will pop right back after. Everytime she opens and closes the jaw clicks on R. SOmetimes when she is eating it gets stuck and she has to force it to move. She thinks dentist may have images of her jaw. He has talked about putting in a mouth piece and doing reconstructions but pt has not pursued this. She also works w/peridontist in [place] who specializes in Scleroderma and works with a specialist at [facility] that is part of the scleroderma foundation. Pt tends to grind or clench, but has not tried a lifeguard. Something came up, but she doesn't remember what that stopped her from pursuing that . Pt reports she does have sleep issues and does take ambian. Pt has difficulty falling asleep and staying asleep. Lately, she has been waking up every hour. She has to work out really hard to feel like she can fall asleep. She has not been able to exercise enough to get to this point recently d/t fatigue after stroke. Pt's jaw will hurt if she leans too much onto her R side of her jaw. Denies ringing or change in hearing. Pt avoids eating nuts on R side, and avoids hard vegetables d/t teeth. In July She had a pain in abdomen taht shot up into her chest then she passed out and hit her head requireing stitches. She passed out again going to get her . Prior Treatments and Tests no treatments Treatment Goals Patient/Caregiver Goals Dec pain, be able to chew and yawn w/o pain PT-OP-C Subjective Start: 09/02/21 17:38 Freq: Status: Active Protocol: Document 10/07/21 12:21 [facility] (Rec: 10/07/21 13:06 [facility] [id number]) OP-PT Subjective Patient Comments Patient Comments Pt stated spoke with specialist of oral surgeon with [facility]. Going to get a panoramic completed to send and decide best course going forward. Doing exercises with continued popping, takes along time to eat, 1 hr when went out with friend (spinach salad with extra small additions). PT-OP-F Manual Assessment Start: 09/02/21 17:38 Freq: Status: Active Protocol: Document 09/06/21 16:03 [facility] (Rec: 09/06/21 17:23 [facility] [id number]) Manual Assessments Other Manual Assessments Other Manual Assessments less excursion slightly w/ smile, dec L eyebrow raise and dec scrunch ability PT-OP-K Range of Motion Start: 09/02/21 17:38 Freq: Status: Active Protocol: Document 09/06/21 16:03 [facility] (Rec: 09/06/21 17:23 [facility] [id number]) Cervical Spine Range of Motion Cervical Spine Active Percentage Flexion 80 Extension 90 Rotation Left 60 Rotation Right 60 Lateral Flexion Left 90 Lateral Flexion Right 70 TMJ Range of Motion Jaw Openning Jaw Openning (mm) 30 Comments Comments heavy deviation to R w/opening w/L jaw having fwd movement w /opening & backwards movement w/clsing PT-OP-L Special Tests Start: 09/02/21 17:38 Freq: Status: Active Protocol: Document 09/06/21 16:03 [facility] (Rec: 09/06/21 17:23 [facility] [id number]) Special Tests Cervical Spine Special Tests Vertebral Artery Test Results n/t to test next session PT-OP-Q Treatments Start: 09/02/21 17:38 Freq: Status: Active Protocol: Document 10/07/21 12:21 [facility] (Rec: 10/07/21 13:06 [facility] [id number]) Therapeutic Exercises Sitting Exercises cervical retraction Sitting Exercise Name in mirror (performed in standing) Reps/Minutes 12 jaw Sitting Exercise Name deviation L w/ open/closing ( performed standing in mirror) Reps/Minutes x10 Comments cued tongue light touch on roof mouth rocabado Sitting Exercise Name 6x6 per handout (standing) Resistance AROM and light resistance of hand/fingers Reps/Minutes 6 min of each except resisted & chin tucks x10 Comments cued use mirror for self feedback alignment, not recruit platysmus/zygomati Standing Exercises wall posture Standing Exercise Name initiated in PT Comments cued scapular depression and neutral CS/ nod Other Exercises quadruped Other Exercise Name initiated in PT against gravity Equipment Used pillow under knees, fist positioning for wrist support (try over ball next) Comments cued CS retraction head nod positioning w/ L deviation Manual Therapy Treatment Soft Tissue Mobilization B suboccipital, UT, LS Body Location B Mobilization Type Strumming,Sustained Pressure, Other Intensity/Depth Moderate Body Position Hooklying SCM Body Location L>R Mobilization Type Rolling,Sustained Pressure Intensity/Depth Moderate Body Position Hooklying Comments manual pincer knead and instruction self application at home intraoral Body Location R med pterygoid Mobilization Type Cross-Friction,Sustained Pressure Body Position Hooklying Comments manual sustained pressure, pincer kneading jaw Body Location med ptyergoid, digastric, med inf jaw, post jaw, masseter, temporalis Mobilization Type Rolling,Strumming,Sustained Pressure Intensity/Depth Moderate Body Position Hooklying Self-Care/Home Management Treatment Education Patient Education Body Mechanics,Home Exercise Program,Posture Other Education Time spent education on self application of STMs, use of mirror for proper spacial awareness jaw alignment, not over recruiting facial musculature for reeducation. PT-OP-R Modalities Start: 09/02/21 17:38 Freq: Status: Active Protocol: Document 09/27/21 12:59 [facility] (Rec: 09/27/21 18:40 [facility] [id number]) Hot Pack/Cold Pack Treatment Hot Pack Location cervical & jaw Patient Position Hooklying Treatment Duration (minutes) 15 PT-OP-T Assessment and Plan Start: 09/02/21 17:38 Freq: Status: Active Protocol: Document 10/07/21 12:21 [facility] (Rec: 10/07/21 13:06 [facility] [id number]) Physical Therapy Assessment Goals opening Fci Goal (LTG) Pt will be able to open her mouth 40 mm w/o deviation or inc pain. 10/05-no change LTG Duration 12/07 activities Short Term Goal (STG) Pt will be able to open/close jaw w/o jaw pain 10/05-less popping noted STG Duration 10/30 Yard Coupler Goal (LTG) Pt will be able to eat her typical diet w/o inc jaw pain LTG Duration 12/07 Assessment Summary Assessment Pt improvement in L deviation and decreased recruitment of fascial musculature with use of mirror during HEP. Good response to manual resistance during HEP with no popping. Better understanding and stated will incorporate self manual at home learned during tx today. Continue revisit cervical posturing against gravity. Physical Therapy Plan Frequency and Duration Frequency of Treatment 1-2x/week Duration of Treatment 3 months Plan of Care Start Date 09/06/21 Plan of Care End Date 12/07/21 Therapeutic Interventions Therapeutic Interventions Home Exercise Program,Joint Mobilizations,Manual Therapy, Neuromuscular Re-education, Patient/Caregiver Education, Self-Care/Home Management,Soft Tissue Mobilization,Taping, Therapeutic Activities, Therapeutic Exercises Modalities Cold Pack/Ice Massage,Electric Stimulation,Hot Packs Next Visit Focus/Plan Next Note Type Treatment Note Next Visit Plan Recheck quadruped with matt. cont to work on jaw stability & mobiltiy for ability to deviate L.
--- NOTE | 2021-10-13 14:35 | PT.OTN ---
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 (10/13/21) Muscle weakness (generalized) (10/13/21) Abnormal posture (10/13/21) Dislocation of jaw, unspecified side, initial encounter (10/13/21) Physical Therapy Treatment Note PT-OP-A Visit Information Start: 09/02/21 17:38 Freq: Status: Active Protocol: Document 10/13/21 13:50 SP (Rec: 10/13/21 14:59 SP [id number]) Out-Patient Physical Therapy Visit Information Visit Information Visit Type Treatment Note Visit Start Time 13:50 Visit Stop Time 14:35 Total Visit Minutes 45 Visit Number 10 Number of DESIGN VERIFICATION ENGINEER Visits 2 PT-OP-B Current Condition Start: 09/02/21 17:38 Freq: Status: Active Protocol: Document 09/06/21 16:03 [facility] (Rec: 09/06/21 17:23 [facility] [id number]) Current Condition History of Current Condition Onset Date years w/worsening in the past 3 months Current Complaints R jaw pain & clicking History of Current Condition Pt has had jaw pain off/on for years but has seriously bad in the past few months. Pt had CVA on 05/11 and initially had L facial drop, but does not recall any extremity weakness in leg. She does not feel like she lost any strength in LUE but does not feel like brain in talking to hand and has dec coordination in LUE. Pt had stroke on 05/11 but had no motor affects only cognitive affects along w/speech and swallowing. She is seeing OT & DOMESTIC HOUSEKEEPER. Pt was diagnosed w/ scleraderma in 1990 and it is a known sideaffect to have TMD . Denies neck pain or dizziness. Pt does have fibromyalgia. Pt reports occ headaches but they are not too severe. She gets one a couple times a week, but it is always really light and not enough to even take tylenol. They did start after the CVA. They do not seem associated w/ her jaw issues. Everytime she yawns, it clicks. Pt reports sometimes jaw locks but it will pop right back after. Everytime she opens and closes the jaw clicks on R. SOmetimes when she is eating it gets stuck and she has to force it to move. She thinks dentist may have images of her jaw. He has talked about putting in a mouth piece and doing reconstructions but pt has not pursued this. 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 Pt tends to grind or clench, but has not tried a district sales leader. Something came up, but she doesn't remember what that stopped her from pursuing that . Pt reports she does have sleep issues and does take ambian. Pt has difficulty falling asleep and staying asleep. Lately, she has been waking up every hour. She has to work out really hard to feel like she can fall asleep. She has not been able to exercise enough to get to this point recently d/t fatigue after stroke. Pt's jaw will hurt if she leans too much onto her R side of her jaw. Denies ringing or change in hearing. Pt avoids eating nuts on R side, and avoids hard vegetables d/t teeth. In July She had a pain in abdomen taht shot up into her chest then she passed out and hit her head requireing stitches. She passed out again going to get her . Prior Treatments and Tests no treatments Treatment Goals Patient/Caregiver Goals Dec pain, be able to chew and yawn w/o pain PT-OP-C Subjective Start: 09/02/21 17:38 Freq: Status: Active Protocol: Document 10/13/21 13:50 SP (Rec: 10/13/21 14:59 SP [id number]) OP-PT Subjective Patient Comments Patient Comments Pt reports having more pain R lateral neck to shld and jaw lately, it locked open when eating a strawberry, massaged it until released to finish chewing. She reports looking for a practice to get 3D vs panoramic image of jaw for her schleroderma oral surgeon dentist at [facility] for further assessment. PT-OP-F Manual Assessment Start: 09/02/21 17:38 Freq: Status: Active Protocol: Document 09/06/21 16:03 [facility] (Rec: 09/06/21 17:23 [facility] [id number]) Manual Assessments Other Manual Assessments Other Manual Assessments less excursion slightly w/ smile, dec L eyebrow raise and dec scrunch ability PT-OP-K Range of Motion Start: 09/02/21 17:38 Freq: Status: Active Protocol: Document 09/06/21 16:03 [facility] (Rec: 09/06/21 17:23 [facility] [id number]) Cervical Spine Range of Motion Cervical Spine Active Percentage Flexion 80 Extension 90 Rotation Left 60 Rotation Right 60 Lateral Flexion Left 90 Lateral Flexion Right 70 TMJ Range of Motion Jaw Openning Jaw Openning (mm) 30 Comments Comments heavy deviation to R w/opening w/L jaw having fwd movement w /opening & backwards movement w/clsing PT-OP-L Special Tests Start: 09/02/21 17:38 Freq: Status: Active Protocol: Document 09/06/21 16:03 [facility] (Rec: 09/06/21 17:23 [facility] [id number]) Special Tests Cervical Spine Special Tests Vertebral Artery Test Results n/t to test next session PT-OP-Q Treatments Start: 09/02/21 17:38 Freq: Status: Active Protocol: Document 10/13/21 13:50 SP (Rec: 10/13/21 14:59 SP [id number]) Therapeutic Exercises Supine Exercises rhythmic initiation Supine Exercise Name manual resistance- different positions of jaw opening Side bilateral Reps/Minutes 5 min Sitting Exercises jaw Sitting Exercise Name deviation L w/ open/closing ( supine with cuing) Reps/Minutes x10 Comments cued tongue light touch on roof mouth rocabado Sitting Exercise Name 6x6 per handout (supine manual by therapist) Resistance AROM and light resistance of hand/fingers Reps/Minutes x6 Comments cued not recruit platysmus/ zygomatic Self-Care/Home Management Treatment Education Patient Education Home Exercise Program,Pain Management,Posture Other Education Re-education on self application of STMs, awareness jaw alignment and not over recruiting facial musculature for reeducation. Also another treatment application of trigger point vs acupucture for TMJ if could be beneficial for decrease tension/pain, discuss with general practioner. PT-OP-R Modalities Start: 09/02/21 17:38 Freq: Status: Active Protocol: Document 09/27/21 12:59 [facility] (Rec: 09/27/21 18:40 [facility] [id number]) Hot Pack/Cold Pack Treatment Hot Pack Location cervical & jaw Patient Position Hooklying Treatment Duration (minutes) 15 PT-OP-T Assessment and Plan Start: 09/02/21 17:38 Freq: Status: Active Protocol: Document 10/13/21 13:50 SP (Rec: 10/13/21 14:59 SP [id number]) Physical Therapy Assessment Goals opening Assisted Goal (LTG) Pt will be able to open her mouth 40 mm w/o deviation or inc pain. 10/05-no change LTG Duration 12/07 activities Short Term Goal (STG) Pt will be able to open/close jaw w/o jaw pain 10/05-less popping noted STG Duration 10/30 Logger Goal (LTG) Pt will be able to eat her typical diet w/o inc jaw pain LTG Duration 12/07 Assessment Summary Assessment Pt reported recreased tension R lateral neck and jaw, less popping post manual STMs and focus of centering mandible during ther ex. Continues to require cuing for lateral deviation to center and continue to use mirror at home for self corrections along with not recruiting fascial musculature. Physical Therapy Plan Frequency and Duration Frequency of Treatment 1-2x/week Duration of Treatment 3 months Plan of Care Start Date 09/06/21 Plan of Care End Date 12/07/21 Therapeutic Interventions Therapeutic Interventions Home Exercise Program,Joint Mobilizations,Manual Therapy, Neuromuscular Re-education, Patient/Caregiver Education, Self-Care/Home Management,Soft Tissue Mobilization,Taping, Therapeutic Activities, Therapeutic Exercises Modalities Cold Pack/Ice Massage,Electric Stimulation,Hot Packs Next Visit Focus/Plan Next Note Type Treatment Note Next Visit Plan Recheck quadruped with matt. cont to work on jaw stability & mobiltiy for ability to deviate L.
--- NOTE | 2021-10-19 16:04 | PT.OTN ---
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 (10/19/21) Muscle weakness (generalized) (10/19/21) Abnormal posture (10/19/21) Dislocation of jaw, unspecified side, initial encounter (10/19/21) Physical Therapy Treatment Note PT-OP-A Visit Information Start: 09/02/21 17:38 Freq: Status: Active Protocol: Document 10/19/21 14:39 [facility] (Rec: 10/19/21 16:04 [facility] [id number]) Out-Patient Physical Therapy Visit Information Visit Information Visit Type Treatment Note Visit Note 06/20 Visit Start Time 14:35 Visit Stop Time 15:30 Total Visit Minutes 55 Visit Number 11 Number of TECHNICIAN INVENTORY SPECIALIST Visits 0 PT-OP-B Current Condition Start: 09/02/21 17:38 Freq: Status: Active Protocol: Document 09/06/21 16:03 [facility] (Rec: 09/06/21 17:23 [facility] [id number]) Current Condition History of Current Condition Onset Date years w/worsening in the past 3 months Current Complaints R jaw pain & clicking History of Current Condition Pt has had jaw pain off/on for years but has seriously bad in the past few months. Pt had CVA on 05/11 and initially had L facial drop, but does not recall any extremity weakness in leg. She does not feel like she lost any strength in LUE but does not feel like brain in talking to hand and has dec coordination in LUE. Pt had stroke on 05/11 but had no motor affects only cognitive affects along w/speech and swallowing. She is seeing OT & RESEARCH TECHNICIAN. Pt was diagnosed w/ scleraderma in 1990 and it is a known sideaffect to have TMD . Denies neck pain or dizziness. Pt does have fibromyalgia. Pt reports occ headaches but they are not too severe. She gets one a couple times a week, but it is always really light and not enough to even take tylenol. They did start after the CVA. They do not seem associated w/ her jaw issues. Everytime she yawns, it clicks. Pt reports sometimes jaw locks but it will pop right back after. Everytime she opens and closes the jaw clicks on R. SOmetimes when she is eating it gets stuck and she has to force it to move. She thinks dentist may have images of her jaw. He has talked about putting in a mouth piece and doing reconstructions but pt has not pursued this. She also works w/peridontist in [place] who specializes in Scleroderma and works with a specialist at [facility] that is part of the scleroderma foundation. Pt tends to grind or clench, but has not tried a plant guard. Something came up, but she doesn't remember what that stopped her from pursuing that . Pt reports she does have sleep issues and does take ambian. Pt has difficulty falling asleep and staying asleep. Lately, she has been waking up every hour. She has to work out really hard to feel like she can fall asleep. She has not been able to exercise enough to get to this point recently d/t fatigue after stroke. Pt's jaw will hurt if she leans too much onto her R side of her jaw. Denies ringing or change in hearing. Pt avoids eating nuts on R side, and avoids hard vegetables d/t teeth. In July She had a pain in abdomen taht shot up into her chest then she passed out and hit her head requireing stitches. She passed out again going to get her . Prior Treatments and Tests no treatments Treatment Goals Patient/Caregiver Goals Dec pain, be able to chew and yawn w/o pain PT-OP-C Subjective Start: 09/02/21 17:38 Freq: Status: Active Protocol: Document 10/19/21 14:39 [facility] (Rec: 10/19/21 16:04 [facility] [id number]) OP-PT Subjective Patient Comments Patient Comments Pt reports seeing Dr. Tavarez who did mobilizations from neck to hip. She thinks she may be a little looser. Pt reports less extreme pain. PT-OP-F Manual Assessment Start: 09/02/21 17:38 Freq: Status: Active Protocol: Document 09/06/21 16:03 [facility] (Rec: 09/06/21 17:23 [facility] [id number]) Manual Assessments Other Manual Assessments Other Manual Assessments less excursion slightly w/ smile, dec L eyebrow raise and dec scrunch ability PT-OP-K Range of Motion Start: 09/02/21 17:38 Freq: Status: Active Protocol: Document 09/06/21 16:03 [facility] (Rec: 09/06/21 17:23 [facility] [id number]) Cervical Spine Range of Motion Cervical Spine Active Percentage Flexion 80 Extension 90 Rotation Left 60 Rotation Right 60 Lateral Flexion Left 90 Lateral Flexion Right 70 TMJ Range of Motion Jaw Openning Jaw Openning (mm) 30 Comments Comments heavy deviation to R w/opening w/L jaw having fwd movement w /opening & backwards movement w/clsing PT-OP-L Special Tests Start: 09/02/21 17:38 Freq: Status: Active Protocol: Document 09/06/21 16:03 [facility] (Rec: 09/06/21 17:23 [facility] [id number]) Special Tests Cervical Spine Special Tests Vertebral Artery Test Results n/t to test next session PT-OP-Q Treatments Start: 09/02/21 17:38 Freq: Status: Active Protocol: Document 10/19/21 14:39 [facility] (Rec: 10/19/21 16:04 [facility] [id number]) Manual Therapy Treatment Soft Tissue Mobilization B suboccipital, UT, LS Body Location B Mobilization Type Strumming,Sustained Pressure, Other Intensity/Depth Moderate Body Position Hooklying SCM Body Location R Mobilization Type Rolling,Sustained Pressure Intensity/Depth Moderate Body Position Hooklying MFR Body Location R around mouth & lat face Mobilization Type Myofascial Release Intensity/Depth Moderate Body Position Hooklying jaw Body Location med ptyergoid, digastric, med inf jaw, post jaw, masseter, temporalis Mobilization Type Rolling,Strumming,Sustained Pressure Intensity/Depth Moderate Body Position Hooklying Joint Mobilizations jaw Joint R Direction distraction w/slide glide L FM Grade III Self-Care/Home Management Treatment Education Other Education discussion re: importance of posture for jaw and discussed w/sclerederma pt not likely to get to 100% painfree and perfect movement. Edu re: fascial chains as she was unsure why DO worked throughout entire body PT-OP-R Modalities Start: 09/02/21 17:38 Freq: Status: Active Protocol: Document 10/19/21 14:39 [facility] (Rec: 10/19/21 16:04 [facility] [id number]) Hot Pack/Cold Pack Treatment Hot Pack Location cervical & jaw Patient Position Hooklying Treatment Duration (minutes) 15 PT-OP-T Assessment and Plan Start: 09/02/21 17:38 Freq: Status: Active Protocol: Document 10/19/21 14:39 [facility] (Rec: 10/19/21 16:04 [facility] [id number]) Physical Therapy Assessment Goals opening Usp Goal (LTG) Pt will be able to open her mouth 40 mm w/o deviation or inc pain. 10/05-no change LTG Duration 12/07 activities Short Term Goal (STG) Pt will be able to open/close jaw w/o jaw pain 10/05-less popping noted STG Duration 10/30 Tank Insulator Rubber Goal (LTG) Pt will be able to eat her typical diet w/o inc jaw pain LTG Duration 12/07 Assessment Summary Assessment Improved jaw opening after manual where pt did not have to wrok hard to prevent sharp deviation R and pt only deviated slightly w/opening Physical Therapy Plan Frequency and Duration Frequency of Treatment 1-2x/week Duration of Treatment 3 months Plan of Care Start Date 09/06/21 Plan of Care End Date 12/07/21 Next Visit Focus/Plan Next Note Type Treatment Note Next Visit Plan Recheck quadruped with kylahall. cont to work on jaw stability & mobiltiy for ability to deviate L.
--- NOTE | 2021-10-28 12:48 | PT.OTN ---
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 (10/28/21) Muscle weakness (generalized) (10/28/21) Abnormal posture (10/28/21) Dislocation of jaw, unspecified side, initial encounter (10/28/21) Physical Therapy Treatment Note PT-OP-A Visit Information Start: 09/02/21 17:38 Freq: Status: Active Protocol: Document 10/28/21 09:50 [facility] (Rec: 10/28/21 12:47 [facility] [id number]) Out-Patient Physical Therapy Visit Information Visit Information Visit Type Treatment Note Visit Note 07/20 Visit Start Time 11:21 Visit Stop Time 12:15 Total Visit Minutes 54 Visit Number 12 Number of CREDIT RISK SPECIALIST Visits 0 PT-OP-B Current Condition Start: 09/02/21 17:38 Freq: Status: Active Protocol: Document 09/06/21 16:03 [facility] (Rec: 09/06/21 17:23 [facility] [id number]) Current Condition History of Current Condition Onset Date years w/worsening in the past 3 months Current Complaints R jaw pain & clicking History of Current Condition Pt has had jaw pain off/on for years but has seriously bad in the past few months. Pt had CVA on 05/11 and initially had L facial drop, but does not recall any extremity weakness in leg. She does not feel like she lost any strength in LUE but does not feel like brain in talking to hand and has dec coordination in LUE. Pt had stroke on 05/11 but had no motor affects only cognitive affects along w/speech and swallowing. She is seeing OT & GRIEF COUNSELLOR. Pt was diagnosed w/ scleraderma in 1990 and it is a known sideaffect to have TMD . Denies neck pain or dizziness. Pt does have fibromyalgia. Pt reports occ headaches but they are not too severe. She gets one a couple times a week, but it is always really light and not enough to even take tylenol. They did start after the CVA. They do not seem associated w/ her jaw issues. Everytime she yawns, it clicks. Pt reports sometimes jaw locks but it will pop right back after. Everytime she opens and closes the jaw clicks on R. SOmetimes when she is eating it gets stuck and she has to force it to move. She thinks dentist may have images of her jaw. He has talked about putting in a mouth piece and doing reconstructions but pt has not pursued this. She also works w/peridontist in [place] who specializes in Scleroderma and works with a specialist at [facility] that is part of the scleroderma foundation. Pt tends to grind or clench, but has not tried a timekeeper. Something came up, but she doesn't remember what that stopped her from pursuing that . Pt reports she does have sleep issues and does take ambian. Pt has difficulty falling asleep and staying asleep. Lately, she has been waking up every hour. She has to work out really hard to feel like she can fall asleep. She has not been able to exercise enough to get to this point recently d/t fatigue after stroke. Pt's jaw will hurt if she leans too much onto her R side of her jaw. Denies ringing or change in hearing. Pt avoids eating nuts on R side, and avoids hard vegetables d/t teeth. In July She had a pain in abdomen taht shot up into her chest then she passed out and hit her head requireing stitches. She passed out again going to get her . Prior Treatments and Tests no treatments Treatment Goals Patient/Caregiver Goals Dec pain, be able to chew and yawn w/o pain PT-OP-C Subjective Start: 09/02/21 17:38 Freq: Status: Active Protocol: Document 10/28/21 09:50 [facility] (Rec: 10/28/21 12:47 [facility] [id number]) OP-PT Subjective Patient Comments Patient Comments Pt reports she has had consistant QUIGLEY recenlty. They start when she wakes. PT-OP-F Manual Assessment Start: 09/02/21 17:38 Freq: Status: Active Protocol: Document 09/06/21 16:03 [facility] (Rec: 09/06/21 17:23 [facility] [id number]) Manual Assessments Other Manual Assessments Other Manual Assessments less excursion slightly w/ smile, dec L eyebrow raise and dec scrunch ability PT-OP-K Range of Motion Start: 09/02/21 17:38 Freq: Status: Active Protocol: Document 09/06/21 16:03 [facility] (Rec: 09/06/21 17:23 [facility] [id number]) Cervical Spine Range of Motion Cervical Spine Active Percentage Flexion 80 Extension 90 Rotation Left 60 Rotation Right 60 Lateral Flexion Left 90 Lateral Flexion Right 70 TMJ Range of Motion Jaw Openning Jaw Openning (mm) 30 Comments Comments heavy deviation to R w/opening w/L jaw having fwd movement w /opening & backwards movement w/clsing PT-OP-L Special Tests Start: 09/02/21 17:38 Freq: Status: Active Protocol: Document 09/06/21 16:03 [facility] (Rec: 09/06/21 17:23 [facility] [id number]) Special Tests Cervical Spine Special Tests Vertebral Artery Test Results n/t to test next session PT-OP-Q Treatments Start: 09/02/21 17:38 Freq: Status: Active Protocol: Document 10/28/21 09:50 [facility] (Rec: 10/28/21 12:47 [facility] [id number]) Manual Therapy Treatment Soft Tissue Mobilization B suboccipital, UT, LS Body Location B Mobilization Type Strumming,Sustained Pressure, Other Intensity/Depth Moderate Body Position Hooklying SCM Body Location R Mobilization Type Rolling,Sustained Pressure Intensity/Depth Moderate Body Position Hooklying jaw Body Location post jaw, masseter, temporalis Mobilization Type Rolling,Strumming,Sustained Pressure Intensity/Depth Moderate Body Position Hooklying Joint Mobilizations cervical Comments C1 & C2 transverse L FM C1 AP FM , C2 UAP R FM PT-OP-R Modalities Start: 09/02/21 17:38 Freq: Status: Active Protocol: Document 10/28/21 09:50 [facility] (Rec: 10/28/21 12:47 [facility] [id number]) Hot Pack/Cold Pack Treatment Hot Pack Location cervical & jaw Patient Position Hooklying Treatment Duration (minutes) 15 PT-OP-T Assessment and Plan Start: 09/02/21 17:38 Freq: Status: Active Protocol: Document 10/28/21 09:50 [facility] (Rec: 10/28/21 12:47 [facility] [id number]) Physical Therapy Assessment Goals opening Correction Goal (LTG) Pt will be able to open her mouth 40 mm w/o deviation or inc pain. 10/05-no change LTG Duration 12/07 activities Short Term Goal (STG) Pt will be able to open/close jaw w/o jaw pain 10/05-less popping noted STG Duration 10/30 Internet Ecommerce Specialist Goal (LTG) Pt will be able to eat her typical diet w/o inc jaw pain LTG Duration 12/07 Assessment Summary Assessment Improved cervical SB with better folding of upper cervical vertebrae with manual treatment. It is likely upper cervical dysfuntion is still playing a part in jaw discomfort and likely HAs Physical Therapy Plan Frequency and Duration Frequency of Treatment 1-2x/week Duration of Treatment 3 months Plan of Care Start Date 09/06/21 Plan of Care End Date 12/07/21 Next Visit Focus/Plan Next Note Type Treatment Note Next Visit Plan cont to work on jaw stability & mobiltiy for ability to deviate L.
--- NOTE | 2021-11-04 12:14 | PT.OTN ---
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 (11/04/21) Muscle weakness (generalized) (11/04/21) Abnormal posture (11/04/21) Dislocation of jaw, unspecified side, initial encounter (11/04/21) Physical Therapy Treatment Note PT-OP-A Visit Information Start: 09/02/21 17:38 Freq: Status: Active Protocol: Document 11/04/21 11:19 [facility] (Rec: 11/04/21 12:14 [facility] [id number]) Out-Patient Physical Therapy Visit Information Visit Information Visit Type Treatment Note Visit Note 08/20 Visit Start Time 11:20 Visit Stop Time 12:14 Total Visit Minutes 54 Visit Number 13 Number of PATIENT PARTNER Visits 0 PT-OP-B Current Condition Start: 09/02/21 17:38 Freq: Status: Active Protocol: Document 09/06/21 16:03 [facility] (Rec: 09/06/21 17:23 [facility] [id number]) Current Condition History of Current Condition Onset Date years w/worsening in the past 3 months Current Complaints R jaw pain & clicking History of Current Condition Pt has had jaw pain off/on for years but has seriously bad in the past few months. Pt had CVA on 05/11 and initially had L facial drop, but does not recall any extremity weakness in leg. She does not feel like she lost any strength in LUE but does not feel like brain in talking to hand and has dec coordination in LUE. Pt had stroke on 05/11 but had no motor affects only cognitive affects along w/speech and swallowing. She is seeing OT & AUTOMOTIVE SALES MANAGER. Pt was diagnosed w/ scleraderma in 1990 and it is a known sideaffect to have TMD . Denies neck pain or dizziness. Pt does have fibromyalgia. Pt reports occ headaches but they are not too severe. She gets one a couple times a week, but it is always really light and not enough to even take tylenol. They did start after the CVA. They do not seem associated w/ her jaw issues. Everytime she yawns, it clicks. Pt reports sometimes jaw locks but it will pop right back after. Everytime she opens and closes the jaw clicks on R. SOmetimes when she is eating it gets stuck and she has to force it to move. She thinks dentist may have images of her jaw. He has talked about putting in a mouth piece and doing reconstructions but pt has not pursued this. She also works w/peridontist in [place] who specializes in Scleroderma and works with a specialist at [facility] that is part of the scleroderma foundation. Pt tends to grind or clench, but has not tried a chief guard. Something came up, but she doesn't remember what that stopped her from pursuing that . Pt reports she does have sleep issues and does take ambian. Pt has difficulty falling asleep and staying asleep. Lately, she has been waking up every hour. She has to work out really hard to feel like she can fall asleep. She has not been able to exercise enough to get to this point recently d/t fatigue after stroke. Pt's jaw will hurt if she leans too much onto her R side of her jaw. Denies ringing or change in hearing. Pt avoids eating nuts on R side, and avoids hard vegetables d/t teeth. In July She had a pain in abdomen taht shot up into her chest then she passed out and hit her head requireing stitches. She passed out again going to get her . Prior Treatments and Tests no treatments Treatment Goals Patient/Caregiver Goals Dec pain, be able to chew and yawn w/o pain PT-OP-C Subjective Start: 09/02/21 17:38 Freq: Status: Active Protocol: Document 11/04/21 11:19 [facility] (Rec: 11/04/21 12:14 [facility] [id number]) OP-PT Subjective Patient Comments Patient Comments pt reports no QUIGLEY since after last treatment.S he did not do exercises as PT asked PT-OP-F Manual Assessment Start: 09/02/21 17:38 Freq: Status: Active Protocol: Document 09/06/21 16:03 [facility] (Rec: 09/06/21 17:23 [facility] [id number]) Manual Assessments Other Manual Assessments Other Manual Assessments less excursion slightly w/ smile, dec L eyebrow raise and dec scrunch ability PT-OP-K Range of Motion Start: 09/02/21 17:38 Freq: Status: Active Protocol: Document 09/06/21 16:03 [facility] (Rec: 09/06/21 17:23 [facility] [id number]) Cervical Spine Range of Motion Cervical Spine Active Percentage Flexion 80 Extension 90 Rotation Left 60 Rotation Right 60 Lateral Flexion Left 90 Lateral Flexion Right 70 TMJ Range of Motion Jaw Openning Jaw Openning (mm) 30 Comments Comments heavy deviation to R w/opening w/L jaw having fwd movement w /opening & backwards movement w/clsing PT-OP-L Special Tests Start: 09/02/21 17:38 Freq: Status: Active Protocol: Document 09/06/21 16:03 [facility] (Rec: 09/06/21 17:23 [facility] [id number]) Special Tests Cervical Spine Special Tests Vertebral Artery Test Results n/t to test next session PT-OP-Q Treatments Start: 09/02/21 17:38 Freq: Status: Active Protocol: Document 11/04/21 11:19 [facility] (Rec: 11/04/21 12:14 [facility] [id number]) Therapeutic Exercises Supine Exercises rhythmic initiation Supine Exercise Name jaw opening w/PT assist for tracking Sitting Exercises rocabado Sitting Exercise Name breathing, jaw openings, scap squeeze Reps/Minutes 6 ea Manual Therapy Treatment Soft Tissue Mobilization intraoral Body Location R med pterygoid Mobilization Type Cross-Friction,Sustained Pressure Body Position Hooklying Comments manual sustained pressure, pincer kneading jaw Body Location post jaw, masseter, temporalis Mobilization Type Rolling,Strumming,Sustained Pressure Intensity/Depth Moderate Body Position Hooklying Joint Mobilizations jaw Joint R Direction distraction w/slide glide L FM Grade II Self-Care/Home Management Treatment Education Other Education edu to do only rocabdo exercises reviewed today until Monday can start resisted opening if no pain. edu to do only 3x/day now. Discussed how improvement could be from dec exercises,d ec self massage or from treatment session and need to find out PT-OP-R Modalities Start: 09/02/21 17:38 Freq: Status: Active Protocol: Document 11/04/21 11:19 [facility] (Rec: 11/04/21 12:14 [facility] [id number]) Hot Pack/Cold Pack Treatment Hot Pack Location cervical & jaw Patient Position Hooklying Treatment Duration (minutes) 15 PT-OP-T Assessment and Plan Start: 09/02/21 17:38 Freq: Status: Active Protocol: Document 11/04/21 11:19 [facility] (Rec: 11/04/21 12:14 [facility] [id number]) Physical Therapy Assessment Goals opening Retirement Goal (LTG) Pt will be able to open her mouth 40 mm w/o deviation or inc pain. 10/05-no change LTG Duration 12/07 activities Short Term Goal (STG) Pt will be able to open/close jaw w/o jaw pain 10/05-less popping noted STG Duration 10/30 Spaghetti Press Helper Goal (LTG) Pt will be able to eat her typical diet w/o inc jaw pain LTG Duration 12/07 Assessment Summary Assessment Pt had improved jaw opening w/ PT helping control motion in supine. She had no pain w/ exercises reviewed today so startingw /these to re intro exercises. Significant R masseter tightness today. Physical Therapy Plan Frequency and Duration Frequency of Treatment 1-2x/week Duration of Treatment 3 months Plan of Care Start Date 09/06/21 Plan of Care End Date 12/07/21 Next Visit Focus/Plan Next Note Type Treatment Note Next Visit Plan cont to work on jaw stability & mobiltiy for ability to deviate L.
--- NOTE | 2021-11-11 14:28 | PT.OTN ---
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 (11/11/21) Muscle weakness (generalized) (11/11/21) Abnormal posture (11/11/21) Dislocation of jaw, unspecified side, initial encounter (11/11/21) Physical Therapy Treatment Note PT-OP-A Visit Information Start: 09/02/21 17:38 Freq: Status: Active Protocol: Document 11/11/21 14:10 [facility] (Rec: 11/11/21 14:28 [facility] [id number]) Out-Patient Physical Therapy Visit Information Visit Information Visit Type Treatment Note Visit Note 09/19 Visit Start Time 11:21 Visit Stop Time 12:15 Total Visit Minutes 54 Visit Number 14 Number of RESEARCH BIOLOGIST Visits 0 PT-OP-B Current Condition Start: 09/02/21 17:38 Freq: Status: Active Protocol: Document 09/06/21 16:03 [facility] (Rec: 09/06/21 17:23 [facility] [id number]) Current Condition History of Current Condition Onset Date years w/worsening in the past 3 months Current Complaints R jaw pain & clicking History of Current Condition Pt has had jaw pain off/on for years but has seriously bad in the past few months. Pt had CVA on 05/11 and initially had L facial drop, but does not recall any extremity weakness in leg. She does not feel like she lost any strength in LUE but does not feel like brain in talking to hand and has dec coordination in LUE. Pt had stroke on 05/11 but had no motor affects only cognitive affects along w/speech and swallowing. She is seeing OT & MINIATURE SET BUILDER. Pt was diagnosed w/ scleraderma in 1990 and it is a known sideaffect to have TMD . Denies neck pain or dizziness. Pt does have fibromyalgia. Pt reports occ headaches but they are not too severe. She gets one a couple times a week, but it is always really light and not enough to even take tylenol. They did start after the CVA. They do not seem associated w/ her jaw issues. Everytime she yawns, it clicks. Pt reports sometimes jaw locks but it will pop right back after. Everytime she opens and closes the jaw clicks on R. SOmetimes when she is eating it gets stuck and she has to force it to move. She thinks dentist may have images of her jaw. He has talked about putting in a mouth piece and doing reconstructions but pt has not pursued this. She also works w/peridontist in [place] who specializes in Scleroderma and works with a specialist at [facility] that is part of the scleroderma foundation. Pt tends to grind or clench, but has not tried a grounds keeper. Something came up, but she doesn't remember what that stopped her from pursuing that . Pt reports she does have sleep issues and does take ambian. Pt has difficulty falling asleep and staying asleep. Lately, she has been waking up every hour. She has to work out really hard to feel like she can fall asleep. She has not been able to exercise enough to get to this point recently d/t fatigue after stroke. Pt's jaw will hurt if she leans too much onto her R side of her jaw. Denies ringing or change in hearing. Pt avoids eating nuts on R side, and avoids hard vegetables d/t teeth. In July She had a pain in abdomen taht shot up into her chest then she passed out and hit her head requireing stitches. She passed out again going to get her . Prior Treatments and Tests no treatments Treatment Goals Patient/Caregiver Goals Dec pain, be able to chew and yawn w/o pain PT-OP-C Subjective Start: 09/02/21 17:38 Freq: Status: Active Protocol: Document 11/11/21 14:10 [facility] (Rec: 11/11/21 14:28 [facility] [id number]) OP-PT Subjective Patient Comments Patient Comments Pt reports only doing breathing & scap squeezes. Patient Reported Progress Improving PT-OP-F Manual Assessment Start: 09/02/21 17:38 Freq: Status: Active Protocol: Document 09/06/21 16:03 [facility] (Rec: 09/06/21 17:23 [facility] [id number]) Manual Assessments Other Manual Assessments Other Manual Assessments less excursion slightly w/ smile, dec L eyebrow raise and dec scrunch ability PT-OP-K Range of Motion Start: 09/02/21 17:38 Freq: Status: Active Protocol: Document 09/06/21 16:03 [facility] (Rec: 09/06/21 17:23 [facility] [id number]) Cervical Spine Range of Motion Cervical Spine Active Percentage Flexion 80 Extension 90 Rotation Left 60 Rotation Right 60 Lateral Flexion Left 90 Lateral Flexion Right 70 TMJ Range of Motion Jaw Openning Jaw Openning (mm) 30 Comments Comments heavy deviation to R w/opening w/L jaw having fwd movement w /opening & backwards movement w/clsing PT-OP-L Special Tests Start: 09/02/21 17:38 Freq: Status: Active Protocol: Document 09/06/21 16:03 [facility] (Rec: 09/06/21 17:23 [facility] [id number]) Special Tests Cervical Spine Special Tests Vertebral Artery Test Results n/t to test next session PT-OP-Q Treatments Start: 09/02/21 17:38 Freq: Status: Active Protocol: Document 11/11/21 14:10 [facility] (Rec: 11/11/21 14:28 [facility] [id number]) Manual Therapy Treatment Soft Tissue Mobilization MFR Body Location R around mouth & lat face Mobilization Type Myofascial Release Intensity/Depth Moderate Body Position Hooklying intraoral Body Location R med pterygoid Mobilization Type Cross-Friction,Sustained Pressure Body Position Hooklying Comments manual sustained pressure, pincer kneading jaw Body Location post jaw, masseter, temporalis Mobilization Type Rolling,Strumming,Sustained Pressure Intensity/Depth Moderate Body Position Hooklying Joint Mobilizations jaw Joint R Direction distraction w/slide glide L FM Grade II Self-Care/Home Management Treatment Education Other Education edu to do only scap squeeze, jaw open w/deviation L, jaw open and breathing. Rview of these exercises and edu to add resisted opening if no inc in pain on Monday PT-OP-R Modalities Start: 09/02/21 17:38 Freq: Status: Active Protocol: Document 11/11/21 14:10 [facility] (Rec: 11/11/21 14:28 [facility] [id number]) Hot Pack/Cold Pack Treatment Hot Pack Location cervical & jaw Patient Position Hooklying Treatment Duration (minutes) 15 PT-OP-T Assessment and Plan Start: 09/02/21 17:38 Freq: Status: Active Protocol: Document 11/11/21 14:10 [facility] (Rec: 11/11/21 14:28 [facility] [id number]) Physical Therapy Assessment Goals opening Detention Goal (LTG) Pt will be able to open her mouth 40 mm w/o deviation or inc pain. 10/05-no change LTG Duration 12/07 activities Short Term Goal (STG) Pt will be able to open/close jaw w/o jaw pain 10/05-less popping noted STG Duration 10/30 Labels Molder Goal (LTG) Pt will be able to eat her typical diet w/o inc jaw pain LTG Duration 12/07 Assessment Summary Assessment Pt is slowly improving w/jaw opening ability w/manual treatment with less deviation but does still deviatie R more . Understands how to cont progression of exercises. Physical Therapy Plan Frequency and Duration Frequency of Treatment 1-2x/week Duration of Treatment 3 months Plan of Care Start Date 09/06/21 Plan of Care End Date 12/07/21 Next Visit Focus/Plan Next Note Type Treatment Note Next Visit Plan cont to work on jaw stability & mobiltiy for ability to deviate L.
--- NOTE | 2021-11-16 18:10 | PT.OTN ---
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 (11/16/21) Muscle weakness (generalized) (11/16/21) Abnormal posture (11/16/21) Dislocation of jaw, unspecified side, initial encounter (11/16/21) Physical Therapy Treatment Note PT-OP-A Visit Information Start: 09/02/21 17:38 Freq: Status: Active Protocol: Document 11/16/21 18:06 [facility] (Rec: 11/16/21 18:10 [facility] [id number]) Out-Patient Physical Therapy Visit Information Visit Information Visit Type Treatment Note Visit Note 10/20 Visit Start Time 16:51 Visit Stop Time 17:30 Total Visit Minutes 39 Visit Number 15 Number of NAVAL ARCHITECT Visits 0 PT-OP-B Current Condition Start: 09/02/21 17:38 Freq: Status: Active Protocol: Document 09/06/21 16:03 [facility] (Rec: 09/06/21 17:23 [facility] [id number]) Current Condition History of Current Condition Onset Date years w/worsening in the past 3 months Current Complaints R jaw pain & clicking History of Current Condition Pt has had jaw pain off/on for years but has seriously bad in the past few months. Pt had CVA on 05/11 and initially had L facial drop, but does not recall any extremity weakness in leg. She does not feel like she lost any strength in LUE but does not feel like brain in talking to hand and has dec coordination in LUE. Pt had stroke on 05/11 but had no motor affects only cognitive affects along w/speech and swallowing. She is seeing OT & PRODUCT DEVELOPMENT ECOLOGIST. Pt was diagnosed w/ scleraderma in 1990 and it is a known sideaffect to have TMD . Denies neck pain or dizziness. Pt does have fibromyalgia. Pt reports occ headaches but they are not too severe. She gets one a couple times a week, but it is always really light and not enough to even take tylenol. They did start after the CVA. They do not seem associated w/ her jaw issues. Everytime she yawns, it clicks. Pt reports sometimes jaw locks but it will pop right back after. Everytime she opens and closes the jaw clicks on R. SOmetimes when she is eating it gets stuck and she has to force it to move. She thinks dentist may have images of her jaw. He has talked about putting in a mouth piece and doing reconstructions but pt has not pursued this. She also works w/peridontist in [place] who specializes in Scleroderma and works with a specialist at [facility] that is part of the scleroderma foundation. Pt tends to grind or clench, but has not tried a ocean lifeguard. Something came up, but she doesn't remember what that stopped her from pursuing that . Pt reports she does have sleep issues and does take ambian. Pt has difficulty falling asleep and staying asleep. Lately, she has been waking up every hour. She has to work out really hard to feel like she can fall asleep. She has not been able to exercise enough to get to this point recently d/t fatigue after stroke. Pt's jaw will hurt if she leans too much onto her R side of her jaw. Denies ringing or change in hearing. Pt avoids eating nuts on R side, and avoids hard vegetables d/t teeth. In July She had a pain in abdomen taht shot up into her chest then she passed out and hit her head requireing stitches. She passed out again going to get her . Prior Treatments and Tests no treatments Treatment Goals Patient/Caregiver Goals Dec pain, be able to chew and yawn w/o pain PT-OP-C Subjective Start: 09/02/21 17:38 Freq: Status: Active Protocol: Document 11/16/21 18:06 [facility] (Rec: 11/16/21 18:10 [facility] [id number]) OP-PT Subjective Patient Comments Patient Comments pt reports she is not really limited w/eating besides jaw opening which has been a problem w/scleraderma for years. Still pops w/openingw / yawn. Has been biting R side of tongue occ w/eating Patient Reported Progress Improving PT-OP-F Manual Assessment Start: 09/02/21 17:38 Freq: Status: Active Protocol: Document 09/06/21 16:03 [facility] (Rec: 09/06/21 17:23 [facility] [id number]) Manual Assessments Other Manual Assessments Other Manual Assessments less excursion slightly w/ smile, dec L eyebrow raise and dec scrunch ability PT-OP-K Range of Motion Start: 09/02/21 17:38 Freq: Status: Active Protocol: Document 09/06/21 16:03 [facility] (Rec: 09/06/21 17:23 [facility] [id number]) Cervical Spine Range of Motion Cervical Spine Active Percentage Flexion 80 Extension 90 Rotation Left 60 Rotation Right 60 Lateral Flexion Left 90 Lateral Flexion Right 70 TMJ Range of Motion Jaw Openning Jaw Openning (mm) 30 Comments Comments heavy deviation to R w/opening w/L jaw having fwd movement w /opening & backwards movement w/clsing PT-OP-L Special Tests Start: 09/02/21 17:38 Freq: Status: Active Protocol: Document 09/06/21 16:03 [facility] (Rec: 09/06/21 17:23 [facility] [id number]) Special Tests Cervical Spine Special Tests Vertebral Artery Test Results n/t to test next session PT-OP-Q Treatments Start: 09/02/21 17:38 Freq: Status: Active Protocol: Document 11/16/21 18:06 [facility] (Rec: 11/16/21 18:10 [facility] [id number]) Therapeutic Exercises Supine Exercises opening Supine Exercise Name workig on toungue not deviating R Reps/Minutes 10 Sitting Exercises cervical retraction Sitting Exercise Name working good axial elongation Reps/Minutes 10 rocabado Sitting Exercise Name breathing, jaw openings, & RESISTED JAW OPEN scap squeeze Manual Therapy Treatment Soft Tissue Mobilization MFR Body Location R around mouth & lat face Mobilization Type Myofascial Release Intensity/Depth Moderate Body Position Hooklying intraoral Body Location R med pterygoid & masseter Mobilization Type Cross-Friction,Sustained Pressure Body Position Hooklying Comments manual sustained pressure, pincer kneading jaw Body Location post jaw, masseter, temporalis Mobilization Type Rolling,Strumming,Sustained Pressure Intensity/Depth Moderate Body Position Hooklying Joint Mobilizations jaw Joint R Direction distraction w/slide glide L FM Grade II PT-OP-R Modalities Start: 09/02/21 17:38 Freq: Status: Active Protocol: Document 11/11/21 14:10 [facility] (Rec: 11/11/21 14:28 [facility] [id number]) Hot Pack/Cold Pack Treatment Hot Pack Location cervical & jaw Patient Position Hooklying Treatment Duration (minutes) 15 PT-OP-T Assessment and Plan Start: 09/02/21 17:38 Freq: Status: Active Protocol: Document 11/16/21 18:06 [facility] (Rec: 11/16/21 18:10 [facility] [id number]) Physical Therapy Assessment Goals opening Spanish Tutor Goal (LTG) Pt will be able to open her mouth 40 mm w/o deviation or inc pain. 10/05-no change LTG Duration 12/07 activities Short Term Goal (STG) Pt will be able to open/close jaw w/o jaw pain 10/05-less popping noted STG Duration 10/30 Nursing Home Goal (LTG) Pt will be able to eat her typical diet w/o inc jaw pain LTG Duration 12/07 Assessment Summary Assessment Pt does deviate tounge r w/ openinga nd closing which is liekly why she is biting it. She is reporting subjectively less paina nd less limation w/ PT. She is progressing well w/ PT Physical Therapy Plan Frequency and Duration Frequency of Treatment 1-2x/week Duration of Treatment 3 months Plan of Care Start Date 09/06/21 Plan of Care End Date 12/07/21 Next Visit Focus/Plan Next Note Type Treatment Note Next Visit Plan cont to work on jaw stability & mobiltiy for ability to deviate L.
--- NOTE | 2021-11-23 12:26 | PT.OTN ---
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 (11/23/21) Muscle weakness (generalized) (11/23/21) Abnormal posture (11/23/21) Dislocation of jaw, unspecified side, initial encounter (11/23/21) Physical Therapy Treatment Note PT-OP-A Visit Information Start: 09/02/21 17:38 Freq: Status: Active Protocol: Document 11/23/21 12:22 [facility] (Rec: 11/23/21 12:26 [facility] [id number]) Out-Patient Physical Therapy Visit Information Visit Information Visit Type Progress Note Visit Note 03/22 Visit Start Time 11:22 Visit Stop Time 12:17 Total Visit Minutes 55 Visit Number 16 Number of RECORD SYSTEMS ANALYST Visits 0 PT-OP-B Current Condition Start: 09/02/21 17:38 Freq: Status: Active Protocol: Document 09/06/21 16:03 [facility] (Rec: 09/06/21 17:23 [facility] [id number]) Current Condition History of Current Condition Onset Date years w/worsening in the past 3 months Current Complaints R jaw pain & clicking History of Current Condition Pt has had jaw pain off/on for years but has seriously bad in the past few months. Pt had CVA on 05/11 and initially had L facial drop, but does not recall any extremity weakness in leg. She does not feel like she lost any strength in LUE but does not feel like brain in talking to hand and has dec coordination in LUE. Pt had stroke on 05/11 but had no motor affects only cognitive affects along w/speech and swallowing. She is seeing OT & BUSINESS PROGRAMMER. Pt was diagnosed w/ scleraderma in 1990 and it is a known sideaffect to have TMD . Denies neck pain or dizziness. Pt does have fibromyalgia. Pt reports occ headaches but they are not too severe. She gets one a couple times a week, but it is always really light and not enough to even take tylenol. They did start after the CVA. They do not seem associated w/ her jaw issues. Everytime she yawns, it clicks. Pt reports sometimes jaw locks but it will pop right back after. Everytime she opens and closes the jaw clicks on R. SOmetimes when she is eating it gets stuck and she has to force it to move. She thinks dentist may have images of her jaw. He has talked about putting in a mouth piece and doing reconstructions but pt has not pursued this. She also works w/peridontist in [place] who specializes in Scleroderma and works with a specialist at [facility] that is part of the scleroderma foundation. Pt tends to grind or clench, but has not tried a captain of guards. Something came up, but she doesn't remember what that stopped her from pursuing that . Pt reports she does have sleep issues and does take ambian. Pt has difficulty falling asleep and staying asleep. Lately, she has been waking up every hour. She has to work out really hard to feel like she can fall asleep. She has not been able to exercise enough to get to this point recently d/t fatigue after stroke. Pt's jaw will hurt if she leans too much onto her R side of her jaw. Denies ringing or change in hearing. Pt avoids eating nuts on R side, and avoids hard vegetables d/t teeth. In July She had a pain in abdomen taht shot up into her chest then she passed out and hit her head requireing stitches. She passed out again going to get her . Prior Treatments and Tests no treatments Treatment Goals Patient/Caregiver Goals Dec pain, be able to chew and yawn w/o pain PT-OP-C Subjective Start: 09/02/21 17:38 Freq: Status: Active Protocol: Document 11/23/21 12:22 [facility] (Rec: 11/23/21 12:26 [facility] [id number]) OP-PT Subjective Patient Comments Patient Comments Pt got deprogrammer yesterday and had to open/close moutha lot ofr appt. Notes she wore it last night and hasd inc poppingand soreness w/eating this AM PT-OP-F Manual Assessment Start: 09/02/21 17:38 Freq: Status: Active Protocol: Document 09/06/21 16:03 [facility] (Rec: 09/06/21 17:23 [facility] [id number]) Manual Assessments Other Manual Assessments Other Manual Assessments less excursion slightly w/ smile, dec L eyebrow raise and dec scrunch ability PT-OP-K Range of Motion Start: 09/02/21 17:38 Freq: Status: Active Protocol: Document 09/06/21 16:03 [facility] (Rec: 09/06/21 17:23 [facility] [id number]) Cervical Spine Range of Motion Cervical Spine Active Percentage Flexion 80 Extension 90 Rotation Left 60 Rotation Right 60 Lateral Flexion Left 90 Lateral Flexion Right 70 TMJ Range of Motion Jaw Openning Jaw Openning (mm) 30 Comments Comments heavy deviation to R w/opening w/L jaw having fwd movement w /opening & backwards movement w/clsing PT-OP-L Special Tests Start: 09/02/21 17:38 Freq: Status: Active Protocol: Document 09/06/21 16:03 [facility] (Rec: 09/06/21 17:23 [facility] [id number]) Special Tests Cervical Spine Special Tests Vertebral Artery Test Results n/t to test next session PT-OP-Q Treatments Start: 09/02/21 17:38 Freq: Status: Active Protocol: Document 11/23/21 12:22 [facility] (Rec: 11/23/21 12:26 [facility] [id number]) Manual Therapy Treatment Soft Tissue Mobilization SCM Body Location R Mobilization Type Rolling,Sustained Pressure Intensity/Depth Moderate Body Position Hooklying intraoral Body Location R med pterygoid & masseter Mobilization Type Cross-Friction,Sustained Pressure Body Position Hooklying jaw Body Location post jaw, masseter, temporalis Mobilization Type Rolling,Strumming,Sustained Pressure Intensity/Depth Moderate Body Position Hooklying Joint Mobilizations jaw Joint R Direction distraction w/slide glide L FM Grade II PT-OP-R Modalities Start: 09/02/21 17:38 Freq: Status: Active Protocol: Document 11/23/21 12:22 [facility] (Rec: 11/23/21 12:26 [facility] [id number]) Hot Pack/Cold Pack Treatment Hot Pack Location cervical & jaw Patient Position Hooklying Treatment Duration (minutes) 15 PT-OP-T Assessment and Plan Start: 09/02/21 17:38 Freq: Status: Active Protocol: Document 11/23/21 12:22 [facility] (Rec: 11/23/21 12:26 [facility] [id number]) Physical Therapy Assessment Goals opening Fpc Goal (LTG) Pt will be able to open her mouth 40 mm w/o deviation or inc pain. 10/05-no change 11/23-occ deviation improved but ROM still about 30 mm` LTG Duration 02/22 activities Short Term Goal (STG) Pt will be able to open/close jaw w/o jaw pain 10/05-less popping noted 11/23-pt notes less popping overall recently and feels like it is significantly dec since start STG Duration 01/11 Fpc Goal (LTG) Pt will be able to eat her typical diet w/o inc jaw pain 11/23-pt was doing well until reprogrammer given yesterday LTG Duration 02/10 Assessment Summary Assessment Pt has been making slow but steady progress w/PT with overal ddec popping and dec pain w/worsening this AM likeyd d/t long dental appt yesterday w/a lot of mouth openinga nd closing and getting used to her new reprogrammer in her mouth. Her scleroderma complicates her pain and she would benefit from cont PT to dec jaw pain further. Physical Therapy Plan Frequency and Duration Frequency of Treatment 1-2x/week Duration of Treatment 3 months Plan of Care Start Date 11/23/21 Plan of Care End Date 02/22/22 Therapeutic Interventions Therapeutic Interventions Home Exercise Program,Joint Mobilizations,Manual Therapy, Neuromuscular Re-education, Patient/Caregiver Education, Self-Care/Home Management,Soft Tissue Mobilization,Taping, Therapeutic Activities, Therapeutic Exercises Modalities Cold Pack/Ice Massage,Electric Stimulation,Hot Packs Next Visit Focus/Plan Next Note Type Treatment Note Next Visit Plan cont to work on jaw stability & mobiltiy for ability to deviate L.
--- NOTE | 2021-11-23 12:27 | PT.OPPOC ---
Physical, Occupational & Speech Therapy At 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 (11/23/21) Muscle weakness (generalized) (11/23/21) Abnormal posture (11/23/21) Dislocation of jaw, unspecified side, initial encounter (11/23/21) Visit Care Team Role Provider Type Mika West MD Family Provider Physician Specialty: Oncology Address: [address] [place] [address], [id number] Email: [email or web address] Wilber Adams MD Attending Provider Physician Primary Care Provider Referring Provider Specialty: Internal Medicine Address: [address] [place] [address], [id number] Email: [email or web address] Plan Of Care PT-OP-T Assessment and Plan Start: 09/02/21 17:38 Freq: Status: Active Protocol: Document 11/23/21 12:22 [facility] (Rec: 11/23/21 12:26 [facility] [id number]) Physical Therapy Assessment Goals opening Retirement Goal (LTG) Pt will be able to open her mouth 40 mm w/o deviation or inc pain. 10/05-no change 11/23-occ deviation improved but ROM still about 30 mm` LTG Duration 02/22 activities Short Term Goal (STG) Pt will be able to open/close jaw w/o jaw pain 10/05-less popping noted 11/23-pt notes less popping overall recently and feels like it is significantly dec since start STG Duration 01/11 Retirement Goal (LTG) Pt will be able to eat her typical diet w/o inc jaw pain 11/23-pt was doing well until reprogrammer given yesterday LTG Duration 02/10 Assessment Summary Assessment Pt has been making slow but steady progress w/PT with overal ddec popping and dec pain w/worsening this AM likeyd d/t long dental appt yesterday w/a lot of mouth openinga nd closing and getting used to her new reprogrammer in her mouth. Her scleroderma complicates her pain and she would benefit from cont PT to dec jaw pain further. Physical Therapy Plan Frequency and Duration Frequency of Treatment 1-2x/week Duration of Treatment 3 months Plan of Care Start Date 11/23/21 Plan of Care End Date 02/22/22 Therapeutic Interventions Therapeutic Interventions Home Exercise Program,Joint Mobilizations,Manual Therapy, Neuromuscular Re-education, Patient/Caregiver Education, Self-Care/Home Management,Soft Tissue Mobilization,Taping, Therapeutic Activities, Therapeutic Exercises Modalities Cold Pack/Ice Massage,Electric Stimulation,Hot Packs Next Visit Focus/Plan Next Note Type Treatment Note Next Visit Plan cont to work on jaw stability & mobiltiy for ability to deviate L. Plan of Care Dates Plan of Care Start Date 11/23/21 Plan of Care End Date 02/22/22 Electronically Signed by: Stephanie Louis, PT 11/23/21 6514 If you are in agreement with this Plan of Care, please return a signed and dated copy. I have reviewed this Plan of Care and certify that the skilled therapy services above are required to meet the patient?s needs. Physician Signature Date Printed Name and Credentials Clinical Instructor Signature Printed Name and Credentials
--- NOTE | 2021-11-30 16:06 | PT.OTN ---
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 (11/30/21) Muscle weakness (generalized) (11/30/21) Abnormal posture (11/30/21) Dislocation of jaw, unspecified side, initial encounter (11/30/21) Physical Therapy Treatment Note PT-OP-A Visit Information Start: 09/02/21 17:38 Freq: Status: Active Protocol: Document 11/30/21 15:19 [facility] (Rec: 11/30/21 16:06 [facility] [id number]) Out-Patient Physical Therapy Visit Information Visit Information Visit Type Treatment Note Visit Note 04/22 Visit Start Time 15:20 Visit Stop Time 16:15 Total Visit Minutes 55 Visit Number 17 Number of ADOBE FLEX DEVELOPER Visits 0 PT-OP-B Current Condition Start: 09/02/21 17:38 Freq: Status: Active Protocol: Document 09/06/21 16:03 [facility] (Rec: 09/06/21 17:23 [facility] [id number]) Current Condition History of Current Condition Onset Date years w/worsening in the past 3 months Current Complaints R jaw pain & clicking History of Current Condition Pt has had jaw pain off/on for years but has seriously bad in the past few months. Pt had CVA on 05/11 and initially had L facial drop, but does not recall any extremity weakness in leg. She does not feel like she lost any strength in LUE but does not feel like brain in talking to hand and has dec coordination in LUE. Pt had stroke on 05/11 but had no motor affects only cognitive affects along w/speech and swallowing. 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 Pt was diagnosed w/ scleraderma in 1990 and it is a known sideaffect to have TMD . Denies neck pain or dizziness. Pt does have fibromyalgia. Pt reports occ headaches but they are not too severe. She gets one a couple times a week, but it is always really light and not enough to even take tylenol. They did start after the CVA. They do not seem associated w/ her jaw issues. Everytime she yawns, it clicks. Pt reports sometimes jaw locks but it will pop right back after. Everytime she opens and closes the jaw clicks on R. SOmetimes when she is eating it gets stuck and she has to force it to move. She thinks dentist may have images of her jaw. He has talked about putting in a mouth piece and doing reconstructions but pt has not pursued this. She also works w/peridontist in [place] who specializes in Scleroderma and works with a specialist at [facility] that is part of the scleroderma foundation. Pt tends to grind or clench, but has not tried a ice guard inspector. Something came up, but she doesn't remember what that stopped her from pursuing that . Pt reports she does have sleep issues and does take ambian. Pt has difficulty falling asleep and staying asleep. Lately, she has been waking up every hour. She has to work out really hard to feel like she can fall asleep. She has not been able to exercise enough to get to this point recently d/t fatigue after stroke. Pt's jaw will hurt if she leans too much onto her R side of her jaw. Denies ringing or change in hearing. Pt avoids eating nuts on R side, and avoids hard vegetables d/t teeth. In July She had a pain in abdomen taht shot up into her chest then she passed out and hit her head requireing stitches. She passed out again going to get her . Prior Treatments and Tests no treatments Treatment Goals Patient/Caregiver Goals Dec pain, be able to chew and yawn w/o pain PT-OP-C Subjective Start: 09/02/21 17:38 Freq: Status: Active Protocol: Document 11/30/21 15:19 [facility] (Rec: 11/30/21 16:06 [facility] [id number]) OP-PT Subjective Patient Comments Patient Comments Pt reports doing better with deprogrammer. First couple bites of breakfast, it snaps and pops then she is okay. Not sore throughout the day PT-OP-F Manual Assessment Start: 09/02/21 17:38 Freq: Status: Active Protocol: Document 09/06/21 16:03 [facility] (Rec: 09/06/21 17:23 [facility] [id number]) Manual Assessments Other Manual Assessments Other Manual Assessments less excursion slightly w/ smile, dec L eyebrow raise and dec scrunch ability PT-OP-K Range of Motion Start: 09/02/21 17:38 Freq: Status: Active Protocol: Document 09/06/21 16:03 [facility] (Rec: 09/06/21 17:23 [facility] [id number]) Cervical Spine Range of Motion Cervical Spine Active Percentage Flexion 80 Extension 90 Rotation Left 60 Rotation Right 60 Lateral Flexion Left 90 Lateral Flexion Right 70 TMJ Range of Motion Jaw Openning Jaw Openning (mm) 30 Comments Comments heavy deviation to R w/opening w/L jaw having fwd movement w /opening & backwards movement w/clsing PT-OP-L Special Tests Start: 09/02/21 17:38 Freq: Status: Active Protocol: Document 09/06/21 16:03 [facility] (Rec: 09/06/21 17:23 [facility] [id number]) Special Tests Cervical Spine Special Tests Vertebral Artery Test Results n/t to test next session PT-OP-Q Treatments Start: 09/02/21 17:38 Freq: Status: Active Protocol: Document 11/30/21 15:19 [facility] (Rec: 11/30/21 16:06 [facility] [id number]) Therapeutic Exercises Supine Exercises rhythmic initiation Supine Exercise Name jaw opening w/pressure froma ll directions Sitting Exercises cervical retraction Sitting Exercise Name working good axial elongation Reps/Minutes 10 Manual Therapy Treatment Soft Tissue Mobilization MFR Body Location R around mouth & lat face Mobilization Type Myofascial Release Intensity/Depth Moderate Body Position Hooklying intraoral Body Location R med pterygoid & masseter Mobilization Type Cross-Friction,Sustained Pressure Body Position Hooklying jaw Body Location post jaw, masseter, temporalis Mobilization Type Rolling,Strumming,Sustained Pressure Intensity/Depth Moderate Body Position Hooklying Joint Mobilizations jaw Joint R Direction distraction w/slide glide L FM Grade II PT-OP-R Modalities Start: 09/02/21 17:38 Freq: Status: Active Protocol: Document 11/30/21 15:19 [facility] (Rec: 11/30/21 16:06 [facility] [id number]) Hot Pack/Cold Pack Treatment Hot Pack Location cervical & jaw Patient Position Hooklying Treatment Duration (minutes) 15 PT-OP-T Assessment and Plan Start: 09/02/21 17:38 Freq: Status: Active Protocol: Document 11/30/21 15:19 [facility] (Rec: 11/30/21 16:06 [facility] [id number]) Physical Therapy Assessment Goals opening Burr Picker Goal (LTG) Pt will be able to open her mouth 40 mm w/o deviation or inc pain. 10/05-no change 11/23-occ deviation improved but ROM still about 30 mm` LTG Duration 02/22 activities Short Term Goal (STG) Pt will be able to open/close jaw w/o jaw pain 10/05-less popping noted 11/23-pt notes less popping overall recently and feels like it is significantly dec since start STG Duration 01/11 Burr Picker Goal (LTG) Pt will be able to eat her typical diet w/o inc jaw pain 11/23-pt was doing well until reprogrammer given yesterday LTG Duration 02/10 Assessment Summary Assessment Pt is overall doing betterw w/ pain but still feels sometightness througout the day in jaw. She is deviating less and stabilizing better Physical Therapy Plan Frequency and Duration Frequency of Treatment 1-2x/week Duration of Treatment 3 months Plan of Care Start Date 11/23/21 Plan of Care End Date 02/22/22 Next Visit Focus/Plan Next Note Type Treatment Note Next Visit Plan cont to work on jaw stability & mobiltiy for ability to deviate L & keep jaw more neutral
--- NOTE | 2021-12-14 13:50 | PT.OTN ---
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 (Rec: 12/14/21 13:50 [facility] [id number]) Out-Patient Physical Therapy Visit Information Visit Information Visit Type Treatment Note Visit Note 05/20 Visit Start Time 11:21 Visit Stop Time 12:15 Total Visit Minutes 54 Visit Number 18 Number of VALVE SEATER OPERATOR Visits 0 PT-OP-B Current Condition Start: 09/02/21 17:38 Freq: Status: Active Protocol: Document 09/06/21 16:03 [facility] (Rec: 09/06/21 17:23 [facility] [id number]) Current Condition History of Current Condition Onset Date years w/worsening in the past 3 months Current Complaints R jaw pain & clicking History of Current Condition Pt has had jaw pain off/on for years but has seriously bad in the past few months. Pt had CVA on 05/11 and initially had L facial drop, but does not recall any extremity weakness in leg. She does not feel like she lost any strength in LUE but does not feel like brain in talking to hand and has dec coordination in LUE. Pt had stroke on 05/11 but had no motor affects only cognitive affects along w/speech and swallowing. 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 Pt was diagnosed w/ scleraderma in 1990 and it is a known sideaffect to have TMD . Denies neck pain or dizziness. Pt does have fibromyalgia. Pt reports occ headaches but they are not too severe. She gets one a couple times a week, but it is always really light and not enough to even take tylenol. They did start after the CVA. They do not seem associated w/ her jaw issues. Everytime she yawns, it clicks. Pt reports sometimes jaw locks but it will pop right back after. Everytime she opens and closes the jaw clicks on R. SOmetimes when she is eating it gets stuck and she has to force it to move. She thinks dentist may have images of her jaw. He has talked about putting in a mouth piece and doing reconstructions but pt has not pursued this. She also works w/peridontist in [place] who specializes in Scleroderma and works with a specialist at [facility] that is part of the scleroderma foundation. Pt tends to grind or clench, but has not tried a guard captain. Something came up, but she doesn't remember what that stopped her from pursuing that . Pt reports she does have sleep issues and does take ambian. Pt has difficulty falling asleep and staying asleep. Lately, she has been waking up every hour. She has to work out really hard to feel like she can fall asleep. She has not been able to exercise enough to get to this point recently d/t fatigue after stroke. Pt's jaw will hurt if she leans too much onto her R side of her jaw. Denies ringing or change in hearing. Pt avoids eating nuts on R side, and avoids hard vegetables d/t teeth. In July She had a pain in abdomen taht shot up into her chest then she passed out and hit her head requireing stitches. She passed out again going to get her . Prior Treatments and Tests no treatments Treatment Goals Patient/Caregiver Goals Dec pain, be able to chew and yawn w/o pain PT-OP-C Subjective Start: 09/02/21 17:38 Freq: Status: Active Protocol: Document 12/14/21 11:16 [facility] (Rec: 12/14/21 13:50 [facility] [id number]) OP-PT Subjective Patient Comments Patient Comments Pt reports she occ has pain in the day and gets random pops but is unable to do associate it with anything specific. PT-OP-F Manual Assessment Start: 09/02/21 17:38 Freq: Status: Active Protocol: Document 09/06/21 16:03 [facility] (Rec: 09/06/21 17:23 [facility] [id number]) Manual Assessments Other Manual Assessments Other Manual Assessments less excursion slightly w/ smile, dec L eyebrow raise and dec scrunch ability PT-OP-K Range of Motion Start: 09/02/21 17:38 Freq: Status: Active Protocol: Document 09/06/21 16:03 [facility] (Rec: 09/06/21 17:23 [facility] [id number]) Cervical Spine Range of Motion Cervical Spine Active Percentage Flexion 80 Extension 90 Rotation Left 60 Rotation Right 60 Lateral Flexion Left 90 Lateral Flexion Right 70 TMJ Range of Motion Jaw Openning Jaw Openning (mm) 30 Comments Comments heavy deviation to R w/opening w/L jaw having fwd movement w /opening & backwards movement w/clsing PT-OP-L Special Tests Start: 09/02/21 17:38 Freq: Status: Active Protocol: Document 09/06/21 16:03 [facility] (Rec: 09/06/21 17:23 [facility] [id number]) Special Tests Cervical Spine Special Tests Vertebral Artery Test Results n/t to test next session PT-OP-Q Treatments Start: 09/02/21 17:38 Freq: Status: Active Protocol: Document 12/14/21 11:16 [facility] (Rec: 12/14/21 13:50 [facility] [id number]) Therapeutic Exercises Supine Exercises open Supine Exercise Name w/PT guiding jaw to good mechanics Reps/Minutes 10 opening Supine Exercise Name sustained holds at end range opening in neutral Reps/Minutes 8 sec x5 rhythmic initiation Supine Exercise Name jaw opening w/pressure froma ll directions Manual Therapy Treatment Soft Tissue Mobilization intraoral Body Location R med pterygoid & masseter Mobilization Type Cross-Friction,Sustained Pressure Body Position Hooklying jaw Body Location post jaw, masseter, temporalis Mobilization Type Rolling,Strumming,Sustained Pressure Intensity/Depth Moderate Body Position Hooklying Joint Mobilizations cranial Joint sup R cranial glide jaw Joint B Direction distraction w/slide glide L FM Grade II PT-OP-R Modalities Start: 09/02/21 17:38 Freq: Status: Active Protocol: Document 12/14/21 11:16 [facility] (Rec: 12/14/21 13:50 [facility] [id number]) Hot Pack/Cold Pack Treatment Hot Pack Location cervical & jaw Patient Position Hooklying Treatment Duration (minutes) 15 PT-OP-T Assessment and Plan Start: 09/02/21 17:38 Freq: Status: Active Protocol: Document 12/14/21 11:16 [facility] (Rec: 12/14/21 13:50 [facility] [id number]) Physical Therapy Assessment Goals opening Prison Goal (LTG) Pt will be able to open her mouth 40 mm w/o deviation or inc pain. 10/05-no change 11/23-occ deviation improved but ROM still about 30 mm` LTG Duration 02/22 activities Short Term Goal (STG) Pt will be able to open/close jaw w/o jaw pain 10/05-less popping noted 11/23-pt notes less popping overall recently and feels like it is significantly dec since start STG Duration 01/11 Prison Goal (LTG) Pt will be able to eat her typical diet w/o inc jaw pain 11/23-pt was doing well until reprogrammer given yesterday LTG Duration 02/10 Assessment Summary Assessment Pt did well with the exercises to work on jaw movement and stability but sitll has some difficulty at end range to keep in neutral and maintain opening. ST tightenss B in jaw but still R more Physical Therapy Plan Frequency and Duration Frequency of Treatment 1-2x/week Plan of Care Start Date 11/23/21 Plan of Care End Date 02/22/22 Next Visit Focus/Plan Next Note Type Treatment Note Next Visit Plan cont to work on jaw stability & mobiltiy for ability to deviate L & keep jaw more neutral
--- NOTE | 2021-12-28 13:45 | PT.OTN ---
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 (12/28/21) Muscle weakness (generalized) (12/28/21) Abnormal posture (12/28/21) Dislocation of jaw, unspecified side, initial encounter (12/28/21) Physical Therapy Treatment Note PT-OP-A Visit Information Start: 09/02/21 17:38 Freq: Status: Active Protocol: Document 12/28/21 13:02 SP (Rec: 12/28/21 13:51 SP [id number]) Out-Patient Physical Therapy Visit Information Visit Information Visit Type Treatment Note Visit Note 06/20 KX Modifier next tx? Visit Start Time 13:02 Visit Stop Time 13:45 Total Visit Minutes 43 Visit Number 19 Number of PMO PROJECT MANAGER Visits 1 PT-OP-B Current Condition Start: 09/02/21 17:38 Freq: Status: Active Protocol: Document 09/06/21 16:03 [facility] (Rec: 09/06/21 17:23 [facility] [id number]) Current Condition History of Current Condition Onset Date years w/worsening in the past 3 months Current Complaints R jaw pain & clicking History of Current Condition Pt has had jaw pain off/on for years but has seriously bad in the past few months. Pt had CVA on 05/11 and initially had L facial drop, but does not recall any extremity weakness in leg. She does not feel like she lost any strength in LUE but does not feel like brain in talking to hand and has dec coordination in LUE. Pt had stroke on 05/11 but had no motor affects only cognitive affects along w/speech and swallowing. She is seeing OT & BACTERIOLOGIST [employer]ACE[employer]. Pt was diagnosed w/ scleraderma in 1990 and it is a known sideaffect to have TMD . Denies neck pain or dizziness. Pt does have fibromyalgia. Pt reports occ headaches but they are not too severe. She gets one a couple times a week, but it is always really light and not enough to even take tylenol. They did start after the CVA. They do not seem associated w/ her jaw issues. Everytime she yawns, it clicks. Pt reports sometimes jaw locks but it will pop right back after. Everytime she opens and closes the jaw clicks on R. SOmetimes when she is eating it gets stuck and she has to force it to move. She thinks dentist may have images of her jaw. He has talked about putting in a mouth piece and doing reconstructions but pt has not pursued this. 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 Pt tends to grind or clench, but has not tried a night shift. Something came up, but she doesn't remember what that stopped her from pursuing that . Pt reports she does have sleep issues and does take ambian. Pt has difficulty falling asleep and staying asleep. Lately, she has been waking up every hour. She has to work out really hard to feel like she can fall asleep. She has not been able to exercise enough to get to this point recently d/t fatigue after stroke. Pt's jaw will hurt if she leans too much onto her R side of her jaw. Denies ringing or change in hearing. Pt avoids eating nuts on R side, and avoids hard vegetables d/t teeth. In July She had a pain in abdomen taht shot up into her chest then she passed out and hit her head requireing stitches. She passed out again going to get her . Prior Treatments and Tests no treatments Treatment Goals Patient/Caregiver Goals Dec pain, be able to chew and yawn w/o pain PT-OP-C Subjective Start: 09/02/21 17:38 Freq: Status: Active Protocol: Document 12/28/21 13:02 SP (Rec: 12/28/21 13:51 SP [id number]) OP-PT Subjective Patient Comments Patient Comments Pt reports has a mouth guard but broke and in for repairs. having a 3D pic to help mold. PT-OP-F Manual Assessment Start: 09/02/21 17:38 Freq: Status: Active Protocol: Document 09/06/21 16:03 [facility] (Rec: 09/06/21 17:23 [facility] [id number]) Manual Assessments Other Manual Assessments Other Manual Assessments less excursion slightly w/ smile, dec L eyebrow raise and dec scrunch ability PT-OP-K Range of Motion Start: 09/02/21 17:38 Freq: Status: Active Protocol: Document 09/06/21 16:03 [facility] (Rec: 09/06/21 17:23 [facility] [id number]) Cervical Spine Range of Motion Cervical Spine Active Percentage Flexion 80 Extension 90 Rotation Left 60 Rotation Right 60 Lateral Flexion Left 90 Lateral Flexion Right 70 TMJ Range of Motion Jaw Openning Jaw Openning (mm) 30 Comments Comments heavy deviation to R w/opening w/L jaw having fwd movement w /opening & backwards movement w/clsing PT-OP-L Special Tests Start: 09/02/21 17:38 Freq: Status: Active Protocol: Document 09/06/21 16:03 [facility] (Rec: 09/06/21 17:23 [facility] [id number]) Special Tests Cervical Spine Special Tests Vertebral Artery Test Results n/t to test next session PT-OP-Q Treatments Start: 09/02/21 17:38 Freq: Status: Active Protocol: Document 12/28/21 13:02 SP (Rec: 12/28/21 13:51 SP [id number]) Therapeutic Exercises Sitting Exercises rhythmic initiation Sitting Exercise Name in different positions of jaw opening Side bilateral Reps/Minutes 7 min scap retraction Sitting Exercise Name reviewed HEP Side bilateral Equipment Used TB #1 Reps/Minutes 5 sec hold x5, added TB #1 x5 reps Comments good performance jaw Sitting Exercise Name deviation L w/ open/closing ( stand cuing) Resistance Tb #1 Reps/Minutes x10 Comments cued tongue light touch on roof mouth, no lip recruitment rocabado Sitting Exercise Name breathing, jaw openings, & RESISTED JAW OPEN Equipment Used mirror for self alignment feedback Comments scap squeeze Standing Exercises wall posture Reps/Minutes 5 sec hold x10 Comments cued scapular depression and neutral CS/ nod Manual Therapy Treatment Soft Tissue Mobilization intraoral Body Location R med pterygoid & masseter Mobilization Type Cross-Friction,Sustained Pressure Intensity/Depth Superficial Body Position Hooklying Comments sensitive to pressure proximal zygomatic arch attachment jaw Body Location post jaw, masseter, temporalis Mobilization Type Rolling,Strumming,Sustained Pressure Intensity/Depth Superficial Body Position Hooklying Joint Mobilizations jaw Joint B Direction distraction w/slide glide L FM Grade II PT-OP-R Modalities Start: 09/02/21 17:38 Freq: Status: Active Protocol: Document 12/14/21 11:16 [facility] (Rec: 12/14/21 13:50 [facility] [id number]) Hot Pack/Cold Pack Treatment Hot Pack Location cervical & jaw Patient Position Hooklying Treatment Duration (minutes) 15 PT-OP-T Assessment and Plan Start: 09/02/21 17:38 Freq: Status: Active Protocol: Document 12/28/21 13:02 SP (Rec: 12/28/21 13:51 SP [id number]) Physical Therapy Assessment Goals opening Retirement Goal (LTG) Pt will be able to open her mouth 40 mm w/o deviation or inc pain. 10/05-no change 11/23-occ deviation improved but ROM still about 30 mm` LTG Duration 02/22 activities Short Term Goal (STG) Pt will be able to open/close jaw w/o jaw pain 10/05-less popping noted 11/23-pt notes less popping overall recently and feels like it is significantly dec since start STG Duration 01/11 Retirement Goal (LTG) Pt will be able to eat her typical diet w/o inc jaw pain 11/23-pt was doing well until reprogrammer given yesterday LTG Duration 02/10 Assessment Summary Assessment Pt continues do well with exercises. Use of mirror for end range deviation corrections to L to keep in neutral. Proximal med pterygoid and masseter sensitive today to very light pressure intraoral. Encouraged pt to perform intral oral sustained pressure and pincer kneading to allow softening muscles and potentially decrease tightness on TMJ. Physical Therapy Plan Frequency and Duration Frequency of Treatment 1-2x/week Plan of Care Start Date 11/23/21 Plan of Care End Date 02/22/22 Therapeutic Interventions Therapeutic Interventions Home Exercise Program,Joint Mobilizations,Manual Therapy, Neuromuscular Re-education, Patient/Caregiver Education, Self-Care/Home Management,Soft Tissue Mobilization,Taping, Therapeutic Activities, Therapeutic Exercises Modalities Cold Pack/Ice Massage,Electric Stimulation,Hot Packs Next Visit Focus/Plan Next Note Type Treatment Note Next Visit Plan Recheck HEP performed end last tx how responded. POC: cont to work on jaw stability & mobiltiy for ability to deviate L & keep jaw more neutral
--- NOTE | 2022-01-18 12:22 | PT.OTN ---
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 (01/18/22) Muscle weakness (generalized) (01/18/22) Abnormal posture (01/18/22) Dislocation of jaw, unspecified side, initial encounter (01/18/22) Physical Therapy Treatment Note PT-OP-A Visit Information Start: 09/02/21 17:38 Freq: Status: Active Protocol: Document 01/18/22 11:24 [facility] (Rec: 01/18/22 12:21 [facility] [id number]) Out-Patient Physical Therapy Visit Information Visit Information Visit Type Discharge Summary Visit Start Time 11:20 Visit Stop Time 12:10 Total Visit Minutes 50 Visit Number 20 Number of RADIOLOGIC TECHNOLOGIST Visits 0 PT-OP-B Current Condition Start: 09/02/21 17:38 Freq: Status: Active Protocol: Document 09/06/21 16:03 [facility] (Rec: 09/06/21 17:23 [facility] [id number]) Current Condition History of Current Condition Onset Date years w/worsening in the past 3 months Current Complaints R jaw pain & clicking History of Current Condition Pt has had jaw pain off/on for years but has seriously bad in the past few months. Pt had CVA on 05/11 and initially had L facial drop, but does not recall any extremity weakness in leg. She does not feel like she lost any strength in LUE but does not feel like brain in talking to hand and has dec coordination in LUE. Pt had stroke on 05/11 but had no motor affects only cognitive affects along w/speech and swallowing. She is seeing OT & [facility] [employer]. Pt was diagnosed w/ scleraderma in 1990 and it is a known sideaffect to have TMD . Denies neck pain or dizziness. Pt does have fibromyalgia. Pt reports occ headaches but they are not too severe. She gets one a couple times a week, but it is always really light and not enough to even take tylenol. They did start after the CVA. They do not seem associated w/ her jaw issues. Everytime she yawns, it clicks. Pt reports sometimes jaw locks but it will pop right back after. Everytime she opens and closes the jaw clicks on R. SOmetimes when she is eating it gets stuck and she has to force it to move. She thinks dentist may have images of her jaw. He has talked about putting in a mouth piece and doing reconstructions but pt has not pursued this. She also works w/peridontist in [place] who specializes in Scleroderma and works with a specialist at [facility] that is part of the scleroderma foundation. Pt tends to grind or clench, but has not tried a manager primary. Something came up, but she doesn't remember what that stopped her from pursuing that . Pt reports she does have sleep issues and does take ambian. Pt has difficulty falling asleep and staying asleep. Lately, she has been waking up every hour. She has to work out really hard to feel like she can fall asleep. She has not been able to exercise enough to get to this point recently d/t fatigue after stroke. Pt's jaw will hurt if she leans too much onto her R side of her jaw. Denies ringing or change in hearing. Pt avoids eating nuts on R side, and avoids hard vegetables d/t teeth. In July She had a pain in abdomen taht shot up into her chest then she passed out and hit her head requireing stitches. She passed out again going to get her . Prior Treatments and Tests no treatments Treatment Goals Patient/Caregiver Goals Dec pain, be able to chew and yawn w/o pain PT-OP-C Subjective Start: 09/02/21 17:38 Freq: Status: Active Protocol: Document 01/18/22 11:24 [facility] (Rec: 01/18/22 12:21 [facility] [id number]) OP-PT Subjective Patient Comments Patient Comments Pt started a different depression med today since she had gained 20lbs on the other . She notes jaw is doing really well. Notices when she does exercises in the mirror, it wants to go to the R. Pt feels like her talking is more slurred some and more sloppy for the past week or so. her inhaler ran out and she she has had some SOB. PT-OP-F Manual Assessment Start: 09/02/21 17:38 Freq: Status: Active Protocol: Document 09/06/21 16:03 [facility] (Rec: 09/06/21 17:23 [facility] [id number]) Manual Assessments Other Manual Assessments Other Manual Assessments less excursion slightly w/ smile, dec L eyebrow raise and dec scrunch ability PT-OP-K Range of Motion Start: 09/02/21 17:38 Freq: Status: Active Protocol: Document 09/06/21 16:03 [facility] (Rec: 09/06/21 17:23 [facility] [id number]) Cervical Spine Range of Motion Cervical Spine Active Percentage Flexion 80 Extension 90 Rotation Left 60 Rotation Right 60 Lateral Flexion Left 90 Lateral Flexion Right 70 TMJ Range of Motion Jaw Openning Jaw Openning (mm) 30 Comments Comments heavy deviation to R w/opening w/L jaw having fwd movement w /opening & backwards movement w/clsing PT-OP-L Special Tests Start: 09/02/21 17:38 Freq: Status: Active Protocol: Document 09/06/21 16:03 [facility] (Rec: 09/06/21 17:23 [facility] [id number]) Special Tests Cervical Spine Special Tests Vertebral Artery Test Results n/t to test next session PT-OP-Q Treatments Start: 09/02/21 17:38 Freq: Status: Active Protocol: Document 01/18/22 11:24 [facility] (Rec: 01/18/22 12:21 [facility] [id number]) Therapeutic Exercises Sitting Exercises rocabado Sitting Exercise Name per hand out Reps/Minutes 10 Standing Exercises wall posture Reps/Minutes 1 min hold Comments w/UE ext Manual Therapy Treatment Soft Tissue Mobilization intraoral Body Location R med pterygoid & masseter Mobilization Type Cross-Friction,Sustained Pressure Intensity/Depth Moderate Body Position Hooklying jaw Body Location post jaw, masseter, temporalis Mobilization Type Rolling,Strumming,Sustained Pressure Intensity/Depth Moderate Body Position Hooklying Self-Care/Home Management Treatment Education Other Education edu to keep discussing symptoms with MD as she has been and to discuss w/MD that she feels more sloppy in her speech recently. Pt informed PT did not notice a difference and informed to prioritize getting her inhaler rx. review of HEP and discussion on not having to do as often but to fit it in throughout her day. edu on where to do self soft tissue Activities Self-Care/Home Management Activities BP 92/70 PT-OP-R Modalities Start: 09/02/21 17:38 Freq: Status: Active Protocol: Document 01/18/22 11:24 [facility] (Rec: 01/18/22 12:21 [facility] [id number]) Hot Pack/Cold Pack Treatment Hot Pack Location cervical & jaw Patient Position Hooklying Treatment Duration (minutes) 10 PT-OP-T Assessment and Plan Start: 09/02/21 17:38 Freq: Status: Active Protocol: Document 01/18/22 11:24 [facility] (Rec: 01/18/22 12:21 [facility] [id number]) Physical Therapy Assessment Goals opening Snf Goal (LTG) Pt will be able to open her mouth 40 mm w/o deviation or inc pain. 10/05-no change 11/23-occ deviation improved but ROM still about 30 mm` LTG Duration around 32 mm w/only mild deviation activities Short Term Goal (STG) Pt will be able to open/close jaw w/o jaw pain 10/05-less popping noted 11/23-pt notes less popping overall recently and feels like it is significantly dec since start STG Duration ahcieved only occ popping [place] Machine Operator Goal (LTG) Pt will be able to eat her typical diet w/o inc jaw pain 11/23-pt was doing well until reprogrammer given yesterday LTG Duration achieved Assessment Summary Assessment Pt has met goals mostly at this point and is not having frequent pain anymore. She is indep w/HEP and has much less deviation of her jaw and not limited in her eating. DC to HEP at this time Physical Therapy Plan Discharge Physical Therapy Discharge Reasons Goals Met
== END 2022-01-20 14:15 | disposition home or self-care (01) ==
LOC: PHYS 11:15
PROVIDERS: Family Provider Internal Medicine Hematology & Oncology; PCP Internal Medicine; Referring Provider Internal Medicine; Visit Provider Internal Medicine
DX: S03.00XA Dislocation of jaw, unspecified side, initial encounter (principal); R29.3 Abnormal posture; M62.81 Muscle weakness (generalized); I69.992 Facial weakness following unspecified cerebrovascular disease
CPT/HCPCS: 97010; 97110; 97140; 97162; 97535

== ENCOUNTER → 2022-04-05 11:13 | Outpatient (CLI) | payer MEDICARE, BC, SELFPAY ==
[2021-10-14 15:05] VITALS: BMI 26.5
--- NOTE | 2022-04-05 | DI.MG.S_ITS ---
UNILATERAL LEFT DIGITAL SCREENING MAMMOGRAM 3D/2D WITH CAD POST MASTECTOMY: 04/05/2022 CLINICAL: Routine screening. Breast cancer. Family history of breast cancer. Comparison is made to exams dated: 03/31/2021 mammogram, 03/20/2020 mammogram, and 03/20/2019 mammogram - [facility]. The left breast is heterogeneously dense, which may obscure small masses (category c / 51-75% glandular tissue). Current study was also evaluated with a Computer Aided Detection (CAD) system. There are benign calcifications in the left breast. No significant masses, calcifications, or other findings are seen in the breast. There has been no significant interval change. IMPRESSION: BENIGN There is no mammographic evidence of malignancy. A 1 year screening mammogram is recommended. This exam was interpreted at Station ID: [id number]. NOTE: For mammograms, a report in lay terms will be sent to the patient. Approximately 15% of breast malignancies will not be visualized mammographically. In the management of a palpable breast mass, a negative mammogram must not discourage biopsy of a clinically suspicious lesion. Electronically Signed By: Michael castro/uday:04/05/2022 18:51:10 letter sent: Normal Exam ACR BI-RADS Category 2: Benign Finding(s) 3342F
== END ==
PROVIDERS: Family Provider Internal Medicine Hematology & Oncology; PCP Internal Medicine; Referring Provider Internal Medicine; Visit Provider Internal Medicine
DX: Z12.31 Encounter for screening mammogram for malignant neoplasm of breast (principal); Z85.3 Personal history of malignant neoplasm of breast; Z80.3 Family history of malignant neoplasm of breast
CPT/HCPCS: 77063; 77067

== ENCOUNTER → 2022-05-12 10:02 | Outpatient (CLI) | payer MEDICARE, BC, SELFPAY ==
[2021-10-14 15:05] VITALS: BMI 26.5
--- NOTE | 2022-05-18 10:18 | PM.PFT.1 ---
Pulmonary Function Test Referral & Results Date Patient Seen: 05/12/22 Results: The spirometry demonstrates an FVC of 1.88 L which is 65% of predicted. The FEV1 was measured at 1.20 L which is 54% of predicted. The FEV1/FVC ratio was 64 which is 83% of predicted. Lung volumes show an SVC of 1.95 L which is 70% of predicted. The diffusing capacity was measured at 19.34 which is 84% of predicted. Interpretation: This study demonstrates moderate obstructive lung disease based on reduction FEV1 although FEV1/FVC ratio is relatively preserved There is also a moderate reduction in lung volumes suggesting the presence of moderate restrictive lung disease which may well explain some of the abnormality in the FEV1 above Diffusing capacity is probably normal Compared to previous PFTs performed in April 2021, current study is essentially unchanged, there maybe a slight decline in lung volumes suggesting slight worsening of restrictive lung disease Clinical correlation suggested
== END ==
PROVIDERS: Family Provider Internal Medicine Hematology & Oncology; PCP Internal Medicine; Referring Provider Internal Medicine Rheumatology; Visit Provider Internal Medicine Rheumatology
DX: J44.9 Chronic obstructive pulmonary disease, unspecified (principal); M34.1 CR(E)ST syndrome
CPT/HCPCS: 94010; 94060; 94726; 94729

== ENCOUNTER → 2022-10-05 11:22 | Outpatient (CLI) | payer MEDICARE, BC, SELFPAY ==
[2021-10-14 15:05] VITALS: BMI 26.5
--- NOTE | 2022-10-05 11:23 | DI.US.S_ITS ---
PROCEDURE: US THYROID INDICATIONS: thyroid nodules TECHNIQUE: Real-time scanning was performed of the thyroid gland, with image documentation. COMPARISON: [facility], [place], US THYROID, 09/08/2021, 11:42. FINDINGS: Right: Thyroid lobe measures 4.2 x 1.2 x 1.0 cm, and is homogeneous in echotexture. Left: Thyroid lobe measures 3.9 x 1.6 x 1.8 cm, and is homogenous in echotexture. Isthmus: 1.6 mm thick. Nodule number: 1 Location: Left superior pole Size: 0.8 cm. Unchanged. Composition: Solid Echogenicity: Hypoechoic Shape: wider than tall. Margins: Irregular Echogenic foci: Comet tail and fine echogenic foci Total points: 7 ACR TI-RADS category: High suspicion pattern Nodule number: 2 Location: Left midpole/inferior Size: 1.6 cm. Previously 1.5 centimeter. Composition: Mixed cystic and solid Echogenicity: Isoechoic Shape: wider than tall. Margins: Smooth Echogenic foci: None Total points: 2 ACR TI-RADS category: Not suspicious Nodule number: 3 (previously 4 on prior) Location: Right midpole Size: 0.5 cm. Previously 0.9 centimeter. Composition: Solid Echogenicity: Hypoechoic Shape: wider than tall. Margins: Smooth Echogenic foci: None Total points: 4 ACR TI-RADS category: Mildly suspicious Nodule number: 4 (previously 5 on prior) Location: Right inferior pole Size: 0.5 cm. Previously 0.6 centimeters. Composition: Solid Echogenicity: Isoechoic Shape: wider than tall. Margins: Smooth Echogenic foci: Macrocalcification Total points: 4 ACR TI-RADS category: Moderate suspicion. IMPRESSION: No interval growth of the bilateral thyroid nodules. Yearly follow-up for a total of 5 years is recommended per ACR consensus guidelines. ACR TI-RADS definitions and recommendations: TI-RADS 1 (benign): 0 points. FNA not needed. TI-RADS 2 (not suspicious): 2 points. FNA not needed. TI-RADS 3 (mildly suspicious): 3 points. * FNA if 2.5 cm or larger, follow up if 1.5 cm or larger (at 1, 3, and 5 years). TI-RADS 4 (moderately suspicious): 4-6 points. * FNA if 1.5 cm or larger, follow up if 1 cm or larger (at 1, 2, 3, and 5 years). TI-RADS 5 (highly suspicious): 7 points or more. * FNA if 1 cm or larger, follow up if 0.5 cm or larger (every year for 5 years). Dictated by: Senthil Fontana M.D. on 10/05/2022 at 16:12 Approved by: Senthil Fontana M.D. on 10/05/2022 at 16:17
== END ==
PROVIDERS: Family Provider Internal Medicine Hematology & Oncology; PCP Internal Medicine; Referring Provider Internal Medicine; Visit Provider Internal Medicine
DX: E04.2 Nontoxic multinodular goiter (principal)
CPT/HCPCS: 76536

== ENCOUNTER → 2022-11-04 17:11 | Outpatient (CLI) | payer MEDICARE, BC, SELFPAY ==
[2021-10-14 15:05] VITALS: BMI 26.5
[2022-11-04 18:16] LABS: Add Manual Diff / Slide Review NO; Basophils Absolute Auto 100 /uL (0-100); Basophils Percent Auto 0.7 % (0-2); Eosinophils Absolute Auto 100 /uL (0-450); Eosinophils Percent Auto 1.2 % (2-4); Hematocrit 36.6 % (36-46); Hemoglobin 12.6 g/dL (12.0-16.0); Lymphocytes Absolute Auto 1300 /uL (1100-4500); Lymphocytes Percent Auto 16.6 % (25-40); Mean Corpuscular HGB Conc 34.4 % (30-36); Mean Corpuscular Hemoglobin 35.4 PG (26-34); Mean Corpuscular Volume 103.1 fL (80-100); Monocytes Absolute Auto 700 /uL (0-900); Monocytes Percent Auto 9.4 % (3-14); Neutrophils Absolute Auto 5400 /uL (1500-7000); Neutrophils Percent Auto 72.1 % (50-75); Platelet Count 229 X10^3/uL (150-400); Red Blood Cell Count 3.55 X10^6/uL (4.0-5.2); Red Cell Distribution Width 16.1 % (11.6-14.8); White Blood Cell Count 7.6 X10^3/uL (4.5-11.0)
[2022-11-04 19:03] LABS: Alanine Aminotransferase 20 IU/L (<35); Albumin 4.1 g/dL (3.5-5.0); Albumin Globulin Ratio 1.5 (1.0-2.8); Alkaline Phosphatase 62 U/L (38-126); Aspartate Aminotransferase 26 IU/L (14-36); BUN Creatinine Ratio 21.4 (6-22); Bilirubin Total 0.3 mg/dL (0.2-1.3); Blood Urea Nitrogen 15 mg/dL (7-17); Calcium 9.4 mg/dL (8.4-10.2); Carbon Dioxide 27 mmol/L (22-32); Chloride 103 mmol/L (98-107); Estimated Glomerular Filt Rate > 60 mL/min (>60); Globulin 2.7 g/dL (1.7-4.1); Glucose 100 mg/dL (80-110); HEMOLYSIS < 15 (0-50); Potassium 4.6 mmol/L (3.4-5.1); Sodium 136 mmol/L (137-145); Total Protein 6.8 g/dL (6.3-8.2)
== END ==
PROVIDERS: Family Provider Internal Medicine Hematology & Oncology; PCP Internal Medicine; Referring Provider Internal Medicine Rheumatology; Visit Provider Internal Medicine Rheumatology
DX: M34.1 CR(E)ST syndrome (principal); Z79.899 Other long term (current) drug therapy
CPT/HCPCS: 36415; 80053; 85025

== ENCOUNTER → 2022-11-25 13:36 | Outpatient (CLI) | payer MEDICARE, BC, SELFPAY ==
[2021-10-14 15:05] VITALS: BMI 26.5
--- NOTE | 2022-11-25 | DI.ECHO.S_ITS ---
[place] [facility] +---------+ : : [address] : [place] : : : : [id number] : : : : Phone: [phone]+ Echocardiogram Report + + :Name: JAVIER GREEN Study Date: 11/25/2022 Height: 63 in : :[facility] ReadingLocation: Weight: 150 lb : : Gender: Female BSA: 1.7 m2 : :: 1950 Age: 72 yrs BP: 110/81 mmHg: :Reason For Study: CR(E)ST Syndrome : :Ordering Physician: MUSTAPHA, : :BRAD Performed By: Diane Ewing : :Referring: BRAD LUCIANO : + + Interpretation Summary Underlying atrial flutter. Overall rate appears to be controlled. EKG tracing about ventricular rate is not accurate. In comparison to previous study, atrial flutter is new. Due to RR variability, difficult to comment upon LVEF however it is in the range of 35A?5% with hypokinetic septum, severely hypokinetic inferior wall and mid to distal inferior lateral wall. Conduction abnormalities affecting septum as well. In comparison to previous study, LV function has decreased and new wall motion abnormalities. The right ventricle is normal size. Right ventricular systolic function is mildly reduced. Right ventricular systolic function has decreased since previous exam. A patent foramen ovale is present. There is mild mitral regurgitation. Compared to the prior echo study, there has been no change in the severity of mitral regurgitation. There is mild tricuspid regurgitation. Compared to the prior echo exam, there has been no change in TR severity. Pulmonary artery pressures cannot be estimated because of the lack of a measurable TR jet velocity. The IVC is of normal diameter and collapses greater than 50% with a sniff. This suggests a low right atrial pressure of 3 mm Hg. Procedure: A two-dimensional transthoracic echocardiogram with color flow and Doppler was performed. The study quality was technically adequate. Comparison is made with the echocardiogram of 05/12/2021. Underlying atrial flutter. Overall rate appears to be controlled. EKG tracing about ventricular rate is not accurate. In comparison to previous study, atrial flutter is new. Left Ventricle: The left ventricle is normal in size. There is no thrombus. Due to RR variability, difficult to comment upon LVEF however it is in the range of 35A?5% with hypokinetic septum, severely hypokinetic inferior wall and mid to distal inferior lateral wall. Conduction abnormalities affecting septum as well. In comparison to previous study, LV function has decreased and new wall motion abnormalities. Diastolic function could not be accurately assessed due to atrial flutter. Right Ventricle: The right ventricle is normal size. Right ventricular systolic function is mildly reduced. Right ventricular systolic function has decreased since previous exam. Atria: The left atrium is moderately dilated. The right atrium is moderately dilated. The interatrial septum bows toward right atrium consistent with elevated left atrial pressure. A patent foramen ovale is present. Mitral Valve: The mitral valve leaflets appear borderline thickened, but open well. There is no mitral valve stenosis. There is mild mitral regurgitation. Compared to the prior echo study, there has been no change in the severity of mitral regurgitation. Aortic Valve: The aortic valve is trileaflet. The aortic valve opens well. There is no aortic valve stenosis. There is trace aortic regurgitation. Tricuspid Valve: The tricuspid valve is normal. There is no tricuspid stenosis. There is mild tricuspid regurgitation. Compared to the prior echo exam, there has been no change in TR severity. Pulmonary artery pressures cannot be estimated because of the lack of a measurable TR jet velocity. Pulmonic Valve: The pulmonic valve is not well visualized. There is no pulmonic valvular stenosis. There is trace pulmonic regurgitation. Great Vessels: The aortic root is normal size. The ascending aorta is normal in size. The pulmonary artery is normal size. The IVC is of normal diameter and collapses greater than 50% with a sniff. This suggests a low right atrial pressure of 3 mm Hg. Pericardium/ Pleura There is a trivial pericardial effusion noted. There is no pleural effusion. MMode/2D Measurements & Calculations LVIDd: 4.9 cm LVOT diam: 2.0 cm LVIDs: 2.9 cm Ao root diam: 3.3 cm FS: 40.8 % asc Aorta Diam: 3.0 cm IVSd: 0.80 cm LVPWd: 0.90 cm LV guzman. diameter/BSA (cm/m^2): 2.9 LV sys. diameter/BSA (cm/m^2): 1.7 LA A2 area: 23.4 cm2 RA long axis: 5.6 cm LA A4 area: 19.9 cm2 RA area: 21.1 cm2 LA length (vol): 6.0 cm RA vol: 68.0 ml LA vol: 65.9 ml RA : 39.8 ml/m2 LA vol index: 38.5 ml/m2 IVC diam: 1.8 cm RVD1 (basal): 3.7 cm Doppler Measurements & Calculations TR max devonte: 197.9 cm/sec TR max P.7 mmHg Reading Physician:04:16 PM
== END ==
PROVIDERS: Family Provider Internal Medicine Hematology & Oncology; PCP Internal Medicine; Referring Provider Internal Medicine Rheumatology; Visit Provider Internal Medicine Rheumatology
DX: M34.1 CR(E)ST syndrome (principal); I08.1 Rheumatic disorders of both mitral and tricuspid valves
CPT/HCPCS: 93306

== ENCOUNTER → 2023-01-17 12:51 | Outpatient (CLI) | payer MEDICARE, BC, SELFPAY ==
[2021-10-14 15:05] VITALS: BMI 26.5
[2023-01-17 14:03] LABS: Hemoglobin 12.2 g/dL (12.0-16.0); Mean Corpuscular HGB Conc 33.9 % (30-36); Mean Corpuscular Hemoglobin 34.7 PG (26-34); Mean Corpuscular Volume 102.6 fL (80-100); Platelet Count 200 X10^3/uL (150-400); Red Cell Distribution Width 15.1 % (11.6-14.8); White Blood Cell Count 4.8 X10^3/uL (4.5-11.0)
[2023-01-17 14:37] LABS: Alanine Aminotransferase 20 IU/L (<35); Albumin 3.9 g/dL (3.5-5.0); Albumin Globulin Ratio 1.4 (1.0-2.8); Alkaline Phosphatase 49 U/L (38-126); Aspartate Aminotransferase 29 IU/L (14-36); Bilirubin Total 0.7 mg/dL (0.2-1.3); Blood Urea Nitrogen 13 mg/dL (7-17); Calcium 9.7 mg/dL (8.4-10.2); Carbon Dioxide 27 mmol/L (22-32); Chloride 104 mmol/L (98-107); Estimated Glomerular Filt Rate > 60 mL/min (>60); Globulin 2.8 g/dL (1.7-4.1); Glucose 83 mg/dL (80-110); HEMOLYSIS < 15 (0-50); Sodium 137 mmol/L (137-145); Total Protein 6.7 g/dL (6.3-8.2)
[2023-01-17 14:45] LABS: NT-proBNP (BNP-Adult 18+) 1020 pg/mL (<125)
[2023-01-17 15:07] LABS: TSH w/ Reflex to FT4 1.65 uIU/mL (0.47-4.68)
== END ==
PROVIDERS: Family Provider Internal Medicine Hematology & Oncology; PCP Internal Medicine; Referring Provider Internal Medicine; Visit Provider Internal Medicine
DX: I50.22 Chronic systolic (congestive) heart failure (principal); I48.0 Paroxysmal atrial fibrillation; E78.2 Mixed hyperlipidemia
CPT/HCPCS: 36415; 80053; 83880; 84443; 85027

== ENCOUNTER → 2023-02-07 13:20 | Outpatient (CLI) | payer MEDICARE, BC, SELFPAY ==
[2021-10-14 15:05] VITALS: BMI 26.5
[2023-02-07 14:23] LABS: Cholesterol 137 mg/dL (140-199); HDL Cholesterol 62 mg/dL (40-60); LDL Cholesterol Calculated 62 mg/dL (<100); Triglycerides 64 mg/dL (35-150)
== END ==
PROVIDERS: Family Provider Internal Medicine Hematology & Oncology; PCP Internal Medicine; Referring Provider Internal Medicine; Visit Provider Internal Medicine
DX: E78.2 Mixed hyperlipidemia (principal); I50.22 Chronic systolic (congestive) heart failure; I48.0 Paroxysmal atrial fibrillation
CPT/HCPCS: 36415; 80061

== ENCOUNTER → 2023-02-16 14:08 | Outpatient (CLI) | payer MEDICARE, BC, SELFPAY ==
[2021-10-14 15:05] VITALS: BMI 26.5
--- NOTE | 2023-02-18 01:03 | DI.NM.S_ITS ---
DATE OF SERVICE: 02/16/2023 PROCEDURE PERFORMED: Exercise treadmill stress and rest myocardial perfusion imaging study with gating to assess ejection fraction and regional wall motion. INDICATIONS: The patient is a 72-year-old female with a history of stroke, atrial fibrillation/flutter and a patent foramina ovale. Recent echocardiography suggested reduced left ventricular systolic function. EXERCISE TREADMILL TESTING: The patient was able to exercise for 7 minutes and 4 seconds on a standard Charlie protocol suggesting good exercise capacity with an LISBETH of -9%. She had a normal heart rate and blood pressure response to exercise, achieving a maximum heart rate of 140 BPM (93% of her predicted maximum). She had no chest discomfort or other anginal symptoms. Her resting ECG showed atrial flutter with a heart rate of [address] segments were challenging to assess because of the presence of flutter waves. With stress, there was considerable motion artifact but no obvious ST-segment deviation or other arrhythmias. At 6 minutes and 22 seconds of exercise at a heart rate of 133 BPM, 26.6 millicuries of technetium-99m Myoview was injected and she was imaged 10 minutes later using a gated SPECT acquisition protocol. The day prior, while at rest, she had been injected with 25.9 millicuries of technetium- 99m Myoview,and imaged 20 minutes later, again using a gated SPECT acquisition protocol. FINDINGS: 1. Raw data: There is fairly good myocardial tracer uptake with mild breast shadows noted. The lung/heart ratio is normal at 0.34 with a normal TID ratio of 0.91. 2. Quantitative gated SPECT: Post-stress ejection fraction is estimated at 79% although visually appears more likely in the 60% to 65% range, and no focal wall motion abnormalities. Resting ejection fraction is estimated at 74%, but appears similar to that of the post-stress ejection fraction. Resting end-diastolic volume is normal at 98 mL. 3. Myocardial perfusion imaging: Post-stress supine images show a fairly normal myocardial perfusion pattern with a slight defect in the proximal to mid anterior wall, sparing the distal anterior wall and apex, in a pattern consistent with breast attenuation artifact, supported by its resolution on the prone images which reveal a more homogeneous perfusion pattern. There are no other perfusion defects. The resting images show a similar perfusion pattern without any significant improvement compared to the post-stress supine images. IMPRESSION: 1. Normal myocardial perfusion study for ischemia. 2. Mild fixed proximal anterior defect that resolves on prone imaging, most consistent with breast attenuation artifact. There is no evidence for any myocardial ischemia or previous myocardial infarction. 3. Normal left ventricular systolic function without any focal wall motion abnormality and normal left ventricular volumes. 4. Good exercise capacity without angina or ECG evidence of ischemia. Atrial flutter with a controlled ventricular response was present at rest with an appropriate increase in heart rate with exercise and no angina or obvious ST-segment deviation, although flutter waves make ST-segment interpretation challenging. 5. Compared to her previous myocardial perfusion study from 07/30/2021, a similar perfusion pattern was seen. Her previous ejection fraction was around 75% with an end-diastolic volume of 87 mL, suggesting the absence of any significant change since the previous study. Diana Huffman Anisa - Rinku/PATRICK doc#: [id number]/job#: [id number] dd: 02/17/2023 16:57:00 dt: 02/18/2023 00:43:00 DICTATING /COPIES TO: Niko Maria MD; Wilber Adams MD COPIES MNE: YAS;
== END ==
PROVIDERS: Family Provider Internal Medicine Hematology & Oncology; PCP Internal Medicine; Referring Provider Internal Medicine; Visit Provider Internal Medicine
DX: I50.22 Chronic systolic (congestive) heart failure (principal); I25.10 Atherosclerotic heart disease of native coronary artery without angina pectoris
CPT/HCPCS: 78452; 93017; A9502

== ENCOUNTER → 2023-04-05 16:12 | Outpatient (CLI) | payer MEDICARE, BC, SELFPAY ==
[2021-10-14 15:05] VITALS: BMI 26.5
[2023-04-05 16:30] LABS: Urine Volume 10mL (spun)
[2023-04-05 17:54] LABS: Appearance Urine UA CLEAR; Bilirubin Urine UA NEGATIVE (NEGATIVE); Color Urine UA YELLOW; Glucose Urine UA NEGATIVE (Negative); Ketones Urine UA NEGATIVE (NEGATIVE); Leukocyte Esterase Urine UA NEGATIVE (NEGATIVE); Nitrite Urine UA NEGATIVE (Negative); Occult Blood Urine UA NEGATIVE (Negative); Protein Urine UA NEGATIVE (Negative); Urobilinogen Urine UA 0.2 E.U./dL (0.2)
[2023-04-05 18:06] LABS: Bacteria Urine None Seen; Culture Indicated Urine Cult Not Indicated; Mucus Urine 1+ (Negative); RBC Urine None Seen (0-5/HPF); Squamous Epithelial Cell Urine 0-1 /HPF (0-5/HPF); WBC Urine None Seen (0-5/HPF)
== END ==
PROVIDERS: Family Provider Internal Medicine Hematology & Oncology; PCP Internal Medicine; Referring Provider Specialist; Visit Provider Specialist
DX: R30.0 Dysuria (principal)
CPT/HCPCS: 81001

== ENCOUNTER → 2023-04-10 16:07 | Outpatient (CLI) | payer MEDICARE, BC, SELFPAY ==
[2021-10-14 15:05] VITALS: BMI 26.5
[2023-04-12 15:09] LABS: Candida species Negative (Negative); Gardnerella vaginalis Negative (Negative); Trichomoas vaginalis Negative (Negative)
== END ==
PROVIDERS: Family Provider Internal Medicine Hematology & Oncology; PCP Internal Medicine; Visit Provider Specialist
DX: N89.8 Other specified noninflammatory disorders of vagina (principal)
CPT/HCPCS: 87480; 87510; 87660

== ENCOUNTER → 2023-04-25 12:56 | Outpatient (CLI) | payer MEDICARE, BC, SELFPAY ==
[2021-10-14 15:05] VITALS: BMI 26.5
--- NOTE | 2023-04-25 12:58 | DI.MG.S_ITS ---
UNILATERAL LEFT DIGITAL SCREENING MAMMOGRAM 3D/2D WITH CAD: 04/25/2023 CLINICAL: Routine screening. Personal history of right breast cancer. Family hx of breast cancer. Comparison is made to exams dated: 04/05/2022 mammogram, 03/31/2021 mammogram, and 03/20/2020 mammogram - [facility]. The left breast is heterogeneously dense, which may obscure small masses (category c / 51-75% glandular tissue). Current study was also evaluated with a Computer Aided Detection (CAD) system. There is an asymmetry in the left breast middle depth superior region seen on the mediolateral oblique view only. No other significant masses or calcifications are seen in the breast. IMPRESSION: INCOMPLETE: NEEDS ADDITIONAL IMAGING EVALUATION The asymmetry in the left breast is indeterminate. Additional views with possible ultrasound are recommended. This exam was interpreted at Station ID: [id number]. NOTE: For mammograms, a report in lay terms will be sent to the patient. Approximately 15% of breast malignancies will not be visualized mammographically. In the management of a palpable breast mass, a negative mammogram must not discourage biopsy of a clinically suspicious lesion. Electronically Signed By: Lindsey padilla/uday:04/25/2023 14:38:32 letter sent: Additional Imaging Needed ACR BI-RADS Category 0: Incomplete [id number]
== END ==
PROVIDERS: Family Provider Internal Medicine Hematology & Oncology; PCP Internal Medicine; Referring Provider Internal Medicine; Visit Provider Internal Medicine
DX: Z12.31 Encounter for screening mammogram for malignant neoplasm of breast (principal); C50.911 Malignant neoplasm of unspecified site of right female breast; Z80.3 Family history of malignant neoplasm of breast; R92.332 Mammographic heterogeneous density, left breast
CPT/HCPCS: 77063; 77067

== ENCOUNTER → 2023-05-10 10:21 | Outpatient (CLI) | payer MEDICARE, BC, SELFPAY ==
[2021-10-14 15:05] VITALS: BMI 26.5
--- NOTE | 2023-05-10 | DI.MG.S_ITS ---
UNILATERAL LEFT DIGITAL DIAGNOSTIC MAMMOGRAM 3D/2D WITH ADDITIONAL VIEWS: 05/10/2023 CLINICAL: Additional evaluation requested from prior study. Comparison is made to exams dated: 04/25/2023 mammogram, 04/25/2023 mammogram, and 04/05/2022 mammogram - [facility]. The left breast is heterogeneously dense, which may obscure small masses (category c / 51-75% glandular tissue). The asymmetry in the left breast middle depth superior region seen on the mediolateral oblique view only is not seen in additional views. No other significant masses or calcifications are seen in the breast. IMPRESSION: BENIGN The asymmetry in the left breast is seen on the screening mammogram likely respresents superimposed fibroglandular tissue and is benign. There is no mammographic evidence of malignancy. Return to annual mammogram screening schedule is recommended. This exam was interpreted at Station ID: [id number]. NOTE: For mammograms, a report in lay terms will be sent to the patient. Approximately 15% of breast malignancies will not be visualized mammographically. In the management of a palpable breast mass, a negative mammogram must not discourage biopsy of a clinically suspicious lesion. Electronically Signed By: Lindsey padilla/:05/10/2023 10:52:25 letter sent: Normal Exam ACR BI-RADS Category 2: Benign Finding(s) 3342F
== END ==
PROVIDERS: Family Provider Internal Medicine Hematology & Oncology; PCP Internal Medicine; Referring Provider Internal Medicine; Visit Provider Internal Medicine
DX: R92.8 Other abnormal and inconclusive findings on diagnostic imaging of breast (principal); R92.332 Mammographic heterogeneous density, left breast
CPT/HCPCS: 77065; G0279

== ENCOUNTER → 2023-05-30 10:59 | Outpatient (CLI) | payer MEDICARE, BC, SELFPAY ==
[2021-10-14 15:05] VITALS: BMI 26.5
[2023-05-30 11:37] LABS: Hematocrit 36.5 % (36-46); Hemoglobin 12.3 g/dL (12.0-16.0); Mean Corpuscular HGB Conc 33.6 % (30-36); Mean Corpuscular Hemoglobin 34.8 PG (26-34); Mean Corpuscular Volume 103.6 fL (80-100); Platelet Count 172 X10^3/uL (150-400); Red Blood Cell Count 3.52 X10^6/uL (4.0-5.2); White Blood Cell Count 4.6 X10^3/uL (4.5-11.0)
[2023-05-30 11:50] LABS: HEMOLYSIS < 15 (0-50); Iron 144 ug/dL (37-170)
[2023-05-30 11:54] LABS: Alanine Aminotransferase 24 IU/L (<35); Albumin 4.1 g/dL (3.5-5.0); Albumin Globulin Ratio 1.3 (1.0-2.8); Alkaline Phosphatase 55 U/L (38-126); Aspartate Aminotransferase 31 IU/L (14-36); Bilirubin Total 0.7 mg/dL (0.2-1.3); Blood Urea Nitrogen 13 mg/dL (7-17); Calcium 9.5 mg/dL (8.4-10.2); Carbon Dioxide 26 mmol/L (22-32); Chloride 109 mmol/L (98-107); Cholesterol 149 mg/dL (140-199); Estimated Glomerular Filt Rate > 60 mL/min (>60); Globulin 3.2 g/dL (1.7-4.1); Glucose 91 mg/dL (80-110); HDL Cholesterol 59 mg/dL (40-60); HEMOLYSIS < 15 (0-50); LDL Cholesterol Calculated 77 mg/dL (<100); Potassium 4.5 mmol/L (3.4-5.1); Sodium 139 mmol/L (137-145); Total Protein 7.3 g/dL (6.3-8.2); Triglycerides 65 mg/dL (35-150)
[2023-05-30 12:01] LABS: Percent Iron Saturation 55 % (15-50); Total Iron Binding Capacity 261 ug/dL (265-497); Transferrin 209 mg/dL (206-381)
[2023-05-30 12:25] LABS: Ferritin 38 ng/mL (11-264)
== END ==
LOC: LAB 11:00
PROVIDERS: Family Provider Internal Medicine Hematology & Oncology; PCP Internal Medicine; Referring Provider Internal Medicine; Visit Provider Internal Medicine
DX: E61.1 Iron deficiency (principal); I25.10 Atherosclerotic heart disease of native coronary artery without angina pectoris; E78.2 Mixed hyperlipidemia
CPT/HCPCS: 36415; 80053; 80061; 82728; 83540; 83550; 85027

== ENCOUNTER → 2023-06-29 11:57 | Outpatient (CLI) | payer MEDICARE, BC, SELFPAY ==
[2021-10-14 15:05] VITALS: BMI 26.5
[2023-06-29 14:05] LABS: Creatine Kinase 82 U/L (30-135)
== END ==
PROVIDERS: Family Provider Internal Medicine Hematology & Oncology; PCP Internal Medicine; Referring Provider Internal Medicine; Visit Provider Internal Medicine
DX: M60.9 Myositis, unspecified (principal)
CPT/HCPCS: 36415; 82550

== ENCOUNTER → 2023-07-04 11:21 | Outpatient (CLI) | payer MEDICARE, BC, SELFPAY ==
[2021-10-14 15:05] VITALS: BMI 26.5
--- NOTE | 2023-07-04 11:22 | DI.US.S_ITS ---
LIMITED ULTRASOUND OF LEFT BREAST: 07/04/2023 CLINICAL: Palpable left breast lump. Comparison is made to exams dated: 05/10/2023 mammogram, 04/25/2023 mammogram, 04/25/2023 mammogram, and 04/25/2023 mammogram - [facility]. Color flow and real-time ultrasound of the left breast 6 o'clock region were performed. Olvera scale images of the real-time examination were reviewed. No significant abnormalities were seen sonographically in the left breast. There is fibroglandular tissue and a tiny duct in the region of clinical concern. No mass or cyst. IMPRESSION: NEGATIVE There is no sonographic evidence of malignancy. Exam findings were conveyed to the patient. Patient is advised to monitor for significant change. Clinical follow-up as needed. A 1 year screening mammogram is recommended. 04/26/2024. This exam was interpreted at Station ID: [id number]. Electronically Signed By: Camacho Huffman M.D. slc/:07/04/2023 12:24:43 letter sent: Normal Exam Ultrasound BI-RADS: 1 Negative
== END ==
PROVIDERS: Family Provider Internal Medicine Hematology & Oncology; PCP Internal Medicine; Referring Provider Internal Medicine Hematology & Oncology; Visit Provider Internal Medicine Hematology & Oncology
DX: N63.22 Unspecified lump in the left breast, upper inner quadrant (principal)
CPT/HCPCS: 76642

== ENCOUNTER → 2023-10-10 11:58 | Outpatient (CLI) | payer MEDICARE, BC, SELFPAY ==
[2021-10-14 15:05] VITALS: BMI 26.5
[2023-10-10 13:03] LABS: Add Manual Diff / Slide Review NO; Basophils Absolute Auto 0 /uL (0-100); Basophils Percent Auto 0.8 % (0-2); Eosinophils Absolute Auto 100 /uL (0-450); Eosinophils Percent Auto 1.5 % (2-4); Hemoglobin 12.7 g/dL (12.0-16.0); Lymphocytes Absolute Auto 1100 /uL (1100-4500); Lymphocytes Percent Auto 22.2 % (25-40); Mean Corpuscular HGB Conc 33.5 % (30-36); Mean Corpuscular Hemoglobin 34.8 PG (26-34); Mean Corpuscular Volume 103.9 fL (80-100); Monocytes Absolute Auto 700 /uL (0-900); Monocytes Percent Auto 13.7 % (3-14); Neutrophils Absolute Auto 3100 /uL (1500-7000); Neutrophils Percent Auto 61.8 % (50-75); Platelet Count 210 X10^3/uL (150-400); Red Blood Cell Count 3.66 X10^6/uL (4.0-5.2); Red Cell Distribution Width 15.6 % (11.6-14.8)
[2023-10-10 13:53] LABS: Alanine Aminotransferase 22 IU/L (<35); Albumin 4.2 g/dL (3.5-5.0); Albumin Globulin Ratio 1.3 (1.0-2.8); Alkaline Phosphatase 65 U/L (38-126); Aspartate Aminotransferase 29 IU/L (14-36); BUN Creatinine Ratio 18.5 (6-22); Bilirubin Total 0.5 mg/dL (0.2-1.3); Blood Urea Nitrogen 12 mg/dL (7-17); C-Reactive Protein Quant < 0.5 mg/dL (<1.0); Carbon Dioxide 25 mmol/L (22-32); Chloride 105 mmol/L (98-107); Creatine Kinase 62 U/L (30-135); Estimated Glomerular Filt Rate > 60 mL/min (>60); Globulin 3.2 g/dL (1.7-4.1); Glucose 81 mg/dL (80-110); HEMOLYSIS < 15 (0-50); Potassium 4.3 mmol/L (3.4-5.1); Sodium 137 mmol/L (137-145); Total Protein 7.4 g/dL (6.3-8.2)
[2023-10-10 13:54] LABS: Erythrocyte Sedimentation Rate 18 MM/HR (0-20)
[2023-10-10 14:34] LABS: Creatinine Urine Random 32.38 mg/dL; Protein (Total) Urine Random 10 mg/dL (0-12)
[2023-10-10 19:39] LABS: Appearance Urine UA CLEAR; Bilirubin Urine UA NEGATIVE (NEGATIVE); Color Urine UA YELLOW; Glucose Urine UA NEGATIVE (Negative); Ketones Urine UA NEGATIVE (NEGATIVE); Leukocyte Esterase Urine UA TRACE (NEGATIVE); Nitrite Urine UA NEGATIVE (Negative); Occult Blood Urine UA NEGATIVE (Negative); Protein Urine UA NEGATIVE (Negative); Specific Gravity Urine UA <=1.005 (1.000-1.035); Urobilinogen Urine UA 0.2 E.U./dL (0.2)
[2023-10-10 19:40] LABS: pH Urine UA 6.5 (4.5-8.0)
[2023-10-10 19:46] LABS: Bacteria Urine Few (2-10); Culture Indicated Urine Cult Not Indicated; RBC Urine 0-1/HPF (0-5/HPF); Squamous Epithelial Cell Urine 5-10 /HPF (0-5/HPF); Urine Volume 10mL (spun); WBC Urine 0-1/HPF (0-5/HPF)
[2023-10-10 20:34] LABS: Vitamin B12 > 1000 pg/mL (239-931)
== END ==
PROVIDERS: Family Provider Internal Medicine Hematology & Oncology; PCP Internal Medicine; Referring Provider Internal Medicine Rheumatology; Visit Provider Internal Medicine Rheumatology
DX: M34.1 CR(E)ST syndrome (principal); Z79.899 Other long term (current) drug therapy
CPT/HCPCS: 36415; 80053; 81001; 82085; 82550; 82570; 82607; 84156; 85025; 85651; 86140

== ENCOUNTER → 2023-10-13 12:02 | Outpatient (CLI) | payer MEDICARE, BC, SELFPAY ==
[2021-10-14 15:05] VITALS: BMI 26.5
== END ==
PROVIDERS: Family Provider Internal Medicine Hematology & Oncology; PCP Internal Medicine; Referring Provider Internal Medicine Rheumatology; Visit Provider Internal Medicine Rheumatology
DX: J45.20 Mild intermittent asthma, uncomplicated (principal); R94.2 Abnormal results of pulmonary function studies
CPT/HCPCS: 94060; 94726; 94729

== ENCOUNTER → 2023-11-07 09:19 | Outpatient (CLI) | payer MEDICARE, BC, SELFPAY ==
[2023-11-06 09:55] VITALS: BMI 26.5
--- NOTE | 2023-11-07 09:21 | DI.ECHO.S_ITS ---
[place] [facility] : : [address] : : [place] : : [id number] : : Phone: [phone] Echocardiogram Report + + :Name: JAVIER GREEN Study Date: 11/07/2023 Height: 63 in : :[facility] ReadingLocation: Weight: 144 lb : : Gender: Female BSA: 1.7 m2 : :: 1950 Age: 73 yrs BP: 130/76 mmHg: :Reason For Study: ATRIAL FLUTTER : :Ordering Physician: MYRNA, : :JONEL Performed By: Noah Acosta : :Referring: JONEL NORRIS : + + Interpretation Summary 1) Normal left ventricular thickness, size, wall motion, and systolic function (EF 55-60%). 2) Normal right ventricular size and function. 3) The left atrium is severely dilated. The interatrial septum bows toward right atrium consistent with elevated left atrial pressure. 4) No significant valvular abnormalities. 5) There is a trivial pericardial effusion noted. 6) Compared to the Echo done 11/25/2022, LVEF has improved from 35% to 55-60% on this study. Procedure: A two-dimensional transthoracic echocardiogram with color flow and Doppler was performed. The study quality was technically adequate. Comparison is made with the echocardiogram of 11/25/2022. The heart rate ranged between 52-61 bpm during the study. Left Ventricle: The left ventricle is normal in size and wall thickness. The ejection fraction is estimated to be 55-60%. Left ventricular systolic function appears normal without focal wall motion abnormalities. Right Ventricle: The right ventricle is normal size. The right ventricular systolic function is normal. Atria: The left atrium is severely dilated. The right atrium is normal in size. The interatrial septum bows toward right atrium consistent with elevated left atrial pressure. Mitral Valve: The mitral valve is normal. There is no mitral valve stenosis. There is mild mitral regurgitation. Aortic Valve: The aortic valve is trileaflet. There is no aortic valve stenosis. No aortic regurgitation is present. Tricuspid Valve: The tricuspid valve is normal. There is no tricuspid stenosis. There is mild tricuspid regurgitation. The right ventricular systolic pressure is estimated to be at least 37.3 mmHg based on an estimated right atrial pressure of 8 mm Hg. Pulmonic Valve: The pulmonic valve is not well visualized. There is no pulmonic valvular stenosis. There is a trace or physiologic amount of pulmonic regurgitation. Great Vessels: The aortic root is normal size. The dimensions of the ascending aorta are normal. The IVC is dilated (diameter is greater than 2.1 cm) yet it collapses greater than 50% with a sniff. This suggests a right atrial pressure of 8 mm Hg. Pericardium/ Pleura There is a trivial pericardial effusion noted. There is no pleural effusion. MMode/2D Measurements & Calculations LVIDd: 4.6 cm LVOT diam: 2.2 cm LVIDs: 3.0 cm Ao root diam: 3.1 cm FS: 35.3 % asc Aorta Diam: 3.3 cm IVSd: 0.89 cm LVPWd: 1.1 cm LV guzman. diameter/BSA (cm/m^2): 2.7 LV sys. diameter/BSA (cm/m^2): 1.8 LA A2 area: 23.3 cm2 RA long axis: 5.7 cm LA A4 area: 32.7 cm2 RA area: 13.4 cm2 LA length (vol): 6.6 cm RA vol: 26.7 ml LA vol: 97.5 ml RA : 15.9 ml/m2 LA vol index: 58.0 ml/m2 IVC diam: 2.0 cm RVD1 (basal): 3.4 cm RVD2 (mid): 2.6 cm TAPSE: 2.5 cm Doppler Measurements & Calculations Ao V2 max: 142.6 cm/sec LVOT Max Mina: 108.8 cm/sec Ao V2 mean: 102.7 cm/sec LV V1 max P.7 mmHg Ao max P.1 mmHg LV V1 VTI: 27.8 cm Ao mean P.7 mmHg HAKAN(I,D): 2.9 cm2 Ao V2 VTI: 35.0 cm HAKAN(V,D): 2.8 cm2 sev ratio: 0.79 HAKAN indexed to BSA (cm^2/m^2): 1.7 MV E max mina: 81.6 cm/sec TR max mina: 270.6 cm/sec MV A max mina: 37.0 cm/sec TR max P.3 mmHg MV E/A: 2.2 PA V2 max: 85.7 cm/sec MV dec time: 0.20 sec PA V2 mean: 56.8 cm/sec PA mean P.5 mmHg PA pr(Accel): 17.3 mmHg SV(LVOT): 102.4 ml Reading Physician:01:33 PM
--- NOTE | 2023-11-07 09:21 | DI.RAD.S_ITS ---
PROCEDURE: XR DEXA AXIAL SKELETON INDICATIONS: arthritis COMPARISON: [facility], CR, XR DEXA AXIAL SKELETON, 01/20/2020, 12:57. [facility], CR, XR DEXA AXIAL SKELETON, 01/16/2018, 15:40. FINDINGS: Lumbar Spine: Bone mineral density is 0.795 g/cm2, T score -2.2. Prior DEXA was performed using dissimilar scan type or analysis method. Left Hip: Bone mineral density 0.782 g/cm2, T score -1.3. Prior DEXA was performed using dissimilar scan type or analysis method. Left Femoral Neck: Bone mineral density is 0.680 g/cm2, T score -1.5. Right Hip: Bone mineral density is 0.807 g/cm2, T score -1.1. Prior DEXA was performed using dissimilar scan type or analysis method. Right Femoral Neck: Bone mineral density 0.682 g/cm2, T score -1.5. Left Forearm: Bone mineral density is 0.621 g/cm2, T score -1.2. Fracture Risk Calculation (when applicable): 10-year fracture risk of a major osteoporotic fracture 10 % and of a hip fracture 1.6 %. (T score greater or equal to -1.0 to: NORMAL) (T score from -1.1 to -2.4: OSTEOPENIA) (T score less than or equal to -2.5: OSTEOPOROSIS) IMPRESSION: By WHO criteria, patient has osteopenia. Follow-up guidelines as follows: Osteoporosis: Consider a repeat DEXA and Vertebral Fracture Assessment (VFA) exam in 2 years or sooner if medically necessary, to reassess this patient's status. Osteopenia: Consider a repeat DEXA in 2-3 years to reassess this patient's status, or if there is a new clinical indication. Normal: Consider a repeat DEXA in 5 years or sooner, or if there is a new clinical indication. All treatment decisions require clinical judgment and consideration of individual patient factors, including patient preferences, comorbidities, previous drug use, risk factors not captured in the FRAX model (e.g., frailty, falls, vitamin D deficiency, increased bone turnover, interval significant decline in bone density ) and possible under- or over-estimation of fracture risk by FRAX. In addition, the NOF Guide recommends that FDA-approved medical therapies be considered in postmenopausal women and men age >= 50 years with a: * Hip or vertebral (clinical or morphometric) fracture * T-score of <=-2.5 at the spine or hip * Ten-year fracture probability by FRAX of >= 3% for hip fracture or >=20% for major osteoporotic fracture. People with diagnosed cases of osteoporosis or at high risk for fracture should have regular bone mineral density tests. For patients eligible for Medicare, routine testing is allowed once every 2 years. The testing frequency can be increased to one year for patients who have rapidly progressing disease, those who are receiving or discontinuing medical therapy to restore bone mass, or have additional risk factors. Dictated by: Hola Arteaga M.D. on 11/07/2023 at 22:02 Approved by: Hola Arteaga M.D. on 11/07/2023 at 22:05
[2023-11-07 10:28] LABS: Appearance Urine UA CLEAR; Bilirubin Urine UA NEGATIVE (NEGATIVE); Color Urine UA YELLOW; Glucose Urine UA NEGATIVE (Negative); Ketones Urine UA TRACE (NEGATIVE); Leukocyte Esterase Urine UA NEGATIVE (NEGATIVE); Nitrite Urine UA NEGATIVE (Negative); Occult Blood Urine UA NEGATIVE (Negative); Protein Urine UA NEGATIVE (Negative); Urobilinogen Urine UA 0.2 E.U./dL (0.2)
[2023-11-07 11:07] LABS: Bacteria Urine Occasional (0-1); Mucus Urine 1+ (Negative); RBC Urine 0-1/HPF (0-5/HPF); Squamous Epithelial Cell Urine 10-30 /HPF (0-5/HPF); Urine Volume 10mL (spun); WBC Urine 0-1/HPF (0-5/HPF)
[2023-11-07 11:08] LABS: Culture Indicated Urine Cult Not Indicated
== END ==
PROVIDERS: Family Provider Internal Medicine Hematology & Oncology; PCP Internal Medicine; Referring Provider Internal Medicine; Visit Provider Internal Medicine
DX: R93.1 Abnormal findings on diagnostic imaging of heart and coronary circulation (principal); I08.1 Rheumatic disorders of both mitral and tricuspid valves; M85.89 Other specified disorders of bone density and structure, multiple sites; M19.071 Primary osteoarthritis, right ankle and foot; M19.072 Primary osteoarthritis, left ankle and foot; M54.9 Dorsalgia, unspecified
CPT/HCPCS: 77080; 77081; 81001; 93306

== ENCOUNTER → 2023-12-25 11:56 | Outpatient (CLI) | payer MEDICARE, BC, SELFPAY ==
[2023-11-06 09:55] VITALS: BMI 26.5
[2023-12-25 15:00] LABS: Estimated Glomerular Filt Rate > 60 mL/min (>60)
== END ==
LOC: LAB 11:57
PROVIDERS: Family Provider Internal Medicine Hematology & Oncology; PCP Internal Medicine; Referring Provider Internal Medicine; Visit Provider Internal Medicine
DX: C85.88 Other specified types of non-Hodgkin lymphoma, lymph nodes of multiple sites (principal)
CPT/HCPCS: 36415; 82565

== ENCOUNTER → 2023-12-26 11:18 | Outpatient (CLI) | payer MEDICARE, BC, SELFPAY ==
[2023-11-06 09:55] VITALS: BMI 26.5
--- NOTE | 2023-12-26 11:19 | DI.CT.S_ITS ---
PROCEDURE: CT CHEST W CON INDICATIONS: shortness of breath, rule out ILD, effusion, adenopathy, PAH TECHNIQUE: After the administration of intravenous contrast, 5 mm thick sections acquired from the pulmonary apices to the posterior costophrenic angles. 1 mm axial lung, 5 mm thick coronal and sagittal reformats and 7 mm axial MIP were acquired. For radiation dose reduction, the following was used: automated exposure control, adjustment of mA and/or kV according to patient size. COMPARISON: None. FINDINGS: Image quality: Diagnostic. Lower Neck: No enlarged lymph nodes. Thyroid: 1.6 x 1 cm hypodense nodule is seen involving mid to lower pole left thyroid lobe with suggestion of internal enhancing solid component. Axillae: No enlarged lymph nodes. Chest Wall: Unremarkable. Bones: No aggressive appearing bony lesions.. Lungs and Pleura: No pneumothorax or pleural effusions. Mild dependent atelectasis in posterior aspect of bilateral lower lobes are seen. No consolidation or suspicious nodules. Central and peripheral airway is patent. Heart: Heart size is enlarged. No pericardial effusion. Thoracic Vessels: The aorta is normal in size. Prominent size of main pulmonary artery is seen concerning for pulmonary vascular hypertension. Mediastinum and Concepcion: No enlarged lymph nodes. Esophagus: Mild distal esophageal wall thickening is seen with suggestion of a small hiatal hernia. Upper Abdomen: Visualized upper abdomen solid organs and bowel loops appear normal. Gallbladder is surgically absent. IMPRESSION: 1. Cardiomegaly, no pericardial effusion. Prominent size of main pulmonary artery concerning for pulmonary vascular hypertension. No thoracic aortic aneurysm or dissection. 2. No evidence of significant interstitial lung disease. No focal infiltrate, pleural effusion or pneumothorax. Mild dependent atelectasis in posterior aspect of bilateral lung kruse. 3. No mediastinal or hilar lymphadenopathy. Mild distal esophageal wall thickening and small hiatal hernia which may represent mild distal esophagitis. 4. 1.6 x 1 cm heterogeneously hypo dense nodule involving left thyroid lobe, please correlate with previous ultrasound of thyroid gland findings. Dictated by: Justo Gaytan M.D. on 12/26/2023 at 17:19 Approved by: Justo Gaytan M.D. on 12/26/2023 at 17:24
== END ==
LOC: CT 11:19
PROVIDERS: Family Provider Internal Medicine Hematology & Oncology; PCP Internal Medicine; Referring Provider Internal Medicine; Visit Provider Internal Medicine
DX: I51.7 Cardiomegaly (principal); R06.02 Shortness of breath; E04.1 Nontoxic single thyroid nodule; J98.11 Atelectasis; Z90.49 Acquired absence of other specified parts of digestive tract
CPT/HCPCS: 71260; Q9967

== ENCOUNTER → 2024-04-08 14:51 | Outpatient (CLI) | payer MEDICARE, BC, SELFPAY ==
[2023-11-06 09:55] VITALS: BMI 26.5
[2024-04-08 15:10] LABS: Add Manual Diff / Slide Review NO; Basophils Absolute Auto 100 /uL (0-100); Basophils Percent Auto 0.8 % (0-2); Eosinophils Absolute Auto 100 /uL (0-450); Eosinophils Percent Auto 1.2 % (2-4); Hematocrit 36.1 % (36-46); Hemoglobin 12.1 g/dL (12.0-16.0); Lymphocytes Absolute Auto 1200 /uL (1100-4500); Lymphocytes Percent Auto 17.6 % (25-40); Mean Corpuscular HGB Conc 33.6 % (30-36); Mean Corpuscular Hemoglobin 34.2 PG (26-34); Mean Corpuscular Volume 101.8 fL (80-100); Monocytes Absolute Auto 600 /uL (0-900); Monocytes Percent Auto 8.6 % (3-14); Neutrophils Absolute Auto 4800 /uL (1500-7000); Neutrophils Percent Auto 71.8 % (50-75); Platelet Count 221 X10^3/uL (150-400); Red Blood Cell Count 3.55 X10^6/uL (4.0-5.2); Red Cell Distribution Width 16.1 % (11.6-14.8); White Blood Cell Count 6.7 X10^3/uL (4.5-11.0)
[2024-04-08 15:36] LABS: Alanine Aminotransferase 22 IU/L (<35); Albumin Globulin Ratio 1.5 (1.0-2.8); Alkaline Phosphatase 55 U/L (38-126); Aspartate Aminotransferase 28 IU/L (14-36); Bilirubin Total 0.6 mg/dL (0.2-1.3); Blood Urea Nitrogen 18 mg/dL (7-17); Calcium 9.4 mg/dL (8.4-10.2); Carbon Dioxide 28 mmol/L (22-32); Chloride 104 mmol/L (98-107); Estimated Glomerular Filt Rate > 60 mL/min (>60); Globulin 2.6 g/dL (1.7-4.1); Glucose 105 mg/dL (80-110); HEMOLYSIS < 15 (0-50); Potassium 4.2 mmol/L (3.4-5.1); Sodium 136 mmol/L (137-145); Total Protein 6.6 g/dL (6.3-8.2)
== END ==
PROVIDERS: Family Provider Internal Medicine Hematology & Oncology; PCP Internal Medicine; Referring Provider Internal Medicine Rheumatology; Visit Provider Internal Medicine Rheumatology
DX: M34.1 CR(E)ST syndrome (principal); Z79.899 Other long term (current) drug therapy
CPT/HCPCS: 36415; 80053; 85025

== ENCOUNTER → 2024-04-12 08:00 | Outpatient (CLI) | payer MEDICARE, BC, SELFPAY ==
[2023-11-06 09:55] VITALS: BMI 26.5
--- NOTE | 2024-04-12 | DI.ECHO.S_ITS ---
[facility] : : [id number] : : [place], : : [place] [id number] : : Phone: [phone] Echocardiogram Report + + :Name: JAVIER GREEN Study Date: 04/12/2024 Height: 63 in : :[facility] ReadingLocation: Weight: 150 lb : : Gender: Female BSA: 1.7 m2 : :: 1950 Age: 73 yrs BP: 101/76 mmHg: :Reason For Study: REEVAL PULMONARY PRESSURE : :Ordering Physician: CAITLIN, : :JUAN F Performed By: Noah Acosta : :Referring: JUAN F TUCKER : + + Interpretation Summary 1. Left ventricular contractility is borderline. Estimate ejection fraction is approximately 50 to 55% with no segmental wall motion abnormalities. No LVH. Unable to comment on diastolic function. 2. The right ventricular contractility is also borderline. 3. Severe left atrial enlargement. Borderline right atrial enlargement. Both the right and left ventricular cavities are normal size. 4. Trace to mild mitral regurgitation. 5. Trace to mild tricuspid regurgitation with estimated pulmonary systolic artery pressures of 28 mmHg. 6. Aneurysmal interatrial septum but no obvious intracardiac shunts noted on color-flow Doppler interrogation. There is bowing of the intra-atrial septum towards the right atrium suggestive of elevated left atrial pressures. 7. No obvious intracardiac masses nor thrombi. 8. No hemodynamically significant pericardial effusion. 9. Low right-sided filling pressures. Conclusion: Low normal biventricular systolic function with trace to mild valvular regurgitation. When compared with previous echocardiogram, there has been a slight decline in the left ventricular systolic function. Procedure: A two-dimensional transthoracic echocardiogram with color flow and Doppler was performed. The study quality was technically good. Comparison is made with the echocardiogram of 11/07/2023. The patient was in atrial flutter with heart rates between 43-56 bpm during the exam. Left Ventricle: The left ventricle is normal in size. There is normal left ventricular wall thickness. There is no ventricular septal defect visualized. The ejection fraction is estimated to be 50-55%. There are no focal wall motion abnormalities. Right Ventricle: The right ventricle is normal in size and function. Atria: The left atrium is severely dilated. The right atrium is borderline dilated. The interatrial septum bows toward right atrium consistent with elevated left atrial pressure. Hx of PFO. Mitral Valve: The mitral valve leaflets appear normal. There is no evidence of stenosis, fluttering, or prolapse. There is mild mitral regurgitation. Aortic Valve: The aortic valve is trileaflet. The aortic valve is slightly calcified. The aortic valve opens well. No aortic regurgitation is present. Tricuspid Valve: The tricuspid valve leaflets are thin and pliable. There is mild tricuspid regurgitation. The right ventricular systolic pressure is estimated to be at least 28 mmHg based on an estimated right atrial pressure of 3 mm Hg. Pulmonic Valve: The pulmonic valve leaflets are thin and pliable; valve motion is normal. There is trace pulmonic regurgitation. Great Vessels: The aortic root is normal size. The dimensions of the ascending aorta are normal. The pulmonary artery is normal size. The IVC is of normal diameter and collapses greater than 50% with a sniff. This suggests a low right atrial pressure of 3 mm Hg. Pericardium/ Pleura There is no pericardial effusion. There is no pleural effusion. MMode/2D Measurements & Calculations LVIDd: 4.7 cm AoV Openin.0 cm LVIDs: 3.5 cm LVOT diam: 2.2 cm IVSd: 0.87 cm Ao root diam: 3.5 cm LVPWd: 0.88 cm asc Aorta Diam: 3.5 cm LV guzman. diameter/BSA (cm/m^2): 2.8 Ao Arch Diam (Prox Trans): 1.8 cm LV sys. diameter/BSA (cm/m^2): 2.0 FS: 26.0 % EPSS: 0.61 cm LA A2 area: 24.5 cm2 RA long axis: 4.9 cm LA A4 area: 24.6 cm2 RA area: 14.8 cm2 LA length (vol): 6.5 cm RA vol: 37.8 ml LA vol: 78.7 ml RA : 22.1 ml/m2 LA vol index: 46.0 ml/m2 RVD1 (basal): 3.8 cm IVC diam: 1.3 cm RVD2 (mid): 2.6 cm TAPSE: 2.0 cm Doppler Measurements & Calculations Ao V2 max: 123.4 cm/sec LVOT Max Mina: 89.6 cm/sec Ao V2 mean: 97.8 cm/sec LV V1 max P.2 mmHg Ao V2 VTI: 31.3 cm LV V1 VTI: 21.3 cm Ao max P.1 mmHg Ao mean P.1 mmHg HAKAN(I,D): 2.5 cm2 MV E max mina: 72.1 cm/sec HAKAN(V,D): 2.7 cm2 MV A max mina: 24.1 cm/sec HAKAN indexed to BSA (cm^2/m^2): 1.5 MV E/A: 3.0 sev ratio: 0.68 Med Peak E' Mina: 10.4 cm/sec E/E' med: 6.9 Lat Peak E' Mina: 14.4 cm/sec E/E' lat: 5.0 E/e' average: 6.0 MV dec time: 0.16 sec TR max mina: 251.0 cm/sec TR max P.2 mmHg PA V2 max: 48.6 cm/sec SV(LVOT): 79.3 ml PA V2 mean: 32.9 cm/sec PA mean P.49 mmHg PA pr(Accel): 29.3 mmHg Reading Physician:
== END ==
PROVIDERS: Family Provider Internal Medicine Hematology & Oncology; PCP Internal Medicine; Referring Provider Internal Medicine; Visit Provider Internal Medicine
DX: I50.30 Unspecified diastolic (congestive) heart failure (principal); I27.20 Pulmonary hypertension, unspecified; R06.02 Shortness of breath; I51.7 Cardiomegaly; I34.0 Nonrheumatic mitral (valve) insufficiency; I07.1 Rheumatic tricuspid insufficiency
CPT/HCPCS: 93306

== ENCOUNTER → 2024-04-29 11:34 | Outpatient (CLI) | payer MEDICARE, BC, SELFPAY ==
[2023-11-06 09:55] VITALS: BMI 26.5
--- NOTE | 2024-04-29 11:36 | DI.MG.S_ITS ---
UNILATERAL LEFT DIGITAL SCREENING MAMMOGRAM 3D/2D WITH CAD: 04/29/2024 CLINICAL: Routine screening. Personal history of right breast cancer. Family history. Comparison is made to exams dated: 05/10/2023 mammogram, 04/25/2023 mammogram, 04/05/2022 mammogram, and 03/31/2021 mammogram - [facility]. The breasts are heterogeneously dense, which may obscure small masses (category c / 51-75% glandular tissue). Current study was also evaluated with a Computer Aided Detection (CAD) system. No significant masses, calcifications, or other findings are seen in the breast. There has been no significant interval change. IMPRESSION: NEGATIVE There is no mammographic evidence of malignancy. A 1 year screening mammogram is recommended. Future imaging is recommended as follows: 07/04/2024 screening mammogram. This exam was interpreted at Station ID: [id number]. NOTE: For mammograms, a report in lay terms will be sent to the patient. Approximately 15% of breast malignancies will not be visualized mammographically. In the management of a palpable breast mass, a negative mammogram must not discourage biopsy of a clinically suspicious lesion. Electronically Signed By: Cielo field/uday:04/29/2024 17:11:27 letter sent: Normal Exam ACR BI-RADS Category 1: Negative
== END ==
PROVIDERS: Family Provider Internal Medicine Hematology & Oncology; PCP Internal Medicine; Referring Provider Internal Medicine; Visit Provider Internal Medicine
DX: Z12.31 Encounter for screening mammogram for malignant neoplasm of breast (principal); Z85.3 Personal history of malignant neoplasm of breast; Z80.3 Family history of malignant neoplasm of breast; R92.333 Mammographic heterogeneous density, bilateral breasts
CPT/HCPCS: 77063; 77067

== ENCOUNTER → 2024-06-19 11:05 | Outpatient (CLI) | payer MEDICARE, BC, SELFPAY ==
[2023-11-06 09:55] VITALS: BMI 26.5
--- NOTE | 2024-06-19 11:07 | DI.CT.S_ITS ---
PROCEDURE: CT CHEST WO CON INDICATIONS: MASS OF LEFT BREAST,COUGH IN ADULT TECHNIQUE: Noncontrast 5 mm thick sections acquired from the pulmonary apices to the posterior costophrenic angles. 1 mm lung window, 5 mm thick coronal and sagittal and 7 mm axial MIP reformats were then acquired. For radiation dose reduction, the following was used: automated exposure control, adjustment of mA and/or kV according to patient size. COMPARISON: [facility], CT, CT CHEST W CON, 12/26/2023, 11:48. FINDINGS: Image quality: Diagnostic. Lungs and Pleura: Central and peripheral airways are normal without bronchial wall thickening or bronchiectasis. No nodule, mass, ground-glass opacity, or consolidation. No pleural effusions or pleural calcifications. Lower Neck: Several borderline left supraclavicular lymph nodes, stable Thyroid: Stable left thyroid nodule. Axillae: No enlarged lymph nodes. Chest Wall: Prior right mastectomy. Bones: No suspicious bone lesion. Mild degenerative changes in the spine. Thoracic Vessels: The aorta and pulmonary arteries demonstrate normal size. Mediastinum and Concepcion: No enlarged lymph nodes. Heart: Heart size is normal. No pericardial effusion. Minor pericardial thickening. Esophagus: No wall thickening. No hiatal hernia. Upper Abdomen: Cholecystectomy. Visible portions of upper abdominal organs are otherwise normal. IMPRESSION: No evidence of cardiopulmonary disease. Stable left supraclavicular lymph nodes, presumed reactive. Stable left thyroid nodule. Dictated by: Cielo Brown M.D. on 06/19/2024 at 17:18 Approved by: Cielo Brown M.D. on 06/19/2024 at 17:23
== END ==
PROVIDERS: Family Provider Internal Medicine Hematology & Oncology; PCP Internal Medicine; Referring Provider Internal Medicine Hematology & Oncology; Visit Provider Internal Medicine Hematology & Oncology
DX: R59.0 Localized enlarged lymph nodes (principal); E04.1 Nontoxic single thyroid nodule; N63.22 Unspecified lump in the left breast, upper inner quadrant; R05.9 Cough, unspecified; Z90.11 Acquired absence of right breast and nipple; Z90.49 Acquired absence of other specified parts of digestive tract
CPT/HCPCS: 71250

== ENCOUNTER → 2024-07-03 17:34 | Outpatient (CLI) | payer MEDICARE, BC, SELFPAY ==
[2023-11-06 09:55] VITALS: BMI 26.5
[2024-07-03 18:04] LABS: Color Urine UA YELLOW
[2024-07-03 18:05] LABS: Bilirubin Urine UA NEGATIVE (NEGATIVE); Glucose Urine UA NEGATIVE (Negative); Ketones Urine UA NEGATIVE (NEGATIVE); Leukocyte Esterase Urine UA 2+ (NEGATIVE); Nitrite Urine UA POSITIVE (Negative); Occult Blood Urine UA NEGATIVE (Negative); Protein Urine UA NEGATIVE (Negative); Specific Gravity Urine UA <=1.005 (1.000-1.035); Urobilinogen Urine UA 0.2 E.U./dL (0.2)
[2024-07-03 18:06] LABS: Appearance Urine UA CLOUDY; pH Urine UA 5.5 (4.5-8.0)
[2024-07-03 18:10] LABS: Bacteria Urine Many (>30); RBC Urine None Seen (0-5/HPF); Renal Epithelial Cells Urine 1-5/HPF (0-1/HPF); Squamous Epithelial Cell Urine 1-5 /HPF (0-5/HPF); Urine Volume 10mL (spun); WBC Urine 5-10/HPF (0-5/HPF)
[2024-07-03 18:11] LABS: Culture Indicated Urine Specimen Cultured
== END ==
LOC: LAB 17:35
PROVIDERS: Family Provider Internal Medicine Hematology & Oncology; PCP Internal Medicine; Referring Provider Specialist; Visit Provider Specialist
DX: R30.0 Dysuria (principal)
CPT/HCPCS: 81001; 87077; 87086

== ENCOUNTER → 2024-08-08 10:08 | Outpatient (CLI) | payer MEDICARE, BC, SELFPAY ==
[2023-11-06 09:55] VITALS: BMI 26.5
[2024-08-08 11:05] LABS: Add Manual Diff / Slide Review NO; Basophils Absolute Auto 0 /uL (0-100); Basophils Percent Auto 0.6 % (0-2); Eosinophils Absolute Auto 100 /uL (0-450); Eosinophils Percent Auto 0.9 % (2-4); Hematocrit 36.5 % (36-46); Hemoglobin 12.4 g/dL (12.0-16.0); Lymphocytes Absolute Auto 800 /uL (1100-4500); Lymphocytes Percent Auto 14.4 % (25-40); Mean Corpuscular HGB Conc 33.9 % (30-36); Mean Corpuscular Hemoglobin 34.7 PG (26-34); Mean Corpuscular Volume 102.4 fL (80-100); Monocytes Absolute Auto 600 /uL (0-900); Monocytes Percent Auto 10.2 % (3-14); Neutrophils Absolute Auto 4300 /uL (1500-7000); Neutrophils Percent Auto 73.9 % (50-75); Platelet Count 239 X10^3/uL (150-400); Red Blood Cell Count 3.57 X10^6/uL (4.0-5.2); Red Cell Distribution Width 15.4 % (11.6-14.8); White Blood Cell Count 5.8 X10^3/uL (4.5-11.0)
[2024-08-08 11:31] LABS: Alanine Aminotransferase 19 IU/L (<35); Albumin 4.3 g/dL (3.5-5.0); Albumin Globulin Ratio 1.7 (1.0-2.8); Alkaline Phosphatase 67 U/L (38-126); Aspartate Aminotransferase 26 IU/L (14-36); BUN Creatinine Ratio 21.9 (6-22); Bilirubin Total 0.6 mg/dL (0.2-1.3); Blood Urea Nitrogen 14 mg/dL (7-17); Calcium 9.6 mg/dL (8.4-10.2); Carbon Dioxide 22 mmol/L (22-32); Chloride 104 mmol/L (98-107); Estimated Glomerular Filt Rate > 60 mL/min (>60); Globulin 2.6 g/dL (1.7-4.1); Glucose 109 mg/dL (70-99); HEMOLYSIS < 15 (0-50); Potassium 4.1 mmol/L (3.4-5.1); Sodium 138 mmol/L (137-145); Total Protein 6.9 g/dL (6.3-8.2)
== END ==
PROVIDERS: Family Provider Internal Medicine Hematology & Oncology; PCP Internal Medicine; Referring Provider Internal Medicine Rheumatology; Visit Provider Internal Medicine Rheumatology
DX: M34.1 CR(E)ST syndrome (principal); Z79.899 Other long term (current) drug therapy
CPT/HCPCS: 36415; 80053; 85025

== ENCOUNTER → 2024-08-27 16:28 | Outpatient (CLI) | payer MEDICARE, BC, SELFPAY ==
[2023-11-06 09:55] VITALS: BMI 26.5
--- NOTE | 2024-08-27 16:30 | DI.RAD.S_ITS ---
PROCEDURE: XR KNEE LT 3V INDICATIONS: left knee pain x5 weeks TECHNIQUE: 3 views of the knee were acquired. COMPARISON: None. FINDINGS: Bones: No fractures or dislocations. Moderate medial and mild to moderate lateral tibiofemoral and moderate patellofemoral compartment narrowing with associated osteophytosis. No suspicious bony lesions. Soft tissues: No joint effusion. No suspicious soft tissue calcifications. IMPRESSION: KL grade 2 tricompartmental osteoarthritis without evidence of acute osseous abnormality. Dictated by: Michael Grubbs M.D. on 08/28/2024 at 21:57 Approved by: Michael Grubbs M.D. on 08/28/2024 at 23:29
--- NOTE | 2024-08-27 16:30 | DI.RAD.S_ITS ---
PROCEDURE: XR ANKLE LT MIN 3V INDICATIONS: left ankle swelling TECHNIQUE: 3 views of the ankle were acquired. COMPARISON: None. FINDINGS: Bones: No fractures or dislocations. Ankle mortise is normally aligned. No suspicious bony lesions. Plantar calcaneal enthesopathy. Soft tissues: No tibiotalar joint effusion. Achilles tendon appears normal. IMPRESSION: No acute bony abnormality or significant effusion. Dictated by: Michael Grubbs M.D. on 08/28/2024 at 23:33 Approved by: Michael Grubbs M.D. on 08/29/2024 at 0:03
== END ==
PROVIDERS: Family Provider Internal Medicine Hematology & Oncology; PCP Internal Medicine; Referring Provider Internal Medicine; Visit Provider Internal Medicine
DX: M17.12 Unilateral primary osteoarthritis, left knee (principal); M25.562 Pain in left knee; M25.472 Effusion, left ankle; M77.32 Calcaneal spur, left foot
CPT/HCPCS: 73562; 73600

== ENCOUNTER → 2024-11-18 12:36 | Outpatient (CLI) | payer MEDICARE, BC, SELFPAY ==
[2023-11-06 09:55] VITALS: BMI 26.5
[2024-11-18 13:42] LABS: Add Manual Diff / Slide Review NO; Hematocrit 39.1 % (36-46); Hemoglobin 13.0 g/dL (12.0-16.0); Lymphocytes Absolute Auto 800 /uL (1100-4500); Mean Corpuscular HGB Conc 33.4 % (30-36); Mean Corpuscular Hemoglobin 34.7 PG (26-34); Mean Corpuscular Volume 103.9 fL (80-100); Platelet Count 229 X10^3/uL (150-400)
[2024-11-18 14:14] LABS: Alanine Aminotransferase 22 IU/L (<35); Albumin 4.3 g/dL (3.5-5.0); Albumin Globulin Ratio 1.5 (1.0-2.8); Alkaline Phosphatase 67 U/L (38-126); Blood Urea Nitrogen 13 mg/dL (7-17); Calcium 9.8 mg/dL (8.4-10.2); Carbon Dioxide 25 mmol/L (22-32); Chloride 104 mmol/L (98-107); Estimated Glomerular Filt Rate > 60 mL/min (>60); Globulin 2.9 g/dL (1.7-4.1); Glucose 88 mg/dL (70-99); HEMOLYSIS < 15 (0-50); Potassium 3.9 mmol/L (3.4-5.1); Sodium 138 mmol/L (137-145); Total Protein 7.2 g/dL (6.3-8.2)
== END ==
PROVIDERS: PCP Internal Medicine; Referring Provider Internal Medicine Hematology & Oncology; Visit Provider Internal Medicine Hematology & Oncology
DX: R05.9 Cough, unspecified (principal); N63.22 Unspecified lump in the left breast, upper inner quadrant
CPT/HCPCS: 36415; 80053; 85025

== ENCOUNTER → 2024-11-19 12:38 | Outpatient (CLI) | payer MEDICARE, BC, SELFPAY ==
[2023-11-06 09:55] VITALS: BMI 26.5
--- NOTE | 2024-11-19 12:40 | DI.CT.S_ITS ---
PROCEDURE: CT ABDOMEN PELVIS W CON INDICATIONS: Bloating, nausea, poor appetite TECHNIQUE: After the administration of intravenous contrast, axial sections acquired from the lung bases to the pubic symphysis. Coronal and sagittal reformats were performed. For radiation dose reduction, the following was used: automated exposure control, adjustment of mA and/or kV according to patient size. COMPARISON: None. FINDINGS: Image quality: Diagnostic. Lower Chest: Biatrial enlargement. Small sliding hiatal hernia. ABDOMEN: Liver: No solid mass. Gallbladder: Post cholecystectomy. Biliary ducts: No biliary dilation. Pancreas: No ductal dilation. Spleen: Size is within normal limits. Adrenal Glands: No adrenal nodules. Kidneys and Ureters: No hydronephrosis. No solid mass. No complex renal cystic lesion which requires follow up. Stomach and Bowel: Mild gastric wall thickening along the greater curvature. The small and large bowel are normal in caliber with normal wall thickness.. Nonvisualized appendix. No pericecal inflammation. Peritoneum: No abnormal intraperitoneal fluid. No free air. Ventral Wall: No significant ventral hernia. Abdominal Nodes: No retroperitoneal or mesenteric adenopathy by size criteria. Vessels: Aorta and inferior vena cava are normal in size. Retroaortic left renal vein. PELVIS: Pelvic Organs: Multifibroid uterus with multiple, calcified, degenerated, fibroids.. Bladder: No bladder wall thickening, accounting for underdistention. Pelvic Nodes: No enlarged lymph nodes. Miscellaneous: No inguinal hernias are seen. Bones: No aggressive osseous abnormality. Moderate degenerate disc disease at L2-3. IMPRESSION: Nonspecific gastric wall thickening of the greater curvature which may be secondary to incomplete distension versus possible mural based lesion. Recommend correlation with upper endoscopy if not recently performed. Dictated by: Yaya Rodriguez M.D. on 11/19/2024 at 15:13 Approved by: Yaya Rodriguez M.D. on 11/19/2024 at 15:43
== END ==
LOC: CT 12:39
PROVIDERS: PCP Internal Medicine; Referring Provider Internal Medicine; Visit Provider Physician Assistant
DX: K59.09 Other constipation (principal); K44.9 Diaphragmatic hernia without obstruction or gangrene; D25.9 Leiomyoma of uterus, unspecified; R14.0 Abdominal distension (gaseous); R11.0 Nausea; R13.10 Dysphagia, unspecified; R63.0 Anorexia; R53.83 Other fatigue; F32.A Depression, unspecified; R63.5 Abnormal weight gain; M51.369 Other intervertebral disc degeneration, lumbar region without mention of lumbar back pain or lower extremity pain; Z90.49 Acquired absence of other specified parts of digestive tract
CPT/HCPCS: 74177; Q9967

== ENCOUNTER → 2024-12-06 13:38 | Outpatient (CLI) | payer MEDICARE, BC, SELFPAY ==
[2023-11-06 09:55] VITALS: BMI 26.5
[2024-12-06 14:54] LABS: HEMOLYSIS < 15 (0-50); Iron 92 ug/dL (37-170)
[2024-12-06 15:06] LABS: Percent Iron Saturation 29 % (15-50); Total Iron Binding Capacity 318 ug/dL (265-497); Transferrin 275 mg/dL (206-381)
[2024-12-06 15:32] LABS: Ferritin 23 ng/mL (11-264)
== END ==
LOC: LAB 13:40
PROVIDERS: PCP Internal Medicine
DX: F45.8 Other somatoform disorders (principal); R53.83 Other fatigue
CPT/HCPCS: 36415; 82728; 83540; 83550

== ENCOUNTER → 2024-12-09 09:17 | Outpatient (CLI) | payer MEDICARE, BC, SELFPAY ==
[2023-11-06 09:55] VITALS: BMI 26.5
--- NOTE | 2024-12-09 09:19 | DI.CT.S_ITS ---
PROCEDURE: CT CHEST W CON INDICATIONS: sob TECHNIQUE: After the administration of intravenous contrast, 5 mm thick sections acquired from the pulmonary apices to the posterior costophrenic angles. 1 mm axial lung, 5 mm thick coronal and sagittal reformats and 7 mm axial MIP were acquired. For radiation dose reduction, the following was used: automated exposure control, adjustment of mA and/or kV according to patient size. COMPARISON: [facility], CT, CT CHEST WO CON, 06/19/2024, 11:15. FINDINGS: Image quality: Diagnostic. Lower Neck: No enlarged lymph nodes. Thyroid: Stable left thyroid nodules. Axillae: No enlarged lymph nodes. Chest Wall: Prior right mastectomy. Bones: Degenerative changes of the spine. Lungs and Pleura: No pneumothorax or pleural effusions. No focal consolidation or suspicious pulmonary nodules. Heart: Mild cardiomegaly. Mild coronary artery calcifications. Thoracic Vessels: The aorta and pulmonary arteries demonstrate normal size. Mediastinum and Concepcion: No enlarged lymph nodes. Esophagus: Patulous distal esophagus. Small hiatal hernia. Upper Abdomen: Status post cholecystectomy.Visualized upper abdomen solid organs and bowel loops appear normal. IMPRESSION: No acute visualized cardiopulmonary abnormality. Mild cardiomegaly. Dictated by: Aristeo Rondon M.D. on 12/09/2024 at 20:37 Approved by: Aristeo Rondon M.D. on 12/09/2024 at 20:49
== END ==
PROVIDERS: PCP Internal Medicine
DX: I51.7 Cardiomegaly (principal); I25.10 Atherosclerotic heart disease of native coronary artery without angina pectoris; R06.02 Shortness of breath; K44.9 Diaphragmatic hernia without obstruction or gangrene; Z90.49 Acquired absence of other specified parts of digestive tract
CPT/HCPCS: 71260; Q9967

== ENCOUNTER → 2025-01-27 12:29 | Outpatient (CLI) | payer MEDICARE, BC, SELFPAY ==
[2023-11-06 09:55] VITALS: BMI 26.5
[2025-01-27 12:53] LABS: Appearance Urine UA CLEAR; Bilirubin Urine UA NEGATIVE (NEGATIVE); Color Urine UA YELLOW; Glucose Urine UA NEGATIVE (Negative); Ketones Urine UA TRACE (NEGATIVE); Leukocyte Esterase Urine UA TRACE (NEGATIVE); Nitrite Urine UA NEGATIVE (Negative); Occult Blood Urine UA NEGATIVE (Negative); Protein Urine UA NEGATIVE (Negative); Specific Gravity Urine UA 1.010 (1.000-1.035); Urobilinogen Urine UA 0.2 E.U./dL (0.2)
[2025-01-27 12:54] LABS: pH Urine UA 6.0 (4.5-8.0)
[2025-01-27 12:55] LABS: Culture Indicated Urine Specimen Cultured
== END ==
PROVIDERS: PCP Internal Medicine; Referring Provider Internal Medicine; Visit Provider Internal Medicine
DX: R35.0 Frequency of micturition (principal)
CPT/HCPCS: 81001; 87086

== ENCOUNTER → 2025-02-12 12:28 | Outpatient (CLI) | payer MEDICARE, BC, SELFPAY ==
[2023-11-06 09:55] VITALS: BMI 26.5
[2025-02-12 14:25] LABS: Appearance Urine UA CLEAR; Bilirubin Urine UA NEGATIVE (NEGATIVE); Color Urine UA YELLOW; Glucose Urine UA NEGATIVE (Negative); Ketones Urine UA NEGATIVE (NEGATIVE); Leukocyte Esterase Urine UA NEGATIVE (NEGATIVE); Nitrite Urine UA NEGATIVE (Negative); Occult Blood Urine UA NEGATIVE (Negative); Protein Urine UA NEGATIVE (Negative); Specific Gravity Urine UA <=1.005 (1.000-1.035); Urobilinogen Urine UA 0.2 E.U./dL (0.2); pH Urine UA 5.5 (4.5-8.0)
[2025-02-12 14:33] LABS: Culture Indicated Urine Cult Not Indicated
== END ==
PROVIDERS: PCP Internal Medicine; Visit Provider Obstetrics & Gynecology Gynecology
DX: N32.81 Overactive bladder (principal); R35.0 Frequency of micturition
CPT/HCPCS: 81001